=== PATIENT | female | born 1955 | race Caucasian/White ===

== ENCOUNTER → 2016-10-30 | Outpatient (CLI) | payer OTHER ==
[~2016-10-30] MED LIST: ADV250INH INH; ADVA115A INH; ALBU17IN INH; CHEL50TA PO; COUM2.5T11 PO; CURAMIN PO; DEXA2TA PO; DEXA4TA PO; DRIS50002 PO; KEPP1TAB2 PO; MAGN400C2 PO; PANT40TA2 PO; PERC5TAB6 PO; PROA1AER INH; TRAM50TA2 PO; TYLE325T5 PO; VITA100T56 PO; VITA20008 PO
[2016-10-30 16:10] LABS: BLOOD UREA NITROGEN 16 MG/DL (7-18); CREATININE FOR GFR 0.93 MG/DL (0.55-1.02); GLOMERULAR FILTRATION RATE > 60.0 (>45)
== END ==
LOC: M LAB 14:23
PROVIDERS: ATTEND Radiology Radiation Oncology
DX: D43.2 Neoplasm of uncertain behavior of brain, unspecified (principal)

== ENCOUNTER → 2017-04-19 | Outpatient (CLI) | payer OTHER ==
[~2017-04-19] MED LIST changes: -COUM2.5T11 PO; +COUM2.5T17 PO; +PERC5TAB12 PO; -PERC5TAB6 PO; -PROA1AER INH; +PROAAER10 INH
[2017-04-19 15:00] LABS: BASO # 0.1 10^3/uL (0.0-0.2); BASO % 0.5 % (0.0-1.0); EOS # 0.2 10^3/uL (0.0-0.50); EOS % 2.3 % (0.0-3.0); IMMATURE GRANULOCYTE % 0.3 % (0-0); LYMPH # 3.6 10^3/uL (1.5-4.5); LYMPH % 36.5 % (24.0-44.0); MEAN CORPUSCULAR HEMOGLOBIN 30.6 pg (27.0-33.0); MEAN CORPUSCULAR HGB CONC 33.9 g/dl (32.0-36.5); MEAN CORPUSCULAR VOLUME 90.4 fl (80.0-96.0); MONO # 1.1 10^3/uL (0.0-0.8); MONO % 10.7 % (0.0-5.0); NEUTROPHILS # 4.9 10^3/uL (1.8-7.7); NEUTROPHILS % 49.7 % (36.0-66.0); PLATELET COUNT, AUTOMATED 367 10^3/uL (150-450); RED CELL DISTRIBUTION WIDTH 12.9 % (11.5-14.5); WHITE BLOOD COUNT 9.8 10^3/uL (4.0-10.0)
[2017-04-19 15:24] LABS: ALBUMIN 3.9 GM/DL (3.2-5.2); ALBUMIN/GLOBULIN RATIO 1.05 (1.00-1.93); BILIRUBIN,TOTAL 0.6 MG/DL (0.2-1.0); CALCIUM LEVEL 9.7 MG/DL (8.8-10.2); CREATININE FOR GFR 1.02 MG/DL (0.55-1.02); GLOMERULAR FILTRATION RATE 58.5 (>45); POTASSIUM SERUM 4.3 MEQ/L (3.5-5.1); TOTAL PROTEIN 7.6 GM/DL (6.4-8.2)
== END ==
LOC: M LAB 14:02
PROVIDERS: ATTEND Family Medicine
DX: E78.2 Mixed hyperlipidemia (principal); J45.40 Moderate persistent asthma, uncomplicated

== ENCOUNTER 2017-06-09 16:31 | Emergency (ER) | payer OTHER ==
[~2017-06-09] VITALS: Ht 175.3 cm; Wt 86.4 kg
[2017-06-09 16:32] VITALS: BP 144/82
[2017-06-09] MEDS ORDERED: MAGN400C3 PO (16:39)
[2017-06-09] MEDS ORDERED: VITA500T PO (16:39)
[2017-06-09] MEDS ORDERED: TURM500T PO (16:39)
[2017-06-09] MEDS ORDERED: PSEUDOEPHEDRINE 30 MG TAB PO STA (17:34)
[2017-06-09] MEDS ORDERED: SUDA30TA8 PO (17:36)
== END 2017-06-09 17:58 | disposition home or self-care (01) ==
LOC: M ED 16:31
DX: H65.192 Other acute nonsuppurative otitis media, left ear (principal)

== ENCOUNTER → 2017-08-02 | Outpatient (CLI) | payer OTHER ==
[2017-08-02 19:08] LABS: BASO # 0.1 10^3/uL (0.0-0.2); BASO % 0.5 % (0.0-1.0); EOS # 0.2 10^3/uL (0.0-0.50); EOS % 2.2 % (0.0-3.0); HEMOGLOBIN 14.3 g/dl (12.0-16.0); IMMATURE GRANULOCYTE % 0.3 % (0-0); LYMPH # 3.4 10^3/uL (1.5-4.5); LYMPH % 36.7 % (24.0-44.0); MEAN CORPUSCULAR HGB CONC 33.3 g/dl (32.0-36.5); MEAN CORPUSCULAR VOLUME 90.1 fl (80.0-96.0); MONO % 11.1 % (0.0-5.0); NEUTROPHILS # 4.5 10^3/uL (1.8-7.7); NEUTROPHILS % 49.2 % (36.0-66.0); PLATELET COUNT, AUTOMATED 382 10^3/uL (150-450); RED BLOOD COUNT 4.77 10^6/uL (4.00-5.40); RED CELL DISTRIBUTION WIDTH 12.3 % (11.5-14.5); WHITE BLOOD COUNT 9.2 10^3/uL (4.0-10.0)
[2017-08-02 20:26] LABS: ALBUMIN 3.8 GM/DL (3.2-5.2); ALKALINE PHOSPHATASE 80 U/L (45-117); ALT/SGPT 22 U/L (12-78); ANION GAP 8 MEQ/L (8-16); AST/SGOT 11 U/L (7-37); BILIRUBIN,TOTAL 0.5 MG/DL (0.2-1.0); BLOOD UREA NITROGEN 16 MG/DL (7-18); CARBON DIOXIDE LEVEL 24 MEQ/L (21-32); CHLORIDE LEVEL 107 MEQ/L (98-107); CHOLESTEROL LEVEL 304 MG/DL (<200); CHOLESTEROL RISK RATIO 7.238 (<5); FREE T4 1.14 NG/DL (0.76-1.46); GLOMERULAR FILTRATION RATE > 60.0 (>45); GLUCOSE, FASTING 101 MG/DL (70-100); HDL CHOLESTEROL 42 MG/DL (>40); LDL CHOLESTEROL 214.2 MG/DL (<100); NON-HDL-C 262 MG/DL; POTASSIUM SERUM 4.4 MEQ/L (3.5-5.1); SODIUM LEVEL 139 MEQ/L (136-145); THYROID STIMULATING HORMONE 0.591 uIU/ML (0.358-3.740); TOTAL PROTEIN 7.6 GM/DL (6.4-8.2); TRIGLYCERIDES LEVEL 239 MG/DL (<150)
== END ==
LOC: M LAB 15:55
DX: D32.0 Benign neoplasm of cerebral meninges (principal); E78.2 Mixed hyperlipidemia
CPT/HCPCS: 84443

== ENCOUNTER → 2018-02-05 | Outpatient (CLI) | payer OTHER | LOC: M RAD 16:56 | DX: M54.5 Low back pain (principal); M51.36 Other intervertebral disc degeneration, lumbar region; M47.816 Spondylosis without myelopathy or radiculopathy, lumbar region; Z96.642 Presence of left artificial hip joint | CPT/HCPCS: 72110 ==

== ENCOUNTER → 2018-03-28 | Outpatient (CLI) | payer OTHER ==
[2018-03-28 18:02] LABS: BASO # 0.1 10^3/uL (0.0-0.2); BASO % 0.5 % (0.0-1.0); EOS # 0.2 10^3/uL (0.0-0.50); EOS % 1.7 % (0.0-3.0); HEMATOCRIT 42.6 % (36.0-47.0); HEMOGLOBIN 14.4 g/dl (12.0-15.5); IMMATURE GRANULOCYTE % 0.2 % (0-3.0); LYMPH # 3.6 10^3/uL (1.5-4.5); LYMPH % 33.4 % (24.0-44.0); MEAN CORPUSCULAR HEMOGLOBIN 30.7 pg (27.0-33.0); MEAN CORPUSCULAR HGB CONC 33.8 g/dl (32.0-36.5); MEAN CORPUSCULAR VOLUME 90.8 fl (80.0-96.0); MONO % 8.7 % (0.0-5.0); NEUTROPHILS % 55.5 % (36.0-66.0); PLATELET COUNT, AUTOMATED 365 10^3/uL (150-450); RED BLOOD COUNT 4.69 10^6/uL (4.00-5.40); RED CELL DISTRIBUTION WIDTH 12.5 % (11.5-14.5); WHITE BLOOD COUNT 10.9 10^3/uL (4.0-10.0)
[2018-03-28 18:44] LABS: ALBUMIN/GLOBULIN RATIO 1.14 (1.00-1.93); ALKALINE PHOSPHATASE 78 U/L (45-117); ALT/SGPT 26 U/L (12-78); ANION GAP 10 MEQ/L (8-16); AST/SGOT 15 U/L (7-37); BILIRUBIN,TOTAL 0.5 MG/DL (0.2-1.0); BLOOD UREA NITROGEN 15 MG/DL (7-18); CALCIUM LEVEL 9.5 MG/DL (8.8-10.2); CARBON DIOXIDE LEVEL 24 MEQ/L (21-32); CHLORIDE LEVEL 107 MEQ/L (98-107); CHOLESTEROL LEVEL 270 MG/DL (<200); CHOLESTEROL RISK RATIO 5.744 (<5); CREATININE FOR GFR 0.94 MG/DL (0.55-1.30); FREE T4 1.12 NG/DL (0.76-1.46); GLOMERULAR FILTRATION RATE > 60.0 (>45); GLUCOSE, FASTING 93 MG/DL (70-100); HDL CHOLESTEROL 47 MG/DL (>40); LDL CHOLESTEROL 178 MG/DL (<100); NON-HDL-C 223 MG/DL; POTASSIUM SERUM 4.2 MEQ/L (3.5-5.1); SODIUM LEVEL 141 MEQ/L (136-145); THYROID STIMULATING HORMONE 0.724 uIU/ML (0.358-3.740); TOTAL PROTEIN 7.5 GM/DL (6.4-8.2); TRIGLYCERIDES LEVEL 224 MG/DL (<150)
== END ==
LOC: M LAB 16:27
DX: E78.2 Mixed hyperlipidemia (principal); D32.0 Benign neoplasm of cerebral meninges
CPT/HCPCS: 84443

== ENCOUNTER → 2018-10-15 | Outpatient (CLI) | payer OTHER ==
[~2018-10-15] MED LIST changes: -DRIS50002 PO; +DRIS50003 PO; +MAGN400C3 PO; -PANT40TA2 PO; +PANT40TA3 PO; +SUDA30TA8 PO; +TURM500T PO; +VITA500T PO
[2018-10-15 17:40] LABS: GLOMERULAR FILTRATION RATE 59.6 (>45)
== END ==
LOC: M LAB 16:37
PROVIDERS: ATTEND Neurological Surgery
DX: D32.0 Benign neoplasm of cerebral meninges (principal)

== ENCOUNTER → 2018-10-15 | Outpatient (CLI) | payer OTHER ==
[2018-10-15 17:55] LABS: ALBUMIN 3.8 GM/DL (3.2-5.2); ALT/SGPT 21 U/L (12-78); BILIRUBIN,TOTAL 0.4 MG/DL (0.2-1.0); BLOOD UREA NITROGEN 13 MG/DL (7-18); CALCIUM LEVEL 9.3 MG/DL (8.8-10.2); CARBON DIOXIDE LEVEL 26 MEQ/L (21-32); CHLORIDE LEVEL 106 MEQ/L (98-107); CHOLESTEROL LEVEL 302 MG/DL (<200); CREATININE FOR GFR 0.97 MG/DL (0.55-1.30); GLOMERULAR FILTRATION RATE > 60.0 (>45); GLUCOSE, FASTING 100 MG/DL (70-100); HDL CHOLESTEROL 42 MG/DL (>40); LDL CHOLESTEROL 203 MG/DL (<100); NON-HDL-C 260 MG/DL; POTASSIUM SERUM 4.5 MEQ/L (3.5-5.1); SODIUM LEVEL 139 MEQ/L (136-145); TOTAL PROTEIN 7.4 GM/DL (6.4-8.2); TRIGLYCERIDES LEVEL 285 MG/DL (<150)
== END ==
LOC: M LAB 16:39
PROVIDERS: ATTEND Family Medicine
DX: E78.2 Mixed hyperlipidemia (principal)

== ENCOUNTER 2018-10-25 10:39 | Inpatient (IN) | payer OTHER ==
[~2018-10-25] VITALS: Ht 172.7 cm; Wt 85.9 kg
--- NOTE | 2018-10-25 11:26 | HPEPDOC ---
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 She recently had an MRI scan ordered by Dr. Haider her neurologist in [place] which showed 1.5cm recurrence of her tumor and her Keppra dosing was increased about 4 weeks prior to the onset of her symptoms. While at [facility] she was s tarted on IV steroids, her Keppra dosing was increased again to 1250 mg BID. Neurology performed an EEG on 10/21/18 showing, "mild focal cerebral dysfunction in the left central region. No epileptiform activity..." MR brain with and without contrast on 10/22/18 showed, Status post left parietal craniotomy for tumor resection. There is an irregular rim-enhancing mass underlying the craniotomy site with surrounding edema; the extent of edema similar to the previous examination. 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 She had breakthrough seizures for which neurology was consulted and Dilantin was added. She was instructed by Dr. Brandt to have a PET scan after discharge from rehab. She was evaluated by therapy and found to have significant impairments in gait and ADLs and deemed medically appropriate for discharge to ARU on 10/25/18. REVIEW OF SYSTEMS: The following is a completed review of systems and has been reviewed. Review of systems otherwise unremarkable. PAIN: Patient self reports right hip pain (chronic) EYES: Negative for recent vision changes EARS, NOSE, & THROAT: denies dysphagia, throat pain or rhinorrhea CARDIOVASCULAR: denies chest pain or palpitations PULMONARY: Negative. Denies shortness of breath. GASTROINTESTINAL: Negative for diarrhea/constipation GENITOURINARY: Denies incontinence or dysuria MUSCULOSKELETAL: right hip pain NEUROLOGICAL: seizures and RUE numbness and RLE weakness SKIN: no rashes PSYCHIATRIC: Unremarkable All other review of systems found to be negative. PAST MEDICAL HISTORY: as per HPI PAST SURGICAL HISTORY: Appendectomy, Hysterectomy, Cyber knife ALLERGIES: Please see below. MEDICATIONS: Please see below. FAMILY HISTORY: father with CAD and Hypothyroidism, Mother with CVA SOCIAL HISTORY: Lives with who has TBI, denies smoking, illicit drugs, occasional ETOH, retired DIET: Regular PHYSICAL EXAMINATION: VITAL SIGNS: Please see below. GENERAL: Pleasant and cooperative. No acute distress. HEENT: PERRL. Extraocular movements intact. Clear conjunctiva, +glasses CARDIOVASCULAR: Regular rate and rhythm. No murmurs, rubs, or gallops LUNGS: Clear to auscultation bilaterally. No wheezes. No rhonchi ABDOMEN: Soft, nontender, nondistended. Positive bowel sounds. Normal active bowel sounds, no suprapubic tenderness NEUROLOGICAL: Alert and oriented times three. Cranial nerves II through XII grossly intact. Sensation diminished in right hand and forearm (+) babinksi on the right EXTREMITIES: 5\\5 strength ;eft upper extremities.3+/5 RUE strength with +pronator drift 3+\\5 strength right hip flexion, knee extension, 2/5 ankle DF and PF 5/5 strength in left lower extremity. (+) groin pain with internal right hip rotation SKIN: intact, no sacral ulcers IMAGING: Imaging documentation personally reviewed by record FUNCTIONAL STATUS: Premorbid: Modified Independent with all activities of daily life as well as mobility using RW and right AFO On Admission: Min assist for upper body dressing, max assist for lower body dressing, Mod assist for lower body bathing, Min assist for functional transfers, min assist for ambulation. GOALS: Mod-I with RW for ambulation, stairs, Mod-I for dressing, bathing, toileting, fall recovery, optimize dynamic balance, medical optimization, assess for DME, caregiver training, home evaluation. ASSESSMENT:62-year-old F with past medical history of left parietal meningioma s/p resection who presents status post new seizure activity in setting of tumor necrosis vs recurrence. PLAN: 1. rehab: OT, OT, [employer]- assess for DMEs 2. Neuro: s/p resection and radiation of left parietal meningioma 2016, now with new onset seizures on Keppra and Dilantin in setting of tumor necrosis vs tumor recurrence will consult Dr. Haider to continue following while on ARU -c/u Decadron taper, monitor DIlatin levels -will need PET scan upon discharge 3. CArdio: no known cardiac history 4. Resp: stable, will encourage incentive spirometry and monitor for infection 5. : f/u admission UA and Ucx, monitor PVRs 6. DVT ppx: will start Lovenox 7. GI ppx: protonix 8. Dispo: TBD POST ADMISSION PHYSICIAN EVALUATION: Medical and functional status: Description of medical status, medical assessment: As above. Rehabilitation diagnosis and current and prior cold morbid medical conditions as above. Risk of complications and plans to mitigate them as above. Description of functional status current status is as above. Prior status as above. Status compared to preadmission: There are no clinically significant differences between the patient's current status and the information described on the preadmission screening document. Treatment plan anticipated: Treatment plan is as described above. Required disciplines including physical therapy, occupational therapy, others as noted above Intensity of services: 3 hours a day, 6 days a week. Special considerations: There are no specific special or safety considerations that would likely preclude immediate implementation of an intensive rehabilitation program or subsequently influence the plan of care. ATTESTATION: Considering all the information above, it is my best judgment that this patient requires intensive rehabilitation therapy as described above and an inpatient hospital environment due to the complexity of nursing, medical, and rehabilitation needs required by the patient. Furthermore, this patient can reasonably be expected to participate in an benefit from an inpatient rehabilitation stay with an interdisciplinary team approach to the delivery of rehabilitation care under the direction and supervision of rehabilitation physician PROGNOSIS: Good ESTIMATED LENGTH OF STAY:18-21 days. PROJECTED DISCHARGE DESTINATION: Home with family support and any durable medical equipment required to increase functional safety and mobility. TIME SPENT COUNSELING AND COORDINATING INITIAL CARE: Greater than 70 minutes. Vital Signs Vital Signs Date Time Temp Pulse Resp B/P (MAP) Pulse Ox O2 Delivery O2 Flow Rate FiO2 10/25/18 15:54 97.0 60 17 147/94 (111) 94 Home Medications Scheduled Ascorbic Acid (Vitamin C) 500 Mg Tab, 500 MG PO DAILY, (Reported) Dexamethasone (Dexamethasone) 1 Mg Tablet, 3 MG PO Q8H Docusate Sodium (Colace) 100 Mg Capsule, 100 MG PO BID, (Reported) Levetiracetam (Keppra) 500 Mg Tablet, 1,250 MG PO BID Pantoprazole Sodium (Pantoprazole Sodium) 40 Mg Tablet.dr, 40 MG PO DAILY Phenytoin Sodium Extended (Dilantin) 100 Mg Capsule, 400 MG PO DAILY Sennosides (Senna Laxative) 8.6 Mg Tablet, 17.2 MG PO QHS, (Reported) Vitamin D (Vitamin D3) 1,000 Unit Tablet, 1,000 UNITS PO DAILY, (Reported) Scheduled PRN Milk Of Magnesia (Milk of Magnesia) 2,400 Mg/10 Ml Oral.susp, 30 ML PO DAILY PRN for CONSTIPATION, (Reported) Allergies Coded Allergies: ciprofloxacin (Verified Adverse Reaction, Mild, "MAKES SICK", 10/25/18) ibuprofen (Verified Adverse Reaction, Mild, ASTHMA, 10/25/18) rosuvastatin (Verified Adverse Reaction, Mild, CRAMPS, 10/25/18) sodium hypochlorite solution (Verified Adverse Reaction, Mild, CHLORINE - ASTHMA, 10/25/18) A-FIB/CHADSVASC A-FIB History Current/History of A-Fib/PAF?: No ANGELA THOMAS MD Oct 25, 2018 11:26 FLY GEE MD Oct 25, 2018 17:15
[2018-10-25] MEDS ORDERED: MAALOX 30 ML SUSP *UDC PO PRN (11:30)
[2018-10-25] MEDS ORDERED: MOM 30ML SUSPENSION UDC PO PRN (11:30)
[2018-10-25] MEDS ORDERED: ONDANSETRON 4 MG TAB (S0181) PO PRN (11:30)
[2018-10-25] MEDS ORDERED: BISACODYL 5 MG TAB PO PRN (11:30)
[2018-10-25 15:54] VITALS: BP 147/94
[2018-10-25] MEDS ORDERED: COLA100C5 PO (16:11)
[2018-10-25] MEDS ORDERED: PANT40TA3 PO (16:11)
[2018-10-25] MEDS ORDERED: HUMA100I5 SC (16:11)
[2018-10-25] MEDS ORDERED: LEVE250T5 PO (16:11)
[2018-10-25] MEDS ORDERED: SENN-85 PO (16:11)
[2018-10-25] MEDS ORDERED: VITAD1000T PO (16:11)
[2018-10-25] MEDS ORDERED: MOM30SS PO (16:21)
[2018-10-25] MEDS ORDERED: KEPP1TAB PO (16:21)
[2018-10-25] MEDS ORDERED: DEXA4TA PO (16:21)
[2018-10-25] MEDS ORDERED: QC A650T3 PO (16:21)
[2018-10-25] MEDS ORDERED: TRAM50TA2 PO (16:21)
[2018-10-25] MEDS ORDERED: [UNRECOGNIZED DRUG - CODE] SC (16:21)
[2018-10-25] MEDS ORDERED: DEXTROSE 50% 50 ML SYRINGE IV PRN (17:15)
[2018-10-25] MEDS ORDERED: ALBUTEROL SULFATE 2.5 MG/0.5 ML INH NEB SOLN INH PRN (17:15)
[2018-10-25] MEDS ORDERED: GLUCAGON FOR INJ 1 MG VIAL (J1610) SC PRN (17:15)
[2018-10-25] MEDS ORDERED: GLUCOSE 4 GM CHEW TABLET PO PRN (17:15)
--- NOTE | 2018-10-25 17:15 | CR.PDOC ---
General Date of Consultation: Oct 25, 2018 Consultation REASON FOR CONSULTATION/CHIEF COMPLAINT: Presented to [facility] acute rehabilitation unit from [facility] after hospitalization for a seizure episode. HISTORY OF PRESENT ILLNESS: Patient is a 62-year-old female with a PMHx of Asthma, Childhood rheumatic fever with some RLE weakness, L parietal meningioma s/p craniotomy (06/2016) and s/p radiation for residual (on Keppra 750 BID for prophylactic seizures). Patient had noted that approximately 4 weeks ago she experienced right arm and leg numbness and tingling. . She was evaluated by neurology who performed an MRI suggested that there was a possible recurrence of her meningioma. Her dose of Keppra was increased to 1000 BID. On Sunday, patient was at home and experienced sudden right-sided weakness involving her right upper and lower extremity as well as numbness. Patient came to the emergency room for further evaluation where she was suspected to have a possible stroke and was transferred to [facility] for further evaluation. At [facility] patient had a short hospital stay where she was evaluated and found to have a suspected partial seizure. MRI completed at [facility] revealed that there was a possible irregular rhythm enhancing mass; this could represent radiation necrosis versus recurrent tumor. Patient continued to experience breakthrough seizures at [facility]. Neurology was consult that there; Dilantin and Dexamethasone were added to her regimen. Patient has been stable at [facility] and has been transferred to [facility] for continued rehabilitation at the acute rehabilitation unit under the care of Dr. Avelar. Hospitalist service was called for assistance in medical management. Patient reports that she's not experiencing a headache. Has some nausea but no vomiting. Denies chest pain or palpitations. Reports a cough with some sputum production. However, this has been chronic. Denies any abdominal pain, constipation, diarrhea or discomfort with urination. Patient reports her appetite has been fair and has reported a weight gain of approximately 30 pounds over 3 months. ALLERGIES: Please see below. HOME MEDICATIONS: Please see below. PAST MEDICAL HISTORY: Asthma, Childhood rheumatic fever with some RLE weakness, L parietal meningioma s/p craniotomy (06/2016) and s/p radiation for residual (on Keppra 750 BID for prophylactic seizures) PAST SURGICAL HISTORY: Left hip arthroplasty with Dr. 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 - General: Lying in bed, No acute distress, Speaking in full sentences, AAOx3 - HEENT: NC, AT, PERRLA, EOMI - CVS: RRR, +S1S2, - Murmurs / rubs / gallops - Lungs: Fair air entry bilaterally, Clear to auscultation, No wheezing / rales / rhonchi - Abdomen: Soft, Non-distended, Non-tender - Extremities: No lower extremity edema, No calf tenderness - Neuro: Weakness of 1-2/5 is noted at the right lower extremity and 4/5 at Right hand - Skin: No visible rashes LABORATORY DATA: Please see below. ASSESSMENT/PLAN: Recent seizure activity - likely 2/2 underlying recurrence of possible meningioma - Currently, patient has not experienced any seizure activity - Physical still reveal some weakness at right lower extremity and right hand - MRI at [facility] 10/22: Irregular rhythm enhancing mass underlying the craniotomy site with surrounding edema; the extent of edema, similar to the previous examination. 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 - Patient has been advised to follow-up as an outpatient for a PET scan - Neurology at [facility] has added Dilantin and dexamethasone taper regimen - c/w Dilantin, Keppra and Dexamethasone - Neurology has been consult and here - Currently being managed by ARU; Dr. Avelar Patient has reported hyperglycemia - likely 2/2 corticosteroid use - Will check A1c - Will start ISS with AC/HS glucose checks Asthma - Will start albuterol PRN Childhood rheumatic fever with some RLE weakness GERD - c/w Protonix as per ARU DVT prophylaxis - c/w Lovenox as per ARU Allergies Coded Allergies: ciprofloxacin (Verified Adverse Reaction, Mild, "MAKES SICK", 10/25/18) ibuprofen (Verified Adverse Reaction, Mild, ASTHMA, 10/25/18) rosuvastatin (Verified Adverse Reaction, Mild, CRAMPS, 10/25/18) sodium hypochlorite solution (Verified Adverse Reaction, Mild, CHLORINE - ASTHMA, 10/25/18) Home Medications Scheduled Ascorbic Acid (Vitamin C) 500 Mg Tab, 500 MG PO DAILY, (Reported) Dexamethasone (Dexamethasone) 4 Mg Tablet, 4 MG PO Q6H, (Reported) Docusate Sodium (Colace) 100 Mg Capsule, 100 MG PO BID, (Reported) Heparin Sod,Porcine/0.9 % NaCl (Heparin 2,500 Unit/500 ml-Ns) 2,500 Unit/500 Ml Iv.soln, 5,000 UNITS SC TID, (Reported) Insulin Lispro (Humalog Kwikpen U-100) 100 Unit/1 Ml Insuln.pen, 1 DOSE SC ASDIRECTED, (Reported) PER SLIDING SCALE Levetiracetam (Keppra) 500 Mg Tablet, 1,250 MG PO BID, (Reported) Pantoprazole Sodium (Pantoprazole Sodium) 40 Mg Tablet.dr, 40 MG PO DAILY, (Reported) Sennosides (Senna Laxative) 8.6 Mg Tablet, 17.2 MG PO QHS for constipation, (Reported) Vitamin D (Vitamin D3) 1,000 Unit Tablet, 1,000 UNITS PO DAILY, (Reported) Scheduled PRN Acetaminophen (Acetaminophen 8 Hour) 650 Mg Tablet.er, 1,300 MG PO Q6H PRN for MILD PAIN OR FEVER, (Reported) Milk Of Magnesia (Milk of Magnesia) 2,400 Mg/10 Ml Oral.susp, 30 ML PO DAILY PRN for CONSTIPATION, (Reported) Tramadol HCl (Tramadol HCl) 50 Mg Tablet, 50 MG PO Q8H PRN for PAIN, (Reported) FLY GEE MD Oct 25, 2018 17:15
[2018-10-25] MEDS: HumaLOG INSULIN (NovoLOG) PER UNIT SC SCH ×2 (17:48→22:12)
[2018-10-25 20:00] VITALS: BP 138/80
[2018-10-25] MEDS: DOCUSATE SODIUM 100 MG CAP PO SCH (22:11)
[2018-10-25] MEDS: levETIRAcetam 250MG TABLET (KEPPRA) PO SCH (22:11)
[2018-10-26 06:00] VITALS: BP 129/76
[2018-10-26 07:25] LABS: HEMATOCRIT 43.1 % (36.0-47.0); HEMOGLOBIN 14.3 g/dl (12.0-15.5); MEAN CORPUSCULAR HEMOGLOBIN 30.6 pg (27.0-33.0); MEAN CORPUSCULAR HGB CONC 33.2 g/dl (32.0-36.5); MEAN CORPUSCULAR VOLUME 92.1 fl (80.0-96.0); PLATELET COUNT, AUTOMATED 348 10^3/uL (150-450); RED BLOOD COUNT 4.68 10^6/uL (4.00-5.40); WHITE BLOOD COUNT 13.6 10^3/uL (4.0-10.0)
[2018-10-26 07:48] LABS: HEMOGLOBIN A1c 6.1 %
[2018-10-26 07:52] LABS: ALBUMIN 3.3 GM/DL (3.2-5.2); ALT/SGPT 33 U/L (12-78); BILIRUBIN,TOTAL 0.2 MG/DL (0.2-1.0); BLOOD UREA NITROGEN 19 MG/DL (7-18); CALCIUM LEVEL 8.2 MG/DL (8.8-10.2); CARBON DIOXIDE LEVEL 27 MEQ/L (21-32); CHLORIDE LEVEL 107 MEQ/L (98-107); CREATININE FOR GFR 0.95 MG/DL (0.55-1.30); GLOMERULAR FILTRATION RATE > 60.0 (>45); GLUCOSE, FASTING 105 MG/DL (70-100); LYMPHOCYTES 26 % (16-52); MONOCYTES 8 % (0-8); NEUTROPHILS 66 % (35-75); PHENYTOIN (DILANTIN) 8.8 UG/ML (10.0-20.0); PLATELET ESTIMATE NORMAL (NORMAL); SODIUM LEVEL 141 MEQ/L (136-145); TOTAL PROTEIN 7.1 GM/DL (6.4-8.2)
[2018-10-26] MEDS: DOCUSATE SODIUM 100 MG CAP PO SCH ×2 (08:06→21:34)
[2018-10-26] MEDS: ENOXAPARIN 40 MG/0.4 ML SYRINGE (J1650) SC SCH (08:06)
[2018-10-26] MEDS: HumaLOG INSULIN (NovoLOG) PER UNIT SC SCH ×4 (08:06→21:00)
[2018-10-26] MEDS: ASCORBIC ACID 500 MG TAB PO SCH (08:06)
[2018-10-26] MEDS: PANTOPRAZOLE 40MG TAB (PROTONIX) PO SCH (08:06)
[2018-10-26] MEDS: levETIRAcetam 250MG TABLET (KEPPRA) PO SCH ×2 (08:07→21:35)
[2018-10-26] MEDS: VITAMIN D 1,000 INTERNATIONAL UNITS TABLET PO SCH (08:07)
[2018-10-26] MEDS: PHENYTOIN ER 100 MG CAP PO SCH (08:07)
[2018-10-26 08:09] LABS: MAGNESIUM LEVEL 2.1 MG/DL (1.8-2.4)
--- NOTE | 2018-10-26 10:16 | CR ---
DATE OF CONSULTATION: 10/25/2018 REFERRING PHYSICIAN: Dr. Kelsey Jasso REASON FOR CONSULTATION: Meningioma with seizures. HISTORY OF PRESENT ILLNESS: Anika Jackson is a 62-year-old woman who had resection of left parietal and frontal meningioma in 2015, followed by gamma knife radiation in September 2016 at [facility]. Patient has history of right-sided focal, sensory and motor seizures. Repeat scans have been unremarkable over the last 2 years until her last scan over the last 1 month, which showed a recurrent 1.5 cm tumor with vasogenic edema. I called her and arranged an urgent follow with her neurosurgeon, Dr. Brandt. Her surgery and gamma knife was performed by Dr. Marquise Beverly who has left the area. According to the patient, on 10/21/2018 she developed dizziness, sudden onset right-sided weakness and numbness, which was much more than her usual baseline, along with twitching. She was taken to [facility]. Her blood pressure was 192/112. She had repeat scan of her brain and it was read as radiation necrosis versus recurrent tumor. Patient was started on Decadron and Dilantin was added to increased dose of her Keppra. Her electroencephalogram (EEG) showed left frontal and central focal slowing without epileptiform discharges. Patient denies any dysphagia, dysarthria, diplopia, falls or loss of consciousness. She denies any neck or back pain or headaches. Plan is to do a PET scan per Dr. Brandt, which is being arranged by her neurosurgeon. PAST MEDICAL HISTORY: 1. History of rheumatic fever in childhood. 2. Left-sided meningioma status post resection and gamma knife radiation in [id number]. 3. Appendectomy. 4. Hysterectomy. CURRENT MEDICATIONS: - Keppra 1250 mg by mouth twice a day - Protonix 40 mg by mouth daily - dexamethasone 4 mg every 6 hours - vitamin C 500 mg by mouth daily ALLERGIES: CIPROFLOXACIN, CRESTOR, IBUPROFEN. SOCIAL HISTORY: She denies smoking, alcohol or illicit drugs. FAMILY HISTORY: Noncontributory. PHYSICAL EXAMINATION: Vital signs are stable and within normal limits. Heart regular rate and rhythm. Lungs clear to auscultation. Abdomen soft, nontender, nondistended. No pedal edema. No musculoskeletal abnormalities. No rash. No signs of meningeal irritation. Patient is awake, alert, oriented to place, person and time. Normal speech, comprehension and repetition. Extraocular muscles are intact. No facial weakness. Tongue and uvula are midline. 4+/5 throughout in the right arm and 3-/5 strength in the right leg. Left-sided strength is 5/5. Her gait is unsteady. There is no dysmetria. Her right plantar is upgoing. Left plantar is downgoing. Recent and distant memory is intact. There is no nystagmus. ASSESSMENT: 1. Left frontal and parietal meningioma status post resection and gamma knife in [id number]. 2. Right-sided focal, motor and sensory partial seizures. 3. There is concern for recurrence of meningioma and radiation necrosis is less likely. PLAN: 1. Continue Dilantin 300 mg by mouth nightly and Keppra 1250 mg by mouth twice a day. Will continue Decadron 4 mg by mouth every 6 hours. 2. We Will change Dilantin to Vimpat as outpatient as Dilantin may reduce effectiveness of chemotherapy. She is confirmed to have recurrent meningioma and had surgery and chemotherapy. She will have PET scan through office of Dr. Brandt. 3. Follow with us in 2-4 weeks after hospital and rehabilitation discharge. DONAVON
--- NOTE | 2018-10-26 11:53 | IPNPDOC ---
Text Note Date of Service The patient was seen on 10/26/18. NOTE Subjective: Patient is a 62-year-old female with a PMHx of Asthma, Childhood rheumatic fever with some RLE weakness, L parietal meningioma s/p craniotomy (06/2016) and s/p radiation for residual (on Keppra 750 BID for prophylactic seizures). Patient had noted that approximately 4 weeks ago she experienced right arm and leg numbness and tingling. . She was evaluated by neurology who performed an MRI suggested that there was a possible recurrence of her meningioma. Her dose of Keppra was increased to 1000 BID. On Sunday, patient was at home and experienced sudden right-sided weakness involving her right upper and lower extremity as well as numbness. Patient came to the emergency room for further evaluation where she was suspected to have a p ossible stroke and was transferred to [facility] for further evaluation. At [place] patient had a short hospital stay where she was evaluated and found to have a suspected partial seizure. MRI completed at [place] revealed that there was a possible irregular rhythm enhancing mass; this could represent radiation necrosis versus recurrent tumor. Patient continued to experience breakthrough seizures at [facility]. Neurology was consult that there; Dilantin and Dexamethasone were added to her regimen. Patient has been stable at [facility] and has been transferred to [facility] for continued rehabilitation at the acute rehabilitation unit under the care of Dr. Avelar. Hospitalist service was called for assistance in medical management. Patient was seen and examined at the bedside. Denies any N/V, abdominal pain, C/D or dysuria. Denies any CP, SOB or palpitations. Objective: Vitals (See below) General: Lying in bed, no acute distress, comfortable, AAOx3 HEENT: NC, AT CVS: RRR, +S1S2 Lungs: Fair air entry b/l, -w/r/r Abdomen: Soft, ND, NT Extremities: - Edema, - Calf tenderness Neuro: RLE weakness and R hand weakness noted Assessment and plan: Recent seizure activity - likely 2/2 underlying recurrence of possible meningioma - No seizure episode noted - Physical with persistant weakness on R side - Subtherapeutic Dilantin level; will discuss with neurology - MRI at [place] 10/22: Irregular rhythm enhancing mass underlying the craniotomy site with surrounding edema; the extent of edema, similar to the previous examination. 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 - Patient has been advised to follow-up as an outpatient for a PET scan - Neurology at [place] has added Dilantin and dexamethasone taper regimen - c/w Dilantin, Keppra and Dexamethasone - Currently being managed by ARU, Dr. Avelar and Neurology, Dr. Haider (on consult) Patient has reported hyperglycemia - likely 2/2 corticosteroid use - A1c of 6.1 - c/w ISS with AC/HS glucose checks Asthma - c/w albuterol PRN Childhood rheumatic fever with some RLE weakness GERD - c/w Protonix as per ARU DVT prophylaxis - c/w Lovenox as per ARU Disposition: - Awaiting progress with PT / OT VS,Fishbone, I+O VS, Fishbone, I+O Laboratory Tests 10/26/18 06:59 Red Blood Count 4.68, Mean Corpuscular Volume 92.1, Mean Corpuscular Hemoglobin 30.6, Mean Corpuscular Hemoglobin Concent 33.2, Red Cell Distribution Width 12.7, Lymphocytes # (Auto) , Calcium Level 8.2 L, Aspartate Amino Transf (AST/SGOT) 22, Alanine Aminotransferase (ALT/SGPT) 33, Alkaline Phosphatase 65, Total Bilirubin 0.2, Total Protein 7.1, Albumin 3.3 Vital Signs Date Time Temp Pulse Resp B/P (MAP) Pulse Ox O2 Delivery O2 Flow Rate FiO2 10/26/18 06:00 97.9 68 18 129/76 (93) 94 I&O- Last 24 Hours up to 6 AM 10/26/18 06:00 Intake Total 1200 ml Balance 1200 ml FLY GEE MD Oct 26, 2018 11:53
--- NOTE | 2018-10-26 12:49 | NUR ---
Swallow is adequate. No overt s/s of aspiration/penetration. Recommend: Regular solids/liquids. Meds whole with liquid wash. Upright position for all meals/meds/snacks Addendum: 10/26/18 at 1250 by MAYELIN NAVARRO [facility] Amended: Links added.
[2018-10-26 13:10] LABS: APPEARANCE, URINE CLEAR (CLEAR); BACTERIA, URINE AUTO NEGATIVE (NEGATIVE); BILIRUBIN, URINE AUTO NEGATIVE (NEGATIVE); BLOOD, URINE BLOOD NEGATIVE (NEGATIVE); COLOR, URINE STRAW (YELLOW); GLUCOSE, URINE (UA) AUTO NEGATIVE (NEGATIVE); KETONE, URINE AUTO NEGATIVE (NEGATIVE); LEUKOCYTE ESTERASE, URINE AUTO NEGATIVE (NEGATIVE); NITRITE, URINE AUTO NEGATIVE (NEGATIVE); PROTEIN, URINE AUTO NEGATIVE (NEGATIVE); RBC, URINE AUTO 2 /HPF (0-3); SPECIFIC GRAVITY URINE AUTO 1.005 (1.002-1.035); SQUAMOUS EPITHELIAL CELL UR AU 0 /HPF (0-6); UROBILINOGEN, URINE AUTO 0.2 mg/dL (0.0-2.0); WBC, URINE AUTO 0 /HPF (0-3)
[2018-10-26 13:46] VITALS: BP 142/98
[2018-10-26 20:00] VITALS: BP 130/70
[2018-10-27 06:00] VITALS: BP 130/80
[2018-10-27] MEDS: PHENYTOIN ER 100 MG CAP PO SCH (07:48)
[2018-10-27] MEDS: HumaLOG INSULIN (NovoLOG) PER UNIT SC SCH ×4 (07:48→21:00)
[2018-10-27] MEDS: ASCORBIC ACID 500 MG TAB PO SCH (07:49)
[2018-10-27] MEDS: PANTOPRAZOLE 40MG TAB (PROTONIX) PO SCH (07:49)
[2018-10-27] MEDS: DOCUSATE SODIUM 100 MG CAP PO SCH ×2 (07:49→21:03)
[2018-10-27] MEDS: VITAMIN D 1,000 INTERNATIONAL UNITS TABLET PO SCH (07:49)
[2018-10-27] MEDS: levETIRAcetam 250MG TABLET (KEPPRA) PO SCH ×2 (07:49→21:03)
[2018-10-27] MEDS: ENOXAPARIN 40 MG/0.4 ML SYRINGE (J1650) SC SCH (07:52)
--- NOTE | 2018-10-27 10:29 | IPNPDOC ---
Text Note Date of Service The patient was seen on 10/27/18. NOTE Subjective: Patient is a 62-year-old female with a PMHx of Asthma, Childhood rheumatic fever with some RLE weakness, L parietal meningioma s/p craniotomy (06/2016) and s/p radiation for residual (on Keppra 750 BID for prophylactic seizures). Patient had noted that approximately 4 weeks ago she experienced right arm and leg numbness and tingling. . She was evaluated by neurology who performed an MRI suggested that there was a possible recurrence of her meningioma. Her dose of Keppra was increased to 1000 BID. On Sunday, patient was at home and experienced sudden right-sided weakness involving her right upper and lower extremity as well as numbness. Patient came to the emergency room for further evaluation where she was suspected to have a possible stroke and was transferred to [facility] for further evaluation. At [facility] patient had a short hospital stay where she was evaluated and found to have a suspected partial seizure. 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 Patient continued to experience breakthrough seizures at [facility]. Neurology was consult that there; Dilantin and Dexamethasone were added to her regimen. Patient has been stable at [facility] and has been transferred to [facility] for continued rehabilitation at the acute rehabilitation unit under the care of Dr. Avelar. Hospitalist service was called for assistance in medical management. Patient was seen and examined at the bedside. Patient denies any nausea, vomiting, abdominal pain, patient, diarrhea or discomfort with urination. Overnight, patient reports that she may have had some tremors of her right arm. She does report increased numbness of her right hand. Objective: Vitals (See below) General: Lying in bed, no acute distress, comfortable, AAOx3 HEENT: NC, AT CVS: RRR, +S1S2 Lungs: Fair air entry b/l, auscultation is without any wheezing, rales or rh onchi Abdomen: Remains soft, without any distention or tenderness Extremities: No evidence of lower extremity edema, - Calf tenderness Neuro: RLE weakness and R hand weakness noted; and appears to be the same as yesterday, however, she does report subjective worsening of numbness of her right hand Assessment and plan: Recent seizure activity - likely 2/2 underlying recurrence of possible meningioma - Questionable tremor-like episodes of right hand yesterday evening - Physical with persistent weakness on R side - Subtherapeutic Dilantin level; will repeat level tomorrow morning - MRI at [facility] 10/22: Irregular rhythm enhancing mass underlying the craniotomy site with surrounding edema; the extent of edema, similar to the previous examination. 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 - Patient has been advised to follow-up as an outpatient for a PET scan - Neurology at [facility] has added Dilantin and dexamethasone taper regimen - c/w Dilantin, Keppra and Dexamethasone - Currently being managed by ARU, Dr. Avelar and Neurology, Dr. Haider (on consult) Patient has reported hyperglycemia - likely 2/2 corticosteroid use - A1c of 6.1 - c/w ISS with AC/HS glucose checks Asthma - c/w albuterol PRN Childhood rheumatic fever with some RLE weakness GERD - c/w Protonix as per ARU DVT prophylaxis - c/w Lovenox as per ARU Disposition: - Awaiting progress with PT / OT - Will repeat Dilantin level with questionable episode of tremors / partial seizure overnight VS,Fishbone, I+O VS, Fishbone, I+O Vital Signs Date Time Temp Pulse Resp B/P (MAP) Pulse Ox O2 Delivery O2 Flow Rate FiO2 10/27/18 06:00 96.4 65 18 130/80 (97) 95 I&O- Last 24 Hours up to 6 AM 10/27/18 06:00 Intake Total 1520 ml Output Total 550 ml Balance 970 ml FLY GEE MD Oct 27, 2018 10:29
[2018-10-27 14:00] VITALS: BP 122/81
[2018-10-27 20:00] VITALS: BP 132/83
[2018-10-28 06:00] VITALS: BP 105/65
[2018-10-28 06:50] LABS: BASO # 0.1 10^3/uL (0.0-0.2); BASO % 0.5 % (0.0-1.0); EOS # 0.2 10^3/uL (0.0-0.50); EOS % 1.8 % (0.0-3.0); HEMATOCRIT 41.8 % (36.0-47.0); HEMOGLOBIN 13.7 g/dl (12.0-15.5); LYMPH # 3.5 10^3/uL (1.5-4.5); LYMPH % 29.9 % (24.0-44.0); MEAN CORPUSCULAR HGB CONC 32.8 g/dl (32.0-36.5); MEAN CORPUSCULAR VOLUME 91.5 fl (80.0-96.0); MONO % 8.5 % (0.0-5.0); NEUTROPHILS # 6.7 10^3/uL (1.8-7.7); NEUTROPHILS % 58.1 % (36.0-66.0); PLATELET COUNT, AUTOMATED 328 10^3/uL (150-450); RED BLOOD COUNT 4.57 10^6/uL (4.00-5.40); WHITE BLOOD COUNT 11.5 10^3/uL (4.0-10.0)
[2018-10-28 07:18] LABS: BLOOD UREA NITROGEN 15 MG/DL (7-18); CALCIUM LEVEL 8.4 MG/DL (8.8-10.2); CARBON DIOXIDE LEVEL 28 MEQ/L (21-32); CHLORIDE LEVEL 109 MEQ/L (98-107); CREATININE FOR GFR 0.81 MG/DL (0.55-1.30); GLOMERULAR FILTRATION RATE > 60.0 (>45); GLUCOSE, FASTING 97 MG/DL (70-100); MAGNESIUM LEVEL 2.2 MG/DL (1.8-2.4); PHENYTOIN (DILANTIN) 7.4 UG/ML (10.0-20.0); POTASSIUM SERUM 4.3 MEQ/L (3.5-5.1); SODIUM LEVEL 142 MEQ/L (136-145)
[2018-10-28] MEDS: HumaLOG INSULIN (NovoLOG) PER UNIT SC SCH ×4 (07:30→21:00)
[2018-10-28] MEDS: PANTOPRAZOLE 40MG TAB (PROTONIX) PO SCH (09:51)
[2018-10-28] MEDS: ASCORBIC ACID 500 MG TAB PO SCH (09:52)
[2018-10-28] MEDS: DOCUSATE SODIUM 100 MG CAP PO SCH ×2 (09:52→21:52)
[2018-10-28] MEDS: levETIRAcetam 250MG TABLET (KEPPRA) PO SCH ×2 (09:52→21:52)
[2018-10-28] MEDS: VITAMIN D 1,000 INTERNATIONAL UNITS TABLET PO SCH (09:52)
[2018-10-28] MEDS: ENOXAPARIN 40 MG/0.4 ML SYRINGE (J1650) SC SCH (09:52)
[2018-10-28] MEDS: PHENYTOIN ER 100 MG CAP PO SCH (12:40)
[2018-10-28 14:00] VITALS: BP 113/78
--- NOTE | 2018-10-28 16:40 | IPNPDOC ---
Text Note Date of Service The patient was seen on 10/28/18. NOTE Subjective: Patient is a 62-year-old female with a PMHx of Asthma, Childhood rheumatic fever with some RLE weakness, L parietal meningioma s/p craniotomy (06/2016) and s/p radiation for residual (on Keppra 750 BID for prophylactic seizures). Patient had noted that approximately 4 weeks ago she experienced right arm and leg numbness and tingling. . She was evaluated by neurology who performed an MRI suggested that there was a possible recurrence of her meningioma. Her dose of Keppra was increased to 1000 BID. On Sunday, patient was at home and experienced sudden right-sided weakness involving her right upper and lower extremity as well as numbness. Patient came to the emergency room for further evaluation where she was suspected to have a p ossible stroke and was transferred to [facility] for further evaluation. At [place] patient had a short hospital stay where she was evaluated and found to have a suspected partial seizure. 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 Patient continued to experience breakthrough seizures at [facility]. Neurology was consult that there; Dilantin and Dexamethasone were added to her regimen. Patient has been stable at [facility] and has been transferred to [facility] for continued rehabilitation at the acute rehabilitation unit under the care of Dr. Avelar. Hospitalist service was called for assistance in medical management. Patient was seen and examined at the bedside. Patient reports that she has a feeling of fogginess. Denies any nausea, vomiting, abdominal pain, constipation, diarrhea or urinary discomfort. Patient denies any chest pain, shortness of breath, palpitations or cough. She has not experienced any episodes of tremors. Objective: Vitals (See below) General: Lying in bed, no acute distress, comfortable, AAOx3 HEENT: NC, AT CVS: RRR, +S1S2 Lungs: Air entry is fair bilaterally without evidence of wheezing, rhonchi or rales Abdomen: Soft, no distention or tenderness noted Extremities: No evidence of lower extremity edema, - Calf tenderness Neuro: RLE weakness and R hand weakness is again noted Assessment and plan: Recent seizure activity - likely 2/2 underlying recurrence of possible meningioma - Questionable tremor-like episodes of right hand yesterday evening - Physical with persistent weakness on R side - Subtherapeutic Dilantin level again noted - MRI at [place] 10/22: Irregular rhythm enhancing mass underlying the craniotomy site with surrounding edema; the extent of edema, similar to the previous examination. 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 - Patient has been advised to follow-up as an outpatient for a PET scan - Neurology at [facility] has added Dilantin and dexamethasone taper regimen - c/w Dilantin - dose has been adjusted appropriately, Keppra and Dexamethasone - Currently being managed by ARU, Dr. Avelar and Neurology, Dr. Haider (on consult) Patient has reported hyperglycemia - likely 2/2 corticosteroid use - A1c of 6.1 - c/w ISS with AC/HS glucose checks Asthma - c/w albuterol PRN Childhood rheumatic fever with some RLE weakness GERD - c/w Protonix as per ARU DVT prophylaxis - c/w Lovenox as per ARU Disposition: - Awaiting progress with PT / OT VS,Fishbone, I+O VS, Fishbone, I+O Laboratory Tests 10/28/18 06:23 Red Blood Count 4.57, Mean Corpuscular Volume 91.5, Mean Corpuscular Hemoglobin 30.0, Mean Corpuscular Hemoglobin Concent 32.8, Red Cell Distribution Width 12.9, Neutrophils (%) (Auto) 58.1, Lymphocytes (%) (Auto) 29.9, Monocytes (%) (Auto) 8.5 H, Eosinophils (%) (Auto) 1.8, Basophils (%) (Auto) 0.5, Neutrophils # (Auto) 6.7, Lymphocytes # (Auto) 3.5, Monocytes # (Auto) 1.0 H, Eosinophils # (Auto) 0.2, Basophils # (Auto) 0.1, Calcium Level 8.4 L Vital Signs Date Time Temp Pulse Resp B/P (MAP) Pulse Ox O2 Delivery O2 Flow Rate FiO2 10/28/18 14:00 96.9 79 17 113/78 (90) 96 I&O- Last 24 Hours up to 6 AM 10/28/18 06:00 Intake Total 1920 ml Output Total 950 ml Balance 970 ml FLY GEE MD Oct 28, 2018 16:40
[2018-10-28 20:00] VITALS: BP 131/69
[2018-10-29] MEDS: HumaLOG INSULIN (NovoLOG) PER UNIT SC SCH ×2 (07:30→12:19)
[2018-10-29] MEDS: PANTOPRAZOLE 40MG TAB (PROTONIX) PO SCH (09:49)
[2018-10-29] MEDS: levETIRAcetam 250MG TABLET (KEPPRA) PO SCH ×2 (09:49→21:19)
[2018-10-29] MEDS: DOCUSATE SODIUM 100 MG CAP PO SCH ×2 (09:49→21:19)
[2018-10-29] MEDS: ASCORBIC ACID 500 MG TAB PO SCH (09:49)
[2018-10-29] MEDS: VITAMIN D 1,000 INTERNATIONAL UNITS TABLET PO SCH (09:49)
[2018-10-29] MEDS: ENOXAPARIN 40 MG/0.4 ML SYRINGE (J1650) SC SCH (09:49)
[2018-10-29] MEDS: PHENYTOIN ER 100 MG CAP PO SCH (09:50)
[2018-10-29 14:00] VITALS: BP 146/80
--- NOTE | 2018-10-29 17:22 | IPNPDOC ---
Subjective Date Seen The patient was seen on 10/29/18. Subjective Chief Complaint/HPI Patient is a 62-year-old female with a PMH significant for Asthma, L parietal meningioma s/p craniotomy (06/2016) , presented with sudden right-sided weakness involving right upper and lower extremity as well as numbness. Due to suspicion of possible stroke was transferred to another facility where she was suspected to have partial seizure. MRI revealed new mass. Patient also had breakthrough seizure on Keppra 750 mg. She was started on Dilantin, Decadron, and her Keppra dose was increased. She was transferred back to this facility for rehabilitation. Events since last encounter Today she reports right-sided tremors in right hand numbness and also right leg outer aspect numbness. Overall feels improved. No seizure activity reported overnight. Has been tolerating increased dose of medication without any effects. Objective Physical Examination Other physical findings General: Occupational therapist at bedside, patient up to chair, NAD. Skin: Warm, dry, intact. Cardiovascular: Regular rate and rhythm, no MRG, no jugular venous distention, right lower extremity edema. Respiratory:CTAB, no accessory muscle use noted. Abdomen: Bowel sounds +, no tenderness, no distention Musculoskeletal: Right leg prostheses, No joint deformities, Neurologic: Right extremity weakness, right leg shuffle with ambulation. CN 2-12 grossly intact, alert and oriented 3 Psychiatric: Appropriate mood and affect, no anxiety or agitation. A-FIB/CHADSVASC A-FIB History Current/History of A-Fib/PAF?: No Current Oral Anticoagulant The: No Age/Risk Factor Scoring CHADSVASC: CHADSVASC Response (Comments) Value Age Risk Factor Age < 65 years old 0 Total 0 Assessment /Plan Problems (1) Meningioma Status: Acute Problem Text: - Presenting with strokelike symptoms -MRI at [place] 10/22 showing: Irregular rhythm enhancing mass underlying the craniotomy site with surrounding edema; the extent of edema, similar to the previous examination. 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 - Patient has been advised to follow-up as an outpatient for a PET scan (2) Asthma Status: Chronic Problem Text: -Patient has no current exacerbation. (3) Hemiparesis Problem Text: -Physical therapy on board, working with patient for mobilization and strengthening -Management of cerebral edema with steroid therapy (4) Seizure Problem Text: -Denies recurrence of seizure activity in the last 24 hours. - likely 2/2 underlying recurrence of possible meningioma - Continue with Decadron, Keppra and Dilantin. -Neurology on board, evaluating, further recommendations. -Subtherapeutic levels of Dilantin noted -Continue Seizure precautions (5) Hyperglycemia Problem Text: -Likely due to steroid therapy -Hemoglobin A1c 6.1 -Continue blood glucose monitoring and coverage with insulin as indicated. (6) DVT prophylaxis Problem Text: -Continue Lovenox Plan/VTE VTE Prophylaxis Ordered?: Yes VS, I&O, 24H, Fishbone Vital Signs/I&O Vital Signs Date Time Temp Pulse Resp B/P (MAP) Pulse Ox O2 Delivery O2 Flow Rate FiO2 10/29/18 14:00 97.2 77 18 146/80 (102) 94 I&O- Last 24 Hours up to 6 AM 10/29/18 06:00 Intake Total 1440 ml Output Total 400 ml Balance 1040 ml Laboratory Data 24H LABS Laboratory Tests 2 10/28/18 17:21: Bedside Glucose (Misc Panel) 113 10/28/18 19:46: Bedside Glucose (Misc Panel) 214H 10/29/18 06:08: Bedside Glucose (Misc Panel) 100 10/29/18 11:25: Bedside Glucose (Misc Panel) 111 10/29/18 16:21: Bedside Glucose (Misc Panel) 106 Microbiology Microbiology 10/26/18 Urine Culture - Final, Complete AUDRA MARTINEZ [employer]ER Oct 29, 2018 17:22
[2018-10-29 20:00] VITALS: BP 124/75
[2018-10-29] MEDS: ACETAMINOPHEN TAB 650MG DOSE (2X325MG) PO PRN (21:23)
[2018-10-30 06:00] VITALS: BP 119/71
[2018-10-30] MEDS: VITAMIN D 1,000 INTERNATIONAL UNITS TABLET PO SCH (09:32)
[2018-10-30] MEDS: ASCORBIC ACID 500 MG TAB PO SCH (09:32)
[2018-10-30] MEDS: PANTOPRAZOLE 40MG TAB (PROTONIX) PO SCH (09:32)
[2018-10-30] MEDS: PHENYTOIN ER 100 MG CAP PO SCH (09:32)
[2018-10-30] MEDS: levETIRAcetam 250MG TABLET (KEPPRA) PO SCH ×2 (09:33→21:19)
[2018-10-30] MEDS: ENOXAPARIN 40 MG/0.4 ML SYRINGE (J1650) SC SCH (09:33)
[2018-10-30] MEDS: DOCUSATE SODIUM 100 MG CAP PO SCH ×2 (09:33→21:18)
--- NOTE | 2018-10-30 12:00 | IPNPDOC ---
Subjective Date Seen The patient was seen on 10/30/18. Subjective Chief Complaint/HPI Patient is a 62-year-old female with a PMH significant for Asthma, L parietal meningioma s/p craniotomy (06/2016) , presented with sudden right-sided weakness involving right upper and lower extremity as well as numbness. Due to suspicion of possible stroke was transferred to another facility where she was suspected to have partial seizure. MRI revealed new mass. Patient also had breakthrough seizure on Keppra 750 mg. She was started on Dilantin, Decadron, and her Keppra dose was increased. She was transferred back to this facility for rehabilitation. Events since last encounter Patient reports she slept very well last night. Numbness is improved, no further episodes of tremors or involuntary unilateral body movements. Denies pain, shortness of breath, chills, fever, or any malaise Other systems General: Up in bed eating breakfast, NAD. Skin: Warm, dry, intact. Cardiovascular: Regular rate and rhythm, no MRG, no jugular venous distention, no edema. Respiratory:CTAB, no accessory muscle use noted. Abdomen: Bowel sounds +, no tenderness, no distention Musculoskeletal: No joint deformities, Neurologic: Right extremity weakness, CN 2-12 grossly intact, alert and oriented 3 Psychiatric: Appropriate mood and affect, no anxiety or agitation. A-FIB/CHADSVASC A-FIB History Current/History of A-Fib/PAF?: No Age/Risk Factor Scoring CHADSVASC: CHADSVASC Response (Comments) Value Age Risk Factor Age < 65 years old 0 Total 0 Assessment /Plan Problems (1) Meningioma Status: Acute Problem Text: - Left parietal hemangioma seen on MRI -Initially presenting with strokelike symptoms -MRI at [place] 10/22-->: Irregular rhythm enhancing mass underlying the cranioto my site with surrounding edema; the extent of edema, similar to the previous examination. 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 - follow-up as an outpatient for a PET scan (2) Asthma Status: Chronic Problem Text: -Patient has no current exacerbation. -. Respiratory status is stable (3) Hemiparesis Problem Text: -Improving -Continue physical therapy for mobilization and strengthening -Management of cerebral edema with steroid therapy (4) Seizure Problem Text: -No reports of seizure activity in the past 48 hours. -Continue Decadron, Keppra and Dilantin on current dose -Follow recommendations by neurology -Continue seizure precautions (5) Hyperglycemia Problem Text: -Likely due to steroid therapy -Hemoglobin A1c 6.1 -Continue blood glucose monitoring and coverage with insulin as indicated. (6) DVT prophylaxis Problem Text: -Continue Lovenox Plan/VTE VTE Prophylaxis Ordered?: Yes (Lovenox) VS, I&O, 24H, Fishbone Vital Signs/I&O Vital Signs Date Time Temp Pulse Resp B/P (MAP) Pulse Ox O2 Delivery O2 Flow Rate FiO2 10/30/18 06:00 97.2 66 18 119/71 (87) 95 I&O- Last 24 Hours up to 6 AM 10/30/18 06:00 Intake Total 1980 ml Balance 1980 ml Laboratory Data 24H LABS Laboratory Tests 2 10/29/18 16:21: Bedside Glucose (Misc Panel) 106 10/30/18 06:43: Bedside Glucose (Misc Panel) 102 Microbiology Microbiology 10/26/18 Urine Culture - Final, Complete AUDRA MARTINEZ October 30, 2018 12:00
--- NOTE | 2018-10-30 12:03 | IPNPDOC ---
PM&R Progress Note DATE OF SERVICE: Oct 29, 2018 [employer] Progress Note Subjective: Patient reports feeling well, her right hip hurts her less today and her hand numbness is getting a little better. REVIEW OF SYSTEMS: The following is a completed review of systems and has been reviewed. Review of systems otherwise unremarkable. PAIN: Patient self reports right hip pain (chronic) EYES: Negative for recent vision changes EARS, NOSE, & THROAT: denies dysphagia, throat pain or rhinorrhea CARDIOVASCULAR: denies chest pain or palpitations PULMONARY: Negative. Denies shortness of breath. GASTROINTESTINAL: Negative for diarrhea/constipation GENITOURINARY: Denies incontinence or dysuria MUSCULOSKELETAL: right hip pain NEUROLOGICAL: seizures and RUE numbness and RLE weakness SKIN: no rashes PSYCHIATRIC: Unremarkable All other review of systems found to be negative. PHYSICAL EXAMINATION: VITAL SIGNS: Please see below. GENERAL: Pleasant and cooperative. No acute distress. HEENT: PERRL. Extraocular movements intact. Clear conjunctiva, +glasses CARDIOVASCULAR: Regular rate and rhythm. No murmurs, rubs, or gallops LUNGS: Clear to auscultation bilaterally. No wheezes. No rhonchi ABDOMEN: Soft, nontender, nondistended. Positive bowel sounds. Normal active bowel sounds, no suprapubic tenderness NEUROLOGICAL: Alert and oriented times three. Cranial nerves II through XII grossly intact. Sensation diminished in right hand and forearm (+) babinksi on the right EXTREMITIES: 5\\5 strength ;eft upper extremities.3+/5 RUE strength with +pronator drift 3+\\5 strength right hip flexion, knee extension, 2/5 ankle DF and PF 5/5 strength in left lower extremity. (+) groin pain with internal right hip rotation SKIN: intact, no sacral ulcers ASSESSMENT:62-year-old F with past medical history of left parietal meningioma s/p resection who presents status post new seizure activity in setting of tumor necrosis vs recurrence. PLAN: 1. 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 Neuro: s/p resection and radiation of left parietal meningioma 2015, now with new onset seizures on Keppra and Dilantin in setting of tumor necrosis vs tumor recurrence will consult Dr. Haider to continue following while on ARU -c/u Decadron taper, increased Dilantin to 400 mg as Dilantin level 7.4 on 10/28/18, will recheck level 11/01/18- no seizure activity noted, neurology recs appreciated -will need PET scan upon discharge 3. CArdio: no known cardiac history -medicine consulted 4. Resp: stable, will encourage incentive spirometry and monitor for infection 5. : admission UA and Ucx negative, monitor PVRs 6. DVT ppx: c/u Lovenox 7. GI ppx: protonix 8. Dispo: 11/05/18 to home, progressing towards goals Allergies Coded Allergies: ciprofloxacin (Verified Adverse Reaction, Mild, "MAKES SICK", 10/25/18) ibuprofen (Verified Adverse Reaction, Mild, ASTHMA, 10/25/18) rosuvastatin (Verified Adverse Reaction, Mild, CRAMPS, 10/25/18) sodium hypochlorite solution (Verified Adverse Reaction, Mild, CHLORINE - ASTHMA, 10/25/18) Vital Signs Vital Signs Date Time Temp Pulse Resp B/P (MAP) Pulse Ox O2 Delivery O2 Flow Rate FiO2 10/30/18 06:00 97.2 66 18 119/71 (87) 95 Laboratory Data Labs 24H Laboratory Tests 2 10/29/18 16:21: Bedside Glucose (Misc Panel) 106 10/30/18 06:43: Bedside Glucose (Misc Panel) 102 Microbiology Microbiology 10/26/18 Urine Culture - Final, Complete Current Medications Current Medications Current Medications Acetaminophen (Tylenol Tab) 650 mg Q4HP PRN PO fever/MILD PAIN (PS 1-4) Last administered on 10/29/18at 21:23; Start 10/25/18 at 11:30 Al Hydrox/Mg Hydrox/Simethicone (Mylanta) 30 ml Q4HP PRN PO DYSPEPSIA; Start at 11:30 Albuterol Sulfate (Proventil Neb) 2.5 mg Q2HP PRN INH SOB/WHEEZING; Start 10/25/18 at 17:15 Ascorbic Acid (Vitamin C) 500 mg DAILY PO Last administered on 10/30/18at 09:32; Start 10/26/18 at 09:00 Bisacodyl (Dulcolax Tab) 5 mg DAILYPRN PRN PO CONSTIPATION; Start 10/25/18 at 11:30 Dexamethasone (Decadron) 3 mg Q8H PO Last administered on 10/30/18at 06:13; Start 10/25/18 at 22:00 Dextrose (Dextrose 50%) 25 ml ASDIRECTED PRN IV SEE LABEL COMMENTS; Start 10/25/18 at 17:15; Stop 10/29/18 at 17:10; Status DC Docusate Sodium (Colace) 100 mg BID PO Last administered on 10/29/18at 21:19; Start 10/25/18 at 21:00 Enoxaparin Sodium (Lovenox) 40 mg DAILY SC Last administered on 10/30/18at 09:33; Start 10/26/18 at 09:00 Glucagon (Glucagon) 1 mg ASDIRECTED PRN SC SEE LABEL COMMENTS; Start 10/25/18 at 17:15; Stop 10/29/18 at 17:10; Status DC Glucose (Glucose) 16 GM ASDIRECTED PRN PO SEE LABEL COMMENTS; Start 10/25/18 at 17:15; Stop 10/29/18 at 17:10; Status DC Home Med (Med Rec Complete!) ASDIRECTED XX ; Start 10/25/18 at 16:30; Stop 10/25/18 at 16:32; Status DC Insulin Human Lispro (HumaLOG INSULIN) SEE PROTOCOL TABLE AC SC Last administered on 10/29/18at 12:19; Start 10/25/18 at 17:30; Stop 10/29/18 at 17:10; Status DC Insulin Human Lispro (HumaLOG INSULIN) SEE PROTOCOL TABLE QHS SC Last administered on 10/25/18at 22:12; Start 10/25/18 at 21:00; Stop 10/29/18 at 17:10; Status DC Levetiracetam (Keppra) 1,250 mg BID PO Last administered on 10/30/18at 09:33; Start 10/25/18 at 21:00 Magnesium Hydroxide (Milk Of Magnesia) 30 ml DAILYPRN PRN PO CONSTIPATION; Start 10/25/18 at 11:30 Ondansetron HCl (Zofran) 4 mg Q6HP PRN PO NAUSEA; Start 10/25/18 at 11:30 Pantoprazole Sodium (Protonix) 40 mg DAILY PO Last administered on 10/30/18at 09:32; Start 10/26/18 at 09:00 Phenytoin (Dilantin) 300 mg DAILY PO Last administered on 10/27/18at 07:48; Start 10/26/18 at 09:00; Stop 10/28/18 at 09:43; Status DC Phenytoin (Dilantin) 400 mg DAILY PO Last administered on 10/30/18at 09:32; Start 10/28/18 at 09:00 Vitamin D (Vitamin D) 1,000 units DAILY PO Last administered on 10/30/18at 09:32; Start 10/26/18 at 09:00 A-FIB/CHADSVASC A-FIB History Current/History of A-Fib/PAF?: No Age/Risk Factor Scoring CHADSVASC: CHADSVASC Response (Comments) Value Age Risk Factor Age < 65 years old 0 Total 0 ANGELA THOMAS MD October 30, 2018 12:03
--- NOTE | 2018-10-30 12:07 | IPNPDOC ---
PM&R Progress Note DATE OF SERVICE: October 31, 2018 [employer] Progress Note Subjective: Patient reports she feels her allergies are acting up and would like to try Flonase. REVIEW OF SYSTEMS: The following is a completed review of systems and has been reviewed. Review of systems otherwise unremarkable. PAIN: Patient self reports right hip pain (chronic) EYES: Negative for recent vision changes EARS, NOSE, & THROAT: denies dysphagia, throat pain or rhinorrhea CARDIOVASCULAR: denies chest pain or palpitations PULMONARY: Negative. Denies shortness of breath. GASTROINTESTINAL: Negative for diarrhea/constipation GENITOURINARY: Denies incontinence or dysuria MUSCULOSKELETAL: right hip pain NEUROLOGICAL: seizures and RUE numbness and RLE weakness SKIN: no rashes PSYCHIATRIC: Unremarkable All other review of systems found to be negative. PHYSICAL EXAMINATION: VITAL SIGNS: Please see below. GENERAL: Pleasant and cooperative. No acute distress. HEENT: PERRL. Extraocular movements intact. Clear conjunctiva, +glasses CARDIOVASCULAR: Regular rate and rhythm. No murmurs, rubs, or gallops LUNGS: Clear to auscultation bilaterally. No wheezes. No rhonchi ABDOMEN: Soft, nontender, nondistended. Positive bowel sounds. Normal active bowel sounds, no suprapubic tenderness NEUROLOGICAL: Alert and oriented times three. Cranial nerves II through XII grossly intact. Sensation diminished in right hand and forearm (+) babinksi on the right EXTREMITIES: 5\\5 strength ;eft upper extremities.3+/5 RUE strength with +pronator drift 3+\\5 strength right hip flexion, knee extension, 2/5 ankle DF and PF 5/5 strength in left lower extremity. (+) groin pain with internal right hip rotation SKIN: intact, no sacral ulcers ASSESSMENT:62-year-old F with past medical history of left parietal meningioma s/p resection who presents status post new seizure activity in setting of tumor necrosis vs recurrence. PLAN: 1. 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 Neuro: s/p resection and radiation of left parietal meningioma 2016, now with new onset seizures on Keppra and Dilantin in setting of tumor necrosis vs tumor recurrence-consulted Dr. Haider to continue following while on ARU -c/u Decadron taper, increased Dilantin to 400 mg as Dilantin level 7.4 on 4/29/19, will recheck level 11/01/18- no seizure activity noted, neurology recs appreciated -will need PET scan upon discharge 3. CArdio: no known cardiac history -medicine consulted 4. Resp: stable, will encourage incentive spirometry and monitor for infection 5. : admission UA and Ucx negative, monitor PVRs 6. DVT ppx: c/u Lovenox 7. GI ppx: protonix 8. Pain: right sided groin pain, respoding to Tylenol and lidoderm patch 8. Dispo: 11/05/18 to home, progressing towards goals Allergies Coded Allergies: ciprofloxacin (Verified Adverse Reaction, Mild, "MAKES SICK", 10/25/18) ibuprofen (Verified Adverse Reaction, Mild, ASTHMA, 10/25/18) rosuvastatin (Verified Adverse Reaction, Mild, CRAMPS, 10/25/18) sodium hypochlorite solution (Verified Adverse Reaction, Mild, CHLORINE - ASTHMA, 10/25/18) Vital Signs Vital Signs Date Time Temp Pulse Resp B/P (MAP) Pulse Ox O2 Delivery O2 Flow Rate FiO2 10/30/18 06:00 97.2 66 18 119/71 (87) 95 Laboratory Data Labs 24H Laboratory Tests 2 10/29/18 16:21: Bedside Glucose (Misc Panel) 106 10/30/18 06:43: Bedside Glucose (Misc Panel) 102 Microbiology Microbiology 10/26/18 Urine Culture - Final, Complete Current Medications Current Medications Current Medications Acetaminophen (Tylenol Tab) 650 mg Q4HP PRN PO fever/MILD PAIN (PS 1-4) Last administered on 10/29/18at 21:23; Start 10/25/18 at 11:30 Al Hydrox/Mg Hydrox/Simethicone (Mylanta) 30 ml Q4HP PRN PO DYSPEPSIA; Start 10/25/18 at 11:30 Albuterol Sulfate (Proventil Neb) 2.5 mg Q2HP PRN INH SOB/WHEEZING; Start 10/25/18 at 17:15 Ascorbic Acid (Vitamin C) 500 mg DAILY PO Last administered on 10/30/18at 09:32; Start 10/26/18 at 09:00 Bisacodyl (Dulcolax Tab) 5 mg DAILYPRN PRN PO CONSTIPATION; Start 10/25/18 at 11:30 Dexamethasone (Decadron) 3 mg Q8H PO Last administered on 10/30/18at 06:13; Start 10/25/18 at 22:00 Dextrose (Dextrose 50%) 25 ml ASDIRECTED PRN IV SEE LABEL COMMENTS; Start 10/25/18 at 17:15; Stop 10/29/18 at 17:10; Status DC Docusate Sodium (Colace) 100 mg BID PO Last administered on 10/29/18at 21:19; Start 10/25/18 at 21:00 Enoxaparin Sodium (Lovenox) 40 mg DAILY SC Last administered on 10/30/18at 09:33; Start 10/26/18 at 09:00 Glucagon (Glucagon) 1 mg ASDIRECTED PRN SC SEE LABEL COMMENTS; Start 10/25/18 at 17:15; Stop 10/29/18 at 17:10; Status DC Glucose (Glucose) 16 GM ASDIRECTED PRN PO SEE LABEL COMMENTS; Start 10/25/18 at 17:15; Stop 10/29/18 at 17:10; Status DC Home Med (Med Rec Complete!) ASDIRECTED XX ; Start 10/25/18 at 16:30; Stop 10/25/18 at 16:32; Status DC Insulin Human Lispro (HumaLOG INSULIN) SEE PROTOCOL TABLE AC SC Last administered on 10/29/18at 12:19; Start 10/25/18 at 17:30; Stop 10/29/18 at 17:10; Status DC Insulin Human Lispro (HumaLOG INSULIN) SEE PROTOCOL TABLE QHS SC Last adminis tered on 10/25/18at 22:12; Start 10/25/18 at 21:00; Stop 10/29/18 at 17:10; Status DC Levetiracetam (Keppra) 1,250 mg BID PO Last administered on 10/30/18at 09:33; Start 10/25/18 at 21:00 Magnesium Hydroxide (Milk Of Magnesia) 30 ml DAILYPRN PRN PO CONSTIPATION; Start 10/25/18 at 11:30 Ondansetron HCl (Zofran) 4 mg Q6HP PRN PO NAUSEA; Start 10/25/18 at 11:30 Pantoprazole Sodium (Protonix) 40 mg DAILY PO Last administered on 10/30/18at 09:32; Start 10/26/18 at 09:00 Phenytoin (Dilantin) 300 mg DAILY PO Last administered on 10/27/18at 07:48; Start 10/26/18 at 09:00; Stop 10/28/18 at 09:43; Status DC Phenytoin (Dilantin) 400 mg DAILY PO Last administered on 10/30/18at 09:32; Start 10/28/18 at 09:00 Vitamin D (Vitamin D) 1,000 units DAILY PO Last administered on 10/30/18at 09:32; Start 10/26/18 at 09:00 A-FIB/CHADSVASC A-FIB History Current/History of A-Fib/PAF?: No Age/Risk Factor Scoring CHADSVASC: CHADSVASC Response (Comments) Value Age Risk Factor Age < 65 years old 0 Total 0 ANGELA THOMAS MD October 30, 2018 12:07
[2018-10-30 14:00] VITALS: BP 129/84
[2018-10-30] MEDS: LIDOCAINE 5% (LIDODERM) PATCH TD SCH (14:35)
[2018-10-30 20:00] VITALS: BP 126/81
[2018-10-30] MEDS: **NOTE PATIENT COMMENT** MISC XX SCH (21:19)
[2018-10-30] MEDS: ACETAMINOPHEN TAB 650MG DOSE (2X325MG) PO PRN (21:19)
[2018-10-31 06:00] VITALS: BP 118/81
[2018-10-31 07:16] LABS: HEMOGLOBIN 13.6 g/dl (12.0-15.5); MEAN CORPUSCULAR HEMOGLOBIN 30.2 pg (27.0-33.0); MEAN CORPUSCULAR HGB CONC 32.4 g/dl (32.0-36.5); MEAN CORPUSCULAR VOLUME 93.1 fl (80.0-96.0); PLATELET COUNT, AUTOMATED 308 10^3/uL (150-450); RED BLOOD COUNT 4.51 10^6/uL (4.00-5.40); WHITE BLOOD COUNT 10.8 10^3/uL (4.0-10.0)
[2018-10-31 07:36] LABS: ALBUMIN 3.2 GM/DL (3.2-5.2); ALT/SGPT 42 U/L (12-78); BILIRUBIN,TOTAL 0.2 MG/DL (0.2-1.0); BLOOD UREA NITROGEN 16 MG/DL (7-18); CALCIUM LEVEL 8.4 MG/DL (8.8-10.2); CARBON DIOXIDE LEVEL 26 MEQ/L (21-32); CHLORIDE LEVEL 109 MEQ/L (98-107); CREATININE FOR GFR 0.81 MG/DL (0.55-1.30); GLOMERULAR FILTRATION RATE > 60.0 (>45); GLUCOSE, FASTING 95 MG/DL (70-100); POTASSIUM SERUM 3.8 MEQ/L (3.5-5.1); SODIUM LEVEL 141 MEQ/L (136-145); TOTAL PROTEIN 6.7 GM/DL (6.4-8.2)
[2018-10-31] MEDS: LIDOCAINE 5% (LIDODERM) PATCH TD SCH (09:23)
[2018-10-31] MEDS: VITAMIN D 1,000 INTERNATIONAL UNITS TABLET PO SCH (09:24)
[2018-10-31] MEDS: ASCORBIC ACID 500 MG TAB PO SCH (09:24)
[2018-10-31] MEDS: PANTOPRAZOLE 40MG TAB (PROTONIX) PO SCH (09:24)
[2018-10-31] MEDS: DOCUSATE SODIUM 100 MG CAP PO SCH ×2 (09:24→20:52)
[2018-10-31] MEDS: ACETAMINOPHEN TAB 650MG DOSE (2X325MG) PO PRN ×2 (09:24→20:52)
[2018-10-31] MEDS: PHENYTOIN ER 100 MG CAP PO SCH (09:25)
[2018-10-31] MEDS: ENOXAPARIN 40 MG/0.4 ML SYRINGE (J1650) SC SCH (09:25)
[2018-10-31] MEDS: levETIRAcetam 250MG TABLET (KEPPRA) PO SCH ×2 (09:25→20:52)
[2018-10-31 14:00] VITALS: BP 131/66
--- NOTE | 2018-10-31 17:41 | IPNPDOC ---
Subjective Date Seen The patient was seen on 10/31/18. Subjective Chief Complaint/HPI Patient is a 62-year-old female with a PMH significant for Asthma, L parietal meningioma s/p craniotomy (06/2016) , presented with sudden right-sided weakness involving right upper and lower extremity as well as numbness. Due to suspicion of possible stroke was transferred to another facility where she was suspected to have partial seizure. MRI revealed new mass. Patient also had breakthrough seizure on Keppra 750 mg. She was started on Dilantin, Decadron, and her Keppra dose was increased. She was transferred back to this facility for rehabilitation. Events since last encounter Continues to tolerate rehabilitation without any new acute issues. Denies any further episodes of tremors or seizure activity. Has been tolerating current dose of Dilantin and Keppra without issues. Objective Physical Examination Other physical findings General: NAD. Skin: Warm, dry, intact. Cardiovascular: Regular rate and rhythm, no MRG, no jugular venous distention, no edema. Respiratory:CTAB, no accessory muscle use noted. Abdomen: Bowel sounds +, no tenderness, no distention Musculoskeletal: No joint deformities, Neurologic: Right extremity weakness, CN 2-12 grossly intact, alert and or iented 3 Psychiatric: Appropriate mood and affect, no anxiety or agitation. 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 -Currently treating surrounding edema with high-dose steroid therapy -. Plan for outpatient follow-up for PET scan to rule out recurrence of tumor (2) Asthma Status: Chronic Problem Text: -Patient has no current exacerbation. -. Respiratory status is stable (3) Hemiparesis Problem Text: -Physical, occupational therapy for rehabilitation, mobilization and strengthening -Patient has been responding well to therapy (4) Seizure Problem Text: -Has not had any seizure activity for the last 3 days -Continued on Decadron 3 mg every 8, Keppra 1250 twice a day, Dilantin 400 daily -Follow recommendations by neurology -Continue seizure precautions (5) Hyperglycemia Problem Text: -Likely due to steroid therapy -Hemoglobin A1c 6.1 -Continue blood glucose monitoring and coverage with insulin as indicated. (6) DVT prophylaxis Problem Text: -Continue Lovenox Plan/VTE VTE Prophylaxis Ordered?: Yes (Lovenox) VS, I&O, 24H, Fishbone Vital Signs/I&O Vital Signs Date Time Temp Pulse Resp B/P (MAP) Pulse Ox O2 Delivery O2 Flow Rate FiO2 10/31/18 14:00 97.3 75 18 131/66 (87) 92 I&O- Last 24 Hours up to 6 AM 10/31/18 06:00 Intake Total 3060 ml Balance 3060 ml Laboratory Data 24H LABS Laboratory Tests 2 10/31/18 06:43: Nucleated Red Blood Cells % (auto) 0.0, Anion Gap 6L, Glomerular Filtration Rate > 60.0, Blood Urea Nitrogen 16, Creatinine 0.81, Sodium Level 141, Potassium Level 3.8, Chloride Level 109H, Carbon Dioxide Level 26, Calcium Level 8.4L, Aspartate Amino Transf (AST/SGOT) 15, Alanine Aminotransferase (ALT/SGPT) 42, Alkaline Phosphatase 77, Total Bilirubin 0.2, Total Protein 6.7, Albumin 3.2, Albumin/Globulin Ratio 0.91L CBC/BMP Laboratory Tests 10/31/18 06:43 Red Blood Count 4.51, Mean Corpuscular Volume 93.1, Mean Corpuscular Hemoglobin 30.2, Mean Corpuscular Hemoglobin Concent 32.4, Red Cell Distribution Width 12.8, Calcium Level 8.4 L, Aspartate Amino Transf (AST/SGOT) 15, Alanine Aminotransferase (ALT/SGPT) 42, Alkaline Phosphatase 77, Total Bilirubin 0.2, Total Protein 6.7, Albumin 3.2 Microbiology Microbiology 10/26/18 Urine Culture - Final, Complete AUDRA MARTINEZ October 31, 2018 17:41
[2018-10-31 20:00] VITALS: BP 138/64
[2018-10-31] MEDS: **NOTE PATIENT COMMENT** MISC XX SCH (20:53)
[2018-11-01 06:16] LABS: BASO # 0.1 10^3/uL (0.0-0.2); BASO % 0.5 % (0.0-1.0); EOS # 0.6 10^3/uL (0.0-0.50); EOS % 6.1 % (0.0-3.0); HEMATOCRIT 40.5 % (36.0-47.0); LYMPH # 2.4 10^3/uL (1.5-4.5); MEAN CORPUSCULAR HEMOGLOBIN 30.2 pg (27.0-33.0); MEAN CORPUSCULAR HGB CONC 32.1 g/dl (32.0-36.5); MONO # 1.4 10^3/uL (0.0-0.8); MONO % 14.3 % (0.0-5.0); NEUTROPHILS # 5.3 10^3/uL (1.8-7.7); NEUTROPHILS % 54.4 % (36.0-66.0); PLATELET COUNT, AUTOMATED 289 10^3/uL (150-450); RED BLOOD COUNT 4.31 10^6/uL (4.00-5.40); WHITE BLOOD COUNT 9.8 10^3/uL (4.0-10.0)
[2018-11-01 06:19] VITALS: BP 143/63
[2018-11-01 06:44] LABS: BLOOD UREA NITROGEN 15 MG/DL (7-18); CALCIUM LEVEL 8.2 MG/DL (8.8-10.2); CARBON DIOXIDE LEVEL 30 MEQ/L (21-32); CHLORIDE LEVEL 109 MEQ/L (98-107); CREATININE FOR GFR 0.85 MG/DL (0.55-1.30); GLOMERULAR FILTRATION RATE > 60.0 (>45); GLUCOSE, FASTING 98 MG/DL (70-100); PHENYTOIN (DILANTIN) 9.1 UG/ML (10.0-20.0); SODIUM LEVEL 142 MEQ/L (136-145)
[2018-11-01] MEDS: ENOXAPARIN 40 MG/0.4 ML SYRINGE (J1650) SC SCH (08:42)
[2018-11-01] MEDS: PHENYTOIN ER 100 MG CAP PO SCH (08:43)
[2018-11-01] MEDS: DOCUSATE SODIUM 100 MG CAP PO SCH ×2 (08:43→21:36)
[2018-11-01] MEDS: ASCORBIC ACID 500 MG TAB PO SCH (08:43)
[2018-11-01] MEDS: levETIRAcetam 250MG TABLET (KEPPRA) PO SCH ×2 (08:43→21:36)
[2018-11-01] MEDS: PANTOPRAZOLE 40MG TAB (PROTONIX) PO SCH (08:43)
[2018-11-01] MEDS: VITAMIN D 1,000 INTERNATIONAL UNITS TABLET PO SCH (08:43)
[2018-11-01] MEDS: LIDOCAINE 5% (LIDODERM) PATCH TD SCH (08:43)
[2018-11-01 14:00] VITALS: BP 140/70
--- NOTE | 2018-11-01 14:15 | IPNPDOC ---
PM&R Progress Note DATE OF SERVICE: November 01, 2018 [employer] Progress Note Subjective: Patient reports she feels well today and is happy to have received espinoza for her birthday. REVIEW OF SYSTEMS: The following is a completed review of systems and has been reviewed. Review of systems otherwise unremarkable. PAIN: Patient self reports right hip pain (chronic) EYES: Negative for recent vision changes EARS, NOSE, & THROAT: denies dysphagia, throat pain or rhinorrhea CARDIOVASCULAR: denies chest pain or palpitations PULMONARY: Negative. Denies shortness of breath. GASTROINTESTINAL: Negative for diarrhea/constipation GENITOURINARY: Denies incontinence or dysuria MUSCULOSKELETAL: right hip pain NEUROLOGICAL: seizures and RUE numbness and RLE weakness SKIN: no rashes PSYCHIATRIC: Unremarkable All other review of systems found to be negative. PHYSICAL EXAMINATION: VITAL SIGNS: Please see below. GENERAL: Pleasant and cooperative. No acute distress. HEENT: PERRL. Extraocular movements intact. Clear conjunctiva, +glasses CARDIOVASCULAR: Regular rate and rhythm. No murmurs, rubs, or gallops LUNGS: Clear to auscultation bilaterally. No wheezes. No rhonchi ABDOMEN: Soft, nontender, nondistended. Positive bowel sounds. Normal active bowel sounds, no suprapubic tenderness NEUROLOGICAL: Alert and oriented times three. Cranial nerves II through XII grossly intact. Sensation diminished in right hand and forearm (+) babinksi on the right EXTREMITIES: 5\\5 strength ;eft upper extremities.3+/5 RUE strength with +pronator drift 3+\\5 strength right hip flexion, knee extension, 2/5 ankle DF and PF 5/5 strength in left lower extremity. (+) groin pain with internal right hip rotation SKIN: intact, no sacral ulcers ASSESSMENT:62-year-old F with past medical history of left parietal meningioma s/p resection who presents status post new seizure activity in setting of tumor necrosis vs recurrence. 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 Neuro: s/p resection and radiation of left parietal meningioma 2016, now with new onset seizures on Keppra and Dilantin in setting of tumor necrosis vs tumor recurrence-consulted Dr. Haider to continue following while on ARU -c/u Decadron taper, increased Dilantin to 400 mg as Dilantin level 7.4 on 4/29/19, today it is 9.1 c/u at current dose and will have it rechecked in a week, no seizure activity noted, neurology recs appreciated -will need PET scan upon discharge 3. CArdio: no known cardiac history -medicine consulted 4. Resp: stable, will encourage incentive spirometry and monitor for infection 5. : admission UA and Ucx negative, monitor PVRs 6. DVT ppx: c/u Lovenox 7. GI ppx: protonix 8. Pain: right sided groin pain, respoding to Tylenol and lidoderm patch 8. Dispo: 11/05/18 to home, progressing towards goals Allergies Coded Allergies: ciprofloxacin (Verified Adverse Reaction, Mild, "MAKES SICK", 10/25/18) ibuprofen (Verified Adverse Reaction, Mild, ASTHMA, 10/25/18) rosuvastatin (Verified Adverse Reaction, Mild, CRAMPS, 10/25/18) sodium hypochlorite solution (Verified Adverse Reaction, Mild, CHLORINE - ASTHMA, 10/25/18) Vital Signs Vital Signs Date Time Temp Pulse Resp B/P (MAP) Pulse Ox O2 Delivery O2 Flow Rate FiO2 11/01/18 06:19 98.4 80 18 143/63 (89) 95 Laboratory Data CBC/BMP Laboratory Tests 11/01/18 06:03 Red Blood Count 4.31, Mean Corpuscular Volume 94.0, Mean Corpuscular Hemoglobin 30.2, Mean Corpuscular Hemoglobin Concent 32.1, Red Cell Distribution Width 12.9 , Neutrophils (%) (Auto) 54.4, Lymphocytes (%) (Auto) 24.0, Monocytes (%) (Auto) 14.3 H, Eosinophils (%) (Auto) 6.1 H, Basophils (%) (Auto) 0.5, Neutrophils # (Auto) 5.3, Lymphocytes # (Auto) 2.4, Monocytes # (Auto) 1.4 H, Eosinophils # (Auto) 0.6 H, Basophils # (Auto) 0.1, Calcium Level 8.2 L Labs 24H Laboratory Tests 2 11/01/18 06:03: Immature Granulocyte % (Auto) 0.7, White Blood Count 9.8, Red Blood Count 4.31, Hemoglobin 13.0, Hematocrit 40.5, Mean Corpuscular Volume 94.0, Mean Corpuscular Hemoglobin 30.2, Mean Corpuscular Hemoglobin Concent 32.1, Red Cell Distribution Width 12.9, Platelet Count 289, Neutrophils (%) (Auto) 54.4, Lymphocytes (%) ( Auto) 24.0, Monocytes (%) (Auto) 14.3H, Eosinophils (%) (Auto) 6.1H, Basophils (%) (Auto) 0.5, Neutrophils # (Auto) 5.3, Lymphocytes # (Auto) 2.4, Monocytes # (Auto) 1.4H, Eosinophils # (Auto) 0.6H, Basophils # (Auto) 0.1, Nucleated Red Blood Cells % (auto) 0.0, Anion Gap 3L, Glomerular Filtration Rate > 60.0, Blood Urea Nitrogen 15, Creatinine 0.85, Sodium Level 142, Potassium Level 4.0, Chloride Level 109H, Carbon Dioxide Level 30, Calcium Level 8.2L, Phenytoin (Dilantin) Level 9.1L Microbiology Microbiology 10/26/18 Urine Culture - Final, Complete Current Medications Current Medications Current Medications Acetaminophen (Tylenol Tab) 650 mg Q4HP PRN PO fever/MILD PAIN (PS 1-4) Last administered on 10/31/18at 20:52; Start 10/25/18 at 11:30 Al Hydrox/Mg Hydrox/Simethicone (Mylanta) 30 ml Q4HP PRN PO DYSPEPSIA; Start 10/25/18 at 11:30 Albuterol Sulfate (Proventil Neb) 2.5 mg Q2HP PRN INH SOB/WHEEZING; Start 10/25/18 at 17:15 Ascorbic Acid (Vitamin C) 500 mg DAILY PO Last administered on 11/01/18at 08:43; Start 10/26/18 at 09:00 Bisacodyl (Dulcolax Tab) 5 mg DAILYPRN PRN PO CONSTIPATION; Start 10/25/18 at 11:30 Dexamethasone (Decadron) 3 mg Q8H PO Last administered on 11/01/18at 13:36; Start 10/25/18 at 22:00 Dextrose (Dextrose 50%) 25 ml ASDIRECTED PRN IV SEE LABEL COMMENTS; Start 10/25/18 at 17:15; Stop 10/29/18 at 17:10; Status DC Docusate Sodium (Colace) 100 mg BID PO Last administered on 5/3/19at 08:43; Start 10/25/18 at 21:00 Enoxaparin Sodium (Lovenox) 40 mg DAILY SC Last administered on 11/01/18at 08:42; Start 10/26/18 at 09:00 Glucagon (Glucagon) 1 mg ASDIRECTED PRN SC SEE LABEL COMMENTS; Start 10/25/18 at 17:15; Stop 10/29/18 at 17:10; Status DC Glucose (Glucose) 16 GM ASDIRECTED PRN PO SEE LABEL COMMENTS; Start 10/25/18 at 17:15; Stop 10/29/18 at 17:10; Status DC Home Med (Med Rec Complete!) ASDIRECTED XX ; Start 10/25/18 at 16:30; Stop 10/25/18 at 16:32; Status DC Insulin Human Lispro (HumaLOG INSULIN) SEE PROTOCOL TABLE AC SC Last administered on 10/29/18at 12:19; Start 10/25/18 at 17:30; Stop 10/29/18 at 17:10; Status DC Insulin Human Lispro (HumaLOG INSULIN) SEE PROTOCOL TABLE QHS SC Last administered on 10/25/18at 22:12; Start 10/25/18 at 21:00; Stop 10/29/18 at 17:10; Status DC Levetiracetam (Keppra) 1,250 mg BID PO Last administered on 11/01/18at 08:43; Start 10/25/18 at 21:00 Lidocaine (Lidoderm Patch) 1 patch DAILY TD Last administered on 11/01/18at 08:43; Start 10/30/18 at 09:00 Magnesium Hydroxide (Milk Of Magnesia) 30 ml DAILYPRN PRN PO CONSTIPATION; Start 10/25/18 at 11:30 Miscellaneous (Unresolved Clarification Entry) SEE LABEL COMMENTS DAILY XX ; Start 11/01/18 at 09:00; Stop 11/01/18 at 10:53; Status DC Non-Formulary Medication ( See Comment Field Below ) REMOVE LIDODERM PATCH DAILY@21 XX Last administered on 10/31/18at 20:53; Start 10/30/18 at 21:00 Ondansetron HCl (Zofran) 4 mg Q6HP PRN PO NAUSEA; Start 10/25/18 at 11:30 Pantoprazole Sodium (Protonix) 40 mg DAILY PO Last administered on 11/01/18 08:43; Start 10/26/18 at 09:00 Phenytoin (Dilantin) 300 mg DAILY PO Last administered on 10/27/18at 07:48; Start 10/26/18 at 09:00; Stop 10/28/18 at 09:43; Status DC Phenytoin (Dilantin) 400 mg DAILY PO Last administered on 11/01/18 08:43; Start 10/28/18 at 09:00 Vitamin D (Vitamin D) 1,000 units DAILY PO Last administered on 11/01/18at 08:43; Start 10/26/18 at 09:00 A-FIB/CHADSVASC A-FIB History Current/History of A-Fib/PAF?: No Age/Risk Factor Scoring CHADSVASC: CHADSVASC Response (Comments) Value Age Risk Factor Age < 65 years old 0 Total 0 ANGELA THOMAS MD November 01, 2018 14:15
[2018-11-01] MEDS: SODIUM CHLORIDE NASAL 0.65% SPRAY BTL (OCEAN) SCH ×2 (15:50→21:38)
[2018-11-01 20:00] VITALS: BP 139/93
[2018-11-01] MEDS: FLUTICASONE PROP 0.05% NASAL SPRAY 16 GM (FLONASE) NARES SCH (21:36)
[2018-11-01] MEDS: **NOTE PATIENT COMMENT** MISC XX SCH (21:37)
[2018-11-01] MEDS: ACETAMINOPHEN TAB 650MG DOSE (2X325MG) PO PRN (23:36)
[2018-11-02 06:00] VITALS: BP 117/66
[2018-11-02] MEDS: levETIRAcetam 250MG TABLET (KEPPRA) PO SCH ×2 (08:31→20:58)
[2018-11-02] MEDS: PANTOPRAZOLE 40MG TAB (PROTONIX) PO SCH (08:31)
[2018-11-02] MEDS: DOCUSATE SODIUM 100 MG CAP PO SCH ×2 (08:31→21:00)
[2018-11-02] MEDS: ASCORBIC ACID 500 MG TAB PO SCH (08:31)
[2018-11-02] MEDS: VITAMIN D 1,000 INTERNATIONAL UNITS TABLET PO SCH (08:31)
[2018-11-02] MEDS: PHENYTOIN ER 100 MG CAP PO SCH (08:31)
[2018-11-02] MEDS: FLUTICASONE PROP 0.05% NASAL SPRAY 16 GM (FLONASE) NARES SCH ×2 (08:32→21:00)
[2018-11-02] MEDS: LIDOCAINE 5% (LIDODERM) PATCH TD SCH (08:32)
[2018-11-02] MEDS: ENOXAPARIN 40 MG/0.4 ML SYRINGE (J1650) SC SCH (08:32)
[2018-11-02] MEDS: SODIUM CHLORIDE NASAL 0.65% SPRAY BTL (OCEAN) SCH ×3 (08:33→21:00)
[2018-11-02 14:00] VITALS: BP 123/73
[2018-11-02 20:00] VITALS: BP 109/57
[2018-11-02] MEDS: ACETAMINOPHEN TAB 650MG DOSE (2X325MG) PO PRN (20:59)
[2018-11-02] MEDS: **NOTE PATIENT COMMENT** MISC XX SCH (21:01)
[2018-11-03 05:51] VITALS: BP 148/78
[2018-11-03] MEDS: ENOXAPARIN 40 MG/0.4 ML SYRINGE (J1650) SC SCH (08:10)
[2018-11-03] MEDS: LIDOCAINE 5% (LIDODERM) PATCH TD SCH (08:10)
[2018-11-03] MEDS: levETIRAcetam 250MG TABLET (KEPPRA) PO SCH ×2 (08:10→21:00)
[2018-11-03] MEDS: ASCORBIC ACID 500 MG TAB PO SCH (08:11)
[2018-11-03] MEDS: PHENYTOIN ER 100 MG CAP PO SCH (08:11)
[2018-11-03] MEDS: VITAMIN D 1,000 INTERNATIONAL UNITS TABLET PO SCH (08:11)
[2018-11-03] MEDS: DOCUSATE SODIUM 100 MG CAP PO SCH ×2 (08:11→21:18)
[2018-11-03] MEDS: PANTOPRAZOLE 40MG TAB (PROTONIX) PO SCH (08:11)
[2018-11-03] MEDS: FLUTICASONE PROP 0.05% NASAL SPRAY 16 GM (FLONASE) NARES SCH ×2 (08:12→21:00)
[2018-11-03] MEDS: SODIUM CHLORIDE NASAL 0.65% SPRAY BTL (OCEAN) SCH ×3 (08:12→21:00)
[2018-11-03 14:00] VITALS: BP 123/64
[2018-11-03 20:00] VITALS: BP 128/86
[2018-11-03] MEDS: **NOTE PATIENT COMMENT** MISC XX SCH (21:00)
[2018-11-04 06:00] VITALS: BP 113/71
[2018-11-04 06:23] LABS: BASO # 0.1 10^3/uL (0.0-0.2); BASO % 0.6 % (0.0-1.0); EOS # 0.5 10^3/uL (0.0-0.50); EOS % 5.1 % (0.0-3.0); HEMATOCRIT 39.3 % (36.0-47.0); LYMPH # 2.5 10^3/uL (1.5-4.5); LYMPH % 25.6 % (24.0-44.0); MEAN CORPUSCULAR HEMOGLOBIN 31.2 pg (27.0-33.0); MEAN CORPUSCULAR HGB CONC 33.1 g/dl (32.0-36.5); MEAN CORPUSCULAR VOLUME 94.2 fl (80.0-96.0); MONO # 1.1 10^3/uL (0.0-0.8); MONO % 11.1 % (0.0-5.0); NEUTROPHILS # 5.5 10^3/uL (1.8-7.7); NEUTROPHILS % 56.9 % (36.0-66.0); PLATELET COUNT, AUTOMATED 268 10^3/uL (150-450); RED BLOOD COUNT 4.17 10^6/uL (4.00-5.40); WHITE BLOOD COUNT 9.7 10^3/uL (4.0-10.0)
[2018-11-04] MEDS: VITAMIN D 1,000 INTERNATIONAL UNITS TABLET PO SCH (08:14)
[2018-11-04] MEDS: PANTOPRAZOLE 40MG TAB (PROTONIX) PO SCH (08:14)
[2018-11-04] MEDS: levETIRAcetam 250MG TABLET (KEPPRA) PO SCH ×2 (08:14→21:27)
[2018-11-04] MEDS: ASCORBIC ACID 500 MG TAB PO SCH (08:14)
[2018-11-04] MEDS: FLUTICASONE PROP 0.05% NASAL SPRAY 16 GM (FLONASE) NARES SCH ×2 (08:15→21:27)
[2018-11-04] MEDS: ENOXAPARIN 40 MG/0.4 ML SYRINGE (J1650) SC SCH (08:15)
[2018-11-04] MEDS: PHENYTOIN ER 100 MG CAP PO SCH (08:15)
[2018-11-04] MEDS: LIDOCAINE 5% (LIDODERM) PATCH TD SCH (08:15)
[2018-11-04] MEDS: SODIUM CHLORIDE NASAL 0.65% SPRAY BTL (OCEAN) SCH ×3 (08:15→21:27)
[2018-11-04] MEDS: DOCUSATE SODIUM 100 MG CAP PO SCH ×2 (08:16→21:26)
[2018-11-04] MEDS ORDERED: KEPP1TAB PO (10:39)
[2018-11-04] MEDS ORDERED: PANT40TA3 PO (10:39)
[2018-11-04] MEDS ORDERED: DEXA1TA PO (10:39)
[2018-11-04] MEDS ORDERED: DILA100C PO (10:39)
--- NOTE | 2018-11-04 10:40 | IPNPDOC ---
PM&R Progress Note DATE OF SERVICE: November 04, 2018 [facility] Worker Progress Note Subjective: Patient reports she feels well today and is ready to go home tomorrow. REVIEW OF SYSTEMS: The following is a completed review of systems and has been reviewed. Review of systems otherwise unremarkable. PAIN: Patient self reports right hip pain (chronic) EYES: Negative for recent vision changes EARS, NOSE, & THROAT: denies dysphagia, throat pain or rhinorrhea CARDIOVASCULAR: denies chest pain or palpitations PULMONARY: Negative. Denies shortness of breath. GASTROINTESTINAL: Negative for diarrhea/constipation GENITOURINARY: Denies incontinence or dysuria MUSCULOSKELETAL: right hip pain NEUROLOGICAL: seizures and RUE numbness and RLE weakness SKIN: no rashes PSYCHIATRIC: Unremarkable All other review of systems found to be negative. PHYSICAL EXAMINATION: VITAL SIGNS: Please see below. GENERAL: Pleasant and cooperative. No acute distress. HEENT: PERRL. Extraocular movements intact. Clear conjunctiva, +glasses CARDIOVASCULAR: Regular rate and rhythm. No murmurs, rubs, or gallops LUNGS: Clear to auscultation bilaterally. No wheezes. No rhonchi ABDOMEN: Soft, nontender, nondistended. Positive bowel sounds. Normal active bowel sounds, no suprapubic tenderness NEUROLOGICAL: Alert and oriented times three. Cranial nerves II through XII grossly intact. Sensation diminished in right hand and forearm (+) babinksi on the right EXTREMITIES: 5\\5 strength ;eft upper extremities.3+/5 RUE strength with +pronator drift 3+\\5 strength right hip flexion, knee extension, 2/5 ankle DF and PF 5/5 strength in left lower extremity. (+) groin pain with internal right hip rotation SKIN: intact, no sacral ulcers ASSESSMENT:62-year-old F with past medical history of left parietal meningioma s/p resection who presents status post new seizure activity in setting of tumor necrosis vs recurrence. PLAN: 1. rehab: PT, OT, APPLE TURNER- assess for DMEs, ambulating with RW and able to do stairs, room privileges today 2. Neuro: s/p resection and radiation of left parietal meningioma 2016, now with new onset seizures on Keppra and Dilantin in setting of tumor necrosis vs tumor recurrence-consulted Dr. Haider to continue following while on ARU -c/u Decadron taper, increased Dilantin to 400 mg as Dilantin level 7.4 on 10/28/18, 11/01/18 it is 9.1 c/u at current dose, no seizure activity noted, neurology recs appreciated, will recommend neuro f/u within one week of discharge and for Dilantin levels to be rechecked at that time -will need PET scan upon discharge 3. CArdio: no known cardiac history -medicine consulted 4. Resp: stable, will encourage incentive spirometry and monitor for infection 5. : admission UA and Ucx negative, monitor PVRs 6. DVT ppx: c/u Lovenox 7. GI ppx: protonix 8. Pain: right sided groin pain, responding to Tylenol and lidoderm patch 8. Dispo: 11/05/18 to home, progressing towards goals Allergies Coded Allergies: ciprofloxacin (Verified Adverse Reaction, Mild, "MAKES SICK", 10/25/18) ibuprofen (Verified Adverse Reaction, Mild, ASTHMA, 10/25/18) rosuvastatin (Verified Adverse Reaction, Mild, CRAMPS, 10/25/18) sodium hypochlorite solution (Verified Adverse Reaction, Mild, CHLORINE - ASTHMA, 10/25/18) Vital Signs Vital Signs Date Time Temp Pulse Resp B/P (MAP) Pulse Ox O2 Delivery O2 Flow Rate FiO2 11/04/18 06:00 97.1 65 18 113/71 (85) 94 Laboratory Data CBC/BMP Laboratory Tests 11/04/18 06:13 Red Blood Count 4.17, Mean Corpuscular Volume 94.2, Mean Corpuscular Hemoglobin 31.2, Mean Corpuscular Hemoglobin Concent 33.1, Red Cell Distribution Width 13.2, Neutrophils (%) (Auto) 56.9, Lymphocytes (%) (Auto) 25.6, Monocytes (%) (Auto) 11.1 H, Eosinophils (%) (Auto) 5.1 H, Basophils (%) (Auto) 0.6, Neutrophils # (Auto) 5.5, Lymphocytes # (Auto) 2.5, Monocytes # (Auto) 1.1 H, Eosinophils # (Auto) 0.5, Basophils # (Auto) 0.1 Labs 24H Laboratory Tests 2 11/04/18 06:13: Immature Granulocyte % (Auto) 0.7, White Blood Count 9.7, Red Blood Count 4.17, Hemoglobin 13.0, Hematocrit 39.3, Mean Corpuscular Volume 94.2, Mean Corpuscular Hemoglobin 31.2, Mean Corpuscular Hemoglobin Concent 33.1, Red Cell Distribution Width 13.2, Platelet Count 268, Neutrophils (%) (Auto) 56.9, Lymphocytes (%) (Auto) 25.6, Monocytes (%) (Auto) 11.1H, Eosinophils (%) (Auto) 5.1H, Basophils (%) (Auto) 0.6, Neutrophils # (Auto) 5.5, Lymphocytes # (Auto) 2.5, Monocytes # (Auto) 1.1H, Eosinophils # (Auto) 0.5, Basophils # (Auto) 0.1, Nucleated Red Blood Cells % (auto) 0.0 Microbiology Microbiology 10/26/18 Urine Culture - Final, Complete Current Medications Current Medications Current Medications Acetaminophen (Tylenol Tab) 650 mg Q4HP PRN PO fever/MILD PAIN (PS 1-4) Last administered on 11/02/18at 20:59; Start 10/25/18 at 11:30 Al Hydrox/Mg Hydrox/Simethicone (Mylanta) 30 ml Q4HP PRN PO DYSPEPSIA; Start 10/25/18 at 11:30 Albuterol Sulfate (Proventil Neb) 2.5 mg Q2HP PRN INH SOB/WHEEZING; Start 10/25/18 at 17:15 Ascorbic Acid (Vitamin C) 500 mg DAILY PO Last administered on 11/04/18at 08:14; Start 10/26/18 at 09:00 Bisacodyl (Dulcolax Tab) 5 mg DAILYPRN PRN PO CONSTIPATION; Start 10/25/18 at 11:30 Dexamethasone (Decadron) 3 mg Q8H PO Last administered on 11/04/18at 05:44; Start 10/25/18 at 22:00 Dextrose (Dextrose 50%) 25 ml ASDIRECTED PRN IV SEE LABEL COMMENTS; Start 10/25/18 at 17:15; Stop 10/29/18 at 17:10; Status DC Docusate Sodium (Colace) 100 mg BID PO Last administered on 11/03/18at 21:18; Start 10/25/18 at 21:00 Enoxaparin Sodium (Lovenox) 40 mg DAILY SC Last administered on 11/04/18at 08:15; Start 10/26/18 at 09:00 Fluticasone Propionate (Flonase 0.05% Nasal Wittman) 1 spray BID NARES Last administered on 11/04/18at 08:15; Start 11/01/18 at 21:00 Glucagon (Glucagon) 1 mg ASDIRECTED PRN SC SEE LABEL COMMENTS; Start 10/25/18 at 17:15; Stop 10/29/18 at 17:10; Status DC Glucose (Glucose) 16 GM ASDIRECTED PRN PO SEE LABEL COMMENTS; Start 10/25/18 at 17:15; Stop 10/29/18 at 17:10; Status DC Home Med (Med Rec Complete!) ASDIRECTED XX ; Start 10/25/18 at 16:30; Stop 10/25/18 at 16:32; Status DC Insulin Human Lispro (HumaLOG INSULIN) SEE PROTOCOL TABLE AC SC Last administered on 10/29/18at 12:19; Start 10/25/18 at 17:30; Stop 10/29/18 at 17:10; Status DC Insulin Human Lispro (HumaLOG INSULIN) SEE PROTOCOL TABLE QHS SC Last administered on 10/25/18at 22:12; Start 10/25/18 at 21:00; Stop 10/29/18 at 17:10; Status DC Levetiracetam (Keppra) 1,250 mg BID PO Last administered on 11/04/18at 08:14; Start 10/25/18 at 21:00 Lidocaine (Lidoderm Patch) 1 patch DAILY TD Last administered on 11/04/18at 08:15; Start 10/30/18 at 09:00 Magnesium Hydroxide (Milk Of Magnesia) 30 ml DAILYPRN PRN PO CONSTIPATION; Start 10/25/18 at 11:30 Miscellaneous (Unresolved Clarification Entry) SEE LABEL COMMENTS DAILY XX ; Start 11/01/18 at 09:00; Stop 11/01/18 at 10:53; Status DC Non-Formulary Medication ( See Comment Field Below ) REMOVE LIDODERM PATCH DAILY@21 XX Last administered on 11/03/18at 21:00; Start 10/30/18 at 21:00 Ondansetron HCl (Zofran) 4 mg Q6HP PRN PO NAUSEA; Start 10/25/18 at 11:30 Pantoprazole Sodium (Protonix) 40 mg DAILY PO Last administered on 11/04/18 08:14; Start 10/26/18 at 09:00 Phenytoin (Dilantin) 300 mg DAILY PO Last administered on 10/27/18at 07:48; Start 10/26/18 at 09:00; Stop 10/28/18 at 09:43; Status DC Phenytoin (Dilantin) 400 mg DAILY PO Last administered on 11/04/18 08:15; Start 10/28/18 at 09:00 Sodium Chloride (Shubuta Nasal Wittman) 2 spray TID NA Last administered on 11/04/18 08:15; Start 11/01/18 at 16:00 Vitamin D (Vitamin D) 1,000 units DAILY PO Last administered on 11/04/18 08:14; Start 10/26/18 at 09:00 A-FIB/CHADSVASC A-FIB History Current/History of A-Fib/PAF?: No Age/Risk Factor Scoring CHADSVASC: CHADSVASC Response (Comments) Value Age Risk Factor Age < 65 years old 0 Total 0 ANGELA THOMAS MD November 04, 2018 10:40
[2018-11-04 14:00] VITALS: BP 149/86
[2018-11-04 20:00] VITALS: BP 126/80
[2018-11-04] MEDS: **NOTE PATIENT COMMENT** MISC XX SCH (21:27)
[2018-11-05 06:00] VITALS: BP 131/64
[2018-11-05] MEDS: ACETAMINOPHEN TAB 650MG DOSE (2X325MG) PO PRN (09:04)
[2018-11-05] MEDS: PANTOPRAZOLE 40MG TAB (PROTONIX) PO SCH (09:04)
[2018-11-05] MEDS: PHENYTOIN ER 100 MG CAP PO SCH (09:04)
[2018-11-05] MEDS: levETIRAcetam 250MG TABLET (KEPPRA) PO SCH (09:05)
[2018-11-05] MEDS: ASCORBIC ACID 500 MG TAB PO SCH (09:05)
[2018-11-05] MEDS: DOCUSATE SODIUM 100 MG CAP PO SCH (09:05)
[2018-11-05] MEDS: VITAMIN D 1,000 INTERNATIONAL UNITS TABLET PO SCH (09:05)
[2018-11-05] MEDS: FLUTICASONE PROP 0.05% NASAL SPRAY 16 GM (FLONASE) NARES SCH (09:06)
[2018-11-05] MEDS: ENOXAPARIN 40 MG/0.4 ML SYRINGE (J1650) SC SCH (09:06)
[2018-11-05] MEDS: LIDOCAINE 5% (LIDODERM) PATCH TD SCH (09:07)
[2018-11-05] MEDS: SODIUM CHLORIDE NASAL 0.65% SPRAY BTL (OCEAN) SCH (09:07)
--- NOTE | 2018-11-13 14:57 | PMRDS ---
DATE OF ADMISSION: 10/25/2018 DATE OF DISCHARGE: 11/05/2018 CHIEF COMPLAINT/DISCHARGE DIAGNOSIS: Meningioma with seizures. HISTORY OF PRESENT ILLNESS: This is a 62-year-old female with a past medical history of left-sided parietal meningioma status post craniotomy with resection in 2016 status post radiation for residual meningioma with residual right foot drop and right lower extremity weakness on prophylactic Keppra who was without seizures until 10/21/2018, when she developed dizziness, right-sided weakness, twitching and was brought to [facility]. She recently had an MRI scan ordered by Dr. Haider her neurologist in [place] which showed a 1.5 cm recurrence of her tumor and her Keppra dosing was increased about four weeks prior to the onset of her symptoms. While at [place], she was started on IV steroids, her Keppra dosing was increased again to 1250 mg by mouth twice a day. Neurology performed an EEG on 10/21/2018 showing "mild focal cerebral dysfunction in the left frontal region. No epileptiform activity..." MR brain with and without contrast on 10/22/2018 showed "status post left parietal craniotomy for tumor resection. There is an irregular rim enhancing mass underlying the craniotomy site with surrounding edema; the extent of edema is similar to the previous examination. 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 She was instructed by Dr. Brandt to have a PET scan after discharge from rehab. She was evaluated by therapy and found to have significant impairments in gait and activities of daily livings, and deemed medically appropriate for discharge to ARU on 10/25/2018. PAST MEDICAL HISTORY: As per HPI. HOSPITAL COURSE: The patient was admitted and enrolled in a comprehensive physical therapy/occupational therapy (PT/OT), speech language pathology program. She received 24 hour nursing supervision and weekly team meetings were held to discuss her progress. The patient was continued on a Decadron taper. During her hospital course she was evaluated by neurology for her recent onset of new seizures and her Dilantin levels were monitored during her hospital course and adjusted. Her admission urinalysis and urine culture were negative. She was maintained on Lovenox for deep vein thrombosis (DVT) prophylaxis. She complained of right-sided groin pain, worse on internal rotation thought to be from hip osteoarthritis which responded well to Tylenol and Lidoderm patch. She performed well and in therapy requiring the use of an AFO that she brought in from home and was eventually deemed functionally and medically stable to return to home. DISCHARGE MEDICATIONS: - Decadron 3 mg by mouth every 8 hours - Dilantin 400 mg by mouth daily - ascorbic acid 500 daily - Colace 100 by mouth twice a day - Keppra 1250 mg by mouth twice a day - Milk of Magnesia as needed - Protonix 40 mg by mouth daily - vitamin D 1000 units daily FUNCTIONAL HISTORY UPON DISCHARGE: The patient was modified independent for all functional transfers using her AFO with a rolling walker, able to ambulate 150 feet and negotiate 12 stairs using bilateral hand rails. In occupational therapy she was modified independent for upper and lower body dressing and bathing. She was provided with a script for outpatient therapy. Thank you for this referral.
== END 2018-11-05 13:25 | disposition home or self-care (01) | DRG 101 ==
LOC: M PM&R 15:45
PROVIDERS: ADMIT Physical Medicine & Rehabilitation; ATTEND Physical Medicine & Rehabilitation
DX: G40.909 Epilepsy, unspecified, not intractable, without status epilepticus (principal); I67.89 Other cerebrovascular disease; R56.9 Unspecified convulsions; D32.9 Benign neoplasm of meninges, unspecified; M21.371 Foot drop, right foot; T38.0X5A Adverse effect of glucocorticoids and synthetic analogues, initial encounter; R73.9 Hyperglycemia, unspecified; R26.89 Other abnormalities of gait and mobility; R53.1 Weakness; Z90.49 Acquired absence of other specified parts of digestive tract; Z90.710 Acquired absence of both cervix and uterus; Z79.4 Long term (current) use of insulin; Z79.899 Other long term (current) drug therapy; Z88.6 Allergy status to analgesic agent; Z88.1 Allergy status to other antibiotic agents; Z88.8 Allergy status to other drugs, medicaments and biological substances; Z96.641 Presence of right artificial hip joint; Z92.3 Personal history of irradiation

== ENCOUNTER → 2019-01-13 | Outpatient (CLI) | payer OTHER ==
[~2019-01-13] MED LIST changes: +ACET-907 PO; +CHLO120L TOP; +CHOL100029 PO; +COLA100C5 PO; +DEXA1TA PO; +DILA100C PO; +GABA-1171 PO; +GLUCTAB PO; +HEPA500023 SC; +HUMA100I5 SC; +KEPP1TAB PO; +KEPP250T5 PO; +LEVE250T5 PO; +LEVE750T5 PO; +MAGN400T3 PO; +MOM30SS PO; +PANT-23 PO; +QC A650T3 PO; +SENN-85 PO; +TYLETAB14 PO; +VIMP100T PO; +VIMP50TA3 PO; +VITA100062 PO; +[UNRECOGNIZED DRUG - CODE] SC
[2019-01-13 18:08] LABS: BASO # 0.1 10^3/uL (0.0-0.2); BASO % 0.4 % (0.0-1.0); EOS # 0.1 10^3/uL (0.0-0.50); EOS % 0.6 % (0.0-3.0); HEMATOCRIT 46.3 % (36.0-47.0); HEMOGLOBIN 15.2 g/dl (12.0-15.5); LYMPH # 3.1 10^3/uL (1.5-4.5); LYMPH % 20.6 % (24.0-44.0); MEAN CORPUSCULAR HEMOGLOBIN 30.1 pg (27.0-33.0); MEAN CORPUSCULAR HGB CONC 32.8 g/dl (32.0-36.5); MEAN CORPUSCULAR VOLUME 91.7 fl (80.0-96.0); MONO # 1.4 10^3/uL (0.0-0.8); MONO % 9.1 % (0.0-5.0); NEUTROPHILS # 10.5 10^3/uL (1.8-7.7); PLATELET COUNT, AUTOMATED 368 10^3/uL (150-450); RED BLOOD COUNT 5.05 10^6/uL (4.00-5.40); WHITE BLOOD COUNT 15.2 10^3/uL (4.0-10.0)
[2019-01-13 18:14] LABS: ALBUMIN 4.1 GM/DL (3.2-5.2); ALT/SGPT 21 U/L (12-78); BILIRUBIN,TOTAL 0.4 MG/DL (0.2-1.0); BLOOD UREA NITROGEN 9 MG/DL (7-18); CALCIUM LEVEL 9.6 MG/DL (8.8-10.2); CARBON DIOXIDE LEVEL 28 MEQ/L (21-32); CHLORIDE LEVEL 107 MEQ/L (98-107); CREATININE FOR GFR 0.92 MG/DL (0.55-1.30); GLOMERULAR FILTRATION RATE > 60.0 (>45); GLUCOSE, FASTING 99 MG/DL (70-100); POTASSIUM SERUM 4.3 MEQ/L (3.5-5.1); SODIUM LEVEL 140 MEQ/L (136-145)
[2019-01-13 18:15] LABS: INR 1.11
[2019-01-13 18:16] LABS: PARTIAL THROMBOPLASTIN TIME 35.6 SECONDS (25.0-38.4)
== END ==
LOC: M SMT 14:31
PROVIDERS: ATTEND Physician Assistant
DX: Z01.812 Encounter for preprocedural laboratory examination (principal)

== ENCOUNTER 2019-01-23 15:02 | Inpatient (IN) | payer OTHER ==
[~2019-01-23] VITALS: Ht 175.3 cm; Wt 86.1 kg
[~2019-01-23 15:02] MED LIST changes: -ACET-907 PO; -CHLO120L TOP; -CHOL100029 PO; -GABA-1171 PO; -GLUCTAB PO; -HEPA500023 SC; -KEPP250T5 PO; -LEVE750T5 PO; -MAGN400T3 PO; -PANT-23 PO; -TYLETAB14 PO; -VIMP100T PO; -VIMP50TA3 PO; -VITA100062 PO; +VITAD1000T PO
[2019-01-23 16:45] VITALS: BP 133/92
--- NOTE | 2019-01-23 17:28 | HPEPDOC ---
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 She developed seizures in September of 2018 and was found to have possible recurrence along the lateral inferior border of her tumor bed on PET/CT. She was admitted to [facility] under neurosurgical care and underwent a redo left craniotomy for tumor with a post-op diagnosis of radiation necrosis and pathology showing changes associated with radiation, parietal hemangiopericytoma with no definite recurrent tumor identified 01/16/19. Surgery was performed by Dr. Brandt without complication. MR Brain 01/17/19 showing, staus post redo left parietal craniotomy for tumor resection with expected postoperative changes. There are areas of irregular enhancement surrounding the resection cavity which could represent residual tumor. She had post-op pain, was maintained on Decad bibi, and continued on her anticonvulsant therapy. She had new deficits in mobility and ADLs below her prior level of function and deemed medically appropriate for discharge to ARU on 01/23/19. On encounter patient reports having falling a couple of weeks ago onto her right shoulder and has pain. REVIEW OF SYSTEMS: The following is a completed review of systems and has been reviewed. Review of systems otherwise unremarkable. PAIN: Patient self reports right groin and right shoulder EYES: No recent vision changes EARS, NOSE, & THROAT: No throat pain, or dysphagia, or rhinorrhea CARDIOVASCULAR: Denies chest pain or palpitations PULMONARY: Denies shortness of breath GASTROINTESTINAL: Denies constipation/diarrhea GENITOURINARY: urinary urgency MUSCULOSKELETAL: right hip OA NEUROLOGICAL:RUE and RLE paresis SKIN: craniotomy PSYCHIATRIC: Unremarkable All other review of systems found to be negative. PAST SURGICAL HISTORY: Appendectomy, Hysterectomy, Cyber knife ALLERGIES: Please see below. MEDICATIONS: Please see below. FAMILY HISTORY: father with CAD and Hypothyroidism, Mother with CVA SOCIAL HISTORY: Lives with who has TBI, denies smoking, illicit drugs, occasional ETOH, retired DIET: regular PHYSICAL EXAMINATION: VITAL SIGNS: Please see below. GENERAL: Pleasant and cooperative. No acute distress. HEENT: PERRL. Extraocular movements intact. Clear conjunctiva CARDIOVASCULAR: Regular rate and rhythm. No murmurs, rubs, or gallops LUNGS: Clear to auscultation bilaterally. No wheezes. No rhonchi ABDOMEN: Soft, nontender, nondistended. Positive bowel sounds. Normal active bowel sounds NEUROLOGICAL: Alert and oriented times three. Cranial nerves II through XII grossly intact. Sensation grossly intact +neglect RUE +clonus and +babinksi RLE EXTREMITIES: 5\\5 strength left upper extremities, 3/5 RUE, 3\\5 strength right lower extremity. 5/5 strength in left lower extremity right shoulder, (-) Neers, +painful arc, (-) AC joint TTP with decreased ROM SKIN: craniotomy site sutures c/d/i LABORATORY DATA: Please see below. IMAGING:Imaging documentation personally reviewed by record FUNCTIONAL STATUS: Premorbid: Mod-I with all activities of daily life as well as mobility until 1 month prior to craniotomy where she was wheelchair bound On Admission: Min assist ambulation with RW and min-mod assist for functional transfers, min assist for dressing GOALS: Mod-I household distances with RW, able to negotiate stairs, Mod-I for dressing, bathing, toileting, assess for DME needs, fall recovery, dynamic balance training, caregiver training ASSESSMENT:63-year-old F with past medical history of left parietal meningioma s/p resection who presented s/p redo crantioomy found to have tumor necrosis with new right sided hemiparesis. PLAN: 1. rehab: PT- strengthen RLE, work on improving quality of gait, assess for appropriate AFO (patient's own AFO is not effective against supination) OT- josé miguel RUE, maintain shoudler ROM, advance fine motor skills for optimal ADL management 2. Neuro: s/p resection and radiation of left parietal meningioma 2016 with redo craniotomy 01/16/19, pathology + tumor necrosis, not recurrent tumor- will need to f/u with Dr. Brandt -worsening RUE and RLE hemiparesis with neglect -will consider customer service correspondence clerk consult for worsening for drop -c/u Decadron and K[place]otero, f/u Dr. Haider on discharge -s/p 7 day course of Vimpat began on 01/16/19 at [place] 3. CArdio: no known cardiac history-medicine consulted to assist in management 4. Resp: stable, will encourage incentive spirometry and monitor for infection 5. : monitor PVRs, will start on Detrol for overactive bladder 6. DVT ppx: c/u heparin and TEDs 7. GI ppx: protonix 8. Pain: tylenol prn, lidoderm path to right hip and right shoulder 8. Dispo: TBD POST ADMISSION PHYSICIAN EVALUATION: Medical and functional status: Description of medical status, medical assessment: As above. Rehabilitation diagnosis and current and prior cold morbid medical conditions as above. Risk of complications and plans to mitigate them as above. Description of functional status current status is as above. Prior status as above. Status compared to preadmission: There are no clinically significant differences between the patient's current status and the information described on the preadmission screening document. Treatment plan anticipated: Treatment plan is as described above. Required disciplines including physical therapy, occupational therapy, others as noted above Intensity of services: 3 hours a day, 6 days a week. Special considerations: There are no specific special or safety considerations that would likely preclude immediate implementation of an intensive rehabilitation program or subsequently influence the plan of care. ATTESTATION: Considering all the information above, it is my best judgment that this patient requires intensive rehabilitation therapy as described above and an inpatient hospital environment due to the complexity of nursing, medical, and rehabilitation needs required by the patient. Furthermore, this patient can reasonably be expected to participate in an benefit from an inpatient rehabilitation stay with an interdisciplinary team approach to the delivery of rehabilitation care under the direction and supervision of rehabilitation physician PROGNOSIS: Good ESTIMATED LENGTH OF STAY:18-21 days. PROJECTED DISCHARGE DESTINATION: Home with family support and any durable medical equipment required to increase functional safety and mobility. TIME SPENT COUNSELING AND COORDINATING INITIAL CARE: Greater than 70 minutes. Vital Signs Vital Signs Date Time Temp Pulse Resp B/P (MAP) Pulse Ox O2 Delivery O2 Flow Rate FiO2 01/23/19 16:45 97.4 85 18 133/92 (106) 97 Laboratory Data Labs 24H Laboratory Tests 2 01/23/19 17:10: Bedside Glucose (Misc Panel) 131H FSBS Laboratory Tests Test 01/23/19 17:10 Range/Units Bedside Glucose (Misc Panel) 131 80-115 MG/DL Home Medications Scheduled Ascorbic Acid (Vitamin C) 1,000 Mg Tablet, 2,000 MG PO DAILY, (Reported) Chlorhexidin/Isopropyl Alcohol (Dynahex 2% Liquid) 120 Ml Liquid, 120 ML TOP DAILY, (Reported) Dexamethasone (Dexamethasone) 4 Mg Tablet, 4 MG PO BID, (Reported) Docusate Sodium (Colace) 100 Mg Capsule, 100 MG PO BID, (Reported) Heparin Sodium,Porcine (Heparin Sodium) 5,000 Unit/1 Ml Syringe, 5,000 UNIT SC TID, (Reported) STARTED AT [facility] Insulin Lispro (Humalog Kwikpen U-100) 100 Unit/1 Ml Insuln.pen, 1 DOSE SC ACHS, (Reported) PER SLIDING SCALE - STARTED AT [place] Lacosamide (Vimpat) 100 Mg Tablet, 100 MG PO BID, (Reported) Levetiracetam (Levetiracetam) 750 Mg Tablet, 1,500 MG PO BID, (Reported) DOSE CHANGED AT [place] - HOME DOSE WAS 750MG BID Magnesium Oxide (Magnesium Oxide) 400 Mg Tablet, 400 MG PO DAILY, (Reported) Pantoprazole Sodium (Pantoprazole Sodium) 40 Mg Tablet.dr, 40 MG PO DAILY, (Reported) STARTED AT [place] Sennosides (Senna Laxative) 8.6 Mg Tablet, 17.2 MG PO QHS, (Reported) Vitamin D (Vitamin D3) 1,000 Unit Tablet, 2,000 UNITS PO DAILY, (Reported) Scheduled PRN Acetaminophen (Tylenol) 325 Mg Tablet, 650 MG PO Q4H PRN for MILD PAIN (PS 1-4), (Reported) Acetaminophen with Codeine (Tylenol with Codeine #3 Tablet) 1 Each Tablet, 1 TAB PO TID PRN for SEVERE PAIN (PS 8-10), (Reported) Allergies Coded Allergies: ciprofloxacin (Verified Adverse Reaction, Mild, "MAKES SICK", 10/25/18) ibuprofen (Verified Adverse Reaction, Mild, ASTHMA, 10/25/18) rosuvastatin (Verified Adverse Reaction, Mild, CRAMPS, 10/25/18) sodium hypochlorite solution (Verified Adverse Reaction, Mild, CHLORINE - ASTHMA, 10/25/18) A-FIB/CHADSVASC A-FIB History Current/History of A-Fib/PAF?: No ANGELA THOMAS MD Jan 23, 2019 17:28
[2019-01-23] MEDS ORDERED: SENNA 8.6 MG TAB (SENOKOT) PO PRN (17:30)
[2019-01-23] MEDS ORDERED: DEXTROSE 50% 50 ML SYRINGE IV PRN (17:30)
[2019-01-23] MEDS ORDERED: GLUCOSE 4 GM CHEW TABLET PO PRN (17:30)
[2019-01-23] MEDS ORDERED: MOM 30ML SUSPENSION UDC PO PRN (17:30)
[2019-01-23] MEDS ORDERED: GLUCAGON FOR INJ 1 MG VIAL (J1610) SC PRN (17:30)
[2019-01-23] MEDS ORDERED: DEXA4TA PO (17:46)
[2019-01-23] MEDS ORDERED: HEPA500023 SC (17:46)
[2019-01-23] MEDS ORDERED: CHLO120L TOP (17:46)
[2019-01-23] MEDS ORDERED: TYLETAB14 PO (17:46)
[2019-01-23] MEDS ORDERED: ACET-907 PO (17:46)
[2019-01-23] MEDS ORDERED: LEVE750T5 PO (17:46)
[2019-01-23] MEDS ORDERED: PANT-23 PO (17:46)
[2019-01-23] MEDS ORDERED: HUMA100I5 SC (17:46)
[2019-01-23] MEDS ORDERED: VITA100062 PO (17:46)
[2019-01-23] MEDS ORDERED: MAGN400T PO (17:46)
[2019-01-23] MEDS ORDERED: VIMP100T PO (17:46)
[2019-01-23] MEDS: HumaLOG INSULIN (NovoLOG) PER UNIT SC SCH ×2 (18:06→21:00)
[2019-01-23 21:00] VITALS: BP 135/80
[2019-01-23] MEDS: DOCUSATE SODIUM 100 MG CAP PO SCH (21:00)
[2019-01-23] MEDS: HEPARIN SOD (PORCINE) 5000 UNITS/ML VIAL SQ SCH (21:18)
[2019-01-23] MEDS: levETIRAcetam 250MG TABLET (KEPPRA) PO SCH (21:18)
[2019-01-23] MEDS: LIDOCAINE 5% (LIDODERM) PATCH TD SCH (21:19)
[2019-01-23] MEDS: ACETAMINOPHEN 500 MG TAB PO PRN (21:21)
[2019-01-23] MEDS: LACOSAMIDE 50 MG TAB (VIMPAT) PO SCH (22:11)
[2019-01-24 06:00] VITALS: BP 113/67
[2019-01-24] MEDS: HEPARIN SOD (PORCINE) 5000 UNITS/ML VIAL SQ SCH ×3 (06:21→21:53)
[2019-01-24 07:11] LABS: BASO # 0.1 10^3/uL (0.0-0.2); BASO % 0.3 % (0.0-1.0); EOS % 0.1 % (0.0-3.0); HEMATOCRIT 42.4 % (36.0-47.0); HEMOGLOBIN 14.2 g/dl (12.0-15.5); LYMPH % 15.9 % (24.0-44.0); MEAN CORPUSCULAR HGB CONC 33.5 g/dl (32.0-36.5); MEAN CORPUSCULAR VOLUME 92.6 fl (80.0-96.0); MONO # 1.2 10^3/uL (0.0-0.8); MONO % 6.2 % (0.0-5.0); NEUTROPHILS # 14.5 10^3/uL (1.8-7.7); NEUTROPHILS % 75.9 % (36.0-66.0); PLATELET COUNT, AUTOMATED 398 10^3/uL (150-450); RED BLOOD COUNT 4.58 10^6/uL (4.00-5.40); WHITE BLOOD COUNT 19.1 10^3/uL (4.0-10.0)
[2019-01-24 07:43] LABS: ALBUMIN 3.2 GM/DL (3.2-5.2); ALT/SGPT 41 U/L (12-78); BILIRUBIN,TOTAL 0.3 MG/DL (0.2-1.0); BLOOD UREA NITROGEN 19 MG/DL (7-18); CALCIUM LEVEL 9.1 MG/DL (8.8-10.2); CARBON DIOXIDE LEVEL 30 MEQ/L (21-32); CHLORIDE LEVEL 104 MEQ/L (98-107); GLOMERULAR FILTRATION RATE > 60.0 (>45); GLUCOSE, FASTING 137 MG/DL (70-100); POTASSIUM SERUM 3.9 MEQ/L (3.5-5.1); SODIUM LEVEL 140 MEQ/L (136-145)
[2019-01-24] MEDS: DOCUSATE SODIUM 100 MG CAP PO SCH ×4 (09:00→22:01)
[2019-01-24] MEDS: HumaLOG INSULIN (NovoLOG) PER UNIT SC SCH ×4 (09:08→21:00)
[2019-01-24] MEDS: LACOSAMIDE 50 MG TAB (VIMPAT) PO SCH (09:09)
[2019-01-24] MEDS: **NOTE PATIENT COMMENT** MISC XX SCH (09:10)
[2019-01-24] MEDS: levETIRAcetam 250MG TABLET (KEPPRA) PO SCH ×2 (09:10→21:52)
[2019-01-24] MEDS: ASCORBIC ACID 500 MG TAB PO SCH (09:20)
[2019-01-24] MEDS: PANTOPRAZOLE 40MG TAB (PROTONIX) PO SCH (09:21)
[2019-01-24] MEDS: MAGNESIUM OXIDE 400 MG TAB (MAG-OX) PO SCH (09:21)
[2019-01-24] MEDS: VITAMIN D 1,000 INTERNATIONAL UNITS TABLET PO SCH (09:21)
[2019-01-24 14:00] VITALS: BP 135/71
--- NOTE | 2019-01-24 14:35 | CR.PDOC ---
General Date of Consultation: Jan 24, 2019 Consultation CONSULT FOR: Dr. 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 The patient subsequently underwent [employer] is radiosurgery in October 2016. In September 2018 she did have partial seizures of the right arm and leg initially presenting symptoms back in 2015 involved mostly the leg this time she had symptoms in the arm as well. January 16 she was admitted and underwent further resection of suspected recurrence of the mass in the left parietal lobe. As per neurosurgery discussions with the patient there is concern that this could be scar tissues secondary to radiation versus recurrence of tumor. She tolerated the procedure well and has been doing well with physical therapy subsequently and has been transferred to acute rehabilitation unit to continue physical therapy for right upper extremity and right lower extremity weakness. Otherwise patient denies weight loss, hair loss, headache, visual changes, chest pain, shortness of jeremiah th, cough, nausea, vomiting, diarrhea, abdominal pain, muscle aches, worsening arthritis, change in mood PAST MEDICAL HISTORY: 1. 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 2. 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 3. Rheumatic fever in childhood 4. Gastroesophageal reflux disease. HOME MEDICATIONS: Please see below. ALLERGIES: Please see below PAST SURGICAL HISTORY: 1. Craniotomy 2015 and this month. 2. Left hip arthroplasty. 3. Appendectomy 4. Hysterectomy. 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 ETOH: Denies, Illicit drug use: Denies, Tattoos done unprofessionally: Denies. CODE STATUS: Full code FAMILY HISTORY:Reviewed and noncontributory REVIEW OF SYSTEMS: 10 systems reviewed and negative other than HPI PHYSICAL EXAMINATION: VITAL SIGNS: Temperature 97.2, pulse 60, respiratory rate 16, blood pressure 113/67, pulse oximetry 96 % on room air. GENERAL: Pleasant Sinhala female sitting up in bed awake alert oriented speaking in complete sentences no acute distress HEENT: Moist mucous membranes no elevation and CVP, left side of her head is shaved she is a large incision which is stapled shut clean dry and intact CARDIOVASCULAR: S1 S2 regular no additional heart sounds appreciated. RESPIRATORY: Clear to auscultation bilaterally. ABDOMINAL: Bowel sounds present abdomen soft and nontender EXTREMITIES: No clubbing cyanosis or edema NEUROLOGICAL: Spontaneously moves all 4 extremities cranial 2 through 12 grossly intact marked weakness of the right distal hand as well as the right distal lower extremity PSYCHOLOGICAL: Appropriate LABORATORY DATA: See below. MICROBIOLOGY: Please see below. IMAGIN here at [facility] ASSESSMENT & PLAN: This is a 63-year-old female postop left craniotomy for resection of left parietal mass. PROBLEMS: 1. Left parietal mass: Continue with the Vimpat and Keppra and Decadron for seizure prophylaxis she appears to tolerate her resection well and will have outpatient neurosurgery follow-up rehabilitation as per physiatry patient is very happy to return to acute rehabilitation unit speaks very highly of our facility. Continue with pain control pain is optimally controlled at this time 2. Chronic constipation: Continue with bowel regimen 3. Gastroesophageal reflux disease: Continue with Protonix 4.Steroid-induced hyperglycemia: She is on insulin sliding scale her previous hemoglobin C was not impressive and presenting fingersticks remain controlled and insulin is not being provided could consider discontinuing in the future DVT PROPHYLAXIS:Heparin Thank you for this interesting consult, we will continue to follow along with you. Please Vocera secure text or call with any specific questions. Vital Signs/I&O Vital Signs Date Time Temp Pulse Resp B/P (MAP) Pulse Ox O2 Delivery O2 Flow Rate FiO2 01/24/19 06:00 97.2 60 16 113/67 (82) 96 I&O- Last 24 Hours up to 6 AM 01/24/19 06:00 Intake Total 860 ml Balance 860 ml Laboratory Data Labs 24H Laboratory Tests 2 01/23/19 17:10: Bedside Glucose (Misc Panel) 131H 01/23/19 21:08: Bedside Glucose (Misc Panel) 126H 01/24/19 06:23: Bedside Glucose (Misc Panel) 153H 01/24/19 06:47: Immature Granulocyte % (Auto) 1.6, White Blood Count 19.1H, Red Blood Count 4.58, Hemoglobin 14.2, Hematocrit 42.4, Mean Corpuscular Volume 92.6, Mean Corpuscular Hemoglobin 31.0, Mean Corpuscular Hemoglobin Concent 33.5, Red Cell Distribution Width 12.9, Platelet Count 398, Neutrophils (%) (Auto) 75.9H, Lymphocytes (%) (Auto) 15.9L, Monocytes (%) (Auto) 6.2H, Eosinophils (%) (Auto) 0.1, Basophils (%) (Auto) 0.3, Neutrophils # (Auto) 14.5H, Lymphocytes # (Auto) 3.0, Monocytes # (Auto) 1.2H, Eosinophils # (Auto) 0.0, Basophils # (Auto) 0.1, Nucleated Red Blood Cells % (auto) 0.0, Anion Gap 6L, Glomerular Filtration Rate > 60.0, Blood Urea Nitrogen 19H, Creatinine 0.90, Sodium Level 140, Potassium Level 3.9, Chloride Level 104, Carbon Dioxide Level 30, Calcium Level 9.1, Aspartate Amino Transf (AST/SGOT) 17, Alanine Aminotransferase (ALT/SGPT) 41, Alkaline Phosphatase 70, Total Bilirubin 0.3, Total Protein 7.0, Albumin 3.2, Albumin/Globulin Ratio 0.84L 01/24/19 11:18: Bedside Glucose (Misc Panel) 91 CBC/BMP Laboratory Tests 01/24/19 06:47 Red Blood Count 4.58, Mean Corpuscular Volume 92.6, Mean Corpuscular Hemoglobin 31.0, Mean Corpuscular Hemoglobin Concent 33.5, Red Cell Distribution Width 12.9, Neutrophils (%) (Auto) 75.9 H, Lymphocytes (%) (Auto) 15.9 L, Monocytes (%) (Auto) 6.2 H, Eosinophils (%) (Auto) 0.1, Basophils (%) (Auto) 0.3, Neutrophils # (Auto) 14.5 H, Lymphocytes # (Auto) 3.0, Monocytes # (Auto) 1.2 H, Eosinophils # (Auto) 0.0, Basophils # (Auto) 0.1, Calcium Level 9.1, Aspartate Amino Transf (AST/SGOT) 17, Alanine Aminotransferase (ALT/SGPT) 41, Alkaline Jason sphatase 70, Total Bilirubin 0.3, Total Protein 7.0, Albumin 3.2 Allergies Coded Allergies: ciprofloxacin (Verified Adverse Reaction, Mild, "MAKES SICK", 10/25/18) ibuprofen (Verified Adverse Reaction, Mild, ASTHMA, 10/25/18) rosuvastatin (Verified Adverse Reaction, Mild, CRAMPS, 10/25/18) sodium hypochlorite solution (Verified Adverse Reaction, Mild, CHLORINE - ASTHMA, 10/25/18) Home Medications Scheduled Ascorbic Acid (Vitamin C) 1,000 Mg Tablet, 2,000 MG PO DAILY, (Reported) Chlorhexidin/Isopropyl Alcohol (Dynahex 2% Liquid) 120 Ml Liquid, 120 ML TOP DAILY, (Reported) Dexamethasone (Dexamethasone) 4 Mg Tablet, 4 MG PO BID, (Reported) Docusate Sodium (Colace) 100 Mg Capsule, 100 MG PO BID, (Reported) Heparin Sodium,Porcine (Heparin Sodium) 5,000 Unit/1 Ml Syringe, 5,000 UNIT SC TID, (Reported) STARTED AT [facility] Insulin Lispro (Humalog Kwikpen U-100) 100 Unit/1 Ml Insuln.pen, 1 DOSE SC ACHS, (Reported) PER SLIDING SCALE - STARTED AT [place] Lacosamide (Vimpat) 100 Mg Tablet, 100 MG PO BID, (Reported) Levetiracetam (Levetiracetam) 750 Mg Tablet, 1,500 MG PO BID, (Reported) DOSE CHANGED AT [place] - HOME DOSE WAS 750MG BID Magnesium Oxide (Magnesium Oxide) 400 Mg Tablet, 400 MG PO DAILY, (Reported) Pantoprazole Sodium (Pantoprazole Sodium) 40 Mg Tablet.dr, 40 MG PO DAILY, (Reported) STARTED AT [place] Sennosides (Senna Laxative) 8.6 Mg Tablet, 17.2 MG PO QHS, (Reported) Vitamin D (Vitamin D3) 1,000 Unit Tablet, 2,000 UNITS PO DAILY, (Reported) Scheduled PRN Acetaminophen (Tylenol) 325 Mg Tablet, 650 MG PO Q4H PRN for MILD PAIN (PS 1-4), (Reported) Acetaminophen with Codeine (Tylenol with Codeine #3 Tablet) 1 Each Tablet, 1 TAB PO TID PRN for SEVERE PAIN (PS 8-10), (Reported) JOSELO HERZOG MD Jan 24, 2019 14:34
--- NOTE | 2019-01-24 14:43 | IPNPDOC ---
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 REVIEW OF SYSTEMS: The following is a completed review of systems and has been reviewed. Review of systems otherwise unremarkable. PAIN: Patient self reports right groin and right shoulder EYES: No recent vision changes EARS, NOSE, & THROAT: No throat pain, or dysphagia, or rhinorrhea CARDIOVASCULAR: Denies chest pain or palpitations PULMONARY: Denies shortness of breath GASTROINTESTINAL: Denies constipation/diarrhea GENITOURINARY: urinary urgency MUSCULOSKELETAL: right hip OA NEUROLOGICAL:RUE and RLE paresis SKIN: craniotomy PSYCHIATRIC: Unremarkable All other review of systems found to be negative. PHYSICAL EXAMINATION: VITAL SIGNS: Please see below. GENERAL: Pleasant and cooperative. No acute distress. HEENT: PERRL. Extraocular movements intact. Clear conjunctiva CARDIOVASCULAR: Regular rate and rhythm. No murmurs, rubs, or gallops LUNGS: Clear to auscultation bilaterally. No wheezes. No rhonchi ABDOMEN: Soft, nontender, nondistended. Positive bowel sounds. Normal active bowel sounds NEUROLOGICAL: Alert and oriented times three. Cranial nerves II through XII grossly intact. Sensation grossly intact +neglect RUE +clonus and +babinksi RLE EXTREMITIES: 5\\5 strength left upper extremities, 3/5 RUE, 3\\5 strength right lower extremity. 5/5 strength in left lower extremity right shoulder, (-) Neers, +painful arc, (-) AC joint TTP with decreased ROM SKIN: craniotomy site sutures c/d/i ASSESSMENT:63-year-old F with past medical history of left parietal meningioma s/p resection who presented s/p redo crantioomy found to have tumor necrosis with new right sided hemiparesis. PLAN: 1. rehab: PT- strengthen RLE, work on improving quality of gait, assess for appropriate AFO (patient's own AFO is not effective against supination) OT- strenghtdiane RUE, maintain shoudler ROM, advance fine motor skills for optimal ADL management 2. Neuro: s/p resection and radiation of left parietal meningioma 2016 with redo craniotomy 01/16/19, pathology + tumor necrosis, not recurrent tumor- will need to f/u with Dr. [place] -worsening RUE and RLE hemiparesis with neglect -will consider rough rib grader consult for worsening foot drop -c/u Decadron and Marcelino, f/u Dr. Haider on discharge -s/p 7 day course of Vimpat began on 01/16/19 at [facility] 3. CArdio: no known cardiac history-medicine consulted to assist in management 4. Resp: stable, will encourage incentive spirometry and monitor for infection 5. : monitor PVRs, will start on Detrol for overactive bladder and check UA for urgency 6. DVT ppx: c/u heparin and TEDs 7. GI ppx: protonix 8. Pain: tylenol prn, lidoderm path to right hip and right shoulder 8. Dispo: TBD Allergies Coded Allergies: phenytoin (Verified Allergy, Severe, 01/24/19) diffuse body rash ciprofloxacin (Verified Adverse Reaction, Mild, "MAKES SICK", 10/25/18) ibuprofen (Verified Adverse Reaction, Mild, ASTHMA, 10/25/18) rosuvastatin (Verified Adverse Reaction, Mild, CRAMPS, 10/25/18) sodium hypochlorite solution (Verified Adverse Reaction, Mild, CHLORINE - ASTHMA, 10/25/18) Vital Signs Vital Signs Date Time Temp Pulse Resp B/P (MAP) Pulse Ox O2 Delivery O2 Flow Rate FiO2 01/24/19 14:00 97.1 76 17 135/71 (92) 96 Laboratory Data CBC/BMP Laboratory Tests 01/24/19 06:47 Red Blood Count 4.58, Mean Corpuscular Volume 92.6, Mean Corpuscular Hemoglobin 31.0, Mean Corpuscular Hemoglobin Concent 33.5, Red Cell Distribution Width 12.9, Neutrophils (%) (Auto) 75.9 H, Lymphocytes (%) (Auto) 15.9 L, Monocytes (%) (Auto) 6.2 H, Eosinophils (%) (Auto) 0.1, Basophils (%) (Auto) 0.3, Neutrophils # (Auto) 14.5 H, Lymphocytes # (Auto) 3.0, Monocytes # (Auto) 1.2 H, Eosinophils # (Auto) 0.0, Basophils # (Auto) 0.1, Calcium Level 9.1, Aspartate Amino Transf (AST/SGOT) 17, Alanine Aminotransferase (ALT/SGPT) 41, Alkaline Phosphatase 70, Total Bilirubin 0.3, Total Protein 7.0, Albumin 3.2 Labs 24H Laboratory Tests 2 01/23/19 17:10: Bedside Glucose (Misc Panel) 131H 01/23/19 21:08: Bedside Glucose (Misc Panel) 126H 01/24/19 06:23: Bedside Glucose (Misc Panel) 153H 01/24/19 06:47: Immature Granulocyte % (Auto) 1.6, White Blood Count 19.1H, Red Blood Count 4.58, Hemoglobin 14.2, Hematocrit 42.4, Mean Corpuscular Volume 92.6, Mean Corpuscular Hemoglobin 31.0, Mean Corpuscular Hemoglobin Concent 33.5, Red Cell Distribution Width 12.9, Platelet Count 398, Neutrophils (%) (Auto) 75.9H, Lymphocytes (%) (Auto) 15.9L, Monocytes (%) (Auto) 6.2H, Eosinophils (%) (Auto) 0.1, Basophils (%) (Auto) 0.3, Neutrophils # (Auto) 14.5H, Lymphocytes # (Auto) 3.0, Monocytes # (Auto) 1.2H, Eosinophils # (Auto) 0.0, Basophils # (Auto) 0.1, Nucleated Red Blood Cells % (auto) 0.0, Anion Gap 6L, Glomerular Filtration Rate > 60.0, Blood Urea Nitrogen 19H, Creatinine 0.90, Sodium Level 140, Potassium Level 3.9, Chloride Level 104, Carbon Dioxide Level 30, Calcium Level 9.1, Aspartate Amino Transf (AST/SGOT) 17, Alanine Aminotransferase (ALT/SGPT) 41, Alkaline Phosphatase 70, Total Bilirubin 0.3, Total Protein 7.0, Albumin 3.2, Albumin/Globulin Ratio 0.84L 01/24/19 11:18: Bedside Glucose (Misc Panel) 91 Current Medications Current Medications Current Medications Medications (Trade) Dose Ordered Sig/Celeste Route PRN Reason Start Time Stop Time Status Last Admin Dose Admin Acetaminophen (Tylenol Tab) 1,000 mg Q6HP PRN PO PAIN / FEVER 01/23/19 17:30 01/23/19 21:21 Ascorbic Acid (Vitamin C) 1,000 mg DAILY PO 01/24/19 09:00 01/24/19 09:20 Dexamethasone (Decadron) 4 mg Q12H PO 01/23/19 21:00 01/24/19 09:09 Dextrose (Dextrose 50%) 25 ml ASDIRECTED PRN IV SEE LABEL COMMENTS 01/23/19 17:30 Docusate Sodium (Colace) 100 mg TID PO 01/23/19 21:00 Glucagon (Glucagon) 1 mg ASDIRECTED PRN SC SEE LABEL COMMENTS 01/23/19 17:30 Glucose (Glucose) 16 GM ASDIRECTED PRN PO SEE LABEL COMMENTS 01/23/19 17:30 Heparin Sodium (Porcine) (Heparin) 5,000 units Q8H SQ 01/23/19 22:00 01/24/19 06:21 Home Med (Med Rec Complete!) ASDIRECTED XX 01/23/19 18:00 01/23/19 18:00 DC Insulin Human Lispro (HumaLOG INSULIN) SEE PROTOCOL TABLE AC SC 01/23/19 17:30 01/24/19 09:08 Insulin Human Lispro (HumaLOG INSULIN) SEE PROTOCOL TABLE QHS SC 01/23/19 21:00 Lacosamide (Vimpat) 100 mg BID PO 01/23/19 21:00 01/24/19 14:37 DC 01/24/19 09:09 Levetiracetam (Keppra) 1,500 mg BID PO 01/23/19 21:00 01/24/19 09:10 Lidocaine (Lidoderm Patch) 2 patch QHS TD 01/23/19 21:00 01/23/19 21:19 Magnesium Hydroxide (Milk Of Magnesia) 30 ml DAILYPRN PRN PO CONSTIPATION 01/23/19 17:30 Magnesium Oxide (Mag-Ox) 400 mg DAILY PO 01/24/19 09:00 01/24/19 09:21 Non-Formulary Medication ( See Comment Field Below ) REMOVE LIDODERM PATCH DAILY XX 01/24/19 09:00 01/24/19 09:10 Pantoprazole Sodium (Protonix) 40 mg DAILY PO 01/24/19 09:00 01/24/19 09:21 Senna (Senokot) 1 tab QHSP PRN PO CONSTIPATION 01/23/19 17:30 Tolterodine Tartrate (Detrol) 2 mg DAILY PO 01/24/19 09:00 Vitamin D (Vitamin D) 2,000 units DAILY PO 01/24/19 09:00 01/24/19 09:21 ANGELA THOMAS MD Jan 24, 2019 14:43
[2019-01-24] MEDS: TOLTERODINE (DETROL) 2 MG TAB PO SCH (17:43)
[2019-01-24] MEDS: ACETAMINOPHEN 500 MG TAB PO PRN (17:46)
[2019-01-24] MEDS: LIDOCAINE 5% (LIDODERM) PATCH TD SCH (21:54)
[2019-01-24 22:00] VITALS: BP 127/75
[2019-01-25 06:00] VITALS: BP 137/84
[2019-01-25] MEDS: HEPARIN SOD (PORCINE) 5000 UNITS/ML VIAL SQ SCH ×3 (06:34→21:45)
[2019-01-25] MEDS: DOCUSATE SODIUM 100 MG CAP PO SCH ×3 (07:52→21:43)
[2019-01-25] MEDS: TOLTERODINE (DETROL) 2 MG TAB PO SCH (07:52)
[2019-01-25] MEDS: MAGNESIUM OXIDE 400 MG TAB (MAG-OX) PO SCH (09:00)
[2019-01-25] MEDS: VITAMIN D 1,000 INTERNATIONAL UNITS TABLET PO SCH (09:44)
[2019-01-25] MEDS: HumaLOG INSULIN (NovoLOG) PER UNIT SC SCH ×4 (09:44→21:00)
[2019-01-25] MEDS: levETIRAcetam 250MG TABLET (KEPPRA) PO SCH ×2 (09:44→21:44)
[2019-01-25] MEDS: PANTOPRAZOLE 40MG TAB (PROTONIX) PO SCH (09:45)
[2019-01-25] MEDS: ASCORBIC ACID 500 MG TAB PO SCH (09:45)
[2019-01-25] MEDS: **NOTE PATIENT COMMENT** MISC XX SCH (09:45)
[2019-01-25 14:00] VITALS: BP 128/63
[2019-01-25 20:00] VITALS: BP 123/67
[2019-01-25] MEDS: LACOSAMIDE 50 MG TAB (VIMPAT) PO SCH (21:44)
[2019-01-25] MEDS: LIDOCAINE 5% (LIDODERM) PATCH TD SCH (21:45)
[2019-01-26] MEDS: HEPARIN SOD (PORCINE) 5000 UNITS/ML VIAL SQ SCH ×3 (05:34→22:34)
[2019-01-26 05:44] VITALS: BP 153/59
[2019-01-26 06:58] LABS: HEMOGLOBIN 13.5 g/dl (12.0-15.5); MEAN CORPUSCULAR HEMOGLOBIN 29.8 pg (27.0-33.0); MEAN CORPUSCULAR HGB CONC 32.9 g/dl (32.0-36.5); MEAN CORPUSCULAR VOLUME 90.5 fl (80.0-96.0); PLATELET COUNT, AUTOMATED 403 10^3/uL (150-450); RED BLOOD COUNT 4.53 10^6/uL (4.00-5.40); WHITE BLOOD COUNT 22.2 10^3/uL (4.0-10.0)
[2019-01-26 07:29] LABS: BLOOD UREA NITROGEN 20 MG/DL (7-18); CALCIUM LEVEL 9.1 MG/DL (8.8-10.2); CARBON DIOXIDE LEVEL 29 MEQ/L (21-32); CHLORIDE LEVEL 105 MEQ/L (98-107); CREATININE FOR GFR 0.94 MG/DL (0.55-1.30); GLOMERULAR FILTRATION RATE > 60.0 (>45); GLUCOSE, FASTING 145 MG/DL (70-100); POTASSIUM SERUM 4.8 MEQ/L (3.5-5.1); SODIUM LEVEL 140 MEQ/L (136-145)
[2019-01-26] MEDS: HumaLOG INSULIN (NovoLOG) PER UNIT SC SCH ×4 (07:47→22:32)
[2019-01-26] MEDS: MAGNESIUM OXIDE 400 MG TAB (MAG-OX) PO SCH (08:57)
[2019-01-26] MEDS: ASCORBIC ACID 500 MG TAB PO SCH (08:57)
[2019-01-26] MEDS: LACOSAMIDE 50 MG TAB (VIMPAT) PO SCH ×2 (08:57→22:35)
[2019-01-26] MEDS: PANTOPRAZOLE 40MG TAB (PROTONIX) PO SCH (08:57)
[2019-01-26] MEDS: VITAMIN D 1,000 INTERNATIONAL UNITS TABLET PO SCH (08:57)
[2019-01-26] MEDS: levETIRAcetam 250MG TABLET (KEPPRA) PO SCH ×2 (08:57→22:33)
[2019-01-26] MEDS: DOCUSATE SODIUM 100 MG CAP PO SCH ×3 (08:58→22:32)
[2019-01-26] MEDS: TOLTERODINE (DETROL) 2 MG TAB PO SCH (09:00)
[2019-01-26] MEDS: **NOTE PATIENT COMMENT** MISC XX SCH (09:00)
[2019-01-26 14:00] VITALS: BP 134/89
[2019-01-26] MEDS: NITROFURANTOIN (MACROBID) 100 MG CAP PO SCH ×2 (14:36→22:32)
[2019-01-26 20:00] VITALS: BP 112/62
[2019-01-26] MEDS: LIDOCAINE 5% (LIDODERM) PATCH TD SCH (22:34)
[2019-01-27 06:00] VITALS: BP 115/69
[2019-01-27] MEDS: HEPARIN SOD (PORCINE) 5000 UNITS/ML VIAL SQ SCH ×3 (06:53→20:48)
[2019-01-27] MEDS: DOCUSATE SODIUM 100 MG CAP PO SCH ×3 (07:30→20:50)
[2019-01-27] MEDS: HumaLOG INSULIN (NovoLOG) PER UNIT SC SCH ×4 (07:30→20:16)
[2019-01-27] MEDS: PANTOPRAZOLE 40MG TAB (PROTONIX) PO SCH (07:30)
[2019-01-27] MEDS: levETIRAcetam 250MG TABLET (KEPPRA) PO SCH ×2 (07:30→20:50)
[2019-01-27] MEDS: VITAMIN D 1,000 INTERNATIONAL UNITS TABLET PO SCH (07:31)
[2019-01-27] MEDS: MAGNESIUM OXIDE 400 MG TAB (MAG-OX) PO SCH (07:31)
[2019-01-27] MEDS: NITROFURANTOIN (MACROBID) 100 MG CAP PO SCH ×2 (07:31→20:48)
[2019-01-27] MEDS: LACOSAMIDE 50 MG TAB (VIMPAT) PO SCH ×2 (07:31→20:50)
[2019-01-27] MEDS: ASCORBIC ACID 500 MG TAB PO SCH (07:31)
[2019-01-27] MEDS: ACETAMINOPHEN 500 MG TAB PO PRN ×2 (07:37→20:49)
--- NOTE | 2019-01-27 07:51 | IPN ---
DATE: 01/25/2019 This is a 63-year-old female who is on acute rehabilitation unit status post surgery for she had a left prior craniotomy for possible recurrence of a hemangiopericytoma first diagnosed in June 2016. 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 PAST MEDICAL HISTORY: Seizure disorder secondary to the intracranial mass. She has the parietal hemangiopericytoma. Rheumatic fever as a child. Gastroesophageal reflux disease (GERD). She is doing well. There was a question whether she should continue the Vimpat, I called Dr. Brandt, her surgeon, today to verify dosage and medication with him. I spoke personally with Dr. Brandt, he clarified he would like the Vimpat to continue 100 mg by mouth twice a day as well as the Keppra 1500 mg by mouth twice a day and most of those have been ordered. The patient is going well and feels well. OBJECTIVE: Blood pressure 128/63, pulse 62, respirations 18, temperature 98.7, oxygen saturation 98% on room air. The patient is alert and oriented times three. Large incision on the left side of her head, no redness or drainage, mc intake. Pharynx, tongue and gums pink and moist. Tongue is midline. Neck is supple, without lymphadenopathy. Chest clear to auscultation, without wheeze or retraction. Heart is regular. Abdomen benign. Bowel sounds positive. Genitourinary ()/Rectal: Not done. Extremities: No cyanosis, clubbing or edema. Weakness of the right hand and right leg. Peripheral pulses equal and palpable bilaterally. Skin is warm and dry. IMPRESSION AND PLAN: 1. Left parietal mass. Continue Vimpat and Keppra. Decadron is ordered for seizure prophylaxis. Continue rehabilitation. 2. Chronic constipation. Continue bowl regimen. Good response with Protonix. 3. Steroid induced hyperglycemia. Continue sliding scale. 4. Deep venous thrombosis (DVT) prophylaxis with heparin.
--- NOTE | 2019-01-27 07:54 | IPN ---
DATE: 01/26/2019 She is status post redo of a left craniotomy for tumor with a postop diagnosis of radiation necrosis and pathology showing changes associated with radiation, parietal hemangiopericytoma with "no definite recurrent tumor identified." Surgery was performed by Dr. Brandt without complication. Postoperatively she was maintained on Decadron and continued on her anticonvulsive therapy. She had no new deficits in mobility and activities of daily living below her prior level of function and she was deemed medically appropriate for discharge and was admitted to the acute rehab unit on 01/23/2019. She continues to do well. She continues on Keppra, Vimpat and Decadron. LABORATORY STUDIES: White count has been elevated, but she is on Decadron. It was 19.9, it is up slightly at 22.2, but her urine showed WBCs 48, leukocyte esterase 3+. Urine culture is pending. Started her on Macrobid 100 mg by mouth twice a day. She is afebrile. She is doing well. Remains alert and oriented. Seizure free. OBJECTIVE: Blood pressure 134/89, pulse 77, respirations 18, temperature 97.9, oxygen saturation 97%. Patient is alert and oriented times three. Pupils equal and reactive to light. Extraocular movements intact. Cornea and sclera are clear. Conjunctiva normal. No facial asymmetry. Parietal craniotomy scar is well approximated. No redness or drainage. Pharynx, tongue and gums pink and moist. Tongue is midline. Neck is supple without lymphadenopathy, no thyromegaly. No goiter. Carotids 2+ without bruit. Chest clear to auscultation without wheeze or retraction. Heart is regular. Abdomen benign. Bowel sounds positive. /rectal not done. Extremities no clubbing, cyanosis, or edema. IMPRESSION/PLAN: 1. Status post craniotomy. Continue Vimpat, Keppra and Decadron. 2. Rehabilitation. Continue rehab per primary rehab team. 3. Chronic constipation. Continue bowel regimen. 4. Gastroesophageal reflux disease (GERD). Continue Protonix. 5. Steroid induced hyperglycemia. Continue sliding scale. 6. Possible UTI. Elevated WBCs, leukocyte esterase in urine. Follow-up on culture. Macrobid 100 mg by mouth twice a day. 7. Deep vein thrombosis (DVT) prophylaxis with heparin. Will continue to follow.
--- NOTE | 2019-01-27 08:08 | IPNPDOC ---
Text Note Date of Service The patient was seen on 01/27/19. NOTE Subjective:up to chair at bedside, feels much better although reports significant ataxia and weakness mostly to right upper and bilateral lower extremities. Objective GENERAL: NAD SKIN : Warm, cranial surgical sutures open to air, no induration, erythema HEENT: Atraumatic, normocephalic, PERRL, moist mucous membrane CARDIOVASCULAR: Regular rate and rhythm, S1S2, no JVD, no edema, distal pulses + palpable RESP: CTAB, no accessory muscle use noted ABDOMEN: BS+ non distended non tender MS: no joint deformities NEURO: Alert and oriented x 3, CN2-12 grossly intact PSYCH: no anxiety or agitation, appropriate mood and affect. ASSESSMENT & PLAN: Left parietal mass -S/P resection at [facility] -rehabilitation of neuro deficits per primary team -continue decadron Seizure disorder -likely due to brain mass -last seizure activity reported per patient was prior to surgical intervention -has since been continued on Vimpat, keppra -dilantin was discontinued due to allergic reaction -follow up with neurology post discharge -continue seizure precautions Hyperglycemia -fasting blood glucose greater than 150 -check HgbA1c -insulin per sliding scale protocol UTI -urine culture positive for E.coli tenorio-sensitive -started on Nitrofurantin -continue Chronic constipation - Continue with bowel regimen DVT prophylaxis -heparin SQ Q8 VS,Fishbone, I+O VS, Fishbone, I+O Vital Signs Date Time Temp Pulse Resp B/P (MAP) Pulse Ox O2 Delivery O2 Flow Rate FiO2 01/27/19 06:00 98.0 63 18 115/69 (84) 95 I&O- Last 24 Hours up to 6 AM 01/27/19 06:00 Intake Total 2060 ml Balance 2060 ml AUDRA MARTINEZ Jan 27, 2019 08:08
[2019-01-27] MEDS: TOLTERODINE (DETROL) 2 MG TAB PO SCH (09:00)
[2019-01-27] MEDS: **NOTE PATIENT COMMENT** MISC XX SCH (09:35)
--- NOTE | 2019-01-27 10:21 | IPNPDOC ---
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 She reports her urinary urgency is better since starting on Macrobid. REVIEW OF SYSTEMS: The following is a completed review of systems and has been reviewed. Review of systems otherwise unremarkable. PAIN: Patient self reports right groin and right shoulder EYES: No recent vision changes EARS, NOSE, & THROAT: No throat pain, or dysphagia, or rhinorrhea CARDIOVASCULAR: Denies chest pain or palpitations PULMONARY: Denies shortness of breath GASTROINTESTINAL: Denies constipation/diarrhea GENITOURINARY: urinary urgency MUSCULOSKELETAL: right hip OA NEUROLOGICAL:RUE and RLE paresis SKIN: craniotomy PSYCHIATRIC: Unremarkable All other review of systems found to be negative. PHYSICAL EXAMINATION: VITAL SIGNS: Please see below. GENERAL: Pleasant and cooperative. No acute distress. HEENT: PERRL. Extraocular movements intact. Clear conjunctiva CARDIOVASCULAR: Regular rate and rhythm. No murmurs, rubs, or gallops LUNGS: Clear to auscultation bilaterally. No wheezes. No rhonchi ABDOMEN: Soft, nontender, nondistended. Positive bowel sounds. Normal active bowel sounds NEUROLOGICAL: Alert and oriented times three. Cranial nerves II through XII grossly intact. Sensation grossly intact +neglect RUE +clonus and +babinksi RLE EXTREMITIES: 5\\5 strength left upper extremities, 3/5 RUE, 3\\5 strength right lower extremity. 5/5 strength in left lower extremity right shoulder, (-) Neers, +painful arc, (-) AC joint TTP with decreased ROM SKIN: craniotomy site sutures c/d/i ASSESSMENT:63-year-old F with past medical history of left parietal meningioma s/p resection who presented s/p redo crantioomy found to have tumor necrosis with new right sided hemiparesis. PLAN: 1. rehab: PT- strengthen RLE, work on improving quality of gait, assess for appropriate AFO (patient's own AFO is not effective against supination) OT- strenghten RUE, maintain shoudler ROM, advance fine motor skills for optimal ADL management 2. Neuro: s/p resection and radiation of left parietal meningioma 2016 with redo craniotomy 01/16/19, pathology + tumor necrosis, not recurrent tumor- will need to f/u with Dr. Brandt -worsening RUE and RLE hemiparesis with neglect -will consider formula technician consult for worsening foot drop- will need to trial solid AFO in therapy -c/u Decadron and Marcelino, f/u Dr. Haider on discharge -[facility] records/ dc recs stated 7 day total course of Vimpat, however per Dr. Brandt's verbal recs and and after discussing with Dr. Haider, c/u Vimpat which he started her on 11/26/18 to replace Dilantin which she is allergic to (medicine teams' assistance with this greatly appreciated) 3. CArdio: no known cardiac history-medicine consulted to assist in management 4. Resp: stable, will encourage incentive spirometry and monitor for infection 5. : monitor PVRs, voiding better having been started on Macrobid for E. Coli UTI, will hold Detrol for now as urgency improving with antibiotics 6. DVT ppx: c/u heparin and TEDs 7. GI ppx: protonix 8. Pain: tylenol prn, lidoderm path to right hip and right shoulder 8. Dispo: TBD Allergies Coded Allergies: phenytoin (Verified Allergy, Severe, 01/24/19) diffuse body rash ciprofloxacin (Verified Adverse Reaction, Mild, "MAKES SICK", 10/25/18) ibuprofen (Verified Adverse Reaction, Mild, ASTHMA, 10/25/18) rosuvastatin (Verified Adverse Reaction, Mild, CRAMPS, 10/25/18) sodium hypochlorite solution (Verified Adverse Reaction, Mild, CHLORINE - ASTHMA, 10/25/18) Vital Signs Vital Signs Date Time Temp Pulse Resp B/P (MAP) Pulse Ox O2 Delivery O2 Flow Rate FiO2 01/27/19 06:00 98.0 63 18 115/69 (84) 95 Laboratory Data Labs 24H Laboratory Tests 2 01/26/19 11:39: Bedside Glucose (Misc Panel) 110 01/26/19 17:32: Bedside Glucose (Misc Panel) 127H 01/26/19 22:21: Bedside Glucose (Misc Panel) 182H 01/27/19 06:34: Bedside Glucose (Misc Panel) 154H Microbiology Microbiology 01/25/19 Urine Culture - Final, Complete Escherichia Coli Current Medications Current Medications Current Medications Medications (Trade) Dose Ordered Sig/Celeste Route PRN Reason Start Time Stop Time Status Last Admin Dose Admin Acetaminophen (Tylenol Tab) 1,000 mg Q6HP PRN PO PAIN / FEVER 01/23/19 17:30 01/27/19 07:37 Ascorbic Acid (Vitamin C) 1,000 mg DAILY PO 01/24/19 09:00 01/27/19 07:31 Dexamethasone (Decadron) 4 mg Q12H PO 01/23/19 21:00 01/27/19 07:30 Dextrose (Dextrose 50%) 25 ml ASDIRECTED PRN IV SEE LABEL COMMENTS 01/23/19 17:30 Docusate Sodium (Colace) 100 mg TID PO 01/23/19 21:00 01/27/19 07:30 Glucagon (Glucagon) 1 mg ASDIRECTED PRN SC SEE LABEL COMMENTS 01/23/19 17:30 Glucose (Glucose) 16 GM ASDIRECTED PRN PO SEE LABEL COMMENTS 01/23/19 17:30 Heparin Sodium (Porcine) (Heparin) 5,000 units Q8H SQ 01/23/19 22:00 01/27/19 06:53 Home Med (Med Rec Complete!) ASDIRECTED XX 01/23/19 18:00 01/23/19 18:00 DC Insulin Human Lispro (HumaLOG INSULIN) SEE PROTOCOL TABLE AC SC 01/23/19 17:30 01/27/19 07:30 Insulin Human Lispro (HumaLOG INSULIN) SEE PROTOCOL TABLE QHS SC 01/23/19 21:00 Lacosamide (Vimpat) 100 mg BID PO 01/23/19 21:00 01/24/19 14:37 DC 01/24/19 09:09 Lacosamide (Vimpat) 100 mg BID PO 01/25/19 21:00 01/27/19 07:31 Levetiracetam (Keppra) 1,500 mg BID PO 01/23/19 21:00 01/27/19 07:30 Lidocaine (Lidoderm Patch) 2 patch QHS TD 01/23/19 21:00 01/26/19 22:34 Magnesium Hydroxide (Milk Of Magnesia) 30 ml DAILYPRN PRN PO CONSTIPATION 01/23/19 17:30 Magnesium Oxide (Mag-Ox) 400 mg DAILY PO 01/24/19 09:00 01/27/19 07:31 Nitrofurantoin Monoh/Nitrofur Macro (Macrobid) 100 mg BID PO 01/26/19 11:15 01/27/19 07:31 Non-Formulary Medication ( See Comment Field Below ) REMOVE LIDODERM PATCH DAILY XX 01/24/19 09:00 01/27/19 09:35 Pantoprazole Sodium (Protonix) 40 mg DAILY PO 01/24/19 09:00 01/27/19 07:30 Senna (Senokot) 1 tab QHSP PRN PO CONSTIPATION 01/23/19 17:30 Tolterodine Tartrate (Detrol) 2 mg DAILY PO 01/24/19 09:00 01/24/19 17:43 Vitamin D (Vitamin D) 2,000 units DAILY PO 01/24/19 09:00 01/27/19 07:31 ANGELA THOMAS MD Jan 27, 2019 10:21
[2019-01-27 13:05] LABS: HEMOGLOBIN A1c 6.5 %
[2019-01-27 14:00] VITALS: BP 133/75
[2019-01-27 20:00] VITALS: BP 120/79
[2019-01-27] MEDS: LIDOCAINE 5% (LIDODERM) PATCH TD SCH (20:50)
[2019-01-28 06:00] VITALS: BP 138/75
[2019-01-28] MEDS: HEPARIN SOD (PORCINE) 5000 UNITS/ML VIAL SQ SCH ×3 (06:02→20:41)
[2019-01-28] MEDS: VITAMIN D 1,000 INTERNATIONAL UNITS TABLET PO SCH (09:04)
[2019-01-28] MEDS: MAGNESIUM OXIDE 400 MG TAB (MAG-OX) PO SCH (09:04)
[2019-01-28] MEDS: ASCORBIC ACID 500 MG TAB PO SCH (09:04)
[2019-01-28] MEDS: **NOTE PATIENT COMMENT** MISC XX SCH (09:05)
[2019-01-28] MEDS: NITROFURANTOIN (MACROBID) 100 MG CAP PO SCH ×2 (09:05→20:42)
[2019-01-28] MEDS: levETIRAcetam 250MG TABLET (KEPPRA) PO SCH ×2 (09:05→20:42)
[2019-01-28] MEDS: PANTOPRAZOLE 40MG TAB (PROTONIX) PO SCH (09:05)
[2019-01-28] MEDS: DOCUSATE SODIUM 100 MG CAP PO SCH ×3 (09:05→20:43)
[2019-01-28] MEDS: LACOSAMIDE 50 MG TAB (VIMPAT) PO SCH ×2 (09:05→20:43)
[2019-01-28] MEDS: HumaLOG INSULIN (NovoLOG) PER UNIT SC SCH ×4 (09:06→20:41)
[2019-01-28 14:00] VITALS: BP 135/75
--- NOTE | 2019-01-28 15:14 | IPNPDOC ---
Text Note Date of Service The patient was seen on 01/28/19. NOTE Subjective:Up to chair by bedside, visiting. States therapy was good today. denies headache, dizziness, chest pain, SOB Objective GENERAL: NAD SKIN : Warm, cranial surgical sutures open to air, no induration, erythema HEENT: Atraumatic, normocephalic, PERRL, moist mucous membrane CARDIOVASCULAR: Regular rate and rhythm, S1S2, no JVD, RLE edema RESP: CTAB, no accessory muscle use noted ABDOMEN: BS+ non distended non tender MS: no joint deformities NEURO: Alert and oriented x 3, CN2-12 grossly intact PSYCH: no anxiety or agitation, appropriate mood and affect. ASSESSMENT & PLAN: Left parietal mass -S/P resection of non malignant tumor at [facility] -rehabilitation of neuro deficits per primary team -continued on decadron Seizure disorder -due to brain mass -continue ashley Clemons per neurology recommendations -follow up with neurology post discharge -continue seizure precautions Hyperglycemia -HgbA1c 6.5 -likely due to nursing home steroid therapy -meets criteria for T2DM with FBS>126 and HgbA1c 6.5 -continue monitoring with fingerstick checks prior to meals and at bedtime UTI -urine culture positive for E.coli tenorio-sensitive -continue Nitrofurantin Chronic constipation - Continue with bowel regimen DVT prophylaxis -heparin SQ Q8 VS,Fishbone, I+O VS, Fishbone, I+O Vital Signs Date Time Temp Pulse Resp B/P (MAP) Pulse Ox O2 Delivery O2 Flow Rate FiO2 01/28/19 06:00 97.4 58 18 138/75 (96) 97 I&O- Last 24 Hours up to 6 AM 01/28/19 06:00 Intake Total 2400 ml Balance 2400 ml AUDRA MARTINEZ Jan 28, 2019 15:14
[2019-01-28 20:23] VITALS: BP 117/61
[2019-01-28] MEDS: ACETAMINOPHEN 500 MG TAB PO PRN (20:42)
[2019-01-28] MEDS: LIDOCAINE 5% (LIDODERM) PATCH TD SCH (20:43)
[2019-01-29] MEDS: HEPARIN SOD (PORCINE) 5000 UNITS/ML VIAL SQ SCH ×3 (06:23→21:24)
[2019-01-29 06:29] LABS: HEMOGLOBIN 13.2 g/dl (12.0-15.5); MEAN CORPUSCULAR HEMOGLOBIN 30.3 pg (27.0-33.0); MEAN CORPUSCULAR HGB CONC 33.8 g/dl (32.0-36.5); MEAN CORPUSCULAR VOLUME 89.7 fl (80.0-96.0); PLATELET COUNT, AUTOMATED 364 10^3/uL (150-450); RED BLOOD COUNT 4.35 10^6/uL (4.00-5.40); WHITE BLOOD COUNT 16.3 10^3/uL (4.0-10.0)
[2019-01-29 06:40] VITALS: BP 123/71
[2019-01-29] MEDS: MAGNESIUM OXIDE 400 MG TAB (MAG-OX) PO SCH (08:32)
[2019-01-29] MEDS: levETIRAcetam 250MG TABLET (KEPPRA) PO SCH ×2 (08:32→21:25)
[2019-01-29] MEDS: ASCORBIC ACID 500 MG TAB PO SCH (08:32)
[2019-01-29] MEDS: DOCUSATE SODIUM 100 MG CAP PO SCH ×3 (08:32→21:24)
[2019-01-29] MEDS: VITAMIN D 1,000 INTERNATIONAL UNITS TABLET PO SCH (08:33)
[2019-01-29] MEDS: PANTOPRAZOLE 40MG TAB (PROTONIX) PO SCH (08:33)
[2019-01-29] MEDS: NITROFURANTOIN (MACROBID) 100 MG CAP PO SCH ×2 (08:33→21:25)
[2019-01-29] MEDS: LACOSAMIDE 50 MG TAB (VIMPAT) PO SCH ×2 (08:33→21:24)
[2019-01-29] MEDS: HumaLOG INSULIN (NovoLOG) PER UNIT SC SCH ×4 (08:33→21:00)
[2019-01-29] MEDS: **NOTE PATIENT COMMENT** MISC XX SCH (08:34)
[2019-01-29] MEDS: ACETAMINOPHEN 500 MG TAB PO PRN (08:35)
--- NOTE | 2019-01-29 10:10 | IPNPDOC ---
PM&R Progress Note DATE OF SERVICE: Jan 28, 2019 [employer] Progress Note Subjective: Patient seen walking in therapy with [place] in place, stating she feels it is easier to feel her leg in space with the band. REVIEW OF SYSTEMS: The following is a completed review of systems and has been reviewed. Review of systems otherwise unremarkable. PAIN: Patient self reports right groin and right shoulder EYES: No recent vision changes EARS, NOSE, & THROAT: No throat pain, or dysphagia, or rhinorrhea CARDIOVASCULAR: Denies chest pain or palpitations PULMONARY: Denies shortness of breath GASTROINTESTINAL: Denies constipation/diarrhea GENITOURINARY: urinary urgency MUSCULOSKELETAL: right hip OA NEUROLOGICAL:RUE and RLE paresis SKIN: craniotomy PSYCHIATRIC: Unremarkable All other review of systems found to be negative. PHYSICAL EXAMINATION: VITAL SIGNS: Please see below. GENERAL: Pleasant and cooperative. No acute distress. HEENT: PERRL. Extraocular movements intact. Clear conjunctiva CARDIOVASCULAR: Regular rate and rhythm. No murmurs, rubs, or gallops LUNGS: Clear to auscultation bilaterally. No wheezes. No rhonchi ABDOMEN: Soft, nontender, nondistended. Positive bowel sounds. Normal active bowel sounds NEUROLOGICAL: Alert and oriented times three. Cranial nerves II through XII grossly intact. Sensation grossly intact +neglect RUE +clonus and +babinksi RLE EXTREMITIES: 5\\5 strength left upper extremities, 3/5 RUE, 3\\5 strength right lower extremity. 5/5 strength in left lower extremity right shoulder, (-) Neers, +painful arc, (-) AC joint TTP with decreased ROM SKIN: craniotomy site sutures c/d/i ASSESSMENT:63-year-old F with past medical history of left parietal meningioma s/p resection who presented s/p redo crantioomy found to have tumor necrosis with new right sided hemiparesis. PLAN: 1. rehab: PT- strengthen RLE, work on improving quality of gait, assess for appropriate AFO (patient's own AFO is not effective against supination)- trial of hip-flexion assist theraband in PT helpful for proprioceptive feedback and elicits better knee extension and hip abduction OT- strenghten RUE, maintain shoudler ROM, advance fine motor skills for optimal ADL management 2. Neuro: s/p resection and radiation of left parietal meningioma 2016 with redo craniotomy 01/16/19, pathology + tumor necrosis, not recurrent tumor- will need to f/u with Dr. Brandt -worsening RUE and RLE hemiparesis with neglect -will consider distribution warehouse manager consult for worsening foot drop- will need to trial solid AFO in therapy -c/u Decadron and Keppra and Vimpat f/u Dr. Haider on discharge 3. CArdio: no known cardiac history-medicine consulted to assist in management 4. Resp: stable, will encourage incentive spirometry and monitor for infection 5. : monitor PVRs, voiding better having been started on Macrobid for E. Coli UTI, will hold Detrol for now as urgency improving with antibiotics 6. DVT ppx: c/u heparin and TEDs 7. GI ppx: protonix 8. Pain: tylenol prn, lidoderm path to right hip and right shoulder 9. Endo: steroid induced hyperglycemia- c/u ISS 10. Dispo: TBD Allergies Coded Allergies: phenytoin (Verified Allergy, Severe, 01/24/19) diffuse body rash ciprofloxacin (Verified Adverse Reaction, Mild, "MAKES SICK", 10/25/18) ibuprofen (Verified Adverse Reaction, Mild, ASTHMA, 10/25/18) rosuvastatin (Verified Adverse Reaction, Mild, CRAMPS, 10/25/18) sodium hypochlorite solution (Verified Adverse Reaction, Mild, CHLORINE - ASTHMA, 10/25/18) Vital Signs Vital Signs Date Time Temp Pulse Resp B/P (MAP) Pulse Ox O2 Delivery O2 Flow Rate FiO2 01/29/19 06:40 97.1 58 18 123/71 (88) 96 Laboratory Data CBC/BMP Laboratory Tests 01/29/19 06:16 Red Blood Count 4.35, Mean Corpuscular Volume 89.7, Mean Corpuscular Hemoglobin 30.3, Mean Corpuscular Hemoglobin Concent 33.8, Red Cell Distribution Width 12.9 Labs 24H Laboratory Tests 2 01/28/19 12:29: Bedside Glucose (Misc Panel) 111 01/28/19 17:13: Bedside Glucose (Misc Panel) 135H 01/28/19 20:00: Bedside Glucose (Misc Panel) 183H 01/29/19 06:16: Nucleated Red Blood Cells % (auto) 0.0 01/29/19 06:28: Bedside Glucose (Misc Panel) 170H Microbiology Microbiology 01/25/19 Urine Culture - Final, Complete Escherichia Coli Current Medications Current Medications Current Medications Medications (Trade) Dose Ordered Sig/Celeste Route PRN Reason Start Time Stop Time Status Last Admin Dose Admin Acetaminophen (Tylenol Tab) 1,000 mg Q6HP PRN PO PAIN / FEVER 01/23/19 17:30 01/29/19 08:35 Ascorbic Acid (Vitamin C) 1,000 mg DAILY PO 01/24/19 09:00 01/29/19 08:32 Dexamethasone (Decadron) 4 mg Q12H PO 01/23/19 21:00 01/29/19 08:32 Dextrose (Dextrose 50%) 25 ml ASDIRECTED PRN IV SEE LABEL COMMENTS 01/23/19 17:30 Docusate Sodium (Colace) 100 mg TID PO 01/23/19 21:00 01/29/19 08:32 Glucagon (Glucagon) 1 mg ASDIRECTED PRN SC SEE LABEL COMMENTS 01/23/19 17:30 Glucose (Glucose) 16 GM ASDIRECTED PRN PO SEE LABEL COMMENTS 01/23/19 17:30 Heparin Sodium (Porcine) (Heparin) 5,000 units Q8H SQ 01/23/19 22:00 01/29/19 06:23 Home Med (Med Rec Complete!) ASDIRECTED XX 01/23/19 18:00 01/23/19 18:00 DC Insulin Human Lispro (HumaLOG INSULIN) SEE PROTOCOL TABLE AC SC 01/23/19 17:30 01/29/19 08:33 Insulin Human Lispro (HumaLOG INSULIN) SEE PROTOCOL TABLE QHS SC 01/23/19 21:00 Lacosamide (Vimpat) 100 mg BID PO 01/23/19 21:00 01/24/19 14:37 DC 01/24/19 09:09 Lacosamide (Vimpat) 100 mg BID PO 01/25/19 21:00 01/27/19 10:19 DC 01/27/19 07:31 Lacosamide (Vimpat) 100 mg BID PO 01/27/19 21:00 01/29/19 08:33 Levetiracetam (Keppra) 1,500 mg BID PO 01/23/19 21:00 01/29/19 08:32 Lidocaine (Lidoderm Patch) 2 patch QHS TD 01/23/19 21:00 01/28/19 20:43 Magnesium Hydroxide (Milk Of Magnesia) 30 ml DAILYPRN PRN PO CONSTIPATION 01/23/19 17:30 Magnesium Oxide (Mag-Ox) 400 mg DAILY PO 01/24/19 09:00 01/29/19 08:32 Nitrofurantoin Monoh/Nitrofur Macro (Macrobid) 100 mg BID PO 01/26/19 11:15 01/29/19 08:33 Non-Formulary Medication ( See Comment Field Below ) REMOVE LIDODERM PATCH DAILY XX 01/24/19 09:00 01/29/19 08:34 Pantoprazole Sodium (Protonix) 40 mg DAILY PO 01/24/19 09:00 01/29/19 08:33 Senna (Senokot) 1 tab QHSP PRN PO CONSTIPATION 01/23/19 17:30 Tolterodine Tartrate (Detrol) 2 mg DAILY PO 01/24/19 09:00 01/27/19 10:19 DC 01/24/19 17:43 Vitamin D (Vitamin D) 2,000 units DAILY PO 01/24/19 09:00 01/29/19 08:33 ANGELA THOMAS MD Jan 29, 2019 10:10
--- NOTE | 2019-01-29 10:11 | IPNPDOC ---
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 She was taught how to do gluteal squeezes while in bed to help promo te upright posture with walking and more hip stability. REVIEW OF SYSTEMS: The following is a completed review of systems and has been reviewed. Review of systems otherwise unremarkable. PAIN: Patient self reports right groin and right shoulder EYES: No recent vision changes EARS, NOSE, & THROAT: No throat pain, or dysphagia, or rhinorrhea CARDIOVASCULAR: Denies chest pain or palpitations PULMONARY: Denies shortness of breath GASTROINTESTINAL: Denies constipation/diarrhea GENITOURINARY: urinary urgency MUSCULOSKELETAL: right hip OA NEUROLOGICAL:RUE and RLE paresis SKIN: craniotomy PSYCHIATRIC: Unremarkable All other review of systems found to be negative. PHYSICAL EXAMINATION: VITAL SIGNS: Please see below. GENERAL: Pleasant and cooperative. No acute distress. HEENT: PERRL. Extraocular movements intact. Clear conjunctiva CARDIOVASCULAR: Regular rate and rhythm. No murmurs, rubs, or gallops LUNGS: Clear to auscultation bilaterally. No wheezes. No rhonchi ABDOMEN: Soft, nontender, nondistended. Positive bowel sounds. Normal active bowel sounds NEUROLOGICAL: Alert and oriented times three. Cranial nerves II through XII grossly intact. Sensation grossly intact +neglect RUE +clonus and +babinksi RLE EXTREMITIES: 5\\5 strength left upper extremities, 3/5 RUE, 3\\5 strength right l ower extremity. 5/5 strength in left lower extremity right shoulder, (-) Neers, +painful arc, (-) AC joint TTP with decreased ROM SKIN: craniotomy site sutures c/d/i ASSESSMENT:63-year-old F with past medical history of left parietal meningioma s/p resection who presented s/p redo crantioomy found to have tumor necrosis with new right sided hemiparesis. PLAN: 1. rehab: PT- strengthen RLE, work on improving quality of gait, assess for appropriate AFO (patient's own AFO is not effective against supination)- trial of hip-flexion assist theraband in PT helpful for proprioceptive feedback and elicits better knee extension and hip abduction OT- strenghten RUE, maintain shoudler ROM, advance fine motor skills for optimal ADL management 2. Neuro: s/p resection and radiation of left parietal meningioma 2016 with redo craniotomy 01/16/19, pathology + tumor necrosis, not recurrent tumor- will need to f/u with Dr. Brandt -worsening RUE and RLE hemiparesis with neglect -will consider surfboard designer consult for worsening foot drop- will need to trial solid AFO in therapy -c/u Decadron and Keppra and Vimpat f/u Dr. Haider on discharge 3. CArdio: no known cardiac history-medicine consulted to assist in management 4. Resp: stable, will encourage incentive spirometry and monitor for infection 5. : monitor PVRs, voiding better having been started on Macrobid for E. Coli UTI, will hold Detrol for now as urgency improving with antibiotics 6. DVT ppx: c/u heparin and TEDs 7. GI ppx: protonix 8. Pain: tylenol prn, lidoderm path to right hip and right shoulder 9. Endo: steroid induced hyperglycemia- c/u ISS 10. Dispo: TBD Allergies Coded Allergies: phenytoin (Verified Allergy, Severe, 01/24/19) diffuse body rash ciprofloxacin (Verified Adverse Reaction, Mild, "MAKES SICK", 10/25/18) ibuprofen (Verified Adverse Reaction, Mild, ASTHMA, 10/25/18) rosuvastatin (Verified Adverse Reaction, Mild, CRAMPS, 10/25/18) sodium hypochlorite solution (Verified Adverse Reaction, Mild, CHLORINE - ASTHMA, 10/25/18) Vital Signs Vital Signs Date Time Temp Pulse Resp B/P (MAP) Pulse Ox O2 Delivery O2 Flow Rate FiO2 01/29/19 06:40 97.1 58 18 123/71 (88) 96 Laboratory Data CBC/BMP Laboratory Tests 01/29/19 06:16 Red Blood Count 4.35, Mean Corpuscular Volume 89.7, Mean Corpuscular Hemoglobin 30.3, Mean Corpuscular Hemoglobin Concent 33.8, Red Cell Distribution Width 12.9 Labs 24H Laboratory Tests 2 01/28/19 12:29: Bedside Glucose (Misc Panel) 111 01/28/19 17:13: Bedside Glucose (Misc Panel) 135H 01/28/19 20:00: Bedside Glucose (Misc Panel) 183H 01/29/19 06:16: Nucleated Red Blood Cells % (auto) 0.0 01/29/19 06:28: Bedside Glucose (Misc Panel) 170H Microbiology Microbiology 01/25/19 Urine Culture - Final, Complete Escherichia Coli Current Medications Current Medications Current Medications Medications (Trade) Dose Ordered Sig/Celeste Route PRN Reason Start Time Stop Time Status Last Admin Dose Admin Acetaminophen (Tylenol Tab) 1,000 mg Q6HP PRN PO PAIN / FEVER 01/23/19 17:30 01/29/19 08:35 Ascorbic Acid (Vitamin C) 1,000 mg DAILY PO 01/24/19 09:00 01/29/19 08:32 Dexamethasone (Decadron) 4 mg Q12H PO 01/23/19 21:00 01/29/19 08:32 Dextrose (Dextrose 50%) 25 ml ASDIRECTED PRN IV SEE LABEL COMMENTS 01/23/19 17:30 Docusate Sodium (Colace) 100 mg TID PO 01/23/19 21:00 01/29/19 08:32 Glucagon (Glucagon) 1 mg ASDIRECTED PRN SC SEE LABEL COMMENTS 01/23/19 17:30 Glucose (Glucose) 16 GM ASDIRECTED PRN PO SEE LABEL COMMENTS 01/23/19 17:30 Heparin Sodium (Porcine) (Heparin) 5,000 units Q8H SQ 01/23/19 22:00 01/29/19 06:23 Home Med (Med Rec Complete!) ASDIRECTED XX 01/23/19 18:00 01/23/19 18:00 DC Insulin Human Lispro (HumaLOG INSULIN) SEE PROTOCOL TABLE AC SC 01/23/19 17:30 01/29/19 08:33 Insulin Human Lispro (HumaLOG INSULIN) SEE PROTOCOL TABLE QHS SC 01/23/19 21:00 Lacosamide (Vimpat) 100 mg BID PO 01/23/19 21:00 01/24/19 14:37 DC 01/24/19 09:09 Lacosamide (Vimpat) 100 mg BID PO 01/25/19 21:00 01/27/19 10:19 DC 01/27/19 07:31 Lacosamide (Vimpat) 100 mg BID PO 01/27/19 21:00 01/29/19 08:33 Levetiracetam (Keppra) 1,500 mg BID PO 01/23/19 21:00 01/29/19 08:32 Lidocaine (Lidoderm Patch) 2 patch QHS TD 01/23/19 21:00 01/28/19 20:43 Magnesium Hydroxide (Milk Of Magnesia) 30 ml DAILYPRN PRN PO CONSTIPATION 01/23/19 17:30 Magnesium Oxide (Mag-Ox) 400 mg DAILY PO 01/24/19 09:00 01/29/19 08:32 Nitrofurantoin Monoh/Nitrofur Macro (Macrobid) 100 mg BID PO 01/26/19 11:15 01/29/19 08:33 Non-Formulary Medication ( See Comment Field Below ) REMOVE LIDODERM PATCH DAILY XX 01/24/19 09:00 01/29/19 08:34 Pantoprazole Sodium (Protonix) 40 mg DAILY PO 01/24/19 09:00 01/29/19 08:33 Senna (Senokot) 1 tab QHSP PRN PO CONSTIPATION 01/23/19 17:30 Tolterodine Tartrate (Detrol) 2 mg DAILY PO 01/24/19 09:00 01/27/19 10:19 DC 01/24/19 17:43 Vitamin D (Vitamin D) 2,000 units DAILY PO 01/24/19 09:00 01/29/19 08:33 ANGELA THOMAS MD Jan 29, 2019 10:11
[2019-01-29 14:00] VITALS: BP 123/73
--- NOTE | 2019-01-29 19:05 | IPNPDOC ---
Subjective Date Seen The patient was seen on 01/29/19. Time of service 6 20 p.m. Subjective Chief Complaint/HPI Left parietal tumor. Events since last encounter The patient denies having any acute complaints and reports to therapy went well today. Objective Physical Examination Other physical findings GEN.: Well-nourished, well-developed. HEENT: Post surgical scars at the left parietal region. CVS: Regular rate and rhythm. No murmurs, rubs or gallops. LUNGS: Clear to auscultation bilaterally in room air. NEURO: CN II to 12 grossly intact. Speech not dysarthric. PSYCH alert and oriented to person, place and time, able to understand and follow commands Assessment /Plan Assessment Mrs. Jackson is a 63-year-old female with a past medical history of left parietal tumo rstatus post resection, and newly diagnosed diabetes, who underwent surgery and is now admitted to the inpatient rehabilitation unit. 1. Left parietal mass. Plan continue with Decadron. 2. Seizure disorder secondary to brain mass. Plan: Seizure precautions continue with Marcelino Clemons, follow up neurology on an outpatient basis. 3. Diabetes. A1c was 6.5. His possible that the steroids are contributing to the hyperglycemia Plan: Recommend switching to diabetic diet, follow-up Accu-Cheks. Continue with sliding scale insulin. 4. Escherichia coli UTI. Plan continue the nitrofurantoin. 5. Chronic constipation. Plan continue with current regimen Thank you for consulting us. We will continue to follow this patient with you Plan/VTE VTE Prophylaxis Ordered?: Yes (per primary) VS, I&O, [facility] Vital Signs/I&O Vital Signs Date Time Temp Pulse Resp B/P (MAP) Pulse Ox O2 Delivery O2 Flow Rate FiO2 01/29/19 14:00 97.5 75 16 123/73 (90) 95 I&O- Last 24 Hours up to 6 AM 01/29/19 06:00 Intake Total 1700 ml Balance 1700 ml Laboratory Data 24H LABS Laboratory Tests 2 01/28/19 20:00: Bedside Glucose (Misc Panel) 183H 01/29/19 06:16: Nucleated Red Blood Cells % (auto) 0.0 01/29/19 06:28: Bedside Glucose (Misc Panel) 170H 01/29/19 12:13: Bedside Glucose (Misc Panel) 111 01/29/19 17:15: Bedside Glucose (Misc Panel) 114 CBC/BMP Laboratory Tests 01/29/19 06:16 Red Blood Count 4.35, Mean Corpuscular Volume 89.7, Mean Corpuscular Hemoglobin 30.3, Mean Corpuscular Hemoglobin Concent 33.8, Red Cell Distribution Width 12.9 Microbiology Microbiology 01/25/19 Urine Culture - Final, Complete Escherichia Coli SIGIFREDO ARMENTA MD Jan 29, 2019 19:05
[2019-01-29 20:01] VITALS: BP 125/73
[2019-01-29] MEDS: LIDOCAINE 5% (LIDODERM) PATCH TD SCH (21:25)
[2019-01-30] MEDS: HEPARIN SOD (PORCINE) 5000 UNITS/ML VIAL SQ SCH ×3 (06:17→21:19)
[2019-01-30 06:34] VITALS: BP 128/72
[2019-01-30] MEDS: levETIRAcetam 250MG TABLET (KEPPRA) PO SCH ×2 (08:17→21:19)
[2019-01-30] MEDS: MAGNESIUM OXIDE 400 MG TAB (MAG-OX) PO SCH (08:18)
[2019-01-30] MEDS: LACOSAMIDE 50 MG TAB (VIMPAT) PO SCH ×2 (08:18→21:19)
[2019-01-30] MEDS: NITROFURANTOIN (MACROBID) 100 MG CAP PO SCH ×2 (08:18→21:19)
[2019-01-30] MEDS: PANTOPRAZOLE 40MG TAB (PROTONIX) PO SCH (08:18)
[2019-01-30] MEDS: ASCORBIC ACID 500 MG TAB PO SCH (08:18)
[2019-01-30] MEDS: VITAMIN D 1,000 INTERNATIONAL UNITS TABLET PO SCH (08:18)
[2019-01-30] MEDS: DOCUSATE SODIUM 100 MG CAP PO SCH ×3 (08:19→21:20)
[2019-01-30] MEDS: HumaLOG INSULIN (NovoLOG) PER UNIT SC SCH ×4 (08:19→21:00)
[2019-01-30] MEDS: **NOTE PATIENT COMMENT** MISC XX SCH (08:20)
[2019-01-30 14:00] VITALS: BP_SYST 125; BP_SYST 134; BP_DIAS 58; BP_DIAS 73
--- NOTE | 2019-01-30 19:39 | IPNPDOC ---
PM&R Progress Note DATE OF SERVICE: Jan 30, 2019 Materials Mgmt Tech Progress Note Subjective: Patient seen in bed stating she would like to try Tylenol at night because she wakes up around 5 am with right hip pain and has trouble falling back to sleep. REVIEW OF SYSTEMS: The following is a completed review of systems and has been reviewed. Review of systems otherwise unremarkable. PAIN: Patient self reports right groin and right shoulder EYES: No recent vision changes EARS, NOSE, & THROAT: No throat pain, or dysphagia, or rhinorrhea CARDIOVASCULAR: Denies chest pain or palpitations PULMONARY: Denies shortness of breath GASTROINTESTINAL: Denies constipation/diarrhea GENITOURINARY: urinary urgency MUSCULOSKELETAL: right hip OA NEUROLOGICAL:RUE and RLE paresis SKIN: craniotomy PSYCHIATRIC: Unremarkable All other review of systems found to be negative. PHYSICAL EXAMINATION: VITAL SIGNS: Please see below. GENERAL: Pleasant and cooperative. No acute distress. HEENT: PERRL. Extraocular movements intact. Clear conjunctiva CARDIOVASCULAR: Regular rate and rhythm. No murmurs, rubs, or gallops LUNGS: Clear to auscultation bilaterally. No wheezes. No rhonchi ABDOMEN: Soft, nontender, nondistended. Positive bowel sounds. Normal active bowel sounds NEUROLOGICAL: Alert and oriented times three. Cranial nerves II through XII grossly intact. Sensation grossly intact +neglect RUE +clonus and +babinksi RLE EXTREMITIES: 5\\5 strength left upper extremities, 3+/5 RUE, 3\\5 strength right lower extremity. 5/5 strength in left lower extremity right shoulder, (-) Neers, +painful arc, (-) AC joint TTP with decreased ROM SKIN: craniotomy site sutures c/d/i ASSESSMENT:63-year-old F with past medical history of left parietal meningioma s/p resection who presented s/p redo crantioomy found to have tumor necrosis with new right sided hemiparesis. PLAN: 1. rehab: PT- strengthen RLE, work on improving quality of gait, assess for appropriate AFO (patient's own AFO is not effective against supination)- trial of hip-flexion assist theraband in PT helpful for proprioceptive feedback and elicits better knee extension and hip abduction OT- strenghten RUE, maintain shoudler ROM, advance fine motor skills for optimal ADL management 2. Neuro: s/p resection and radiation of left parietal meningioma 2016 with redo craniotomy 01/16/19, pathology + tumor necrosis, not recurrent tumor- will need to f/u with Dr. Brandt -worsening RUE and RLE hemiparesis with neglect -will consider front office representative consult for worsening foot drop- will need to trial solid AFO in therapy -c/u Decadron and Keppra and Vimpat f/u Dr. Haider on discharge 3. CArdio: no known cardiac history-medicine consulted to assist in management 4. Resp: stable, will encourage incentive spirometry and monitor for infection 5. : monitor PVRs, voiding better having been started on Macrobid for E. Coli UTI, will hold Detrol for now as urgency improving with antibiotics 6. DVT ppx: c/u heparin and TEDs 7. GI ppx: protonix 8. Pain: tylenol prn, lidoderm path to right hip and right shoulder 9. Endo: steroid induced hyperglycemia- c/u ISS- stablizing 10. Dispo: TBD Allergies Coded Allergies: phenytoin (Verified Allergy, Severe, 01/24/19) diffuse body rash ciprofloxacin (Verified Adverse Reaction, Mild, "MAKES SICK", 10/25/18) ibuprofen (Verified Adverse Reaction, Mild, ASTHMA, 10/25/18) rosuvastatin (Verified Adverse Reaction, Mild, CRAMPS, 10/25/18) sodium hypochlorite solution (Verified Adverse Reaction, Mild, CHLORINE - ASTHMA, 10/25/18) Vital Signs Vital Signs Date Time Temp Pulse Resp B/P (MAP) Pulse Ox O2 Delivery O2 Flow Rate FiO2 01/30/19 14:00 97.4 76 18 134/73 (93) 92 Laboratory Data Labs 24H Laboratory Tests 2 01/29/19 21:22: Bedside Glucose (Misc Panel) 139H 01/30/19 06:20: Bedside Glucose (Misc Panel) 153H 01/30/19 11:52: Bedside Glucose (Misc Panel) 109 01/30/19 17:08: Bedside Glucose (Misc Panel) 114 Microbiology Microbiology 01/25/19 Urine Culture - Final, Complete Escherichia Coli Current Medications Current Medications Current Medications Medications (Trade) Dose Ordered Sig/Celeste Route PRN Reason Start Time Stop Time Status Last Admin Dose Admin Acetaminophen (Tylenol Tab) 1,000 mg Q6HP PRN PO PAIN / FEVER 01/23/19 17:30 01/30/19 09:27 DC 01/29/19 08:35 Acetaminophen (Tylenol Tab) 1,000 mg Q8H PRN PO PAIN / FEVER 01/30/19 09:30 Acetaminophen (Tylenol Tab) 1,000 mg QHS PO 01/30/19 21:00 Ascorbic Acid (Vitamin C) 1,000 mg DAILY PO 01/24/19 09:00 01/30/19 08:18 Dexamethasone (Decadron) 4 mg Q12H PO 01/23/19 21:00 01/30/19 08:18 Dextrose (Dextrose 50%) 25 ml ASDIRECTED PRN IV SEE LABEL COMMENTS 01/23/19 17:30 Docusate Sodium (Colace) 100 mg TID PO 01/23/19 21:00 01/29/19 21:24 Glucagon (Glucagon) 1 mg ASDIRECTED PRN SC SEE LABEL COMMENTS 01/23/19 17:30 Glucose (Glucose) 16 GM ASDIRECTED PRN PO SEE LABEL COMMENTS 01/23/19 17:30 Heparin Sodium (Porcine) (Heparin) 5,000 units Q8H SQ 01/23/19 22:00 01/30/19 14:40 Home Med (Med Rec Complete!) ASDIRECTED XX 01/23/19 18:00 01/23/19 18:00 DC Insulin Human Lispro (HumaLOG INSULIN) SEE PROTOCOL TABLE AC SC 01/23/19 17:30 01/30/19 17:25 Insulin Human Lispro (HumaLOG INSULIN) SEE PROTOCOL TABLE QHS SC 01/23/19 21:00 Lacosamide (Vimpat) 100 mg BID PO 01/23/19 21:00 01/24/19 14:37 DC 01/24/19 09:09 Lacosamide (Vimpat) 100 mg BID PO 01/25/19 21:00 01/27/19 10:19 DC 01/27/19 07:31 Lacosamide (Vimpat) 100 mg BID PO 01/27/19 21:00 01/30/19 08:18 Levetiracetam (Keppra) 1,500 mg BID PO 01/23/19 21:00 01/30/19 08:17 Lidocaine (Lidoderm Patch) 2 patch QHS TD 01/23/19 21:00 01/29/19 21:25 Magnesium Hydroxide (Milk Of Magnesia) 30 ml DAILYPRN PRN PO CONSTIPATION 01/23/19 17:30 Magnesium Oxide (Mag-Ox) 400 mg DAILY PO 01/24/19 09:00 01/30/19 08:18 Nitrofurantoin Monoh/Nitrofur Macro (Macrobid) 100 mg BID PO 01/26/19 11:15 01/30/19 08:18 Non-Formulary Medication ( See Comment Field Below ) REMOVE LIDODERM PATCH DAILY XX 01/24/19 09:00 01/30/19 08:20 Pantoprazole Sodium (Protonix) 40 mg DAILY PO 01/24/19 09:00 01/30/19 08:18 Senna (Senokot) 1 tab QHSP PRN PO CONSTIPATION 01/23/19 17:30 Tolterodine Tartrate (Detrol) 2 mg DAILY PO 01/24/19 09:00 01/27/19 10:19 DC 01/24/19 17:43 Vitamin D (Vitamin D) 2,000 units DAILY PO 01/24/19 09:00 01/30/19 08:18 ANGELA THOMAS MD Jan 30, 2019 19:39
[2019-01-30 20:17] VITALS: BP 117/71
[2019-01-30] MEDS: ACETAMINOPHEN 500 MG TAB PO SCH (21:20)
[2019-01-30] MEDS: LIDOCAINE 5% (LIDODERM) PATCH TD SCH (21:21)
[2019-01-31 06:00] VITALS: BP 109/55
[2019-01-31] MEDS: HEPARIN SOD (PORCINE) 5000 UNITS/ML VIAL SQ SCH ×3 (06:02→21:37)
[2019-01-31] MEDS: NITROFURANTOIN (MACROBID) 100 MG CAP PO SCH (08:56)
[2019-01-31] MEDS: ASCORBIC ACID 500 MG TAB PO SCH (08:56)
[2019-01-31] MEDS: HumaLOG INSULIN (NovoLOG) PER UNIT SC SCH ×4 (08:56→21:00)
[2019-01-31] MEDS: PANTOPRAZOLE 40MG TAB (PROTONIX) PO SCH (08:56)
[2019-01-31] MEDS: MAGNESIUM OXIDE 400 MG TAB (MAG-OX) PO SCH (08:56)
[2019-01-31] MEDS: VITAMIN D 1,000 INTERNATIONAL UNITS TABLET PO SCH (08:56)
[2019-01-31] MEDS: **NOTE PATIENT COMMENT** MISC XX SCH (08:57)
[2019-01-31] MEDS: LACOSAMIDE 50 MG TAB (VIMPAT) PO SCH ×2 (08:57→21:37)
[2019-01-31] MEDS: DOCUSATE SODIUM 100 MG CAP PO SCH ×3 (08:57→21:36)
[2019-01-31] MEDS: levETIRAcetam 250MG TABLET (KEPPRA) PO SCH ×2 (08:57→21:37)
[2019-01-31 14:00] VITALS: BP 134/85
[2019-01-31 21:30] VITALS: BP 138/67
[2019-01-31] MEDS: ACETAMINOPHEN 500 MG TAB PO SCH (21:37)
[2019-01-31] MEDS: LIDOCAINE 5% (LIDODERM) PATCH TD SCH (21:38)
[2019-02-01 06:22] VITALS: BP 112/66
[2019-02-01] MEDS: HEPARIN SOD (PORCINE) 5000 UNITS/ML VIAL SQ SCH ×3 (06:23→20:58)
[2019-02-01] MEDS: ACETAMINOPHEN 500 MG TAB PO PRN (06:24)
[2019-02-01 06:48] LABS: HEMATOCRIT 39.8 % (36.0-47.0); HEMOGLOBIN 13.4 g/dl (12.0-15.5); MEAN CORPUSCULAR HEMOGLOBIN 30.2 pg (27.0-33.0); MEAN CORPUSCULAR HGB CONC 33.7 g/dl (32.0-36.5); MEAN CORPUSCULAR VOLUME 89.6 fl (80.0-96.0); PLATELET COUNT, AUTOMATED 427 10^3/uL (150-450); RED BLOOD COUNT 4.44 10^6/uL (4.00-5.40); WHITE BLOOD COUNT 12.6 10^3/uL (4.0-10.0)
--- NOTE | 2019-02-01 08:26 | IPNPDOC ---
PM&R Progress Note DATE OF SERVICE: Jan 31, 2019 Triage Technician Progress Note Subjective: Patient reporting she did not sleep well last night and feels like her right arm is weaker, however is able to move it and acknowledges her pants busheler is still strong. She reports she had an intense work-out the day before. She is able to participate in therapy. REVIEW OF SYSTEMS: The following is a completed review of systems and has been reviewed. Review of systems otherwise unremarkable. PAIN: Patient self reports right groin and right shoulder EYES: No recent vision changes EARS, NOSE, & THROAT: No throat pain, or dysphagia, or rhinorrhea CARDIOVASCULAR: Denies chest pain or palpitations PULMONARY: Denies shortness of breath GASTROINTESTINAL: Denies constipation/diarrhea GENITOURINARY: urinary urgency MUSCULOSKELETAL: right hip OA NEUROLOGICAL:RUE and RLE paresis SKIN: craniotomy PSYCHIATRIC: Unremarkable All other review of systems found to be negative. PHYSICAL EXAMINATION: VITAL SIGNS: Please see below. GENERAL: Pleasant and cooperative. No acute distress. HEENT: PERRL. Extraocular movements intact. Clear conjunctiva CARDIOVASCULAR: Regular rate and rhythm. No murmurs, rubs, or gallops LUNGS: Clear to auscultation bilaterally. No wheezes. No rhonchi ABDOMEN: Soft, nontender, nondistended. Positive bowel sounds. Normal active bowel sounds NEUROLOGICAL: Alert and oriented times three. Cranial nerves II through XII grossly intact. Sensation grossly intact +neglect RUE +clonus and +babinksi RLE EXTREMITIES: 5\\5 strength left upper extremities, 3+/5 RUE, 3\\5 strength right lower extremity. 5/5 strength in left lower extremity right shoulder, (-) Neers, +painful arc, (-) AC joint TTP with decreased ROM SKIN: craniotomy site sutures c/d/i ASSESSMENT:63-year-old F with past medical history of left parietal meningioma s/p resection who presented s/p redo crantioomy found to have tumor necrosis with new right sided hemiparesis. PLAN: 1. rehab: PT- strengthen RLE, work on improving quality of gait, assess for appropriate AFO (patient's own AFO is not effective against supination)- trial of hip-flexion assist theraband in PT helpful for proprioceptive feedback and elicits better knee extension and hip abduction OT- strenghten RUE, maintain shoudler ROM, advance fine motor skills for optimal ADL management 2. Neuro: s/p resection and radiation of left parietal meningioma 2016 with redo craniotomy 01/16/19, pathology + tumor necrosis, not recurrent tumor- will need to f/u with Dr. Brandt -RUE and RLE hemiparesis with neglect improving overall, today's subjective feeling of RUE weakness most likely due to muscle fatigue- no change on exam in strength -will consider adult protective caseworker consult for worsening foot drop- will need to trial solid AFO in therapy -c/u Decadron and Keppra and Vimpat f/u Dr. Haider on discharge 3. CArdio: no known cardiac history-medicine consulted to assist in management 4. Resp: stable, will encourage incentive spirometry and monitor for infection 5. : monitor PVRs, voiding better s/p Macrobid for E. Coli UTI, will hold Detrol for now as urgency improving with antibiotics 6. DVT ppx: c/u heparin and TEDs 7. GI ppx: protonix 8. Pain: tylenol prn, lidoderm path to right hip and right shoulder 9. Endo: steroid induced hyperglycemia- c/u ISS- stablizing 10. Dispo: TBD Allergies Coded Allergies: phenytoin (Verified Allergy, Severe, 01/24/19) diffuse body rash ciprofloxacin (Verified Adverse Reaction, Mild, "MAKES SICK", 10/25/18) ibuprofen (Verified Adverse Reaction, Mild, ASTHMA, 10/25/18) rosuvastatin (Verified Adverse Reaction, Mild, CRAMPS, 10/25/18) sodium hypochlorite solution (Verified Adverse Reaction, Mild, CHLORINE - ASTHMA, 10/25/18) Vital Signs Vital Signs Date Time Temp Pulse Resp B/P (MAP) Pulse Ox O2 Delivery O2 Flow Rate FiO2 02/01/19 06:22 98.1 66 18 112/66 (81) 96 Laboratory Data CBC/BMP Laboratory Tests 02/01/19 06:33 Red Blood Count 4.44, Mean Corpuscular Volume 89.6, Mean Corpuscular Hemoglobin 30.2, Mean Corpuscular Hemoglobin Concent 33.7, Red Cell Distribution Width 12.9 Labs 24H Laboratory Tests 2 01/31/19 11:40: Bedside Glucose (Misc Panel) 111 01/31/19 16:55: Bedside Glucose (Misc Panel) 123H 01/31/19 21:31: Bedside Glucose (Misc Panel) 121H 02/01/19 06:30: Bedside Glucose (Misc Panel) 144H 02/01/19 06:33: Nucleated Red Blood Cells % (auto) 0.0 Microbiology Microbiology 01/25/19 Urine Culture - Final, Complete Escherichia Coli Current Medications Current Medications Current Medications Medications (Trade) Dose Ordered Sig/Celeste Route PRN Reason Start Time Stop Time Status Last Admin Dose Admin Acetaminophen (Tylenol Tab) 1,000 mg Q6HP PRN PO PAIN / FEVER 01/23/19 17:30 01/30/19 09:27 DC 01/29/19 08:35 Acetaminophen (Tylenol Tab) 1,000 mg Q8H PRN PO PAIN / FEVER 01/30/19 09:30 02/01/19 06:24 Acetaminophen (Tylenol Tab) 1,000 mg QHS PO 01/30/19 21:00 01/31/19 21:37 Ascorbic Acid (Vitamin C) 1,000 mg DAILY PO 01/24/19 09:00 01/31/19 08:56 Dexamethasone (Decadron) 4 mg Q12H PO 01/23/19 21:00 01/31/19 21:37 Dextrose (Dextrose 50%) 25 ml ASDIRECTED PRN IV SEE LABEL COMMENTS 01/23/19 17:30 Docusate Sodium (Colace) 100 mg TID PO 01/23/19 21:00 01/31/19 21:36 Glucagon (Glucagon) 1 mg ASDIRECTED PRN SC SEE LABEL COMMENTS 01/23/19 17:30 Glucose (Glucose) 16 GM ASDIRECTED PRN PO SEE LABEL COMMENTS 01/23/19 17:30 Heparin Sodium (Porcine) (Heparin) 5,000 units Q8H SQ 01/23/19 22:00 02/01/19 06:23 Home Med (Med Rec Complete!) ASDIRECTED XX 01/23/19 18:00 01/23/19 18:00 DC Insulin Human Lispro (HumaLOG INSULIN) SEE PROTOCOL TABLE AC SC 01/23/19 17:30 01/31/19 17:49 Insulin Human Lispro (HumaLOG INSULIN) SEE PROTOCOL TABLE QHS SC 01/23/19 21:00 Lacosamide (Vimpat) 100 mg BID PO 01/23/19 21:00 01/24/19 14:37 DC 01/24/19 09:09 Lacosamide (Vimpat) 100 mg BID PO 01/25/19 21:00 01/27/19 10:19 DC 01/27/19 07:31 Lacosamide (Vimpat) 100 mg BID PO 01/27/19 21:00 01/31/19 21:37 Levetiracetam (Keppra) 1,500 mg BID PO 01/23/19 21:00 01/31/19 21:37 Lidocaine (Lidoderm Patch) 2 patch QHS TD 01/23/19 21:00 01/31/19 21:38 Magnesium Hydroxide (Milk Of Magnesia) 30 ml DAILYPRN PRN PO CONSTIPATION 01/23/19 17:30 Magnesium Oxide (Mag-Ox) 400 mg DAILY PO 01/24/19 09:00 01/31/19 08:56 Nitrofurantoin Monoh/Nitrofur Macro (Macrobid) 100 mg BID PO 01/26/19 11:15 01/31/19 11:31 DC 01/31/19 08:56 Non-Formulary Medication ( See Comment Field Below ) REMOVE LIDODERM PATCH DAILY XX 01/24/19 09:00 01/31/19 08:57 Pantoprazole Sodium (Protonix) 40 mg DAILY PO 01/24/19 09:00 01/31/19 08:56 Senna (Senokot) 1 tab QHSP PRN PO CONSTIPATION 01/23/19 17:30 Tolterodine Tartrate (Detrol) 2 mg DAILY PO 01/24/19 09:00 01/27/19 10:19 DC 01/24/19 17:43 Vitamin D (Vitamin D) 2,000 units DAILY PO 01/24/19 09:00 01/31/19 08:56 ANGELA THOMAS MD Feb 01, 2019 08:26
[2019-02-01] MEDS: MAGNESIUM OXIDE 400 MG TAB (MAG-OX) PO SCH (09:12)
[2019-02-01] MEDS: PANTOPRAZOLE 40MG TAB (PROTONIX) PO SCH (09:12)
[2019-02-01] MEDS: levETIRAcetam 250MG TABLET (KEPPRA) PO SCH ×2 (09:12→20:58)
[2019-02-01] MEDS: LACOSAMIDE 50 MG TAB (VIMPAT) PO SCH ×2 (09:12→20:59)
[2019-02-01] MEDS: ASCORBIC ACID 500 MG TAB PO SCH (09:12)
[2019-02-01] MEDS: VITAMIN D 1,000 INTERNATIONAL UNITS TABLET PO SCH (09:12)
[2019-02-01] MEDS: DOCUSATE SODIUM 100 MG CAP PO SCH ×3 (09:12→20:59)
[2019-02-01] MEDS: **NOTE PATIENT COMMENT** MISC XX SCH (09:13)
[2019-02-01] MEDS: HumaLOG INSULIN (NovoLOG) PER UNIT SC SCH ×4 (09:13→20:03)
[2019-02-01 14:00] VITALS: BP 122/83
[2019-02-01 20:01] VITALS: BP 124/66
[2019-02-01] MEDS: ACETAMINOPHEN 500 MG TAB PO SCH (20:59)
[2019-02-01] MEDS: LIDOCAINE 5% (LIDODERM) PATCH TD SCH (21:00)
[2019-02-02] MEDS: HEPARIN SOD (PORCINE) 5000 UNITS/ML VIAL SQ SCH ×3 (05:57→20:44)
[2019-02-02 06:33] VITALS: BP 121/68
[2019-02-02] MEDS: DOCUSATE SODIUM 100 MG CAP PO SCH ×3 (08:21→20:43)
[2019-02-02] MEDS: LACOSAMIDE 50 MG TAB (VIMPAT) PO SCH ×2 (08:21→20:44)
[2019-02-02] MEDS: ASCORBIC ACID 500 MG TAB PO SCH (08:21)
[2019-02-02] MEDS: PANTOPRAZOLE 40MG TAB (PROTONIX) PO SCH (08:21)
[2019-02-02] MEDS: MAGNESIUM OXIDE 400 MG TAB (MAG-OX) PO SCH (08:21)
[2019-02-02] MEDS: VITAMIN D 1,000 INTERNATIONAL UNITS TABLET PO SCH (08:21)
[2019-02-02] MEDS: levETIRAcetam 250MG TABLET (KEPPRA) PO SCH ×2 (08:21→20:43)
[2019-02-02] MEDS: **NOTE PATIENT COMMENT** MISC XX SCH (08:22)
[2019-02-02] MEDS: HumaLOG INSULIN (NovoLOG) PER UNIT SC SCH ×4 (08:22→20:48)
[2019-02-02 14:00] VITALS: BP 124/69
[2019-02-02 20:03] VITALS: BP 125/62
[2019-02-02] MEDS: ACETAMINOPHEN 500 MG TAB PO SCH (20:44)
[2019-02-02] MEDS: LIDOCAINE 5% (LIDODERM) PATCH TD SCH (20:45)
[2019-02-03] MEDS: HEPARIN SOD (PORCINE) 5000 UNITS/ML VIAL SQ SCH ×3 (05:47→21:12)
[2019-02-03 05:54] LABS: BASO % 0.2 % (0.0-1.0); EOS % 0.2 % (0.0-3.0); HEMATOCRIT 38.9 % (36.0-47.0); HEMOGLOBIN 12.9 g/dl (12.0-15.5); LYMPH # 2.9 10^3/uL (1.5-4.5); LYMPH % 21.9 % (24.0-44.0); MEAN CORPUSCULAR HEMOGLOBIN 30.4 pg (27.0-33.0); MEAN CORPUSCULAR HGB CONC 33.2 g/dl (32.0-36.5); MEAN CORPUSCULAR VOLUME 91.5 fl (80.0-96.0); MONO # 0.7 10^3/uL (0.0-0.8); MONO % 5.5 % (0.0-5.0); NEUTROPHILS # 9.3 10^3/uL (1.8-7.7); NEUTROPHILS % 70.5 % (36.0-66.0); PLATELET COUNT, AUTOMATED 424 10^3/uL (150-450); RED BLOOD COUNT 4.25 10^6/uL (4.00-5.40); WHITE BLOOD COUNT 13.2 10^3/uL (4.0-10.0)
[2019-02-03 06:09] VITALS: BP 115/57
[2019-02-03 06:21] LABS: CREATININE FOR GFR 1.03 MG/DL (0.55-1.30); GLOMERULAR FILTRATION RATE 57.4 (>45); POTASSIUM SERUM 4.4 MEQ/L (3.5-5.1)
[2019-02-03 06:22] LABS: CALCIUM LEVEL 8.6 MG/DL (8.8-10.2)
[2019-02-03] MEDS: HumaLOG INSULIN (NovoLOG) PER UNIT SC SCH ×4 (07:39→20:46)
[2019-02-03] MEDS: DOCUSATE SODIUM 100 MG CAP PO SCH ×3 (07:39→21:13)
[2019-02-03] MEDS: ACETAMINOPHEN 500 MG TAB PO PRN (07:40)
[2019-02-03] MEDS: MAGNESIUM OXIDE 400 MG TAB (MAG-OX) PO SCH (07:40)
[2019-02-03] MEDS: ASCORBIC ACID 500 MG TAB PO SCH (07:40)
[2019-02-03] MEDS: PANTOPRAZOLE 40MG TAB (PROTONIX) PO SCH (07:40)
[2019-02-03] MEDS: levETIRAcetam 250MG TABLET (KEPPRA) PO SCH ×2 (07:41→21:12)
[2019-02-03] MEDS: LACOSAMIDE 50 MG TAB (VIMPAT) PO SCH ×2 (07:41→21:13)
[2019-02-03] MEDS: VITAMIN D 1,000 INTERNATIONAL UNITS TABLET PO SCH (07:41)
[2019-02-03] MEDS: **NOTE PATIENT COMMENT** MISC XX SCH (07:41)
[2019-02-03] MEDS ORDERED: traZODone 50 MG TAB PO PRN (12:45)
--- NOTE | 2019-02-03 13:03 | IPNPDOC ---
Text Note Date of Service The patient was seen on 02/03/19. NOTE Subjective: Working with occupational therapy at time of assessment. Complains o f insomnia, Objective GENERAL: NAD SKIN : Warm, cranial surgical sutures open to air, no induration, erythema HEENT: Atraumatic, normocephalic, PERRL, moist mucous membrane CARDIOVASCULAR: Regular rate and rhythm, S1S2, no JVD, RLE edema RESP: CTAB, no accessory muscle use noted ABDOMEN: BS+ non distended non tender MS: no joint deformities NEURO: Alert and oriented x 3, CN2-12 grossly intact PSYCH: no anxiety or agitation, appropriate mood and affect. ASSESSMENT & PLAN: Left parietal mass -S/P resection of non malignant tumor at [facility] -rehabilitation of neuro deficits per primary team -continued on decadron for cerebral edema Seizure disorder -continued on Vimpat, Keppra per neurology recommendations -plan for continued neuro follow up at discharge. -continue seizure precautions Hyperglycemia -HgbA1c 6.5 -continue monitoring with fingerstick checks prior to meals and at bedtime UTI -urine culture positive for E.coli tenorio-sensitive -Completed antibiotic therapy with Nitrofurantin Insomnia -trazodone as needed QHS Chronic constipation - Continue with bowel regimen DVT prophylaxis -heparin SQ Q8 VS,Fishbone, I+O VS, Fishbone, I+O Laboratory Tests 02/03/19 05:42 Red Blood Count 4.25, Mean Corpuscular Volume 91.5, Mean Corpuscular Hemoglobin 30.4, Mean Corpuscular Hemoglobin Concent 33.2, Red Cell Distribution Width 13.1, Neutrophils (%) (Auto) 70.5 H, Lymphocytes (%) (Auto) 21.9 L, Monocytes (%) (Auto) 5.5 H, Eosinophils (%) (Auto) 0.2, Basophils (%) (Auto) 0.2, Neutrophils # (Auto) 9.3 H, Lymphocytes # (Auto) 2.9, Monocytes # (Auto) 0.7, Eosinophils # (Auto) 0.0, Basophils # (Auto) 0.0, Calcium Level 8.6 L Vital Signs Date Time Temp Pulse Resp B/P (MAP) Pulse Ox O2 Delivery O2 Flow Rate FiO2 02/03/19 06:09 96.9 59 18 115/57 (76) 97 I&O- Last 24 Hours up to 6 AM 02/03/19 06:00 Intake Total 1300 ml Balance 1300 ml AUDRA MARTINEZ [facility] Feb 03, 2019 13:03
[2019-02-03 14:00] VITALS: BP 133/80
[2019-02-03 20:00] VITALS: BP 133/79
[2019-02-03] MEDS: GABAPENTIN 100 MG CAP PO SCH (21:12)
[2019-02-03] MEDS: ACETAMINOPHEN 500 MG TAB PO SCH (21:13)
[2019-02-03] MEDS: LIDOCAINE 5% (LIDODERM) PATCH TD SCH (21:13)
[2019-02-04 05:34] VITALS: BP 112/65
[2019-02-04] MEDS: HEPARIN SOD (PORCINE) 5000 UNITS/ML VIAL SQ SCH ×3 (06:14→21:30)
[2019-02-04 07:02] LABS: HEMATOCRIT 41.7 % (36.0-47.0); HEMOGLOBIN 13.4 g/dl (12.0-15.5); MEAN CORPUSCULAR HEMOGLOBIN 30.4 pg (27.0-33.0); MEAN CORPUSCULAR HGB CONC 32.1 g/dl (32.0-36.5); MEAN CORPUSCULAR VOLUME 94.6 fl (80.0-96.0); PLATELET COUNT, AUTOMATED 438 10^3/uL (150-450); RED BLOOD COUNT 4.41 10^6/uL (4.00-5.40); WHITE BLOOD COUNT 14.1 10^3/uL (4.0-10.0)
[2019-02-04] MEDS: HumaLOG INSULIN (NovoLOG) PER UNIT SC SCH ×4 (08:18→21:00)
[2019-02-04] MEDS: levETIRAcetam 250MG TABLET (KEPPRA) PO SCH ×2 (08:18→21:31)
[2019-02-04] MEDS: LACOSAMIDE 50 MG TAB (VIMPAT) PO SCH ×2 (08:19→21:30)
[2019-02-04] MEDS: ASCORBIC ACID 500 MG TAB PO SCH (08:19)
[2019-02-04] MEDS: DOCUSATE SODIUM 100 MG CAP PO SCH ×3 (08:19→21:31)
[2019-02-04] MEDS: MAGNESIUM OXIDE 400 MG TAB (MAG-OX) PO SCH (08:19)
[2019-02-04] MEDS: PANTOPRAZOLE 40MG TAB (PROTONIX) PO SCH (08:19)
[2019-02-04] MEDS: VITAMIN D 1,000 INTERNATIONAL UNITS TABLET PO SCH (08:19)
[2019-02-04] MEDS: **NOTE PATIENT COMMENT** MISC XX SCH (08:20)
--- NOTE | 2019-02-04 12:29 | IPNPDOC ---
Text Note Date of Service The patient was seen on 02/04/19. NOTE Subjective: Working with therapist at time of evaluation. Patient reports she sl ept more than 5 hours last night, which is pretty good for her. Feels better this morning, feels stronger, able to participate more in therapy. Objective GENERAL: NAD SKIN : Warm, cranial surgical sutures open to air, no induration, erythema HEENT: Atraumatic, normocephalic, PERRL, moist mucous membrane CARDIOVASCULAR: Regular rate and rhythm, S1S2, no JVD, RLE edema RESP: CTAB, no accessory muscle use noted ABDOMEN: BS+ non distended non tender MS: no joint deformities NEURO: Alert and oriented x 3, CN2-12 grossly intact PSYCH: no anxiety or agitation, appropriate mood and affect. ASSESSMENT & PLAN: Left parietal mass -S/P resection of non malignant tumor at [facility] -rehabilitation of neuro deficits per primary team -continued on decadron for cerebral edema Seizure disorder -continued on Vimpat, Keppra per neurology recommendations -plan for continued neuro follow up at discharge. -continue seizure precautions Hyperglycemia -HgbA1c 6.5 -continue monitoring with fingerstick checks prior to meals and at bedtime UTI -urine culture positive for E.coli tenorio-sensitive -Completed antibiotic therapy with Nitrofurantin Insomnia -slept well on gabapentin last night -and trazodone as needed QHS Chronic constipation -Continue current bowel regimen DVT prophylaxis -heparin SQ Q8 VS,Fishbone, I+O VS, Fishbone, I+O Laboratory Tests 02/04/19 06:43 Red Blood Count 4.41, Mean Corpuscular Volume 94.6, Mean Corpuscular Hemoglobin 30.4, Mean Corpuscular Hemoglobin Concent 32.1, Red Cell Distribution Width 13.1 Vital Signs Date Time Temp Pulse Resp B/P (MAP) Pulse Ox O2 Delivery O2 Flow Rate FiO2 02/04/19 05:34 97.9 72 18 112/65 (81) 95 I&O- Last 24 Hours up to 6 AM 02/04/19 06:00 Intake Total 2280 ml Balance 2280 ml AUDRA MARTINEZP Feb 04, 2019 12:29
[2019-02-04 14:00] VITALS: BP 130/79
--- NOTE | 2019-02-04 15:39 | IPNPDOC ---
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 REVIEW OF SYSTEMS: The following is a completed review of systems and has been reviewed. Review of systems otherwise unremarkable. PAIN: Patient self reports right groin and right shoulder EYES: No recent vision changes EARS, NOSE, & THROAT: No throat pain, or dysphagia, or rhinorrhea CARDIOVASCULAR: Denies chest pain or palpitations PULMONARY: Denies shortness of breath GASTROINTESTINAL: Denies constipation/diarrhea GENITOURINARY: urinary urgency MUSCULOSKELETAL: right hip OA NEUROLOGICAL:RUE and RLE paresis SKIN: craniotomy PSYCHIATRIC: Unremarkable All other review of systems found to be negative. PHYSICAL EXAMINATION: VITAL SIGNS: Please see below. GENERAL: Pleasant and cooperative. No acute distress. HEENT: PERRL. Extraocular movements intact. Clear conjunctiva CARDIOVASCULAR: Regular rate and rhythm. No murmurs, rubs, or gallops LUNGS: Clear to auscultation bilaterally. No wheezes. No rhonchi ABDOMEN: Soft, nontender, nondistended. Positive bowel sounds. Normal active bowel sounds NEUROLOGICAL: Alert and oriented times three. Cranial nerves II through XII grossly intact. Sensation grossly intact +neglect RUE +clonus and +babinksi RLE EXTREMITIES: 5\\5 strength left upper extremities, 3+/5 RUE, 3\\5 strength right lower extremity. 5/5 strength in left lower extremity right shoulder, (-) Neers, +painful arc, (-) AC joint TTP with decreased ROM SKIN: craniotomy site sutures c/d/i ASSESSMENT:63-year-old F with past medical history of left parietal meningioma s/p resection who presented s/p redo crantioomy found to have tumor necrosis with new right sided hemiparesis. PLAN: 1. rehab: PT- strengthen RLE, work on improving quality of gait, assess for appropriate AFO (patient's own AFO is not effective against supination)- trial of hip-flexion assist theraband in PT helpful for proprioceptive feedback and elicits better knee extension and hip abduction OT- strenghten RUE, maintain shoulder ROM, advance fine motor skills for optimal ADL management 2. Neuro: s/p resection and radiation of left parietal meningioma 2016 with redo craniotomy 01/16/19, pathology + tumor necrosis, not recurrent tumor- will need to f/u with Dr. Karly COWART and RLE hemiparesis with neglect improving overall, -will consider last pattern grader consult for worsening foot drop- will need to trial solid AFO in therapy -c/u Decadron and Keppra and Vimpat f/u Dr. Haider on discharge 3. CArdio: no known cardiac history-medicine consulted to assist in management 4. Resp: stable, will encourage incentive spirometry and monitor for infection 5. : monitor PVRs, voiding better s/p Macrobid for E. Coli UTI, will hold Detrol for now as urgency improving with antibiotics 6. DVT ppx: c/u heparin and TEDs 7. GI ppx: protonix 8. Pain: tylenol prn, lidoderm path to right hip and right shoulder, will trial gabapentin 200 mg qHS 9. Endo: steroid induced hyperglycemia- c/u ISS- stablizing 10. Dispo: 02-11-19 to home Allergies Coded Allergies: phenytoin (Verified Allergy, Severe, 01/24/19) diffuse body rash ciprofloxacin (Verified Adverse Reaction, Mild, "MAKES SICK", 10/25/18) ibuprofen (Verified Adverse Reaction, Mild, ASTHMA, 10/25/18) rosuvastatin (Verified Adverse Reaction, Mild, CRAMPS, 10/25/18) sodium hypochlorite solution (Verified Adverse Reaction, Mild, CHLORINE - ASTHMA, 10/25/18) Vital Signs Vital Signs Date Time Temp Pulse Resp B/P (MAP) Pulse Ox O2 Delivery O2 Flow Rate FiO2 02/04/19 05:34 97.9 72 18 112/65 (81) 95 Laboratory Data CBC/BMP Laboratory Tests 02/04/19 06:43 Red Blood Count 4.41, Mean Corpuscular Volume 94.6, Mean Corpuscular Hemoglobin 30.4, Mean Corpuscular Hemoglobin Concent 32.1, Red Cell Distribution Width 13.1 Labs 24H Laboratory Tests 2 02/03/19 17:10: Bedside Glucose (Misc Panel) 118H 02/03/19 20:43: Bedside Glucose (Misc Panel) 122H 02/04/19 06:10: Bedside Glucose (Misc Panel) 143H 02/04/19 06:43: Nucleated Red Blood Cells % (auto) 0.0 8/6/19 12:07: Bedside Glucose (Misc Panel) 122H Microbiology Microbiology 01/25/19 Urine Culture - Final, Complete Escherichia Coli Current Medications Current Medications Current Medications Medications (Trade) Dose Ordered Sig/Celeste Route PRN Reason Start Time Stop Time Status Last Admin Dose Admin Acetaminophen (Tylenol Tab) 1,000 mg Q6HP PRN PO PAIN / FEVER 01/23/19 17:30 01/30/19 09:27 DC 01/29/19 08:35 Acetaminophen (Tylenol Tab) 1,000 mg Q8H PRN PO PAIN / FEVER 01/30/19 09:30 02/03/19 07:40 Acetaminophen (Tylenol Tab) 1,000 mg QHS PO 01/30/19 21:00 02/03/19 21:13 Ascorbic Acid (Vitamin C) 1,000 mg DAILY PO 01/24/19 09:00 02/04/19 08:19 Dexamethasone (Decadron) 1 mg BID PO 02/11/19 09:00 02/17/19 23:59 Dexamethasone (Decadron) 2 mg Q12H PO 02/04/19 21:00 02/10/19 21:01 Dexamethasone (Decadron) 4 mg Q12H PO 01/23/19 21:00 02/04/19 10:56 DC 02/04/19 08:19 Dextrose (Dextrose 50%) 25 ml ASDIRECTED PRN IV SEE LABEL COMMENTS 01/23/19 17:30 Docusate Sodium (Colace) 100 mg TID PO 01/23/19 21:00 02/04/19 08:19 Gabapentin (Neurontin) 200 mg QHS PO 02/03/19 21:00 02/03/19 21:12 Glucagon (Glucagon) 1 mg ASDIRECTED PRN SC SEE LABEL COMMENTS 01/23/19 17:30 Glucose (Glucose) 16 GM ASDIRECTED PRN PO SEE LABEL COMMENTS 01/23/19 17:30 Heparin Sodium (Porcine) (Heparin) 5,000 units Q8H SQ 01/23/19 22:00 02/04/19 13:53 Home Med (Med Rec Complete!) ASDIRECTED XX 01/23/19 18:00 01/23/19 18:00 DC Insulin Human Lispro (HumaLOG INSULIN) SEE PROTOCOL TABLE AC SC 01/23/19 17:30 02/04/19 12:39 Insulin Human Lispro (HumaLOG INSULIN) SEE PROTOCOL TABLE QHS SC 01/23/19 21:00 Lacosamide (Vimpat) 100 mg BID PO 01/23/19 21:00 01/24/19 14:37 DC 01/24/19 09:09 Lacosamide (Vimpat) 100 mg BID PO 01/25/19 21:00 01/27/19 10:19 DC 01/27/19 07:31 Lacosamide (Vimpat) 100 mg BID PO 01/27/19 21:00 02/04/19 08:19 Levetiracetam (Keppra) 1,500 mg BID PO 01/23/19 21:00 02/04/19 08:18 Lidocaine (Lidoderm Patch) 2 patch QHS TD 01/23/19 21:00 02/03/19 21:13 Magnesium Hydroxide (Milk Of Magnesia) 30 ml DAILYPRN PRN PO CONSTIPATION 01/23/19 17:30 Magnesium Oxide (Mag-Ox) 400 mg DAILY PO 01/24/19 09:00 02/04/19 08:19 Nitrofurantoin Monoh/Nitrofur Macro (Macrobid) 100 mg BID PO 01/26/19 11:15 01/31/19 11:31 DC 01/31/19 08:56 Non-Formulary Medication ( See Comment Field Below ) REMOVE LIDODERM PATCH DAILY XX 01/24/19 09:00 02/04/19 08:20 Pantoprazole Sodium (Protonix) 40 mg DAILY PO 01/24/19 09:00 02/04/19 08:19 Senna (Senokot) 1 tab QHSP PRN PO CONSTIPATION 01/23/19 17:30 Tolterodine Tartrate (Detrol) 2 mg DAILY PO 01/24/19 09:00 01/27/19 10:19 DC 01/24/19 17:43 Trazodone HCl (Desyrel) 25 mg QHSP PRN PO INSOMNIA 02/03/19 12:45 Vitamin D (Vitamin D) 2,000 units DAILY PO 01/24/19 09:00 02/04/19 08:19 ANGELA THOMAS MD Feb 04, 2019 15:39
--- NOTE | 2019-02-04 15:39 | IPNPDOC ---
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 She is agreeable to trying gabapentin. REVIEW OF SYSTEMS: The following is a completed review of systems and has been reviewed. Review of systems otherwise unremarkable. PAIN: Patient self reports right groin and right shoulder EYES: No recent vision changes EARS, NOSE, & THROAT: No throat pain, or dysphagia, or rhinorrhea CARDIOVASCULAR: Denies chest pain or palpitations PULMONARY: Denies shortness of breath GASTROINTESTINAL: Denies constipation/diarrhea GENITOURINARY: urinary urgency MUSCULOSKELETAL: right hip OA NEUROLOGICAL:RUE and RLE paresis SKIN: craniotomy PSYCHIATRIC: Unremarkable All other review of systems found to be negative. PHYSICAL EXAMINATION: VITAL SIGNS: Please see below. GENERAL: Pleasant and cooperative. No acute distress. HEENT: PERRL. Extraocular movements intact. Clear conjunctiva CARDIOVASCULAR: Regular rate and rhythm. No murmurs, rubs, or gallops LUNGS: Clear to auscultation bilaterally. No wheezes. No rhonchi ABDOMEN: Soft, nontender, nondistended. Positive bowel sounds. Normal active bowel sounds NEUROLOGICAL: Alert and oriented times three. Cranial nerves II through XII grossly intact. Sensation grossly intact +neglect RUE +clonus and +babinksi RLE EXTREMITIES: 5\\5 strength left upper extremities, 3+/5 RUE, 3\\5 strength right lower extremity. 5/5 strength in left lower extremity right shoulder, (-) Neers, +painful arc, (-) AC joint TTP with decreased ROM SKIN: craniotomy site sutures c/d/i ASSESSMENT:63-year-old F with past medical history of left parietal meningioma s/p resection who presented s/p redo crantioomy found to have tumor necrosis with new right sided hemiparesis. PLAN: 1. rehab: PT- strengthen RLE, work on improving quality of gait, assess for appropriate AFO (patient's own AFO is not effective against supination)- trial of hip-flexion assist theraband in PT helpful for proprioceptive feedback and elicits better knee extension and hip abduction OT- strenghten RUE, maintain shoulder ROM, advance fine motor skills for optimal ADL management 2. Neuro: s/p resection and radiation of left parietal meningioma 2016 with redo craniotomy 01/16/19, pathology + tumor necrosis, not recurrent tumor- will need to f/u with Dr. Karly COWART and RLKimmy hemiparesis with neglect improving overall, -will consider it solutions sales consultant consult for worsening foot drop- will need to trial solid AFO in therapy -c/u Decadron and Keppra and Vimpat f/u Dr. Haider on discharge 3. CArdio: no known cardiac history-medicine consulted to assist in management 4. Resp: stable, will encourage incentive spirometry and monitor for infection 5. : monitor PVRs, voiding better s/p Macrobid for E. Coli UTI, will hold Detrol for now as urgency improving with antibiotics 6. DVT ppx: c/u heparin and TEDs 7. GI ppx: protonix 8. Pain: tylenol prn, lidoderm path to right hip and right shoulder, will trial gabapentin 200 mg qHS 9. Endo: steroid induced hyperglycemia- c/u ISS- stablizing 10. Dispo: 02-11-19 to home Allergies Coded Allergies: phenytoin (Verified Allergy, Severe, 01/24/19) diffuse body rash ciprofloxacin (Verified Adverse Reaction, Mild, "MAKES SICK", 10/25/18) ibuprofen (Verified Adverse Reaction, Mild, ASTHMA, 10/25/18) rosuvastatin (Verified Adverse Reaction, Mild, CRAMPS, 10/25/18) sodium hypochlorite solution (Verified Adverse Reaction, Mild, CHLORINE - ASTHMA, 10/25/18) Vital Signs Vital Signs Date Time Temp Pulse Resp B/P (MAP) Pulse Ox O2 Delivery O2 Flow Rate FiO2 02/04/19 05:34 97.9 72 18 112/65 (81) 95 Laboratory Data CBC/BMP Laboratory Tests 02/04/19 06:43 Red Blood Count 4.41, Mean Corpuscular Volume 94.6, Mean Corpuscular Hemoglobin 30.4, Mean Corpuscular Hemoglobin Concent 32.1, Red Cell Distribution Width 13.1 Labs 24H Laboratory Tests 2 02/03/19 17:10: Bedside Glucose (Misc Panel) 118H 02/03/19 20:43: Bedside Glucose (Misc Panel) 122H 02/04/19 06:10: Bedside Glucose (Misc Panel) 143H 02/04/19 06:43: Nucleated Red Blood Cells % (auto) 0.0 02/04/19 12:07: Bedside Glucose (Misc Panel) 122H Microbiology Microbiology 01/25/19 Urine Culture - Final, Complete Escherichia Coli Current Medications Current Medications Current Medications Medications (Trade) Dose Ordered Sig/Celeste Route PRN Reason Start Time Stop Time Status Last Admin Dose Admin Acetaminophen (Tylenol Tab) 1,000 mg Q6HP PRN PO PAIN / FEVER 01/23/19 17:30 01/30/19 09:27 DC 01/29/19 08:35 Acetaminophen (Tylenol Tab) 1,000 mg Q8H PRN PO PAIN / FEVER 01/30/19 09:30 02/03/19 07:40 Acetaminophen (Tylenol Tab) 1,000 mg QHS PO 01/30/19 21:00 02/03/19 21:13 Ascorbic Acid (Vitamin C) 1,000 mg DAILY PO 01/24/19 09:00 02/04/19 08:19 Dexamethasone (Decadron) 1 mg BID PO 02/11/19 09:00 02/17/19 23:59 Dexamethasone (Decadron) 2 mg Q12H PO 02/04/19 21:00 02/10/19 21:01 Dexamethasone (Decadron) 4 mg Q12H PO 01/23/19 21:00 02/04/19 10:56 DC 02/04/19 08:19 Dextrose (Dextrose 50%) 25 ml ASDIRECTED PRN IV SEE LABEL COMMENTS 01/23/19 17:30 Docusate Sodium (Colace) 100 mg TID PO 01/23/19 21:00 02/04/19 08:19 Gabapentin (Neurontin) 200 mg QHS PO 02/03/19 21:00 02/03/19 21:12 Glucagon (Glucagon) 1 mg ASDIRECTED PRN SC SEE LABEL COMMENTS 01/23/19 17:30 Glucose (Glucose) 16 GM ASDIRECTED PRN PO SEE LABEL COMMENTS 01/23/19 17:30 Heparin Sodium (Porcine) (Heparin) 5,000 units Q8H SQ 01/23/19 22:00 02/04/19 13:53 Home Med (Med Rec Complete!) ASDIRECTED XX 01/23/19 18:00 01/23/19 18:00 DC Insulin Human Lispro (HumaLOG INSULIN) SEE PROTOCOL TABLE AC SC 01/23/19 17:30 02/04/19 12:39 Insulin Human Lispro (HumaLOG INSULIN) SEE PROTOCOL TABLE QHS SC 01/23/19 21:00 Lacosamide (Vimpat) 100 mg BID PO 01/23/19 21:00 01/24/19 14:37 DC 01/24/19 09:09 Lacosamide (Vimpat) 100 mg BID PO 01/25/19 21:00 01/27/19 10:19 DC 01/27/19 07:31 Lacosamide (Vimpat) 100 mg BID PO 01/27/19 21:00 02/04/19 08:19 Levetiracetam (Keppra) 1,500 mg BID PO 01/23/19 21:00 02/04/19 08:18 Lidocaine (Lidoderm Patch) 2 patch QHS TD 01/23/19 21:00 02/03/19 21:13 Magnesium Hydroxide (Milk Of Magnesia) 30 ml DAILYPRN PRN PO CONSTIPATION 01/23/19 17:30 Magnesium Oxide (Mag-Ox) 400 mg DAILY PO 01/24/19 09:00 02/04/19 08:19 Nitrofurantoin Monoh/Nitrofur Macro (Macrobid) 100 mg BID PO 01/26/19 11:15 01/31/19 11:31 DC 01/31/19 08:56 Non-Formulary Medication ( See Comment Field Below ) REMOVE LIDODERM PATCH DAILY XX 01/24/19 09:00 02/04/19 08:20 Pantoprazole Sodium (Protonix) 40 mg DAILY PO 01/24/19 09:00 02/04/19 08:19 Senna (Senokot) 1 tab QHSP PRN PO CONSTIPATION 01/23/19 17:30 Tolterodine Tartrate (Detrol) 2 mg DAILY PO 01/24/19 09:00 01/27/19 10:19 DC 01/24/19 17:43 Trazodone HCl (Desyrel) 25 mg QHSP PRN PO INSOMNIA 02/03/19 12:45 Vitamin D (Vitamin D) 2,000 units DAILY PO 01/24/19 09:00 02/04/19 08:19 ANGELA THOMAS MD Feb 04, 2019 15:39
[2019-02-04 20:00] VITALS: BP 136/68
[2019-02-04] MEDS: GABAPENTIN 100 MG CAP PO SCH (21:31)
[2019-02-04] MEDS: ACETAMINOPHEN 500 MG TAB PO SCH (21:35)
[2019-02-04] MEDS: LIDOCAINE 5% (LIDODERM) PATCH TD SCH (21:38)
[2019-02-05] MEDS: HEPARIN SOD (PORCINE) 5000 UNITS/ML VIAL SQ SCH ×3 (05:15→21:19)
[2019-02-05 05:29] VITALS: BP 113/58
[2019-02-05] MEDS: LACOSAMIDE 50 MG TAB (VIMPAT) PO SCH ×2 (09:03→21:16)
[2019-02-05] MEDS: DOCUSATE SODIUM 100 MG CAP PO SCH ×3 (09:03→21:17)
[2019-02-05] MEDS: levETIRAcetam 250MG TABLET (KEPPRA) PO SCH ×2 (09:04→21:16)
[2019-02-05] MEDS: MAGNESIUM OXIDE 400 MG TAB (MAG-OX) PO SCH (09:04)
[2019-02-05] MEDS: ASCORBIC ACID 500 MG TAB PO SCH (09:04)
[2019-02-05] MEDS: PANTOPRAZOLE 40MG TAB (PROTONIX) PO SCH (09:04)
[2019-02-05] MEDS: HumaLOG INSULIN (NovoLOG) PER UNIT SC SCH ×4 (09:04→20:17)
[2019-02-05] MEDS: VITAMIN D 1,000 INTERNATIONAL UNITS TABLET PO SCH (09:04)
[2019-02-05] MEDS: **NOTE PATIENT COMMENT** MISC XX SCH (09:05)
--- NOTE | 2019-02-05 13:05 | IPNPDOC ---
Text Note Date of Service The patient was seen on 02/05/19. NOTE Subjective: Was cold last night but otherwise was able to sleep well with no issues. Concerned about progress she is making with right upper extremitybecause although left handed, uses right hand to write. denies headache, chest pain, SOB Objective GENERAL: NAD SKIN : Warm, cranial surgical sutures open to air, no induration, erythema HEENT: Atraumatic, normocephalic, PERRL, moist mucous membrane CARDIOVASCULAR: Regular rate and rhythm, S1S2, no JVD, RLE edema RESP: CTAB, no accessory muscle use noted ABDOMEN: BS+ non distended non tender MS: no joint deformities NEURO: Alert and oriented x 3, CN2-12 grossly intact PSYCH: no anxiety or agitation, appropriate mood and affect. ASSESSMENT & PLAN: Left parietal mass -S/P resection of non malignant tumor at [facility] -rehabilitation of neuro deficits per primary team -continued on Decadron for cerebral edema Seizure disorder -continue Vimpat and Keppra per neurology recommendations -neuro follow up at discharge. -continue seizure precautions Hyperglycemia -HgbA1c 6.5 -continue monitoring with fingerstick checks prior to meals and at bedtime Insomnia -sleeping better with gabapentin for hip pain - trazodone as needed QHS Chronic constipation -Continue current bowel regimen DVT prophylaxis -heparin SQ Q8 VS,Fishbone, I+O VS, Fishbone, I+O Vital Signs Date Time Temp Pulse Resp B/P (MAP) Pulse Ox O2 Delivery O2 Flow Rate FiO2 02/05/19 05:29 96.9 72 18 113/58 (39) 97 I&O- Last 24 Hours up to 6 AM 02/05/19 06:00 Intake Total 2345 ml Output Total 200 ml Balance 2145 ml AUDRA MARTINEZP Feb 05, 2019 13:05
[2019-02-05 14:00] VITALS: BP 131/77
--- NOTE | 2019-02-05 17:20 | IPNPDOC ---
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 REVIEW OF SYSTEMS: The following is a completed review of systems and has been reviewed. Review of systems otherwise unremarkable. PAIN: Patient self reports right groin and right shoulder EYES: No recent vision changes EARS, NOSE, & THROAT: No throat pain, or dysphagia, or rhinorrhea CARDIOVASCULAR: Denies chest pain or palpitations PULMONARY: Denies shortness of breath GASTROINTESTINAL: Denies constipation/diarrhea GENITOURINARY: urinary urgency MUSCULOSKELETAL: right hip OA NEUROLOGICAL:RUE and RLE paresis SKIN: craniotomy PSYCHIATRIC: Unremarkable All other review of systems found to be negative. PHYSICAL EXAMINATION: VITAL SIGNS: Please see below. GENERAL: Pleasant and cooperative. No acute distress. HEENT: PERRL. Extraocular movements intact. Clear conjunctiva CARDIOVASCULAR: Regular rate and rhythm. No murmurs, rubs, or gallops LUNGS: Clear to auscultation bilaterally. No wheezes. No rhonchi ABDOMEN: Soft, nontender, nondistended. Positive bowel sounds. Normal active bowel sounds NEUROLOGICAL: Alert and oriented times three. Cranial nerves II through XII grossly intact. Sensation grossly intact +neglect RUE +clonus and +babinksi RLE EXTREMITIES: 5\\5 strength left upper extremities, 3+/5 RUE, 3\\5 strength right lower extremity. 5/5 strength in left lower extremity right shoulder, (-) Neers, +painful arc, (-) AC joint TTP with decreased ROM SKIN: craniotomy site sutures c/d/i ASSESSMENT:63-year-old F with past medical history of left parietal meningioma s/p resection who presented s/p redo crantioomy found to have tumor necrosis with new right sided hemiparesis. PLAN: 1. rehab: PT- strengthen RLE, work on improving quality of gait, assess for appropriate AFO (patient's own AFO is not effective against supination)- trial of hip-flexion assist theraband in PT helpful for proprioceptive feedback and elicits better knee extension and hip abduction- gait better with acquired solid AFO OT- strenghten RUE, maintain shoulder ROM, advance fine motor skills for optimal ADL management 2. Neuro: s/p resection and radiation of left parietal meningioma 2016 with redo craniotomy 01/16/19, pathology + tumor necrosis, not recurrent tumor- will need to f/u with Dr. Brandt -RUE and RLE hemiparesis with neglect improving overall, -will consider accounts executive consult for worsening foot drop- will need to trial solid AFO in therapy -c/u Decadron, will taper per Dr. Brandt's SECTION HAND's recs, and ok to remove sutures while here -Kepp and Vimpat f/u Dr. Haider on discharge 3. CArdio: no known cardiac history-medicine consulted to assist in management 4. Resp: stable, will encourage incentive spirometry and monitor for infection 5. : monitor PVRs, voiding better s/p Macrobid for E. Coli UTI, will hold Detrol for now as urgency improving with antibiotics, repeat UA suspicious for persistent UTI, will await Cx results 6. DVT ppx: c/u heparin and TEDs 7. GI ppx: protonix 8. Pain: tylenol prn, lidoderm path to right hip and right shoulder, c/u gabapentin 200 mg qHS 9. Endo: steroid induced hyperglycemia- c/u ISS- stablizing 10. Dispo: 02-11-19 to home Allergies Coded Allergies: phenytoin (Verified Allergy, Severe, 01/24/19) diffuse body rash ciprofloxacin (Verified Adverse Reaction, Mild, "MAKES SICK", 10/25/18) ibuprofen (Verified Adverse Reaction, Mild, ASTHMA, 10/25/18) rosuvastatin (Verified Adverse Reaction, Mild, CRAMPS, 10/25/18) sodium hypochlorite solution (Verified Adverse Reaction, Mild, CHLORINE - ASTHMA, 10/25/18) Vital Signs Vital Signs Date Time Temp Pulse Resp B/P (MAP) Pulse Ox O2 Delivery O2 Flow Rate FiO2 02/05/19 14:00 97.4 86 18 131/77 (95) 97 Laboratory Data Labs 24H Laboratory Tests 2 02/04/19 19:46: Bedside Glucose (Misc Panel) 142H 02/05/19 05:52: Bedside Glucose (Misc Panel) 152H 02/05/19 12:06: Bedside Glucose (Misc Panel) 129H 02/05/19 13:47: Urine Color YELLOW, Urine Appearance HAZY, Urine pH 6.0, Urine Specific [place] 1.006, Urine Protein NEGATIVE, Urine Glucose (UA) NEGATIVE, Urine Ketones NEGATIVE, Urine Blood NEGATIVE, Urine Nitrite POSITIVEH, Urine Bilirubin NEGATIVE, Urine Urobilinogen 0.2, Urine Leukocyte Esterase 3+H, Urine WBC (Auto) 140H, Urine RBC (Auto) 13H, Urine Hyaline Casts (Auto) 0, Urine Bacteria (Auto) 2+H, Urine Squamous Epithelial Cells 0, Urine Amorphous Sediment MODERATEH, Urine Sperm (Auto) 02/05/19 16:51: Bedside Glucose (Misc Panel) 179H Microbiology Microbiology 02/05/19 Urine Culture, Received Pending Current Medications Current Medications Current Medications Medications (Trade) Dose Ordered Sig/Celeste Route PRN Reason Start Time Stop Time Status Last Admin Dose Admin Acetaminophen (Tylenol Tab) 1,000 mg Q6HP PRN PO PAIN / FEVER 01/23/19 17:30 01/30/19 09:27 DC 01/29/19 08:35 Acetaminophen (Tylenol Tab) 1,000 mg Q8H PRN PO PAIN / FEVER 01/30/19 09:30 02/03/19 07:40 Acetaminophen (Tylenol Tab) 1,000 mg QHS PO 01/30/19 21:00 02/04/19 21:35 Ascorbic Acid (Vitamin C) 1,000 mg DAILY PO 01/24/19 09:00 02/05/19 09:04 Dexamethasone (Decadron) 1 mg BID PO 02/11/19 09:00 02/17/19 23:59 Dexamethasone (Decadron) 2 mg Q12H PO 02/04/19 21:00 02/10/19 21:01 02/05/19 09:03 Dexamethasone (Decadron) 4 mg Q12H PO 01/23/19 21:00 02/04/19 10:56 DC 02/04/19 08:19 Dextrose (Dextrose 50%) 25 ml ASDIRECTED PRN IV SEE LABEL COMMENTS 01/23/19 17:30 Docusate Sodium (Colace) 100 mg TID PO 01/23/19 21:00 02/05/19 09:03 Gabapentin (Neurontin) 200 mg QHS PO 02/03/19 21:00 02/04/19 21:31 Glucagon (Glucagon) 1 mg ASDIRECTED PRN SC SEE LABEL COMMENTS 01/23/19 17:30 Glucose (Glucose) 16 GM ASDIRECTED PRN PO SEE LABEL COMMENTS 01/23/19 17:30 Heparin Sodium (Porcine) (Heparin) 5,000 units Q8H SQ 01/23/19 22:00 02/05/19 15:02 Home Med (Med Rec Complete!) ASDIRECTED XX 01/23/19 18:00 01/23/19 18:00 DC Insulin Human Lispro (HumaLOG INSULIN) SEE PROTOCOL TABLE AC SC 01/23/19 17:30 02/05/19 12:15 Insulin Human Lispro (HumaLOG INSULIN) SEE PROTOCOL TABLE QHS SC 01/23/19 21:00 Lacosamide (Vimpat) 100 mg BID PO 01/23/19 21:00 01/24/19 14:37 DC 01/24/19 09:09 Lacosamide (Vimpat) 100 mg BID PO 01/25/19 21:00 01/27/19 10:19 DC 01/27/19 07:31 Lacosamide (Vimpat) 100 mg BID PO 01/27/19 21:00 02/05/19 09:03 Levetiracetam (Keppra) 1,500 mg BID PO 01/23/19 21:00 02/05/19 09:04 Lidocaine (Lidoderm Patch) 2 patch QHS TD 01/23/19 21:00 02/04/19 21:38 Magnesium Hydroxide (Milk Of Magnesia) 30 ml DAILYPRN PRN PO CONSTIPATION 01/23/19 17:30 Magnesium Oxide (Mag-Ox) 400 mg DAILY PO 01/24/19 09:00 02/05/19 09:04 Nitrofurantoin Monoh/Nitrofur Macro (Macrobid) 100 mg BID PO 01/26/19 11:15 01/31/19 11:31 DC 01/31/19 08:56 Non-Formulary Medication ( See Comment Field Below ) REMOVE LIDODERM PATCH DAILY XX 01/24/19 09:00 02/05/19 09:05 Pantoprazole Sodium (Protonix) 40 mg DAILY PO 01/24/19 09:00 02/05/19 09:04 Senna (Senokot) 1 tab QHSP PRN PO CONSTIPATION 01/23/19 17:30 Tolterodine Tartrate (Detrol) 2 mg DAILY PO 01/24/19 09:00 01/27/19 10:19 DC 01/24/19 17:43 Trazodone HCl (Desyrel) 25 mg QHSP PRN PO INSOMNIA 02/03/19 12:45 Vitamin D (Vitamin D) 2,000 units DAILY PO 01/24/19 09:00 02/05/19 09:04 ANGELA THOMAS MD Feb 05, 2019 17:20
[2019-02-05] MEDS: ACETAMINOPHEN 500 MG TAB PO PRN (18:48)
[2019-02-05 20:00] VITALS: BP 158/74
[2019-02-05] MEDS: ACETAMINOPHEN 500 MG TAB PO SCH ×2 (21:00→21:18)
[2019-02-05] MEDS: GABAPENTIN 100 MG CAP PO SCH (21:16)
[2019-02-05] MEDS: LIDOCAINE 5% (LIDODERM) PATCH TD SCH (21:18)
[2019-02-06 06:00] VITALS: BP 113/63
[2019-02-06] MEDS: HEPARIN SOD (PORCINE) 5000 UNITS/ML VIAL SQ SCH ×3 (06:18→20:56)
[2019-02-06] MEDS: ACETAMINOPHEN 500 MG TAB PO PRN (06:19)
[2019-02-06 06:35] LABS: BASO % 0.1 % (0.0-1.0); EOS % 0.1 % (0.0-3.0); HEMATOCRIT 38.1 % (36.0-47.0); HEMOGLOBIN 12.8 g/dl (12.0-15.5); LYMPH # 2.3 10^3/uL (1.5-4.5); LYMPH % 13.3 % (24.0-44.0); MEAN CORPUSCULAR HEMOGLOBIN 30.8 pg (27.0-33.0); MEAN CORPUSCULAR HGB CONC 33.6 g/dl (32.0-36.5); MEAN CORPUSCULAR VOLUME 91.6 fl (80.0-96.0); MONO % 11.9 % (0.0-5.0); NEUTROPHILS # 12.7 10^3/uL (1.8-7.7); NEUTROPHILS % 73.6 % (36.0-66.0); PLATELET COUNT, AUTOMATED 315 10^3/uL (150-450); RED BLOOD COUNT 4.16 10^6/uL (4.00-5.40); WHITE BLOOD COUNT 17.3 10^3/uL (4.0-10.0)
[2019-02-06 06:57] LABS: CALCIUM LEVEL 8.8 MG/DL (8.8-10.2); CREATININE FOR GFR 1.01 MG/DL (0.55-1.30); GLOMERULAR FILTRATION RATE 58.7 (>45)
[2019-02-06 07:03] LABS: MONO # 2.1 10^3/uL (0.0-0.8)
[2019-02-06] MEDS: VITAMIN D 1,000 INTERNATIONAL UNITS TABLET PO SCH (07:31)
[2019-02-06] MEDS: DOCUSATE SODIUM 100 MG CAP PO SCH ×3 (07:31→20:58)
[2019-02-06] MEDS: ASCORBIC ACID 500 MG TAB PO SCH (07:31)
[2019-02-06] MEDS: levETIRAcetam 250MG TABLET (KEPPRA) PO SCH ×2 (07:31→20:56)
[2019-02-06] MEDS: LACOSAMIDE 50 MG TAB (VIMPAT) PO SCH ×2 (07:31→20:56)
[2019-02-06] MEDS: MAGNESIUM OXIDE 400 MG TAB (MAG-OX) PO SCH (07:31)
[2019-02-06] MEDS: HumaLOG INSULIN (NovoLOG) PER UNIT SC SCH ×4 (07:31→20:58)
[2019-02-06] MEDS: **NOTE PATIENT COMMENT** MISC XX SCH (07:32)
[2019-02-06] MEDS: PANTOPRAZOLE 40MG TAB (PROTONIX) PO SCH (07:32)
--- NOTE | 2019-02-06 11:15 | IPNPDOC ---
PM&R Progress Note DATE OF SERVICE: Feb 06, 2019 Legal Executive Progress Note Subjective: Patient reporting she had some low back pain yesterday after twisting that resolves with stretching, She still has some urinary urgency and chills that began two night ago. REVIEW OF SYSTEMS: The following is a completed review of systems and has been reviewed. Review of systems otherwise unremarkable. PAIN: Patient self reports right groin and right shoulder EYES: No recent vision changes EARS, NOSE, & THROAT: No throat pain, or dysphagia, or rhinorrhea CARDIOVASCULAR: Denies chest pain or palpitations PULMONARY: Denies shortness of breath GASTROINTESTINAL: Denies constipation/diarrhea GENITOURINARY: urinary urgency MUSCULOSKELETAL: right hip OA NEUROLOGICAL:RUE and RLE paresis SKIN: craniotomy PSYCHIATRIC: Unremarkable All other review of systems found to be negative. PHYSICAL EXAMINATION: VITAL SIGNS: Please see below. GENERAL: Pleasant and cooperative. No acute distress. HEENT: PERRL. Extraocular movements intact. Clear conjunctiva CARDIOVASCULAR: Regular rate and rhythm. No murmurs, rubs, or gallops LUNGS: Clear to auscultation bilaterally. No wheezes. No rhonchi ABDOMEN: Soft, nontender, nondistended. Positive bowel sounds. Normal active bowel sounds NEUROLOGICAL: Alert and oriented times three. Cranial nerves II through XII g rossly intact. Sensation grossly intact +neglect RUE +clonus and +babinksi RLE EXTREMITIES: 5\\5 strength left upper extremities, 3+/5 RUE, 3\\5 strength right lower extremity. 5/5 strength in left lower extremity right shoulder, (-) Neers, +painful arc, (-) AC joint TTP with decreased ROM SKIN: craniotomy site sutures c/d/i ASSESSMENT:63-year-old F with past medical history of left parietal meningioma s/p resection who presented s/p redo crantioomy found to have tumor necrosis with new right sided hemiparesis. PLAN: 1. rehab: PT- strengthen RLE, work on improving quality of gait, assess for appropriate AFO (patient's own AFO is not effective against supination)- trial of hip-flexion assist theraband in PT helpful for proprioceptive feedback and elicits better knee extension and hip abduction- gait better with acquired solid AFO OT- strenghten RUE, maintain shoulder ROM, advance fine motor skills for optimal ADL management 2. Neuro: s/p resection and radiation of left parietal meningioma 2016 with redo craniotomy 01/16/19, pathology + tumor necrosis, not recurrent tumor- will need to f/u with Dr. Brandt -EDGAR and RLE hemiparesis with neglect improving overall, -will consider lathe set up person consult for worsening foot drop- will need to trial solid AFO in therapy -c/u Decadron, will taper per Dr. Brandt's STRUCTURAL DESIGNER's recs, and ok to remove sutures while here -Keppra and Vimpat f/u Dr. Haider on discharge 3. CArdio: no known cardiac history-medicine consulted to assist in management 4. Resp: stable, will encourage incentive spirometry and monitor for infection 5. : monitor PVRs, voiding better s/p Macrobid for E. Coli UTI, will hold Detrol for now as urgency improving with antibiotics, repeat UA suspicious for persistent UTI, will await Cx results, have asked lab to add Fosfomycin to susceptibility list 6. DVT ppx: c/u heparin and TEDs 7. GI ppx: protonix 8. Pain: tylenol prn, lidoderm path to right hip and right shoulder, c/u gabapentin 200 mg qHS 9. Endo: steroid induced hyperglycemia- c/u ISS- stablizing 10. Dispo: 02-11-19 to home Allergies Coded Allergies: phenytoin (Verified Allergy, Severe, 01/24/19) diffuse body rash ciprofloxacin (Verified Adverse Reaction, Mild, "MAKES SICK", 10/25/18) ibuprofen (Verified Adverse Reaction, Mild, ASTHMA, 10/25/18) rosuvastatin (Verified Adverse Reaction, Mild, CRAMPS, 10/25/18) sodium hypochlorite solution (Verified Adverse Reaction, Mild, CHLORINE - ASTHMA, 10/25/18) Vital Signs Vital Signs Date Time Temp Pulse Resp B/P (MAP) Pulse Ox O2 Delivery O2 Flow Rate FiO2 02/06/19 06:00 98.3 87 18 113/63 (80) 93 Laboratory Data CBC/BMP Laboratory Tests 02/06/19 06:17 Red Blood Count 4.16, Mean Corpuscular Volume 91.6, Mean Corpuscular Hemoglobin 30.8, Mean Corpuscular Hemoglobin Concent 33.6, Red Cell Distribution Width 13.2, Neutrophils (%) (Auto) 73.6 H, Lymphocytes (%) (Auto) 13.3 L, Monocytes (%) (Auto) 11.9 H, Eosinophils (%) (Auto) 0.1, Basophils (%) (Auto) 0.1, N eutrophils # (Auto) 12.7 H, Lymphocytes # (Auto) 2.3, Monocytes # (Auto) 2.1 H, Eosinophils # (Auto) 0.0, Basophils # (Auto) 0.0, Calcium Level 8.8 Labs 24H Laboratory Tests 2 02/05/19 12:06: Bedside Glucose (Misc Panel) 129H 02/05/19 13:47: Urine Color YELLOW, Urine Appearance HAZY, Urine pH 6.0, Urine Specific [place] 1.006, Urine Protein NEGATIVE, Urine Glucose (UA) NEGATIVE, Urine Ketones NEGATIVE, Urine Blood NEGATIVE, Urine Nitrite POSITIVEH, Urine Bilirubin NEGATIVE, Urine Urobilinogen 0.2, Urine Leukocyte Esterase 3+H, Urine WBC (Auto) 140H, Urine RBC (Auto) 13H, Urine Hyaline Casts (Auto) 0, Urine Bacteria (Auto) 2+H, Urine Squamous Epithelial Cells 0, Urine Amorphous Sediment MODERATEH, Urine Sperm (Auto) 02/05/19 16:51: Bedside Glucose (Misc Panel) 179H 02/05/19 20:14: Bedside Glucose (Misc Panel) 148H 02/06/19 06:17: Immature Granulocyte % (Auto) 1.0, White Blood Count 17.3H, Red Blood Count 4.16, Hemoglobin 12.8, Hematocrit 38.1, Mean Corpuscular Volume 91.6, Mean Corpuscular Hemoglobin 30.8, Mean Corpuscular Hemoglobin Concent 33.6, Red Cell Distribution Width 13.2, Platelet Count 315, Neutrophils (%) (Auto) 73.6H, Lymphocytes (%) (Auto) 13.3L, Monocytes (%) (Auto) 11.9H, Eosinophils (%) (Auto) 0.1, Basophils (%) (Auto) 0.1, Neutrophils # (Auto) 12.7H, Lymphocytes # (Auto) 2.3, Monocytes # (Auto) 2.1H, Eosinophils # (Auto) 0.0, Basophils # (Auto) 0.0, Nucleated Red Blood Cells % (auto) 0.0, Anion Gap 6L, Glomerular Filtration Rate 58.7, Blood Urea Nitrogen 17, Creatinine 1.01, Sodium Level 137, Potassium Level 4.0, Chloride Level 104, Carbon Dioxide Level 27, Calcium Level 8.8 Microbiology Microbiology 02/05/19 Urine Culture, Received Pending Current Medications Current Medications Current Medications Medications (Trade) Dose Ordered Sig/Celeste Route PRN Reason Start Time Stop Time Status Last Admin Dose Admin Acetaminophen (Tylenol Tab) 1,000 mg Q6HP PRN PO PAIN / FEVER 01/23/19 17:30 01/30/19 09:27 DC 01/29/19 08:35 Acetaminophen (Tylenol Tab) 1,000 mg Q8H PRN PO PAIN / FEVER 01/30/19 09:30 02/06/19 06:19 Acetaminophen (Tylenol Tab) 1,000 mg QHS PO 01/30/19 21:00 02/04/19 21:35 Ascorbic Acid (Vitamin C) 1,000 mg DAILY PO 01/24/19 09:00 02/06/19 07:31 Dexamethasone (Decadron) 1 mg BID PO 02/11/19 09:00 02/17/19 23:59 Dexamethasone (Decadron) 2 mg Q12H PO 02/04/19 21:00 02/10/19 21:01 02/06/19 07:31 Dexamethasone (Decadron) 4 mg Q12H PO 01/23/19 21:00 02/04/19 10:56 DC 02/04/19 08:19 Dextrose (Dextrose 50%) 25 ml ASDIRECTED PRN IV SEE LABEL COMMENTS 01/23/19 17:30 Docusate Sodium (Colace) 100 mg TID PO 01/23/19 21:00 02/06/19 07:31 Gabapentin (Neurontin) 200 mg QHS PO 02/03/19 21:00 02/05/19 21:16 Glucagon (Glucagon) 1 mg ASDIRECTED PRN SC SEE LABEL COMMENTS 01/23/19 17:30 Glucose (Glucose) 16 GM ASDIRECTED PRN PO SEE LABEL COMMENTS 01/23/19 17:30 Heparin Sodium (Porcine) (Heparin) 5,000 units Q8H SQ 01/23/19 22:00 02/06/19 06:18 Home Med (Med Rec Complete!) ASDIRECTED XX 01/23/19 18:00 01/23/19 18:00 DC Insulin Human Lispro (HumaLOG INSULIN) SEE PROTOCOL TABLE AC SC 01/23/19 17:30 02/06/19 07:31 Insulin Human Lispro (HumaLOG INSULIN) SEE PROTOCOL TABLE QHS SC 01/23/19 21:00 Lacosamide (Vimpat) 100 mg BID PO 01/23/19 21:00 01/24/19 14:37 DC 01/24/19 09:09 Lacosamide (Vimpat) 100 mg BID PO 01/25/19 21:00 01/27/19 10:19 DC 01/27/19 07:31 Lacosamide (Vimpat) 100 mg BID PO 01/27/19 21:00 02/06/19 07:31 Levetiracetam (Keppra) 1,500 mg BID PO 01/23/19 21:00 02/06/19 07:31 Lidocaine (Lidoderm Patch) 2 patch QHS TD 01/23/19 21:00 02/05/19 21:18 Magnesium Hydroxide (Milk Of Magnesia) 30 ml DAILYPRN PRN PO CONSTIPATION 01/23/19 17:30 Magnesium Oxide (Mag-Ox) 400 mg DAILY PO 01/24/19 09:00 02/06/19 07:31 Nitrofurantoin Monoh/Nitrofur Macro (Macrobid) 100 mg BID PO 01/26/19 11:15 01/31/19 11:31 DC 01/31/19 08:56 Non-Formulary Medication ( See Comment Field Below ) REMOVE LIDODERM PATCH DAILY XX 01/24/19 09:00 02/06/19 07:32 Pantoprazole Sodium (Protonix) 40 mg DAILY PO 01/24/19 09:00 02/06/19 07:32 Senna (Senokot) 1 tab QHSP PRN PO CONSTIPATION 01/23/19 17:30 Tolterodine Tartrate (Detrol) 2 mg DAILY PO 01/24/19 09:00 01/27/19 10:19 DC 01/24/19 17:43 Trazodone HCl (Desyrel) 25 mg QHSP PRN PO INSOMNIA 02/03/19 12:45 Vitamin D (Vitamin D) 2,000 units DAILY PO 01/24/19 09:00 02/06/19 07:31 ANGELA THOMAS MD Feb 06, 2019 11:15
--- NOTE | 2019-02-06 12:16 | IPNPDOC ---
Text Note Date of Service The patient was seen on 02/06/19. NOTE Subjective: Seen during therapy. Continues to sleep well. Feels she is not making a lot of progress. She denies headache, chest pain, SOB Objective GENERAL: NAD SKIN : Warm, cranial surgical sutures open to air, no induration, erythema HEENT: Atraumatic, normocephalic, PERRL, moist mucous membrane CARDIOVASCULAR: Regular rate and rhythm, S1S2, no JVD, RLE edema RESP: CTAB, no accessory muscle use noted ABDOMEN: BS+ non distended non tender MS: no joint deformities NEURO: Alert and oriented x 3, CN2-12 grossly intact PSYCH: no anxiety or agitation, appropriate mood and affect. ASSESSMENT & PLAN: Left parietal mass -S/P resection of non malignant tumor at [facility] -rehabilitation of neuro deficits per primary team -continued on Decadron for cerebral edema Seizure disorder -continue Vimpat and Keppra per neurology recommendations -neuro follow up at discharge. -continue seizure precautions Hyperglycemia -HgbA1c 6.5 -continue monitoring with fingerstick checks prior to meals and at bedtime -coverage with insulin per sliding scale protocol UTI -positive culture for e-coli -completed abx therapy with nitrofurantoin -follow repeat culture Insomnia -improved sleep with gabapentin for hip pain - trazodone as needed QHS Chronic constipation -Continue current bowel regimen DVT prophylaxis -heparin SQ Q8 VS,Fishbone, I+O VS, Fishbone, I+O Laboratory Tests 02/06/19 06:17 Red Blood Count 4.16, Mean Corpuscular Volume 91.6, Mean Corpuscular Hemoglobin 30.8, Mean Corpuscular Hemoglobin Concent 33.6, Red Cell Distribution Width 13.2, Neutrophils (%) (Auto) 73.6 H, Lymphocytes (%) (Auto) 13.3 L, Monocytes (%) (Auto) 11.9 H, Eosinophils (%) (Auto) 0.1, Basophils (%) (Auto) 0.1, Neutrophils # (Auto) 12.7 H, Lymphocytes # (Auto) 2.3, Monocytes # (Auto) 2.1 H, Eosinophils # (Auto) 0.0, Basophils # (Auto) 0.0, Calcium Level 8.8 Vital Signs Date Time Temp Pulse Resp B/P (MAP) Pulse Ox O2 Delivery O2 Flow Rate FiO2 8/8/19 06:00 98.3 87 18 113/63 93 I&O- Last 24 Hours up to 6 AM 02/06/19 06:00 Intake Total 1600 ml Balance 1600 ml AUDRA MARTINEZ [employer] BILLING ANALYST Feb 06, 2019 12:16
[2019-02-06 14:00] VITALS: BP 118/68
[2019-02-06] MEDS: BACTRIM 160MG/800MG DS TAB PO SCH ×2 (14:26→20:57)
[2019-02-06] MEDS: LACTOBACILLUS ACIDOPHILUS CAP (BACID) PO SCH (17:31)
--- NOTE | 2019-02-06 19:41 | REP ---
RENAL AND BLADDER ULTRASOUND: Real-time sonographic evaluation of the kidneys performed and demonstrate both kidneys to be normal in size and echotexture, right kidney measuring 11.1 x 4.9 x 4.9 cm and left kidney 11.5 x 4.5 x 5.4 cm. There is no hydronephrosis bilaterally. There is a cyst in the upper pole of the right kidney measuring 0.8 x 1.3 x 1.0 cm. No definite renal stone is seen. Urinary bladder measures 6.8 x 8.6 x 5.0 cm for a total volume of 152 mL. No mass or calculus is seen. IMPRESSION: No hydronephrosis. Unremarkable urinary bladder. Small right renal cyst. Electronically Signed by Juan R Paul MD 02/07/2019 09:59 A
[2019-02-06 20:00] VITALS: BP 125/71
[2019-02-06] MEDS: GABAPENTIN 100 MG CAP PO SCH (20:56)
[2019-02-06] MEDS: LIDOCAINE 5% (LIDODERM) PATCH TD SCH (20:57)
[2019-02-06] MEDS: ACETAMINOPHEN 500 MG TAB PO SCH (20:57)
[2019-02-07] MEDS: HEPARIN SOD (PORCINE) 5000 UNITS/ML VIAL SQ SCH ×3 (06:07→21:30)
[2019-02-07 06:26] VITALS: BP 114/65
[2019-02-07] MEDS: HumaLOG INSULIN (NovoLOG) PER UNIT SC SCH ×4 (08:34→21:00)
[2019-02-07] MEDS: MAGNESIUM OXIDE 400 MG TAB (MAG-OX) PO SCH (08:35)
[2019-02-07] MEDS: LACTOBACILLUS ACIDOPHILUS CAP (BACID) PO SCH ×3 (08:35→17:43)
[2019-02-07] MEDS: levETIRAcetam 250MG TABLET (KEPPRA) PO SCH ×2 (08:35→21:27)
[2019-02-07] MEDS: PANTOPRAZOLE 40MG TAB (PROTONIX) PO SCH (08:35)
[2019-02-07] MEDS: VITAMIN D 1,000 INTERNATIONAL UNITS TABLET PO SCH (08:35)
[2019-02-07] MEDS: ASCORBIC ACID 500 MG TAB PO SCH (08:35)
[2019-02-07] MEDS: BACTRIM 160MG/800MG DS TAB PO SCH (08:36)
[2019-02-07] MEDS: LACOSAMIDE 50 MG TAB (VIMPAT) PO SCH ×2 (08:36→21:27)
[2019-02-07] MEDS: DOCUSATE SODIUM 100 MG CAP PO SCH ×3 (08:36→21:30)
[2019-02-07] MEDS: **NOTE PATIENT COMMENT** MISC XX SCH (09:29)
--- NOTE | 2019-02-07 11:40 | IPNPDOC ---
Text Note Date of Service The patient was seen on 02/07/19. NOTE Subjective: Up to chair at bedside. Surprised about positive blood culture findings given the fact she feels well. She denies headache, chest pain, SOB Objective GENERAL: NAD SKIN : Warm, cranial surgical sutures open to air, no induration, erythema HEENT: Atraumatic, normocephalic, PERRL, moist mucous membrane CARDIOVASCULAR: Regular rate and rhythm, S1S2, no JVD, RLE edema RESP: CTAB, no accessory muscle use noted ABDOMEN: BS+ non distended non tender MS: no joint deformities NEURO: Alert and oriented x 3, CN2-12 grossly intact PSYCH: no anxiety or agitation, appropriate mood and affect. ASSESSMENT & PLAN: Bacteremia -blood culture positive with Grm -rods -discussed with ID specialist. -started on ceftriaxone -discontinue bactrim -follow sensitivity report Left parietal mass -S/P resection of non malignant tumor at [facility] -rehabilitation of neuro deficits per primary team -continued on Decadron for cerebral edema Seizure disorder -continue Vimpat and Keppra per neurology recommendations -neuro follow up at discharge. -continue seizure precautions Hyperglycemia -HgbA1c 6.5 -continue monitoring with fingerstick checks prior to meals and at bedtime -coverage with insulin per sliding scale protocol UTI -repeat urine culture positive for e-coli -continue IV antibiotic therapy -discussed postvoid pericare/hygeine -patient verbalized understanding Insomnia -improved sleep with gabapentin for hip pain - trazodone as needed QHS Chronic constipation -Continue current bowel regimen DVT prophylaxis -heparin SQ Q8 VS,Fishbone, I+O VS, Fishbone, I+O Vital Signs Date Time Temp Pulse Resp B/P (MAP) Pulse Ox O2 Delivery O2 Flow Rate FiO2 02/07/19 06:26 98.4 68 16 114/65 (54) 96 I&O- Last 24 Hours up to 6 AM 02/07/19 05:59 Intake Total 1880 ml Balance 1880 ml AUDRA MARTINEZ [facility] Feb 07, 2019 11:40
[2019-02-07] MEDS: cefTRIAXone SOD 2 GM in D5W MINI-BAG PLUS 50 ML IV SCH (12:55)
[2019-02-07 14:00] VITALS: BP 125/62
[2019-02-07 20:00] VITALS: BP 128/78
[2019-02-07] MEDS: GABAPENTIN 100 MG CAP PO SCH (21:26)
[2019-02-07] MEDS: ACETAMINOPHEN 500 MG TAB PO SCH (21:27)
[2019-02-07] MEDS: LIDOCAINE 5% (LIDODERM) PATCH TD SCH (21:30)
[2019-02-08 04:44] VITALS: BP 117/70
[2019-02-08] MEDS: HEPARIN SOD (PORCINE) 5000 UNITS/ML VIAL SQ SCH ×3 (06:51→21:23)
[2019-02-08 07:23] LABS: HEMATOCRIT 37.4 % (36.0-47.0); HEMOGLOBIN 12.4 g/dl (12.0-15.5); MEAN CORPUSCULAR HEMOGLOBIN 30.2 pg (27.0-33.0); MEAN CORPUSCULAR HGB CONC 33.2 g/dl (32.0-36.5); PLATELET COUNT, AUTOMATED 326 10^3/uL (150-450); RED BLOOD COUNT 4.11 10^6/uL (4.00-5.40); WHITE BLOOD COUNT 13.9 10^3/uL (4.0-10.0)
[2019-02-08 07:44] LABS: ALBUMIN 2.8 GM/DL (3.2-5.2); ALT/SGPT 88 U/L (12-78); BILIRUBIN,TOTAL 0.4 MG/DL (0.2-1.0); BLOOD UREA NITROGEN 18 MG/DL (7-18); CARBON DIOXIDE LEVEL 25 MEQ/L (21-32); CHLORIDE LEVEL 105 MEQ/L (98-107); CREATININE FOR GFR 0.86 MG/DL (0.55-1.30); GLOMERULAR FILTRATION RATE > 60.0 (>45); GLUCOSE, FASTING 157 MG/DL (70-100); MAGNESIUM LEVEL 2.5 MG/DL (1.8-2.4); POTASSIUM SERUM 4.7 MEQ/L (3.5-5.1); SODIUM LEVEL 138 MEQ/L (136-145); TOTAL PROTEIN 6.6 GM/DL (6.4-8.2)
[2019-02-08] MEDS: DOCUSATE SODIUM 100 MG CAP PO SCH ×3 (09:18→21:24)
[2019-02-08] MEDS: HumaLOG INSULIN (NovoLOG) PER UNIT SC SCH ×4 (09:19→19:58)
[2019-02-08] MEDS: MAGNESIUM OXIDE 400 MG TAB (MAG-OX) PO SCH (09:19)
[2019-02-08] MEDS: VITAMIN D 1,000 INTERNATIONAL UNITS TABLET PO SCH (09:19)
[2019-02-08] MEDS: PANTOPRAZOLE 40MG TAB (PROTONIX) PO SCH (09:19)
[2019-02-08] MEDS: LACOSAMIDE 50 MG TAB (VIMPAT) PO SCH ×2 (09:19→21:24)
[2019-02-08] MEDS: ASCORBIC ACID 500 MG TAB PO SCH (09:19)
[2019-02-08] MEDS: levETIRAcetam 250MG TABLET (KEPPRA) PO SCH ×2 (09:20→21:24)
[2019-02-08] MEDS: LACTOBACILLUS ACIDOPHILUS CAP (BACID) PO SCH ×3 (09:20→17:28)
[2019-02-08] MEDS: **NOTE PATIENT COMMENT** MISC XX SCH (09:20)
[2019-02-08] MEDS: cefTRIAXone SOD 2 GM in D5W MINI-BAG PLUS 50 ML IV SCH (12:37)
[2019-02-08 14:00] VITALS: BP 121/76
[2019-02-08 20:00] VITALS: BP 121/76
[2019-02-08] MEDS: ACETAMINOPHEN 500 MG TAB PO SCH (21:24)
[2019-02-08] MEDS: GABAPENTIN 100 MG CAP PO SCH (21:24)
[2019-02-08] MEDS: LIDOCAINE 5% (LIDODERM) PATCH TD SCH (21:25)
[2019-02-09] MEDS: HEPARIN SOD (PORCINE) 5000 UNITS/ML VIAL SQ SCH ×3 (05:38→21:01)
[2019-02-09 06:00] VITALS: BP 118/70
[2019-02-09] MEDS: ACETAMINOPHEN 500 MG TAB PO PRN (06:19)
--- NOTE | 2019-02-09 07:28 | IPN ---
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 She was sitting in bed. She was feeling well. She recently had a positive blood culture and one negative blood culture. She is being treated for the gram positive rods as discussed with infectious disease specialist and started on ceftriaxone. Will followup on sensitivity report which is not back yet. She had a positive urinary culture as well. It had been E. coli on the , repeat on the was also E. Coli. White count is slightly better today, 13.9, hemoglobin 12.4, hematocrit 37.4, platelets 326. Electrolytes are normal. BUN 18, creatinine 0.86. Magnesium was elevated at 2.5. I have stopped her by mouth magnesium. Will monitor. Blood sugar today was 103. Patient is feeling well and afebrile. OBJECTIVE: Blood pressure 117/70, pulse 71, respirations 18, temperature 96.2. VITAL SIGNS: Blood pressure 122/76, pulse 77, respirations 16, temperature 98. GENERAL: The patient is alert and oriented. HEENT: Pupils are equal and react to light. Extraocular muscles intact. Pharynx, tongue, nose pink and moist. Tongue is midline. NECK: Neck is supple without lymphadenopathy. No thyromegaly, no goiter. Carotids 2+ without bruit. CHEST: Chest is clear to auscultation without wheeze or retraction. HEART: Heart is regular. ABDOMEN: Benign. Bowel sounds positive. /RECTAL: Not done. EXTREMITIES: No cyanosis, clubbing, or edema. Peripheral pulses equal and palpable bilaterally. IMPRESSION AND PLAN: Bacteremia blood culture positive with gram rods. Will followup on sensitivity report. Continues on ceftriaxone. Will repeat blood cultures. One was positive, one was negative. Positive urinary tract infection as well. Left parietal mass. Status post resection on nonmalignant tumor at [facility]. Continue rehabilitation per rehabilitation team. Continue on Decadron for cerebral edema. Seizure disorder. Continue Vimpat and Keppra per neurology recommendation. Followup with neurology at discharge. Continue seizure precautions. Hyperglycemia. Continue fingerstick blood sugars and sliding scale. Urinary tract infection (UTI). Repeat UTI positive for E. Coli. Continue IV antibiotic therapy. Insomnia. Improved sleep with gabapentin and trazodone if needed at bedtime. Chronic constipation. Continue current bowel regimen. Had a large bowel movement yesterday. DVT prophylaxis. Heparin subcutaneous every 8.
[2019-02-09] MEDS: LACTOBACILLUS ACIDOPHILUS CAP (BACID) PO SCH ×3 (08:25→17:36)
[2019-02-09] MEDS: ASCORBIC ACID 500 MG TAB PO SCH (08:25)
[2019-02-09] MEDS: levETIRAcetam 250MG TABLET (KEPPRA) PO SCH ×2 (08:25→20:54)
[2019-02-09] MEDS: HumaLOG INSULIN (NovoLOG) PER UNIT SC SCH ×4 (08:25→20:43)
[2019-02-09] MEDS: PANTOPRAZOLE 40MG TAB (PROTONIX) PO SCH (08:25)
[2019-02-09] MEDS: VITAMIN D 1,000 INTERNATIONAL UNITS TABLET PO SCH (08:25)
[2019-02-09] MEDS: LACOSAMIDE 50 MG TAB (VIMPAT) PO SCH ×2 (08:26→20:54)
[2019-02-09] MEDS: **NOTE PATIENT COMMENT** MISC XX SCH (08:26)
[2019-02-09] MEDS: DOCUSATE SODIUM 100 MG CAP PO SCH ×3 (08:26→20:54)
[2019-02-09] MEDS: cefTRIAXone SOD 2 GM in D5W MINI-BAG PLUS 50 ML IV SCH (12:49)
[2019-02-09 14:00] VITALS: BP 140/84
[2019-02-09 20:00] VITALS: BP 121/71
[2019-02-09] MEDS: GABAPENTIN 100 MG CAP PO SCH (20:54)
[2019-02-09] MEDS: ACETAMINOPHEN 500 MG TAB PO SCH (20:54)
[2019-02-09] MEDS: LIDOCAINE 5% (LIDODERM) PATCH TD SCH (21:00)
[2019-02-10] MEDS: HEPARIN SOD (PORCINE) 5000 UNITS/ML VIAL SQ SCH ×3 (05:49→20:48)
[2019-02-10] MEDS: ACETAMINOPHEN 500 MG TAB PO SCH (05:52)
[2019-02-10 06:00] VITALS: BP 115/75
[2019-02-10] MEDS: levETIRAcetam 250MG TABLET (KEPPRA) PO SCH ×2 (08:40→20:48)
[2019-02-10] MEDS: LACOSAMIDE 50 MG TAB (VIMPAT) PO SCH ×2 (08:40→20:48)
[2019-02-10] MEDS: PANTOPRAZOLE 40MG TAB (PROTONIX) PO SCH (08:40)
[2019-02-10] MEDS: LACTOBACILLUS ACIDOPHILUS CAP (BACID) PO SCH ×3 (08:41→17:30)
[2019-02-10] MEDS: DOCUSATE SODIUM 100 MG CAP PO SCH ×3 (08:41→20:48)
[2019-02-10] MEDS: HumaLOG INSULIN (NovoLOG) PER UNIT SC SCH ×4 (08:41→19:55)
[2019-02-10] MEDS: VITAMIN D 1,000 INTERNATIONAL UNITS TABLET PO SCH (08:41)
[2019-02-10] MEDS: ASCORBIC ACID 500 MG TAB PO SCH (08:41)
[2019-02-10] MEDS: **NOTE PATIENT COMMENT** MISC XX SCH (09:00)
--- NOTE | 2019-02-10 10:52 | IPNPDOC ---
Text Note Date of Service The patient was seen on 02/10/19. NOTE Subjective: Up to chair at bedside, reports feeling much better today. Denies headache, chest pain, SOB. No more chills Objective GENERAL: NAD SKIN : Warm, cranial surgical sutures open to air, no induration, erythema HEENT: Atraumatic, normocephalic, PERRL, moist mucous membrane CARDIOVASCULAR: Regular rate and rhythm, S1S2, no JVD, RLE edema RESP: CTAB, no accessory muscle use noted ABDOMEN: BS+ non distended non tender MS: no joint deformities NEURO: Alert and oriented x 3, CN2-12 grossly intact PSYCH: no anxiety or agitation, appropriate mood and affect. ASSESSMENT & PLAN: Bacteremia -Repeat blood culture negative -Final report on second blood culture negative for growth -Continued on ceftriaxone -Patient clinically improved but ID specialist consulted for input on further management. Left parietal mass -S/P resection of non malignant tumor at [facility] -rehabilitation of neuro deficits per primary team -continued on Decadron for cerebral edema Seizure disorder -continue Vimpat and Keppra per neurology recommendations -neuro follow up at discharge. -continue seizure precautions Hyperglycemia -HgbA1c 6.5 -continue monitoring with fingerstick checks prior to meals and at bedtime -coverage with insulin per sliding scale protocol UTI -Sensitivity positive ceftriaxone -Bactrim discontinued -Repeat urine culture negative for growth -Follow recommendations by ID specialist Insomnia -improved sleep with gabapentin for hip pain - trazodone as needed QHS Chronic constipation -Continue current bowel regimen DVT prophylaxis -heparin SQ Q8 VS,Fishbone, I+O VS, Fishbone, I+O Vital Signs Date Time Temp Pulse Resp B/P (MAP) Pulse Ox O2 Delivery O2 Flow Rate FiO2 02/10/19 06:00 98.5 69 16 115/75 (88 96 I&O- Last 24 Hours up to 6 AM 02/10/19 06:00 Intake Total 2020 ml Balance 2020 ml AUDRA MARTINEZ [facility] Feb 10, 2019 10:52
[2019-02-10] MEDS: cefTRIAXone SOD 2 GM in D5W MINI-BAG PLUS 50 ML IV SCH (13:50)
[2019-02-10 20:16] VITALS: BP 116/71
[2019-02-10] MEDS: GABAPENTIN 100 MG CAP PO SCH (20:48)
[2019-02-10] MEDS: ACETAMINOPHEN 500 MG TAB PO PRN (20:50)
[2019-02-10] MEDS: LIDOCAINE 5% (LIDODERM) PATCH TD SCH (20:50)
[2019-02-11] MEDS: HEPARIN SOD (PORCINE) 5000 UNITS/ML VIAL SQ SCH ×3 (05:36→21:10)
[2019-02-11] MEDS: ACETAMINOPHEN 500 MG TAB PO PRN (05:37)
[2019-02-11 05:55] VITALS: BP 127/73
[2019-02-11] MEDS: LACTOBACILLUS ACIDOPHILUS CAP (BACID) PO SCH ×3 (08:31→17:58)
[2019-02-11] MEDS: LACOSAMIDE 50 MG TAB (VIMPAT) PO SCH ×2 (08:31→20:30)
[2019-02-11] MEDS: DOCUSATE SODIUM 100 MG CAP PO SCH ×3 (08:31→20:30)
[2019-02-11] MEDS: PANTOPRAZOLE 40MG TAB (PROTONIX) PO SCH (08:31)
[2019-02-11] MEDS: ASCORBIC ACID 500 MG TAB PO SCH (08:31)
[2019-02-11] MEDS: VITAMIN D 1,000 INTERNATIONAL UNITS TABLET PO SCH (08:32)
[2019-02-11] MEDS: **NOTE PATIENT COMMENT** MISC XX SCH (08:32)
[2019-02-11] MEDS: levETIRAcetam 250MG TABLET (KEPPRA) PO SCH ×2 (08:32→20:31)
[2019-02-11] MEDS: HumaLOG INSULIN (NovoLOG) PER UNIT SC SCH ×4 (08:33→20:08)
--- NOTE | 2019-02-11 09:53 | IPNPDOC ---
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 REVIEW OF SYSTEMS: The following is a completed review of systems and has been reviewed. Review of systems otherwise unremarkable. PAIN: Patient self reports right groin and right shoulder EYES: No recent vision changes EARS, NOSE, & THROAT: No throat pain, or dysphagia, or rhinorrhea CARDIOVASCULAR: Denies chest pain or palpitations PULMONARY: Denies shortness of breath GASTROINTESTINAL: Denies constipation/diarrhea GENITOURINARY: urinary urgency MUSCULOSKELETAL: right hip OA NEUROLOGICAL:RUE and RLE paresis SKIN: craniotomy PSYCHIATRIC: Unremarkable All other review of systems found to be negative. PHYSICAL EXAMINATION: VITAL SIGNS: Please see below. GENERAL: Pleasant and cooperative. No acute distress. HEENT: PERRL. Extraocular movements intact. Clear conjunctiva CARDIOVASCULAR: Regular rate and rhythm. No murmurs, rubs, or gallops LUNGS: Clear to auscultation bilaterally. No wheezes. No rhonchi ABDOMEN: Soft, nontender, nondistended. Positive bowel sounds. Normal active bowel sounds NEUROLOGICAL: Alert and oriented times three. Cranial nerves II through XII grossly intact. Sensation grossly intact +neglect RUE +clonus and +babinksi RLE EXTREMITIES: 5\\5 strength left upper extremities, 3+/5 RUE, 3\\5 strength right lower extremity. 5/5 strength in left lower extremity right shoulder, (-) Neers, +painful arc, (-) AC joint TTP with decreased ROM SKIN: craniotomy site sutures c/d/i ASSESSMENT:63-year-old F with past medical history of left parietal meningioma s/p resection who presented s/p redo crantioomy found to have tumor necrosis with new right sided hemiparesis. PLAN: 1. rehab: PT- strengthen RLE, work on improving quality of gait, assess for appropriate AFO (patient's own AFO is not effective against supination)- trial of hip-flexion assist theraband in PT helpful for proprioceptive feedback and elicits better knee extension and hip abduction- gait better with acquired solid AFO OT- strenghten RUE, maintain shoulder ROM, advance fine motor skills for optimal ADL management 2. Neuro: s/p resection and radiation of left parietal meningioma 2016 with redo craniotomy 01/16/19, pathology + tumor necrosis, not recurrent tumor- will need to f/u with Dr. Brandt -RUE and RLE hemiparesis with neglect improving overall -will consider botany teacher consult for worsening foot drop- c/u solid AFO at this time -c/u Decadron, will taper per Dr. Brandt's FARM OR RANCH ANIMAL CARETAKER's recs, however went back up on Decadron for recent worsening function -[place]arcel[place] and Vimpat f/u Dr. Haider on discharge 3. CArdio: no known cardiac history-medicine consulted to assist in management 4. Resp: stable, will encourage incentive spirometry and monitor for infection 5. : monitor PVRs, voiding better s/p Macrobid for E. Coli UTI, repeat Ucx + E coli with positive blood culture x 1 with E coli, c/u IV Ceftriaxone 6. DVT ppx: c/u heparin and TEDs 7. GI ppx: protonix 8. Pain: tylenol prn, lidoderm path to right hip and right shoulder, c/u gabapentin 200 mg qHS 9. Endo: steroid induced hyperglycemia- c/u ISS- stablizing 10. Dispo: patient requires mroe time on rehab unit given her recurrent UTi with bacteremia and requiring IV antibiotics Allergies Coded Allergies: phenytoin (Verified Allergy, Severe, 01/24/19) diffuse body rash ciprofloxacin (Verified Adverse Reaction, Mild, "MAKES SICK", 10/25/18) ibuprofen (Verified Adverse Reaction, Mild, ASTHMA, 10/25/18) rosuvastatin (Verified Adverse Reaction, Mild, CRAMPS, 10/25/18) sodium hypochlorite solution (Verified Adverse Reaction, Mild, CHLORINE - ASTHMA, 10/25/18) Vital Signs Vital Signs Date Time Temp Pulse Resp B/P (MAP) Pulse Ox O2 Delivery O2 Flow Rate FiO2 02/11/19 05:55 97.1 84 18 127/73 (91) 95 Laboratory Data Labs 24H Laboratory Tests 2 02/10/19 11:26: Bedside Glucose (Misc Panel) 113 02/10/19 17:12: Bedside Glucose (Misc Panel) 145H 02/10/19 19:41: Bedside Glucose (Misc Panel) 168H 02/11/19 06:00: Bedside Glucose (Misc Panel) 151H 02/11/19 06:59: Magnesium Level 2.4 Microbiology Microbiology 02/09/19 Blood Culture - Preliminary, Resulted No Growth after 48 hours. All Specime... 02/06/19 Blood Culture - Final, Complete Escherichia Coli 02/06/19 Blood Culture - Preliminary, Resulted No Growth after 72 hours. All specime... 02/05/19 Urine Culture - Final, Complete Escherichia Coli Current Medications Current Medications Current Medications Medications (Trade) Dose Ordered Sig/Celeste Route PRN Reason Start Time Stop Time Status Last Admin Dose Admin Acetaminophen (Tylenol Tab) 1,000 mg Q6HP PRN PO PAIN / FEVER 01/23/19 17:30 01/30/19 09:27 DC 01/29/19 08:35 Acetaminophen (Tylenol Tab) 1,000 mg Q8H PRN PO PAIN / FEVER 01/30/19 09:30 02/11/19 05:37 Acetaminophen (Tylenol Tab) 1,000 mg QHS PO 01/30/19 21:00 02/10/19 05:52 Ascorbic Acid (Vitamin C) 1,000 mg DAILY PO 01/24/19 09:00 02/11/19 08:31 Ceftriaxone Sodium 2 gm/ Dextrose 50 ml @ 100 mls/hr Q24H IV 02/07/19 12:00 02/10/19 13:50 Dexamethasone (Decadron) 1 mg BID PO 02/11/19 09:00 02/11/19 09:00 DC Dexamethasone (Decadron) 2 mg Q12H PO 02/04/19 21:00 02/06/19 13:57 DC 02/06/19 07:31 Dexamethasone (Decadron) 4 mg Q12H PO 01/23/19 21:00 02/04/19 10:56 DC 02/04/19 08:19 Dexamethasone (Decadron) 4 mg Q12H PO 02/06/19 21:00 02/10/19 21:01 DC 02/10/19 20:48 Dextrose (Dextrose 50%) 25 ml ASDIRECTED PRN IV SEE LABEL COMMENTS 01/23/19 17:30 Docusate Sodium (Colace) 100 mg TID PO 01/23/19 21:00 02/11/19 08:31 Gabapentin (Neurontin) 200 mg QHS PO 02/03/19 21:00 02/10/19 20:48 Glucagon (Glucagon) 1 mg ASDIRECTED PRN SC SEE LABEL COMMENTS 01/23/19 17:30 Glucose (Glucose) 16 GM ASDIRECTED PRN PO SEE LABEL COMMENTS 01/23/19 17:30 Heparin Sodium (Porcine) (Heparin) 5,000 units Q8H SQ 01/23/19 22:00 02/11/19 05:36 Home Med (Med Rec Complete!) ASDIRECTED XX 01/23/19 18:00 01/23/19 18:00 DC Insulin Human Lispro (HumaLOG INSULIN) SEE PROTOCOL TABLE AC SC 01/23/19 17:30 02/11/19 08:33 Insulin Human Lispro (HumaLOG INSULIN) SEE PROTOCOL TABLE QHS SC 01/23/19 21:00 Lacosamide (Vimpat) 100 mg BID PO 01/23/19 21:00 01/24/19 14:37 DC 01/24/19 09:09 Lacosamide (Vimpat) 100 mg BID PO 01/25/19 21:00 01/27/19 10:19 DC 01/27/19 07:31 Lacosamide (Vimpat) 100 mg BID PO 01/27/19 21:00 02/11/19 08:31 Lactobacillus Acidophilus (Bacid) 1 ea WM PO 02/06/19 18:00 02/11/19 08:31 Levetiracetam (Keppra) 1,500 mg BID PO 01/23/19 21:00 02/11/19 08:32 Lidocaine (Lidoderm Patch) 2 patch QHS TD 01/23/19 21:00 02/10/19 20:50 Magnesium Hydroxide (Milk Of Magnesia) 30 ml DAILYPRN PRN PO CONSTIPATION 01/23/19 17:30 Magnesium Oxide (Mag-Ox) 400 mg DAILY PO 01/24/19 09:00 02/08/19 12:14 DC 02/08/19 09:19 Miscellaneous (Unresolved Clarification Entry) SEE LABEL COMMENTS DAILY XX 02/08/19 09:00 02/09/19 11:52 DC Miscellaneous (Unresolved Clarification Entry) SEE LABEL COMMENTS DAILY XX 02/09/19 09:00 02/10/19 09:53 DC Miscellaneous (Unresolved Clarification Entry) SEE LABEL COMMENTS DAILY XX 02/10/19 09:00 02/10/19 12:07 DC Nitrofurantoin Monoh/Nitrofur Macro (Macrobid) 100 mg BID PO 01/26/19 11:15 01/31/19 11:31 DC 01/31/19 08:56 Non-Formulary Medication ( See Comment Field Below ) REMOVE LIDODERM PATCH DAILY XX 01/24/19 09:00 02/11/19 08:32 Pantoprazole Sodium (Protonix) 40 mg DAILY PO 01/24/19 09:00 02/11/19 08:31 Senna (Senokot) 1 tab QHSP PRN PO CONSTIPATION 01/23/19 17:30 Tolterodine Tartrate (Detrol) 2 mg DAILY PO 01/24/19 09:00 01/27/19 10:19 DC 01/24/19 17:43 Trazodone HCl (Desyrel) 25 mg QHSP PRN PO INSOMNIA 02/03/19 12:45 Trimethoprim/ Sulfamethoxazole (Bactrim Ds, Septra Ds 160mg/ 800mg) 1 tab BID PO 02/06/19 14:00 02/07/19 11:02 DC 02/07/19 08:36 Vitamin D (Vitamin D) 2,000 units DAILY PO 01/24/19 09:00 02/11/19 08:32 ANGELA THOMAS MD Feb 11, 2019 09:53
[2019-02-11] MEDS: cefTRIAXone SOD 2 GM in D5W MINI-BAG PLUS 50 ML IV SCH (12:52)
--- NOTE | 2019-02-11 12:56 | IPNPDOC ---
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 REVIEW OF SYSTEMS: The following is a completed review of systems and has been reviewed. Review of systems otherwise unremarkable. PAIN: Patient self reports right groin and right shoulder EYES: No recent vision changes EARS, NOSE, & THROAT: No throat pain, or dysphagia, or rhinorrhea CARDIOVASCULAR: Denies chest pain or palpitations PULMONARY: Denies shortness of breath GASTROINTESTINAL: Denies constipation/diarrhea GENITOURINARY: urinary urgency MUSCULOSKELETAL: right hip OA NEUROLOGICAL:RUE and RLE paresis SKIN: craniotomy PSYCHIATRIC: Unremarkable All other review of systems found to be negative. PHYSICAL EXAMINATION: VITAL SIGNS: Please see below. GENERAL: Pleasant and cooperative. No acute distress. HEENT: PERRL. Extraocular movements intact. Clear conjunctiva CARDIOVASCULAR: Regular rate and rhythm. No murmurs, rubs, or gallops LUNGS: Clear to auscultation bilaterally. No wheezes. No rhonchi ABDOMEN: Soft, nontender, nondistended. Positive bowel sounds. Normal active bowel sounds NEUROLOGICAL: Alert and oriented times three. Cranial nerves II through XII grossly intact. Sensation grossly intact +neglect RUE +clonus and +babinksi RLE EXTREMITIES: 5\\5 strength left upper extremities, 3+/5 RUE, 3\\5 strength right lower extremity. 5/5 strength in left lower extremity right shoulder, (-) Neers, +painful arc, (-) AC joint TTP with decreased ROM SKIN: craniotomy site sutures c/d/i ASSESSMENT:63-year-old F with past medical history of left parietal meningioma s/p resection who presented s/p redo crantioomy found to have tumor necrosis with new right sided hemiparesis. PLAN: 1. rehab: PT- strengthen RLE, work on improving quality of gait, assess for appropriate AFO (patient's own AFO is not effective against supination)- trial of hip-flexion assist theraband in PT helpful for proprioceptive feedback and elicits better knee extension and hip abduction- gait better with acquired solid AFO however she still has persistent varus tone with steppage gait and knee instability and would benefit from a customized AFO- consult placed today with spacer type bar and segment JAYDEN- strenghten RUE, maintain shoulder ROM, advance fine motor skills for optimal ADL management 2. Neuro: s/p resection and radiation of left parietal meningioma 2016 with redo craniotomy 01/16/19, pathology + tumor necrosis, not recurrent tumor- will need to f/u with Dr. Karly COWART and RLE hemiparesis with neglect improving overall -will consider spacer type bar and segment consult for worsening foot drop- c/u solid AFO at this time -c/u Decadron, will taper per Dr. Brandt's WEB OPERATIONS MANAGER's recs, however went back up on Decadron for recent worsening function -[place] and Vimpat f/u Dr. Haider on discharge 3. CArdio: no known cardiac history-medicine consulted to assist in management 4. Resp: stable, will encourage incentive spirometry and monitor for infection 5. : monitor PVRs, voiding better s/p Macrobid for E. Coli UTI, repeat Ucx + E coli with positive blood culture x 1 with E coli, c/u IV Ceftriaxone 6. DVT ppx: c/u heparin and TEDs 7. GI ppx: protonix 8. Pain: tylenol prn, lidoderm path to right hip and right shoulder, c/u gabapentin 200 mg qHS 9. Endo: steroid induced hyperglycemia- c/u ISS- stablizing 10. Dispo: patient requires mroe time on rehab unit given her recurrent UTi with bacteremia and requiring IV antibiotics Allergies Coded Allergies: phenytoin (Verified Allergy, Severe, 01/24/19) diffuse body rash ciprofloxacin (Verified Adverse Reaction, Mild, "MAKES SICK", 10/25/18) ibuprofen (Verified Adverse Reaction, Mild, ASTHMA, 10/25/18) rosuvastatin (Verified Adverse Reaction, Mild, CRAMPS, 10/25/18) sodium hypochlorite solution (Verified Adverse Reaction, Mild, CHLORINE - ASTHMA, 10/25/18) Vital Signs Vital Signs Date Time Temp Pulse Resp B/P (MAP) Pulse Ox O2 Delivery O2 Flow Rate FiO2 02/11/19 05:55 97.1 84 18 127/73 (91) 95 Laboratory Data Labs 24H Laboratory Tests 2 02/10/19 17:12: Bedside Glucose (Misc Panel) 145H 02/10/19 19:41: Bedside Glucose (Misc Panel) 168H 02/11/19 06:00: Bedside Glucose (Misc Panel) 151H 02/11/19 06:59: Magnesium Level 2.4 02/11/19 12:31: Bedside Glucose (Misc Panel) 92 Microbiology Microbiology 02/09/19 Blood Culture - Preliminary, Resulted No Growth after 48 hours. All Specime... 02/06/19 Blood Culture - Final, Complete Escherichia Coli 02/06/19 Blood Culture - Preliminary, Resulted No Growth after 72 hours. All specime... 02/05/19 Urine Culture - Final, Complete Escherichia Coli Current Medications Current Medications Current Medications Medications (Trade) Dose Ordered Sig/Celeste Route PRN Reason Start Time Stop Time Status Last Admin Dose Admin Acetaminophen (Tylenol Tab) 1,000 mg Q6HP PRN PO PAIN / FEVER 01/23/19 17:30 01/30/19 09:27 DC 01/29/19 08:35 Acetaminophen (Tylenol Tab) 1,000 mg Q8H PRN PO PAIN / FEVER 01/30/19 09:30 02/11/19 05:37 Acetaminophen (Tylenol Tab) 1,000 mg QHS PO 01/30/19 21:00 02/10/19 05:52 Ascorbic Acid (Vitamin C) 1,000 mg DAILY PO 01/24/19 09:00 02/11/19 08:31 Ceftriaxone Sodium 2 gm/ Dextrose 50 ml @ 100 mls/hr Q24H IV 02/07/19 12:00 02/11/19 12:52 Dexamethasone (Decadron) 1 mg BID PO 02/11/19 09:00 02/11/19 09:00 DC Dexamethasone (Decadron) 2 mg Q12H PO 02/04/19 21:00 02/06/19 13:57 DC 02/06/19 07:31 Dexamethasone (Decadron) 4 mg Q12H PO 01/23/19 21:00 02/04/19 10:56 DC 02/04/19 08:19 Dexamethasone (Decadron) 4 mg Q12H PO 02/06/19 21:00 02/10/19 21:01 DC 02/10/19 20:48 Dextrose (Dextrose 50%) 25 ml ASDIRECTED PRN IV SEE LABEL COMMENTS 01/23/19 17:30 Docusate Sodium (Colace) 100 mg TID PO 01/23/19 21:00 02/11/19 08:31 Gabapentin (Neurontin) 200 mg QHS PO 02/03/19 21:00 02/10/19 20:48 Glucagon (Glucagon) 1 mg ASDIRECTED PRN SC SEE LABEL COMMENTS 01/23/19 17:30 Glucose (Glucose) 16 GM ASDIRECTED PRN PO SEE LABEL COMMENTS 01/23/19 17:30 Heparin Sodium (Porcine) (Heparin) 5,000 units Q8H SQ 01/23/19 22:00 02/11/19 12:53 Home Med (Med Rec Complete!) ASDIRECTED XX 01/23/19 18:00 01/23/19 18:00 DC Insulin Human Lispro (HumaLOG INSULIN) SEE PROTOCOL TABLE AC SC 01/23/19 17:30 02/11/19 08:33 Insulin Human Lispro (HumaLOG INSULIN) SEE PROTOCOL TABLE QHS SC 01/23/19 21:00 Lacosamide (Vimpat) 100 mg BID PO 01/23/19 21:00 01/24/19 14:37 DC 01/24/19 09:09 Lacosamide (Vimpat) 100 mg BID PO 01/25/19 21:00 01/27/19 10:19 DC 01/27/19 07:31 Lacosamide (Vimpat) 100 mg BID PO 01/27/19 21:00 02/11/19 08:31 Lactobacillus Acidophilus (Bacid) 1 ea WM PO 02/06/19 18:00 02/11/19 12:52 Levetiracetam (Keppra) 1,500 mg BID PO 01/23/19 21:00 02/11/19 08:32 Lidocaine (Lidoderm Patch) 2 patch QHS TD 01/23/19 21:00 02/10/19 20:50 Magnesium Hydroxide (Milk Of Magnesia) 30 ml DAILYPRN PRN PO CONSTIPATION 01/23/19 17:30 Magnesium Oxide (Mag-Ox) 400 mg DAILY PO 01/24/19 09:00 02/08/19 12:14 DC 02/08/19 09:19 Miscellaneous (Unresolved Clarification Entry) SEE LABEL COMMENTS DAILY XX 02/08/19 09:00 02/09/19 11:52 DC Miscellaneous (Unresolved Clarification Entry) SEE LABEL COMMENTS DAILY XX 02/09/19 09:00 02/10/19 09:53 DC Miscellaneous (Unresolved Clarification Entry) SEE LABEL COMMENTS DAILY XX 02/10/19 09:00 02/10/19 12:07 DC Nitrofurantoin Monoh/Nitrofur Macro (Macrobid) 100 mg BID PO 01/26/19 11:15 01/31/19 11:31 DC 01/31/19 08:56 Non-Formulary Medication ( See Comment Field Below ) REMOVE LIDODERM PATCH DAILY XX 01/24/19 09:00 02/11/19 08:32 Pantoprazole Sodium (Protonix) 40 mg DAILY PO 01/24/19 09:00 02/11/19 08:31 Senna (Senokot) 1 tab QHSP PRN PO CONSTIPATION 01/23/19 17:30 Tolterodine Tartrate (Detrol) 2 mg DAILY PO 01/24/19 09:00 01/27/19 10:19 DC 01/24/19 17:43 Trazodone HCl (Desyrel) 25 mg QHSP PRN PO INSOMNIA 02/03/19 12:45 Trimethoprim/ Sulfamethoxazole (Bactrim Ds, Septra Ds 160mg/ 800mg) 1 tab BID PO 02/06/19 14:00 02/07/19 11:02 DC 02/07/19 08:36 Vitamin D (Vitamin D) 2,000 units DAILY PO 01/24/19 09:00 02/11/19 08:32 ANGELA THOMAS MD Feb 11, 2019 12:56
--- NOTE | 2019-02-11 14:49 | IPNPDOC ---
Text Note Date of Service The patient was seen on 02/11/19. NOTE Subjective: Up to chair at bedside, family at bedside. Denies headache, chest pain, SOB. No more chills Objective GENERAL: NAD SKIN : Warm, cranial surgical sutures open to air, no induration, erythema HEENT: Atraumatic, normocephalic, PERRL, moist mucous membrane CARDIOVASCULAR: Regular rate and rhythm, S1S2, no JVD, RLE edema RESP: CTAB, no accessory muscle use noted ABDOMEN: BS+ non distended non tender MS: no joint deformities NEURO: Alert and oriented x 3, CN2-12 grossly intact PSYCH: no anxiety or agitation, appropriate mood and affect. ASSESSMENT & PLAN: Bacteremia -Continue ceftriaxone -follow ID recommendations. Left parietal mass -S/P resection of non malignant tumor at [facility] -continued rehabilitation of neuro deficits by primary team -continued on Decadron for cerebral edema Seizure disorder -continue Vimpat and Keppra per neurology recommendations -neuro follow up at discharge. -continue seizure precautions Hyperglycemia -HgbA1c 6.5 -continue monitoring with fingerstick checks prior to meals and at bedtime -coverage with insulin per sliding scale protocol UTI -continue ceftriaxone, follow other ID recommendations Insomnia -improved sleep with gabapentin for hip pain - trazodone as needed QHS Chronic constipation -Continue current bowel regimen DVT prophylaxis -heparin SQ Q8 VS,Fishbone, I+O VS, Fishbone, I+O Vital Signs Date Time Temp Pulse Resp B/P (MAP) Pulse Ox O2 Delivery O2 Flow Rate FiO2 02/11/19 05:55 97.1 84 18 127/73 (91) 95 I&O- Last 24 Hours up to 6 AM 02/11/19 05:59 Intake Total 740 ml Balance 740 ml AUDRA MARTINEZ [facility] Feb 11, 2019 14:49
--- NOTE | 2019-02-11 18:01 | CR ---
DATE OF CONSULTATION: 02/11/2019 CONSULTATION REPORT FOR: Hospitalist. REASON FOR CONSULTATION: Evaluation of Escherichia (E) coli urinary tract infection (UTI) and bacteremia. HISTORY OF PRESENT ILLNESS: Mrs. Jackson is a pleasant 63-year-old Stateless lady who was transferred from [facility] after she had a craniotomy for evaluation of possible recurrent tumor. The patient was diagnosed with a left parietal tumor, status post resection in June of 2016 and CyberKnife radiosurgery in October of 2016. In September 2018, she developed seizure and there was concern of recurrence. 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 The patient was transferred to [facility] on 01/23/2019 for rehabilitation. She was having episodes of frequency. She had a Gruber catheter for 48 hours perioperatively. Urinalysis on 01/25/2019 had 48 white cells, 4 red cells, +3 leukocyte esterase, +2 blood. She was treated with five days of Macrobid with improvement of her symptoms. On 02/06/2019, she was noted to have a white count of 17,000. She was also complaining of some chills with night sweats and therefore, she had another urine culture and blood cultures sent. Urine culture was again positive for Escherichia (C) coli and a blood culture one out of two sets on 02/06/2019 was positive for E-coli. E-coli is pansensitive. She was initially treated with Bactrim for 24 hours and then switched to IV Rocephin. The patient feels better and chills have resolved. She denies any urinary symptoms. No dysuria, hematuria, flank pain, or back pain. No headache or neck stiffness. She is improving with rehabilitation and physical therapy. She is anxious to get home. Her anticipated discharge day is on 02/14/2019. PAST MEDICAL HISTORY: Significant for a parietal hemangioparacytoma. No history of recurrent urinary tract infection. FAMILY HISTORY: Father with coronary artery disease, hypothyroidism. Mother with cerebrovascular accident (CVA). SOCIAL HISTORY: She lives with her who has a traumatic brain injury (TBI). Denies smoking or illicit drugs. Alcohol use occasionally. She is originally Stateless. ALLERGIES: CIPROFLOXACIN, IBUPROFEN, DILANTIN, ROSUVASTATIN, SODIUM HYPOCHLORITE. MEDICATIONS: - Rocephin 2 grams IV every 24 hours - probiotics one tablet with meals - gabapentin 200 mg by mouth at bedtime - trazodone 25 mg by mouth at bedtime as needed - Vimpat 100 mg by mouth twice a day - Protonix 40 mg by mouth daily - vitamin C 1000 mg daily - vitamin D 2000 units daily - Keppra 1500 mg by mouth twice a day - Colace 100 mg by mouth three times a day - insulin sliding scale - Senokot one tablet by mouth at bedtime as needed REVIEW OF SYSTEMS: She denies any fever. Chills have resolved. No nausea, vomiting, diarrhea but complains of bloating. No flank pain or kidney pain. PHYSICAL EXAMINATION: She is a pleasant, healthy-looking female in no acute distress. Temperature is 97.3, pulse 76, respirations 18, blood pressure 121/76, oxygen saturation 94% on room air. HEART: Normal S1, S2. No murmurs, rubs or gallops. LUNGS: Clear. No wheezes, rales, or rhonchi. ABDOMEN: Soft, nontender. No hepatosplenomegaly. EXTREMITIES: No clubbing, cyanosis, or edema. Oropharynx is clear. NECK: Supple. No tenderness. IMPRESSION: This is a 63-year-old female who was admitted with a urinary tract infection, treated appropriately for cystitis with five days of Macrodantin, and then has developed since then recurrent symptoms mostly chills and fatigue with leukocytosis and was found to have Escherichia (E) coli bacteremia and E-coli in her urine. The patient has improved after she was started on IV Rocephin. She is currently day number day number four. PLAN: Repeat complete blood count (CBC) in the morning. Discontinue IV Rocephin. Switch to cefdinir 300 mg by mouth twice a day, treat for a total 10-day course, currently day number four. Check for postvoid residue to make sure this is not the reason for her recurrent urinary tract infection other than she had a Gruber catheter which could have been the initial triggering factor. Thank you for the consultation.
[2019-02-11 20:00] VITALS: BP 111/71
[2019-02-11] MEDS: CEFDINIR 300 MG CAP (OMNICEF) PO SCH (20:30)
[2019-02-11] MEDS: GABAPENTIN 100 MG CAP PO SCH (20:31)
[2019-02-11] MEDS: LIDOCAINE 5% (LIDODERM) PATCH TD SCH (20:31)
[2019-02-11] MEDS: ACETAMINOPHEN 500 MG TAB PO SCH (20:31)
[2019-02-12] MEDS: HEPARIN SOD (PORCINE) 5000 UNITS/ML VIAL SQ SCH ×3 (05:52→21:12)
[2019-02-12] MEDS: ACETAMINOPHEN 500 MG TAB PO PRN (05:52)
[2019-02-12 06:00] VITALS: BP 103/63
[2019-02-12] MEDS: PANTOPRAZOLE 40MG TAB (PROTONIX) PO SCH (08:33)
[2019-02-12] MEDS: ASCORBIC ACID 500 MG TAB PO SCH (08:33)
[2019-02-12] MEDS: LACOSAMIDE 50 MG TAB (VIMPAT) PO SCH ×2 (08:33→21:08)
[2019-02-12] MEDS: CEFDINIR 300 MG CAP (OMNICEF) PO SCH ×2 (08:33→21:09)
[2019-02-12] MEDS: LACTOBACILLUS ACIDOPHILUS CAP (BACID) PO SCH ×3 (08:33→17:30)
[2019-02-12] MEDS: VITAMIN D 1,000 INTERNATIONAL UNITS TABLET PO SCH (08:33)
[2019-02-12] MEDS: HumaLOG INSULIN (NovoLOG) PER UNIT SC SCH ×4 (08:34→21:00)
[2019-02-12] MEDS: levETIRAcetam 250MG TABLET (KEPPRA) PO SCH ×2 (08:34→21:08)
[2019-02-12] MEDS: **NOTE PATIENT COMMENT** MISC XX SCH (08:34)
[2019-02-12] MEDS: DOCUSATE SODIUM 100 MG CAP PO SCH ×3 (09:00→21:11)
--- NOTE | 2019-02-12 18:01 | IPNPDOC ---
PM&R Progress Note DATE OF SERVICE: Feb 12, 2019 Bin Filler Progress Note Subjective: Patient had home eval today which went well, but she will need to safely navigate uneven terrain in order to get to her entryway and has difficulty at this time. REVIEW OF SYSTEMS: The following is a completed review of systems and has been reviewed. Review of systems otherwise unremarkable. PAIN: Patient self reports right groin and right shoulder EYES: No recent vision changes EARS, NOSE, & THROAT: No throat pain, or dysphagia, or rhinorrhea CARDIOVASCULAR: Denies chest pain or palpitations PULMONARY: Denies shortness of breath GASTROINTESTINAL: Denies constipation/diarrhea GENITOURINARY: urinary urgency MUSCULOSKELETAL: right hip OA NEUROLOGICAL:RUE and RLE paresis SKIN: craniotomy PSYCHIATRIC: Unremarkable All other review of systems found to be negative. PHYSICAL EXAMINATION: VITAL SIGNS: Please see below. GENERAL: Pleasant and cooperative. No acute distress. HEENT: PERRL. Extraocular movements intact. Clear conjunctiva CARDIOVASCULAR: Regular rate and rhythm. No murmurs, rubs, or gallops LUNGS: Clear to auscultation bilaterally. No wheezes. No rhonchi ABDOMEN: Soft, nontender, nondistended. Positive bowel sounds. Normal active bowel sounds NEUROLOGICAL: Alert and oriented times three. Cranial nerves II through XII grossly intact. Sensation grossly intact +neglect RUE +clonus and +babinksi RLE EXTREMITIES: 5\\5 strength left upper extremities, 3+/5 RUE, 3\\5 strength right lower extremity. 5/5 strength in left lower extremity right shoulder, (-) Neers, +painful arc, (-) AC joint TTP with decreased ROM SKIN: craniotomy site sutures c/d/i ASSESSMENT:63-year-old F with past medical history of left parietal meningioma s/p resection who presented s/p redo crantioomy found to have tumor necrosis with new right sided hemiparesis. PLAN: 1. rehab: PT- strengthen RLE, work on improving quality of gait, assess for appropriate AFO (patient's own AFO is not effective against supination)- progressing to Mod-I on even terrain for ambulation - she still has persistent varus tone with steppage gait and knee instability and would benefit from a customized [facility], maintain shoulder ROM, advance fine motor skills for optimal ADL management 2. Neuro: s/p resection and radiation of left parietal meningioma 2016 with redo craniotomy 01/16/19, pathology + tumor necrosis, not recurrent tumor- will need to f/u with Dr. Brandt 02/19/19 -RUE and RLE hemiparesis with neglect improving overall - funnel setter consulted for worsening foot drop- c/u solid AFO at this time -c/u Decadron, will taper slowly -Keppra and Vimpat f/u Dr. Haider on discharge 3. CArdio: no known cardiac history-medicine consulted to assist in management 4. Resp: stable, will encourage incentive spirometry and monitor for infection 5. : monitor PVRs, voiding better s/p Macrobid for E. Coli UTI, repeat Ucx + E coli with positive blood culture x 1 with E coli, s/p 5 day course of Ceftriaxone, will complete 10 day total course of abx on omnicef 6. DVT ppx: c/u heparin and TEDs 7. GI ppx: protonix 8. Pain: tylenol prn, lidoderm path to right hip and right shoulder, c/u gabapentin 200 mg qHS 9. Endo: steroid induced hyperglycemia- c/u ISS- stablizing 10. Dispo: patient requires more time on rehab unit given her recurrent UTi with bacteremia and requiring antibiotics Allergies Coded Allergies: phenytoin (Verified Allergy, Severe, 01/24/19) diffuse body rash ciprofloxacin (Verified Adverse Reaction, Mild, "MAKES SICK", 10/25/18) ibuprofen (Verified Adverse Reaction, Mild, ASTHMA, 10/25/18) rosuvastatin (Verified Adverse Reaction, Mild, CRAMPS, 10/25/18) sodium hypochlorite solution (Verified Adverse Reaction, Mild, CHLORINE - ASTHMA, 10/25/18) Vital Signs Vital Signs Date Time Temp Pulse Resp B/P (MAP) Pulse Ox O2 Delivery O2 Flow Rate FiO2 02/12/19 06:00 96.9 67 18 103/63 (76) 94 Laboratory Data Labs 24H Laboratory Tests 2 02/11/19 17:40: Bedside Glucose (Misc Panel) 99 02/11/19 19:43: Bedside Glucose (Misc Panel) 161H 02/12/19 05:51: Magnesium Level 2.4 02/12/19 06:25: Bedside Glucose (Misc Panel) 150H 02/12/19 11:17: Bedside Glucose (Misc Panel) 113 Microbiology Microbiology 02/09/19 Blood Culture - Preliminary, Resulted No Growth after 72 hours. All specime... 02/06/19 Blood Culture - Final, Complete Escherichia Coli 02/06/19 Blood Culture - Final, Complete NO GROWTH AFTER 5 DAYS 02/05/19 Urine Culture - Final, Complete Escherichia Coli Current Medications Current Medications Current Medications Medications (Trade) Dose Ordered Sig/Celeste Route PRN Reason Start Time Stop Time Status Last Admin Dose Admin Acetaminophen (Tylenol Tab) 1,000 mg Q6HP PRN PO PAIN / FEVER 01/23/19 17:30 01/30/19 09:27 DC 01/29/19 08:35 Acetaminophen (Tylenol Tab) 1,000 mg Q8H PRN PO PAIN / FEVER 01/30/19 09:30 02/12/19 05:52 Acetaminophen (Tylenol Tab) 1,000 mg QHS PO 01/30/19 21:00 02/11/19 20:31 Ascorbic Acid (Vitamin C) 1,000 mg DAILY PO 01/24/19 09:00 02/12/19 08:33 Cefdinir (Omnicef) 300 mg BID PO 02/11/19 21:00 02/12/19 08:33 Ceftriaxone Sodium 2 gm/ Dextrose 50 ml @ 100 mls/hr Q24H IV 02/07/19 12:00 02/11/19 16:20 DC 02/11/19 12:52 Dexamethasone (Decadron) 1 mg BID PO 02/11/19 09:00 02/11/19 09:00 DC Dexamethasone (Decadron) 2 mg DAILY PO 02/12/19 09:00 02/17/19 09:01 02/12/19 08:33 Dexamethasone (Decadron) 2 mg Q12H PO 02/04/19 21:00 02/06/19 13:57 DC 02/06/19 07:31 Dexamethasone (Decadron) 4 mg Q12H PO 01/23/19 21:00 02/04/19 10:56 DC 02/04/19 08:19 Dexamethasone (Decadron) 4 mg Q12H PO 02/06/19 21:00 02/10/19 21:01 DC 02/10/19 20:48 Dexamethasone (Decadron) 4 mg QHS PO 02/11/19 21:00 02/17/19 21:01 02/11/19 20:30 Dextrose (Dextrose 50%) 25 ml ASDIRECTED PRN IV SEE LABEL COMMENTS 01/23/19 17:30 Docusate Sodium (Colace) 100 mg TID PO 01/23/19 21:00 02/11/19 20:30 Gabapentin (Neurontin) 200 mg QHS PO 02/03/19 21:00 02/11/19 20:31 Glucagon (Glucagon) 1 mg ASDIRECTED PRN SC SEE LABEL COMMENTS 01/23/19 17:30 Glucose (Glucose) 16 GM ASDIRECTED PRN PO SEE LABEL COMMENTS 01/23/19 17:30 Heparin Sodium (Porcine) (Heparin) 5,000 units Q8H SQ 01/23/19 22:00 02/12/19 14:36 Home Med (Med Rec Complete!) ASDIRECTED XX 01/23/19 18:00 01/23/19 18:00 DC Insulin Human Lispro (HumaLOG INSULIN) SEE PROTOCOL TABLE AC SC 01/23/19 17:30 02/12/19 08:34 Insulin Human Lispro (HumaLOG INSULIN) SEE PROTOCOL TABLE QHS SC 01/23/19 21:00 Lacosamide (Vimpat) 100 mg BID PO 01/23/19 21:00 01/24/19 14:37 DC 01/24/19 09:09 Lacosamide (Vimpat) 100 mg BID PO 01/25/19 21:00 01/27/19 10:19 DC 01/27/19 07:31 Lacosamide (Vimpat) 100 mg BID PO 01/27/19 21:00 02/12/19 08:33 Lactobacillus Acidophilus (Bacid) 1 ea WM PO 02/06/19 18:00 02/12/19 12:01 Levetiracetam (Keppra) 1,500 mg BID PO 01/23/19 21:00 02/12/19 08:34 Lidocaine (Lidoderm Patch) 2 patch QHS TD 01/23/19 21:00 02/11/19 20:31 Magnesium Hydroxide (Milk Of Magnesia) 30 ml DAILYPRN PRN PO CONSTIPATION 01/23/19 17:30 Magnesium Oxide (Mag-Ox) 400 mg DAILY PO 01/24/19 09:00 02/08/19 12:14 DC 02/08/19 09:19 Miscellaneous (Unresolved Clarification Entry) SEE LABEL COMMENTS DAILY XX 02/08/19 09:00 02/09/19 11:52 DC Miscellaneous (Unresolved Clarification Entry) SEE LABEL COMMENTS DAILY XX 02/09/19 09:00 02/10/19 09:53 DC Miscellaneous (Unresolved Clarification Entry) SEE LABEL COMMENTS DAILY XX 02/10/19 09:00 02/10/19 12:07 DC Nitrofurantoin Monoh/Nitrofur Macro (Macrobid) 100 mg BID PO 01/26/19 11:15 01/31/19 11:31 DC 01/31/19 08:56 Non-Formulary Medication ( See Comment Field Below ) REMOVE LIDODERM PATCH DAILY XX 01/24/19 09:00 02/12/19 08:34 Pantoprazole Sodium (Protonix) 40 mg DAILY PO 01/24/19 09:00 02/12/19 08:33 Senna (Senokot) 1 tab QHSP PRN PO CONSTIPATION 01/23/19 17:30 Tolterodine Tartrate (Detrol) 2 mg DAILY PO 01/24/19 09:00 01/27/19 10:19 DC 01/24/19 17:43 Trazodone HCl (Desyrel) 25 mg QHSP PRN PO INSOMNIA 02/03/19 12:45 Trimethoprim/ Sulfamethoxazole (Bactrim Ds, Septra Ds 160mg/ 800mg) 1 tab BID PO 02/06/19 14:00 02/07/19 11:02 DC 02/07/19 08:36 Vitamin D (Vitamin D) 2,000 units DAILY PO 01/24/19 09:00 02/12/19 08:33 ANGELA THOMAS MD Feb 12, 2019 17:20
[2019-02-12 20:05] VITALS: BP 128/71
[2019-02-12] MEDS: GABAPENTIN 100 MG CAP PO SCH (21:09)
[2019-02-12] MEDS: ACETAMINOPHEN 500 MG TAB PO SCH (21:11)
[2019-02-12] MEDS: LIDOCAINE 5% (LIDODERM) PATCH TD SCH (21:12)
[2019-02-13] MEDS: HEPARIN SOD (PORCINE) 5000 UNITS/ML VIAL SQ SCH ×3 (05:34→21:29)
[2019-02-13 06:01] VITALS: BP 117/68
[2019-02-13] MEDS: VITAMIN D 1,000 INTERNATIONAL UNITS TABLET PO SCH (08:07)
[2019-02-13] MEDS: ASCORBIC ACID 500 MG TAB PO SCH (08:07)
[2019-02-13] MEDS: HumaLOG INSULIN (NovoLOG) PER UNIT SC SCH ×4 (08:07→21:00)
[2019-02-13] MEDS: DOCUSATE SODIUM 100 MG CAP PO SCH ×3 (08:07→21:23)
[2019-02-13] MEDS: PANTOPRAZOLE 40MG TAB (PROTONIX) PO SCH (08:07)
[2019-02-13] MEDS: **NOTE PATIENT COMMENT** MISC XX SCH (08:08)
[2019-02-13] MEDS: LACOSAMIDE 50 MG TAB (VIMPAT) PO SCH ×2 (08:08→21:24)
[2019-02-13] MEDS: levETIRAcetam 250MG TABLET (KEPPRA) PO SCH ×2 (08:08→21:26)
[2019-02-13] MEDS: LACTOBACILLUS ACIDOPHILUS CAP (BACID) PO SCH ×3 (08:08→17:46)
[2019-02-13] MEDS: CEFDINIR 300 MG CAP (OMNICEF) PO SCH ×2 (08:08→21:23)
[2019-02-13 11:26] LABS: BASO # 0.1 10^3/uL (0.0-0.2); BASO % 0.8 % (0.0-1.0); EOS % 0.3 % (0.0-3.0); HEMOGLOBIN 13.9 g/dl (12.0-15.5); LYMPH # 2.7 10^3/uL (1.5-4.5); LYMPH % 20.2 % (24.0-44.0); MEAN CORPUSCULAR HEMOGLOBIN 30.9 pg (27.0-33.0); MEAN CORPUSCULAR HGB CONC 33.1 g/dl (32.0-36.5); MEAN CORPUSCULAR VOLUME 93.3 fl (80.0-96.0); MONO # 0.9 10^3/uL (0.0-0.8); MONO % 6.8 % (0.0-5.0); NEUTROPHILS # 9.1 10^3/uL (1.8-7.7); NEUTROPHILS % 67.4 % (36.0-66.0); PLATELET COUNT, AUTOMATED 468 10^3/uL (150-450); WHITE BLOOD COUNT 13.4 10^3/uL (4.0-10.0)
[2019-02-13 11:41] LABS: BLOOD UREA NITROGEN 21 MG/DL (7-18); CALCIUM LEVEL 9.2 MG/DL (8.8-10.2); CARBON DIOXIDE LEVEL 24 MEQ/L (21-32); CHLORIDE LEVEL 102 MEQ/L (98-107); CREATININE FOR GFR 0.83 MG/DL (0.55-1.30); GLOMERULAR FILTRATION RATE > 60.0 (>45); GLUCOSE, FASTING 89 MG/DL (70-100); POTASSIUM SERUM 4.4 MEQ/L (3.5-5.1); SODIUM LEVEL 136 MEQ/L (136-145)
--- NOTE | 2019-02-13 12:08 | IPNPDOC ---
PM&R Progress Note DATE OF SERVICE: Feb 13, 2019 Religious Education Teacher Progress Note Subjective: Patient reporting she would like to work on an SUV car transfer because all of her friends drive SUVs and this will make it easier for trips to the doctor. REVIEW OF SYSTEMS: The following is a completed review of systems and has been reviewed. Review of systems otherwise unremarkable. PAIN: Patient self reports right groin and right shoulder EYES: No recent vision changes EARS, NOSE, & THROAT: No throat pain, or dysphagia, or rhinorrhea CARDIOVASCULAR: Denies chest pain or palpitations PULMONARY: Denies shortness of breath GASTROINTESTINAL: Denies constipation/diarrhea GENITOURINARY: urinary urgency MUSCULOSKELETAL: right hip OA NEUROLOGICAL:RUE and RLE paresis SKIN: craniotomy PSYCHIATRIC: Unremarkable All other review of systems found to be negative. PHYSICAL EXAMINATION: VITAL SIGNS: Please see below. GENERAL: Pleasant and cooperative. No acute distress. HEENT: PERRL. Extraocular movements intact. Clear conjunctiva CARDIOVASCULAR: Regular rate and rhythm. No murmurs, rubs, or gallops LUNGS: Clear to auscultation bilaterally. No wheezes. No rhonchi ABDOMEN: Soft, nontender, nondistended. Positive bowel sounds. Normal active bowel sounds NEUROLOGICAL: Alert and oriented times three. Cranial nerves II through XII grossly intact. Sensation grossly intact +neglect RUE +clonus and +babinksi RLE EXTREMITIES: 5\\5 strength left upper extremities, 3+/5 RUE, 3\\5 strength right lower extremity. 5/5 strength in left lower extremity right shoulder, (-) Neers, +painful arc, (-) AC joint TTP with decreased ROM SKIN: craniotomy site sutures c/d/i ASSESSMENT:63-year-old F with past medical history of left parietal meningioma s/p resection who presented s/p redo crantioomy found to have tumor necrosis with new right sided hemiparesis. PLAN: 1. rehab: PT- strengthen RLE, work on improving quality of gait, assess for appropriate AFO (patient's own AFO is not effective against supination)- progressing to Mod-I on even terrain for ambulation - she still has persistent varus tone with steppage gait and knee instability and would benefit from a customized AFO- [facility] RUE, maintain shoulder ROM, advance fine motor skills for optimal ADL management 2. Neuro: s/p resection and radiation of left parietal meningioma 2016 with redo craniotomy 01/16/19, pathology + tumor necrosis, not recurrent tumor- will need to f/u with Dr. Brandt 02/19/19 -RUE and RLE hemiparesis with neglect improving overall - drupal web developer consulted for worsening foot drop- c/u solid AFO at this time -c/u Decadron, will taper slowly -Keppra and Vimpat f/u Dr. Haider on discharge 3. CArdio: no known cardiac history-medicine consulted to assist in management 4. Resp: stable, will encourage incentive spirometry and monitor for infection 5. : monitor PVRs, voiding better s/p Macrobid for E. Coli UTI, repeat Ucx + E coli with positive blood culture x 1 with E coli, s/p 5 day course of Ceftriaxone, will complete 10 day total course of abx on omnicef 6. DVT ppx: c/u heparin and TEDs 7. GI ppx: protonix 8. Pain: tylenol prn, lidoderm path to right hip and right shoulder, c/u gabapentin 200 mg qHS 9. Endo: steroid induced hyperglycemia- c/u ISS- stablizing 10. Dispo: patient requires more time on rehab unit given her recurrent UTi with bacteremia and requiring antibiotics Allergies Coded Allergies: phenytoin (Verified Allergy, Severe, 01/24/19) diffuse body rash ciprofloxacin (Verified Adverse Reaction, Mild, "MAKES SICK", 10/25/18) ibuprofen (Verified Adverse Reaction, Mild, ASTHMA, 10/25/18) rosuvastatin (Verified Adverse Reaction, Mild, CRAMPS, 10/25/18) sodium hypochlorite solution (Verified Adverse Reaction, Mild, CHLORINE - ASTHMA, 10/25/18) Vital Signs Vital Signs Date Time Temp Pulse Resp B/P (MAP) Pulse Ox O2 Delivery O2 Flow Rate FiO2 02/13/19 06:01 97.0 63 18 117/68 (84) 95 Laboratory Data CBC/BMP Laboratory Tests 02/13/19 10:41 Red Blood Count 4.50, Mean Corpuscular Volume 93.3, Mean Corpuscular Hemoglobin 30.9, Mean Corpuscular Hemoglobin Concent 33.1, Red Cell Distribution Width 13.2, Neutrophils (%) (Auto) 67.4 H, Lymphocytes (%) (Auto) 20.2 L, Monocytes (%) (Auto) 6.8 H, Eosinophils (%) (Auto) 0.3, Basophils (%) (Auto) 0.8, Neutrophils # (Auto) 9.1 H, Lymphocytes # (Auto) 2.7, Monocytes # (Auto) 0.9 H, Eosinophils # (Auto) 0.0, Basophils # (Auto) 0.1, Calcium Level 9.2 Labs 24H Laboratory Tests 2 02/12/19 17:05: Bedside Glucose (Misc Panel) 108 02/12/19 19:53: Bedside Glucose (Misc Panel) 193H 02/13/19 05:49: Bedside Glucose (Misc Panel) 148H 02/13/19 10:41: Immature Granulocyte % (Auto) 4.5H, White Blood Count 13.4H, Red Blood Count 4.50, Hemoglobin 13.9, Hematocrit 42.0, Mean Corpuscular Volume 93.3, Mean Corpuscular Hemoglobin 30.9, Mean Corpuscular Hemoglobin Concent 33.1, Red Cell Distribution Width 13.2, Platelet Count 468H, Neutrophils (%) (Auto) 67.4H, Lymphocytes (%) (Auto) 20.2L, Monocytes (%) (Auto) 6.8H, Eosinophils (%) (Auto) 0.3, Basophils (%) (Auto) 0.8, Neutrophils # (Auto) 9.1H, Lymphocytes # (Auto) 2.7, Monocytes # (Auto) 0.9H, Eosinophils # (Auto) 0.0, Basophils # (Auto) 0.1, Nucleated Red Blood Cells % (auto) 0.0, Anion Gap 10, Glomerular Filtration Rate > 60.0, Blood Urea Nitrogen 21H, Creatinine 0.83, Sodium Level 136, Potassium Level 4.4, Chloride Level 102, Carbon Dioxide Level 24, Calcium Level 9.2 02/13/19 11:52: Bedside Glucose (Misc Panel) 117H Microbiology Microbiology 02/09/19 Blood Culture - Preliminary, Resulted No Growth after 72 hours. All specime... 02/06/19 Blood Culture - Final, Complete Escherichia Coli 02/06/19 Blood Culture - Final, Complete NO GROWTH AFTER 5 DAYS 02/05/19 Urine Culture - Final, Complete Escherichia Coli Current Medications Current Medications Current Medications Medications (Trade) Dose Ordered Sig/Celeste Route PRN Reason Start Time Stop Time Status Last Admin Dose Admin Acetaminophen (Tylenol Tab) 1,000 mg Q6HP PRN PO PAIN / FEVER 01/23/19 17:30 01/30/19 09:27 DC 01/29/19 08:35 Acetaminophen (Tylenol Tab) 1,000 mg Q8H PRN PO PAIN / FEVER 01/30/19 09:30 02/12/19 05:52 Acetaminophen (Tylenol Tab) 1,000 mg QHS PO 01/30/19 21:00 02/12/19 21:11 Ascorbic Acid (Vitamin C) 1,000 mg DAILY PO 01/24/19 09:00 02/13/19 08:07 Cefdinir (Omnicef) 300 mg BID PO 02/11/19 21:00 02/13/19 08:08 Ceftriaxone Sodium 2 gm/ Dextrose 50 ml @ 100 mls/hr Q24H IV 02/07/19 12:00 02/11/19 16:20 DC 02/11/19 12:52 Dexamethasone (Decadron) 1 mg BID PO 02/11/19 09:00 02/11/19 09:00 DC Dexamethasone (Decadron) 2 mg DAILY PO 02/12/19 09:00 02/17/19 09:01 02/13/19 08:07 Dexamethasone (Decadron) 2 mg Q12H PO 02/04/19 21:00 02/06/19 13:57 DC 02/06/19 07:31 Dexamethasone (Decadron) 4 mg Q12H PO 01/23/19 21:00 02/04/19 10:56 DC 02/04/19 08:19 Dexamethasone (Decadron) 4 mg Q12H PO 02/06/19 21:00 02/10/19 21:01 DC 02/10/19 20:48 Dexamethasone (Decadron) 4 mg QHS PO 02/11/19 21:00 02/17/19 21:01 02/12/19 21:09 Dextrose (Dextrose 50%) 25 ml ASDIRECTED PRN IV SEE LABEL COMMENTS 01/23/19 17:30 Docusate Sodium (Colace) 100 mg TID PO 01/23/19 21:00 02/13/19 08:07 Gabapentin (Neurontin) 200 mg QHS PO 02/03/19 21:00 02/12/19 21:09 Glucagon (Glucagon) 1 mg ASDIRECTED PRN SC SEE LABEL COMMENTS 01/23/19 17:30 Glucose (Glucose) 16 GM ASDIRECTED PRN PO SEE LABEL COMMENTS 01/23/19 17:30 Heparin Sodium (Porcine) (Heparin) 5,000 units Q8H SQ 01/23/19 22:00 02/13/19 05:34 Home Med (Med Rec Complete!) ASDIRECTED XX 01/23/19 18:00 01/23/19 18:00 DC Insulin Human Lispro (HumaLOG INSULIN) SEE PROTOCOL TABLE AC SC 01/23/19 17:30 02/13/19 08:07 Insulin Human Lispro (HumaLOG INSULIN) SEE PROTOCOL TABLE QHS SC 01/23/19 21:00 Lacosamide (Vimpat) 100 mg BID PO 01/23/19 21:00 01/24/19 14:37 DC 01/24/19 09:09 Lacosamide (Vimpat) 100 mg BID PO 01/25/19 21:00 01/27/19 10:19 DC 01/27/19 07:31 Lacosamide (Vimpat) 100 mg BID PO 01/27/19 21:00 02/13/19 08:08 Lactobacillus Acidophilus (Bacid) 1 ea WM PO 02/06/19 18:00 02/13/19 08:08 Levetiracetam (Keppra) 1,500 mg BID PO 01/23/19 21:00 02/13/19 08:08 Lidocaine (Lidoderm Patch) 2 patch QHS TD 01/23/19 21:00 02/12/19 21:12 Magnesium Hydroxide (Milk Of Magnesia) 30 ml DAILYPRN PRN PO CONSTIPATION 01/23/19 17:30 Magnesium Oxide (Mag-Ox) 400 mg DAILY PO 01/24/19 09:00 02/08/19 12:14 DC 02/08/19 09:19 Miscellaneous (Unresolved Clarification Entry) SEE LABEL COMMENTS DAILY XX 02/08/19 09:00 02/09/19 11:52 DC Miscellaneous (Unresolved Clarification Entry) SEE LABEL COMMENTS DAILY XX 02/09/19 09:00 02/10/19 09:53 DC Miscellaneous (Unresolved Clarification Entry) SEE LABEL COMMENTS DAILY XX 02/10/19 09:00 02/10/19 12:07 DC Nitrofurantoin Monoh/Nitrofur Macro (Macrobid) 100 mg BID PO 01/26/19 11:15 01/31/19 11:31 DC 01/31/19 08:56 Non-Formulary Medication ( See Comment Field Below ) REMOVE LIDODERM PATCH DAILY XX 01/24/19 09:00 02/13/19 08:08 Pantoprazole Sodium (Protonix) 40 mg DAILY PO 01/24/19 09:00 02/13/19 08:07 Senna (Senokot) 1 tab QHSP PRN PO CONSTIPATION 01/23/19 17:30 Tolterodine Tartrate (Detrol) 2 mg DAILY PO 01/24/19 09:00 01/27/19 10:19 DC 01/24/19 17:43 Trazodone HCl (Desyrel) 25 mg QHSP PRN PO INSOMNIA 02/03/19 12:45 Trimethoprim/ Sulfamethoxazole (Bactrim Ds, Septra Ds 160mg/ 800mg) 1 tab BID PO 02/06/19 14:00 02/07/19 11:02 DC 02/07/19 08:36 Vitamin D (Vitamin D) 2,000 units DAILY PO 01/24/19 09:00 02/13/19 08:07 ANGELA THOMAS MD Feb 13, 2019 12:08
[2019-02-13 14:00] VITALS: BP 123/65
--- NOTE | 2019-02-13 14:51 | IPNPDOC ---
Text Note Date of Service The patient was seen on 02/13/19. NOTE Subjective: Up to chair at bedside, family at bedside. Continues to improve Objective GENERAL: NAD SKIN : Warm, dry, cranial surgical site open to air, no tenderness, erythema, induration HEENT: Atraumatic, normocephalic, PERRL, moist mucous membrane CARDIOVASCULAR: Regular rate and rhythm, S1S2, no JVD, RLE edema RESP: CTAB, no accessory muscle use noted ABDOMEN: BS+ non distended non tender MS: no joint deformities NEURO: Alert and oriented x 3, CN2-12 grossly intact PSYCH: no anxiety or agitation, appropriate mood and affect. ASSESSMENT & PLAN: Bacteremia -transitioned to Omnicef-total of 10 days -repeat culture negative Left parietal mass -S/P resection of non malignant tumor at [facility] -continued rehabilitation of neuro deficits by primary team -continued on Decadron for cerebral edema Seizure disorder -continue Vimpat and Keppra per neurology recommendations -neuro follow up at discharge. -continue seizure precautions Hyperglycemia -HgbA1c 6.5 -start metformin 500mg daily and monitor blood glucose -likely continue till weaned off steroid therapy UTI -Omnicef -tolerating well Insomnia -improved sleep with gabapentin for hip pain - trazodone as needed QHS Chronic constipation -Continue current bowel regimen DVT prophylaxis -heparin SQ Q8 VS,Fishbone, I+O VS, Fishbone, I+O Laboratory Tests 02/13/19 10:41 Red Blood Count 4.50, Mean Corpuscular Volume 93.3, Mean Corpuscular Hemoglobin 30.9, Mean Corpuscular Hemoglobin Concent 33.1, Red Cell Distribution Width 13.2, Neutrophils (%) (Auto) 67.4 H, Lymphocytes (%) (Auto) 20.2 L, Monocytes (%) (Auto) 6.8 H, Eosinophils (%) (Auto) 0.3, Basophils (%) (Auto) 0.8, Neutrophils # (Auto) 9.1 H, Lymphocytes # (Auto) 2.7, Monocytes # (Auto) 0.9 H, Eosinophils # (Auto) 0.0, Basophils # (Auto) 0.1, Calcium Level 9.2 Vital Signs Date Time Temp Pulse Resp B/P (MAP) Pulse Ox O2 Delivery O2 Flow Rate FiO2 02/13/19 06:01 97.0 63 18 117/68 (74) 95 I&O- Last 24 Hours up to 6 AM 02/13/19 06:00 Intake Total 1240 ml Balance 1240 ml AUDRA MARTINEZ [facility] Feb 13, 2019 14:51
[2019-02-13] MEDS: metFORMIN XR 500MG TAB *GLUCOPHAGE XR PO SCH (17:46)
[2019-02-13 20:00] VITALS: BP 127/76
[2019-02-13] MEDS: GABAPENTIN 100 MG CAP PO SCH (21:25)
[2019-02-13] MEDS: ACETAMINOPHEN 500 MG TAB PO SCH (21:26)
[2019-02-13] MEDS: LIDOCAINE 5% (LIDODERM) PATCH TD SCH (21:28)
[2019-02-14] MEDS: HEPARIN SOD (PORCINE) 5000 UNITS/ML VIAL SQ SCH ×3 (05:29→20:45)
[2019-02-14 05:57] VITALS: BP 139/75
[2019-02-14] MEDS: CEFDINIR 300 MG CAP (OMNICEF) PO SCH ×2 (08:42→20:45)
[2019-02-14] MEDS: PANTOPRAZOLE 40MG TAB (PROTONIX) PO SCH (08:42)
[2019-02-14] MEDS: LACOSAMIDE 50 MG TAB (VIMPAT) PO SCH ×2 (08:42→20:45)
[2019-02-14] MEDS: LACTOBACILLUS ACIDOPHILUS CAP (BACID) PO SCH ×3 (08:42→16:45)
[2019-02-14] MEDS: ASCORBIC ACID 500 MG TAB PO SCH (08:42)
[2019-02-14] MEDS: DOCUSATE SODIUM 100 MG CAP PO SCH ×3 (08:43→20:44)
[2019-02-14] MEDS: VITAMIN D 1,000 INTERNATIONAL UNITS TABLET PO SCH (08:43)
[2019-02-14] MEDS: levETIRAcetam 250MG TABLET (KEPPRA) PO SCH ×2 (08:43→20:45)
[2019-02-14] MEDS: **NOTE PATIENT COMMENT** MISC XX SCH (08:43)
[2019-02-14] MEDS: HumaLOG INSULIN (NovoLOG) PER UNIT SC SCH ×2 (08:43→11:54)
[2019-02-14 14:00] VITALS: BP 135/74
--- NOTE | 2019-02-14 14:37 | IPNPDOC ---
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 Her hip pain is improving with her gluteal exercises. REVIEW OF SYSTEMS: The following is a completed review of systems and has been reviewed. Review of systems otherwise unremarkable. PAIN: Patient self reports right groin and right shoulder EYES: No recent vision changes EARS, NOSE, & THROAT: No throat pain, or dysphagia, or rhinorrhea CARDIOVASCULAR: Denies chest pain or palpitations PULMONARY: Denies shortness of breath GASTROINTESTINAL: Denies constipation/diarrhea GENITOURINARY: urinary urgency MUSCULOSKELETAL: right hip OA NEUROLOGICAL:RUE and RLE paresis SKIN: craniotomy PSYCHIATRIC: Unremarkable All other review of systems found to be negative. PHYSICAL EXAMINATION: VITAL SIGNS: Please see below. GENERAL: Pleasant and cooperative. No acute distress. HEENT: PERRL. Extraocular movements intact. Clear conjunctiva CARDIOVASCULAR: Regular rate and rhythm. No murmurs, rubs, or gallops LUNGS: Clear to auscultation bilaterally. No wheezes. No rhonchi ABDOMEN: Soft, nontender, nondistended. Positive bowel sounds. Normal active bowel sounds NEUROLOGICAL: Alert and oriented times three. Cranial nerves II through XII grossly intact. Sensation grossly intact +neglect RUE +clonus and +babinksi RLE EXTREMITIES: 5\\5 strength left upper extremities, 3+/5 RUE, 3\\5 strength right lower extremity. 5/5 strength in left lower extremity right shoulder, (-) Neers, +painful arc, (-) AC joint TTP with decreased ROM SKIN: craniotomy site sutures c/d/i ASSESSMENT:63-year-old F with past medical history of left parietal meningioma s/p resection who presented s/p redo crantioomy found to have tumor necrosis with new right sided hemiparesis. PLAN: 1. rehab: PT- strengthen RLE, work on improving quality of gait, assess for appr opriate AFO (patient's own AFO is not effective against supination)-progressing to Mod-I on even terrain for ambulation - she still has persistent varus tone with steppage gait and knee instability and would benefit from a customized AFO- OT- strenghten RUE, maintain shoulder ROM, advance fine motor skills for optimal ADL management 2. Neuro: s/p resection and radiation of left parietal meningioma 2016 with redo craniotomy 01/16/19, pathology + tumor necrosis, not recurrent tumor- will need to f/u with Dr. Brandt 02/19/19 -RUE and RLE hemiparesis with neglect improving overall - locomotive pipe fitter consulted for worsening foot drop- c/u solid AFO at this time- -c/u Decadron, will taper slowly -Marcelino and Vimpat f/u Dr. Haider on discharge 3. CArdio: no known cardiac history-medicine consulted to assist in management 4. Resp: stable, will encourage incentive spirometry and monitor for infection 5. : monitor PVRs, voiding better s/p Macrobid for E. Coli UTI, repeat Ucx + E coli with positive blood culture x 1 with E coli, s/p 5 day course of Ceftriaxone, will complete 10 day total course of abx on omnicef 6. DVT ppx: c/u heparin and TEDs 7. GI ppx: protonix 8. Pain: tylenol prn, lidoderm path to right hip and right shoulder, c/u gabapentin 200 mg qHS 9. Endo: steroid induced hyperglycemia- c/u ISS- stablizing 10. Dispo: requires more time on rehab unit given her recurrent UTi with bacteremia and requiring antibiotics, progressing towards goals, d/c date 02/18/19 Allergies Coded Allergies: phenytoin (Verified Allergy, Severe, 01/24/19) diffuse body rash ciprofloxacin (Verified Adverse Reaction, Mild, "MAKES SICK", 10/25/18) ibuprofen (Verified Adverse Reaction, Mild, ASTHMA, 10/25/18) rosuvastatin (Verified Adverse Reaction, Mild, CRAMPS, 10/25/18) sodium hypochlorite solution (Verified Adverse Reaction, Mild, CHLORINE - ASTHMA, 10/25/18) Vital Signs Vital Signs Date Time Temp Pulse Resp B/P (MAP) Pulse Ox O2 Delivery O2 Flow Rate FiO2 02/14/19 05:57 97.1 78 18 139/75 (96) 99 Laboratory Data Labs 24H Laboratory Tests 2 02/13/19 17:15: Bedside Glucose (Misc Panel) 173H 02/13/19 19:45: Bedside Glucose (Misc Panel) 143H 02/14/19 05:49: Bedside Glucose (Misc Panel) 144H 02/14/19 11:27: Bedside Glucose (Misc Panel) 90 Microbiology Microbiology 02/09/19 Blood Culture - Final, Complete NO GROWTH AFTER 5 DAYS 02/06/19 Blood Culture - Final, Complete Escherichia Coli 02/06/19 Blood Culture - Final, Complete NO GROWTH AFTER 5 DAYS 02/05/19 Urine Culture - Final, Complete Escherichia Coli Current Medications Current Medications Current Medications Medications (Trade) Dose Ordered Sig/Celeste Route PRN Reason Start Time Stop Time Status Last Admin Dose Admin Acetaminophen (Tylenol Tab) 1,000 mg Q6HP PRN PO PAIN / FEVER 01/23/19 17:30 01/30/19 09:27 DC 01/29/19 08:35 Acetaminophen (Tylenol Tab) 1,000 mg Q8H PRN PO PAIN / FEVER 01/30/19 09:30 02/12/19 05:52 Acetaminophen (Tylenol Tab) 1,000 mg QHS PO 01/30/19 21:00 02/13/19 21:26 Ascorbic Acid (Vitamin C) 1,000 mg DAILY PO 01/24/19 09:00 02/14/19 08:42 Cefdinir (Omnicef) 300 mg BID PO 02/11/19 21:00 02/14/19 08:42 Ceftriaxone Sodium 2 gm/ Dextrose 50 ml @ 100 mls/hr Q24H IV 02/07/19 12:00 02/11/19 16:20 DC 02/11/19 12:52 Dexamethasone (Decadron) 1 mg BID PO 02/11/19 09:00 02/11/19 09:00 DC Dexamethasone (Decadron) 2 mg DAILY PO 02/12/19 09:00 02/17/19 09:01 02/14/19 08:42 Dexamethasone (Decadron) 2 mg Q12H PO 02/04/19 21:00 02/06/19 13:57 DC 02/06/19 07:31 Dexamethasone (Decadron) 4 mg Q12H PO 01/23/19 21:00 02/04/19 10:56 DC 02/04/19 08:19 Dexamethasone (Decadron) 4 mg Q12H PO 02/06/19 21:00 02/10/19 21:01 DC 02/10/19 20:48 Dexamethasone (Decadron) 4 mg QHS PO 02/11/19 21:00 02/17/19 21:01 02/13/19 21:26 Dextrose (Dextrose 50%) 25 ml ASDIRECTED PRN IV SEE LABEL COMMENTS 01/23/19 17:30 Docusate Sodium (Colace) 100 mg TID PO 01/23/19 21:00 02/14/19 08:43 Gabapentin (Neurontin) 200 mg QHS PO 02/03/19 21:00 02/13/19 21:25 Glucagon (Glucagon) 1 mg ASDIRECTED PRN SC SEE LABEL COMMENTS 01/23/19 17:30 Glucose (Glucose) 16 GM ASDIRECTED PRN PO SEE LABEL COMMENTS 01/23/19 17:30 Heparin Sodium (Porcine) (Heparin) 5,000 units Q8H SQ 01/23/19 22:00 02/14/19 14:10 Home Med (Med Rec Complete!) ASDIRECTED XX 01/23/19 18:00 01/23/19 18:00 DC Insulin Human Lispro (HumaLOG INSULIN) SEE PROTOCOL TABLE AC SC 01/23/19 17:30 02/14/19 12:41 DC 02/14/19 08:43 Insulin Human Lispro (HumaLOG INSULIN) SEE PROTOCOL TABLE QHS SC 01/23/19 21:00 02/14/19 12:41 DC Lacosamide (Vimpat) 100 mg BID PO 01/23/19 21:00 01/24/19 14:37 DC 01/24/19 09:09 Lacosamide (Vimpat) 100 mg BID PO 01/25/19 21:00 01/27/19 10:19 DC 01/27/19 07:31 Lacosamide (Vimpat) 100 mg BID PO 01/27/19 21:00 02/14/19 08:42 Lactobacillus Acidophilus (Bacid) 1 ea WM PO 02/06/19 18:00 02/14/19 12:41 Levetiracetam (Keppra) 1,500 mg BID PO 01/23/19 21:00 02/14/19 08:43 Lidocaine (Lidoderm Patch) 2 patch QHS TD 01/23/19 21:00 02/13/19 21:28 Magnesium Hydroxide (Milk Of Magnesia) 30 ml DAILYPRN PRN PO CONSTIPATION 01/23/19 17:30 Magnesium Oxide (Mag-Ox) 400 mg DAILY PO 01/24/19 09:00 02/08/19 12:14 DC 02/08/19 09:19 Metformin HCl (Glucophage Xr) 500 mg DAILY@18 PO 02/13/19 18:00 02/13/19 17:46 Miscellaneous (Unresolved Clarification Entry) SEE LABEL COMMENTS DAILY XX 02/08/19 09:00 02/09/19 11:52 DC Miscellaneous (Unresolved Clarification Entry) SEE LABEL COMMENTS DAILY XX 02/09/19 09:00 02/10/19 09:53 DC Miscellaneous (Unresolved Clarification Entry) SEE LABEL COMMENTS DAILY XX 02/10/19 09:00 02/10/19 12:07 DC Nitrofurantoin Monoh/Nitrofur Macro (Macrobid) 100 mg BID PO 01/26/19 11:15 01/31/19 11:31 DC 01/31/19 08:56 Non-Formulary Medication ( See Comment Field Below ) REMOVE LIDODERM PATCH DAILY XX 01/24/19 09:00 02/14/19 08:43 Pantoprazole Sodium (Protonix) 40 mg DAILY PO 01/24/19 09:00 02/14/19 08:42 Senna (Senokot) 1 tab QHSP PRN PO CONSTIPATION 01/23/19 17:30 Tolterodine Tartrate (Detrol) 2 mg DAILY PO 01/24/19 09:00 01/27/19 10:19 DC 01/24/19 17:43 Trazodone HCl (Desyrel) 25 mg QHSP PRN PO INSOMNIA 02/03/19 12:45 Trimethoprim/ Sulfamethoxazole (Bactrim Ds, Septra Ds 160mg/ 800mg) 1 tab BID PO 02/06/19 14:00 02/07/19 11:02 DC 02/07/19 08:36 Vitamin D (Vitamin D) 2,000 units DAILY PO 01/24/19 09:00 02/14/19 08:43 ANGELA THOMAS MD Feb 14, 2019 14:37
--- NOTE | 2019-02-14 14:39 | IPNPDOC ---
Text Note Date of Service The patient was seen on 02/14/19. NOTE Subjective: Had a dose of metformin. Yesterday, and another dose today, reports no adverse effects noted. at bedside Objective GENERAL: NAD SKIN : Warm, dry, cranial surgical site open to air, no tenderness, erythema, induration HEENT: Atraumatic, normocephalic, PERRL, moist mucous membrane CARDIOVASCULAR: Regular rate and rhythm, S1S2, no JVD, RLE edema RESP: CTAB, no accessory muscle use noted ABDOMEN: BS+ non distended non tender MS: no joint deformities NEURO: Alert and oriented x 3, CN2-12 grossly intact PSYCH: no anxiety or agitation, appropriate mood and affect. ASSESSMENT & PLAN: Bacteremia -Continue Omnicef for 10 days total Left parietal mass -S/P resection of non malignant tumor at [facility] -continued rehabilitation of neuro deficits by primary team -continued on Decadron for cerebral edema Seizure disorder -continue Vimpat and Keppra per neurology recommendations -neuro follow up at discharge. -continue seizure precautions Hyperglycemia -HgbA1c 6.5 -Continue metformin 500mg daily and monitor blood glucose -Likely discharge home Sunday -Outpatient follow-up with primary care physician for continuation of therapy or discontinuation after steroids completed UTI -Omnicef -tolerating well DVT prophylaxis -heparin SQ Q8 VS,Fishbone, I+O VS, Fishbone, I+O Vital Signs Date Time Temp Pulse Resp B/P (MAP) Pulse Ox O2 Delivery O2 Flow Rate FiO2 02/14/19 05:57 97.1 78 18 139/75 (96) 99 I&O- Last 24 Hours up to 6 AM 02/14/19 06:00 Intake Total 1080 ml Output Total 500 ml Balance 580 ml AUDRA MARTINEZP Feb 14, 2019 14:39
[2019-02-14] MEDS: metFORMIN XR 500MG TAB *GLUCOPHAGE XR PO SCH (16:45)
[2019-02-14 20:00] VITALS: BP 126/84
[2019-02-14] MEDS: LIDOCAINE 5% (LIDODERM) PATCH TD SCH (20:45)
[2019-02-14] MEDS: GABAPENTIN 100 MG CAP PO SCH (20:45)
[2019-02-14] MEDS: ACETAMINOPHEN 500 MG TAB PO SCH (20:46)
[2019-02-15] MEDS: HEPARIN SOD (PORCINE) 5000 UNITS/ML VIAL SQ SCH ×3 (05:58→20:25)
[2019-02-15 06:21] VITALS: BP 123/73
[2019-02-15] MEDS: LACTOBACILLUS ACIDOPHILUS CAP (BACID) PO SCH ×3 (08:39→17:53)
[2019-02-15] MEDS: CEFDINIR 300 MG CAP (OMNICEF) PO SCH ×2 (08:39→20:24)
[2019-02-15] MEDS: LACOSAMIDE 50 MG TAB (VIMPAT) PO SCH ×2 (08:39→20:24)
[2019-02-15] MEDS: DOCUSATE SODIUM 100 MG CAP PO SCH ×3 (08:39→20:25)
[2019-02-15] MEDS: VITAMIN D 1,000 INTERNATIONAL UNITS TABLET PO SCH (08:39)
[2019-02-15] MEDS: PANTOPRAZOLE 40MG TAB (PROTONIX) PO SCH (08:39)
[2019-02-15] MEDS: ASCORBIC ACID 500 MG TAB PO SCH (08:39)
[2019-02-15] MEDS: levETIRAcetam 250MG TABLET (KEPPRA) PO SCH ×2 (08:40→20:25)
[2019-02-15] MEDS: **NOTE PATIENT COMMENT** MISC XX SCH (08:40)
[2019-02-15 14:00] VITALS: BP 133/78
[2019-02-15] MEDS: metFORMIN XR 500MG TAB *GLUCOPHAGE XR PO SCH (17:53)
[2019-02-15 19:49] VITALS: BP 133/65
[2019-02-15] MEDS: LIDOCAINE 5% (LIDODERM) PATCH TD SCH (20:24)
[2019-02-15] MEDS: ACETAMINOPHEN 500 MG TAB PO SCH (20:26)
[2019-02-15] MEDS: GABAPENTIN 100 MG CAP PO SCH (20:26)
[2019-02-16 06:04] VITALS: BP 129/80
[2019-02-16] MEDS: HEPARIN SOD (PORCINE) 5000 UNITS/ML VIAL SQ SCH ×3 (06:08→20:53)
[2019-02-16] MEDS: LACTOBACILLUS ACIDOPHILUS CAP (BACID) PO SCH ×3 (07:53→17:35)
[2019-02-16] MEDS: PANTOPRAZOLE 40MG TAB (PROTONIX) PO SCH (07:53)
[2019-02-16] MEDS: LACOSAMIDE 50 MG TAB (VIMPAT) PO SCH ×2 (07:53→20:15)
[2019-02-16] MEDS: CEFDINIR 300 MG CAP (OMNICEF) PO SCH ×2 (07:53→20:15)
[2019-02-16] MEDS: ASCORBIC ACID 500 MG TAB PO SCH (07:53)
[2019-02-16] MEDS: VITAMIN D 1,000 INTERNATIONAL UNITS TABLET PO SCH (07:54)
[2019-02-16] MEDS: levETIRAcetam 250MG TABLET (KEPPRA) PO SCH ×2 (07:54→20:15)
[2019-02-16] MEDS: **NOTE PATIENT COMMENT** MISC XX SCH (07:54)
[2019-02-16] MEDS: DOCUSATE SODIUM 100 MG CAP PO SCH ×3 (07:54→20:14)
[2019-02-16] MEDS: ACETAMINOPHEN 500 MG TAB PO PRN (07:56)
[2019-02-16 14:00] VITALS: BP 148/76
[2019-02-16] MEDS: metFORMIN XR 500MG TAB *GLUCOPHAGE XR PO SCH (17:35)
[2019-02-16 20:00] VITALS: BP 126/70
[2019-02-16] MEDS: LIDOCAINE 5% (LIDODERM) PATCH TD SCH (20:13)
[2019-02-16] MEDS: GABAPENTIN 100 MG CAP PO SCH (20:15)
[2019-02-16] MEDS: ACETAMINOPHEN 500 MG TAB PO SCH (20:19)
[2019-02-17] MEDS: HEPARIN SOD (PORCINE) 5000 UNITS/ML VIAL SQ SCH (05:49)
[2019-02-17] MEDS: ACETAMINOPHEN 500 MG TAB PO PRN (05:49)
[2019-02-17 05:54] VITALS: BP 117/63
[2019-02-17] MEDS: LACOSAMIDE 50 MG TAB (VIMPAT) PO SCH ×2 (08:44→21:31)
[2019-02-17] MEDS: CEFDINIR 300 MG CAP (OMNICEF) PO SCH ×2 (08:44→21:32)
[2019-02-17] MEDS: DOCUSATE SODIUM 100 MG CAP PO SCH ×3 (08:44→21:00)
[2019-02-17] MEDS: PANTOPRAZOLE 40MG TAB (PROTONIX) PO SCH (08:44)
[2019-02-17] MEDS: LACTOBACILLUS ACIDOPHILUS CAP (BACID) PO SCH ×3 (08:44→16:56)
[2019-02-17] MEDS: VITAMIN D 1,000 INTERNATIONAL UNITS TABLET PO SCH (08:45)
[2019-02-17] MEDS: ASCORBIC ACID 500 MG TAB PO SCH (08:45)
[2019-02-17] MEDS: levETIRAcetam 250MG TABLET (KEPPRA) PO SCH ×2 (08:45→21:30)
[2019-02-17] MEDS: **NOTE PATIENT COMMENT** MISC XX SCH (09:00)
[2019-02-17 14:00] VITALS: BP 139/87
[2019-02-17] MEDS: metFORMIN XR 500MG TAB *GLUCOPHAGE XR PO SCH (16:56)
--- NOTE | 2019-02-17 17:06 | IPNPDOC ---
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 She reports she had extra PT on Sunday and had a small loss of balance after walking back and forth from the gym to the room 4 times. REVIEW OF SYSTEMS: The following is a completed review of systems and has been reviewed. Review of systems otherwise unremarkable. PAIN: Patient self reports right groin and right shoulder EYES: No recent vision changes EARS, NOSE, & THROAT: No throat pain, or dysphagia, or rhinorrhea CARDIOVASCULAR: Denies chest pain or palpitations PULMONARY: Denies shortness of breath GASTROINTESTINAL: Denies constipation/diarrhea GENITOURINARY: urinary urgency MUSCULOSKELETAL: right hip OA NEUROLOGICAL:RUE and RLE paresis SKIN: craniotomy PSYCHIATRIC: Unremarkable All other review of systems found to be negative. PHYSICAL EXAMINATION: VITAL SIGNS: Please see below. GENERAL: Pleasant and cooperative. No acute distress. HEENT: PERRL. Extraocular movements intact. Clear conjunctiva CARDIOVASCULAR: Regular rate and rhythm. No murmurs, rubs, or gallops LUNGS: Clear to auscultation bilaterally. No wheezes. No rhonchi ABDOMEN: Soft, nontender, nondistended. Positive bowel sounds. Normal active bowel sounds NEUROLOGICAL: Alert and oriented times three. Cranial nerves II through XII grossly intact. Sensation grossly intact +neglect RUE +clonus and +babinksi RLE EXTREMITIES: 5\\5 strength left upper extremities, 3+/5 RUE, 3\\5 strength right lower extremity. 5/5 strength in left lower extremity right shoulder, (-) Neers, +painful arc, (-) AC joint TTP with decreased ROM SKIN: craniotomy site sutures c/d/i ASSESSMENT:63-year-old F with past medical history of left parietal meningioma s/p resection who presented s/p redo crantioomy found to have tumor necrosis with new right sided hemiparesis. PLAN: 1. rehab: PT- strengthen RLE, work on improving quality of gait, assess for appropriate AFO (patient's own AFO is not effective against supination)- progressing to Mod-I on even terrain for ambulation, goal to be Mod-I for household distances - she still has persistent varus tone with steppage gait and knee instability and would benefit from a customized AFO- OT- josé miguel RUE, maintain shoulder ROM, advance fine motor skills for optimal ADL management 2. Neuro: s/p resection and radiation of left parietal meningioma 2016 with redo craniotomy 01/16/19, pathology + tumor necrosis, not recurrent tumor- will need to f/u with Dr. 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 Haider on discharge 3. CArdio: no known cardiac history-medicine consulted to assist in management 4. Resp: stable, will encourage incentive spirometry and monitor for infection 5. : monitor PVRs, voiding better s/p Macrobid for E. Coli UTI, repeat Ucx + E coli with positive blood culture x 1 with E coli, s/p 5 day course of Ceftriaxone, will complete 10 day total course of abx on omnicef 6. DVT ppx: c/u heparin and TEDs 7. GI ppx: protonix 8. Pain: tylenol prn, lidoderm path to right hip and right shoulder, c/u gabapentin 200 mg qHS 9. Endo: steroid induced hyperglycemia- c/u ISS- stablizing 10. Dispo: 02/19/19 to home Allergies Coded Allergies: phenytoin (Verified Allergy, Severe, 01/24/19) diffuse body rash ciprofloxacin (Verified Adverse Reaction, Mild, "MAKES SICK", 10/25/18) ibuprofen (Verified Adverse Reaction, Mild, ASTHMA, 10/25/18) rosuvastatin (Verified Adverse Reaction, Mild, CRAMPS, 10/25/18) sodium hypochlorite solution (Verified Adverse Reaction, Mild, CHLORINE - ASTHMA, 10/25/18) Vital Signs Vital Signs Date Time Temp Pulse Resp B/P (MAP) Pulse Ox O2 Delivery O2 Flow Rate FiO2 02/17/19 14:00 97.0 94 20 139/87 (104) 95 Laboratory Data Labs 24H Laboratory Tests 2 02/16/19 20:14: Bedside Glucose (Misc Panel) 136H 02/17/19 08:00: Bedside Glucose (Misc Panel) 172H 02/17/19 11:40: Bedside Glucose (Misc Panel) 108 02/17/19 16:54: Bedside Glucose (Misc Panel) 98 Microbiology Microbiology 02/09/19 Blood Culture - Final, Complete NO GROWTH AFTER 5 DAYS Current Medications Current Medications Current Medications Medications (Trade) Dose Ordered Sig/Celeste Route PRN Reason Start Time Stop Time Status Last Admin Dose Admin Acetaminophen (Tylenol Tab) 1,000 mg Q6HP PRN PO PAIN / FEVER 01/23/19 17:30 01/30/19 09:27 DC 01/29/19 08:35 Acetaminophen (Tylenol Tab) 1,000 mg Q8H PRN PO PAIN / FEVER 01/30/19 09:30 02/17/19 05:49 Acetaminophen (Tylenol Tab) 1,000 mg QHS PO 01/30/19 21:00 02/16/19 20:19 Ascorbic Acid (Vitamin C) 1,000 mg DAILY PO 01/24/19 09:00 02/17/19 08:45 Cefdinir (Omnicef) 300 mg BID PO 02/11/19 21:00 02/17/19 08:44 Ceftriaxone Sodium 2 gm/ Dextrose 50 ml @ 100 mls/hr Q24H IV 02/07/19 12:00 02/11/19 16:20 DC 02/11/19 12:52 Dexamethasone (Decadron) 1 mg BID PO 02/11/19 09:00 02/11/19 09:00 DC Dexamethasone (Decadron) 2 mg DAILY PO 02/12/19 09:00 02/17/19 09:01 DC 02/17/19 08:45 Dexamethasone (Decadron) 2 mg Q12H PO 02/04/19 21:00 02/06/19 13:57 DC 02/06/19 07:31 Dexamethasone (Decadron) 4 mg Q12H PO 01/23/19 21:00 02/04/19 10:56 DC 02/04/19 08:19 Dexamethasone (Decadron) 4 mg Q12H PO 02/06/19 21:00 02/10/19 21:01 DC 02/10/19 20:48 Dexamethasone (Decadron) 4 mg QHS PO 02/11/19 21:00 02/17/19 21:01 02/16/19 20:14 Dextrose (Dextrose 50%) 25 ml ASDIRECTED PRN IV SEE LABEL COMMENTS 01/23/19 17:30 Docusate Sodium (Colace) 100 mg TID PO 01/23/19 21:00 02/17/19 16:56 Gabapentin (Neurontin) 200 mg QHS PO 02/03/19 21:00 02/16/19 20:15 Glucagon (Glucagon) 1 mg ASDIRECTED PRN SC SEE LABEL COMMENTS 01/23/19 17:30 Glucose (Glucose) 16 GM ASDIRECTED PRN PO SEE LABEL COMMENTS 01/23/19 17:30 Heparin Sodium (Porcine) (Heparin) 5,000 units Q8H SQ 01/23/19 22:00 02/17/19 10:57 DC 02/17/19 05:49 Home Med (Med Rec Complete!) ASDIRECTED XX 01/23/19 18:00 01/23/19 18:00 DC Insulin Human Lispro (HumaLOG INSULIN) SEE PROTOCOL TABLE AC SC 01/23/19 17:30 02/14/19 12:41 DC 02/14/19 08:43 Insulin Human Lispro (HumaLOG INSULIN) SEE PROTOCOL TABLE QHS SC 01/23/19 21:00 02/14/19 12:41 DC Lacosamide (Vimpat) 100 mg BID PO 01/23/19 21:00 01/24/19 14:37 DC 01/24/19 09:09 Lacosamide (Vimpat) 100 mg BID PO 01/25/19 21:00 01/27/19 10:19 DC 01/27/19 07:31 Lacosamide (Vimpat) 100 mg BID PO 01/27/19 21:00 02/17/19 08:44 Lactobacillus Acidophilus (Bacid) 1 ea WM PO 02/06/19 18:00 02/17/19 16:56 Levetiracetam (Keppra) 1,500 mg BID PO 01/23/19 21:00 02/17/19 08:45 Lidocaine (Lidoderm Patch) 2 patch QHS TD 01/23/19 21:00 02/16/19 20:13 Magnesium Hydroxide (Milk Of Magnesia) 30 ml DAILYPRN PRN PO CONSTIPATION 01/23/19 17:30 Magnesium Oxide (Mag-Ox) 400 mg DAILY PO 01/24/19 09:00 02/08/19 12:14 DC 02/08/19 09:19 Metformin HCl (Glucophage Xr) 500 mg DAILY@18 PO 02/13/19 18:00 02/17/19 16:56 Miscellaneous (Unresolved Clarification Entry) SEE LABEL COMMENTS DAILY XX 02/08/19 09:00 02/09/19 11:52 DC Miscellaneous (Unresolved Clarification Entry) SEE LABEL COMMENTS DAILY XX 02/09/19 09:00 02/10/19 09:53 DC Miscellaneous (Unresolved Clarification Entry) SEE LABEL COMMENTS DAILY XX 02/10/19 09:00 02/10/19 12:07 DC Miscellaneous (Unresolved Clarification Entry) SEE LABEL COMMENTS DAILY XX 02/16/19 09:00 02/17/19 07:10 DC Miscellaneous (Unresolved Clarification Entry) SEE LABEL COMMENTS DAILY XX 02/17/19 09:00 02/17/19 11:18 DC Miscellaneous (Unresolved Clarification Entry) SEE LABEL COMMENTS DAILY XX 02/18/19 09:00 Nitrofurantoin Monoh/Nitrofur Macro (Macrobid) 100 mg BID PO 01/26/19 11:15 01/31/19 11:31 DC 01/31/19 08:56 Non-Formulary Medication ( See Comment Field Below ) REMOVE LIDODERM PATCH DAILY XX 01/24/19 09:00 02/17/19 09:00 Pantoprazole Sodium (Protonix) 40 mg DAILY PO 01/24/19 09:00 02/17/19 08:44 Senna (Senokot) 1 tab QHSP PRN PO CONSTIPATION 01/23/19 17:30 Tolterodine Tartrate (Detrol) 2 mg DAILY PO 01/24/19 09:00 01/27/19 10:19 DC 01/24/19 17:43 Trazodone HCl (Desyrel) 25 mg QHSP PRN PO INSOMNIA 02/03/19 12:45 Trimethoprim/ Sulfamethoxazole (Bactrim Ds, Septra Ds 160mg/ 800mg) 1 tab BID PO 02/06/19 14:00 02/07/19 11:02 DC 02/07/19 08:36 Vitamin D (Vitamin D) 2,000 units DAILY PO 01/24/19 09:00 02/17/19 08:45 ANGELA THOMAS MD Feb 17, 2019 17:06
[2019-02-17] MEDS: LIDOCAINE 5% (LIDODERM) PATCH TD SCH (21:30)
[2019-02-17] MEDS: GABAPENTIN 100 MG CAP PO SCH (21:30)
[2019-02-17] MEDS: ACETAMINOPHEN 500 MG TAB PO SCH (21:32)
[2019-02-17 22:00] VITALS: BP 109/72
--- NOTE | 2019-02-17 22:02 | IPN ---
DATE: 02/17/2019 Patient continues to do well. The plan is for her to be discharged tomorrow. Her blood sugar this morning was 172, before lunch it was 108, dinner 98. She is tolerating metformin. She continues on cefdinir for positive blood and urine culture. She has been afebrile. Will recheck white count in the morning. OBJECTIVE: Blood pressure 139/87, pulse 94, respirations 20, temperature 97, oxygen saturation (O2 sat) 95% on room air. The patient is alert and oriented times three. Surgical site well approximated. No redness or drainage. Pupils are equal and react to light. Extraocular motions intact. Cornea and sclerae are clear. Conjunctivae is normal. No facial asymmetry. Pharynx: Tongue and gums pink and moist. Tongue is midline. Neck is supple without lymphadenopathy. No thyromegaly. No goiter. Carotids 2+ without bruit. Chest is clear to auscultation without wheeze or retractions. Heart is regular. Abdomen benign. Bowel sounds positive. Genital/Rectal: Not done. Extremities: No cyanosis, clubbing or edema. Peripheral pulses equal and palpable bilaterally. Skin is warm and dry. IMPRESSION AND PLAN: Bacteremia. Continue Omnicef for 10 days total. Left parietal mass, status post resection of tumor. Continue rehab. Discharge per Dr. Jasso. Continue Decadron as ordered. She has received six or seven doses. Seizure disorder. Continue Vimpat and Keppra per neurology. Neurologic followup at discharge. Hyperglycemia. Continue metformin and monitor blood sugars. Outpatient followup with primary care physician for continuation of therapy or discontinuation after steroids are complete. Monitor blood sugars. Urinary tract infection (UTI). Omnicef. Continue til complete. Deep vein thrombosis (DVT) prophylaxis. Heparin subcu.
[2019-02-18 06:00] VITALS: BP 132/75
[2019-02-18] MEDS: ACETAMINOPHEN 500 MG TAB PO PRN (06:59)
[2019-02-18] MEDS: VITAMIN D 1,000 INTERNATIONAL UNITS TABLET PO SCH (08:51)
[2019-02-18] MEDS: DOCUSATE SODIUM 100 MG CAP PO SCH ×3 (08:51→21:42)
[2019-02-18] MEDS: LACTOBACILLUS ACIDOPHILUS CAP (BACID) PO SCH ×3 (08:51→17:26)
[2019-02-18] MEDS: ASCORBIC ACID 500 MG TAB PO SCH (08:51)
[2019-02-18] MEDS: LACOSAMIDE 50 MG TAB (VIMPAT) PO SCH ×2 (08:51→21:42)
[2019-02-18] MEDS: CEFDINIR 300 MG CAP (OMNICEF) PO SCH (08:52)
[2019-02-18] MEDS: PANTOPRAZOLE 40MG TAB (PROTONIX) PO SCH (08:52)
[2019-02-18] MEDS: levETIRAcetam 250MG TABLET (KEPPRA) PO SCH ×2 (08:52→21:41)
[2019-02-18] MEDS: **NOTE PATIENT COMMENT** MISC XX SCH (08:53)
--- NOTE | 2019-02-18 12:10 | IPN ---
DATE: 02/18/2019 Anika is seen for the hospitalist group. The plan is for her to apparently go home tomorrow. She feels well. She has no medical issues today. PHYSICAL EXAMINATION: Afebrile. Vital signs stable. LUNGS: Clear. HEART: Regular rhythm. ABDOMEN: Soft and nontender. EXTREMITIES: No peripheral edema. IMPRESSION: 1. Escherichia (E) coli bacteremia/urinary tract infection (UTI). On Cefdinir day #8 out of advised 14 days of treatment due to bacteremia. 2. Diabetes. Blood sugar is reasonably controlled at 98 to 160. 3. Seizure disorder. No seizures on her current anticonvulsant regimen.
[2019-02-18 14:00] VITALS: BP 136/76
--- NOTE | 2019-02-18 16:35 | IPNPDOC ---
PM&R Progress Note DATE OF SERVICE: Feb 18, 2019 [employer] Consultant Progress Note Subjective: Patient seen in gym working on commode transfers, feeling ready to go home tomorrow. REVIEW OF SYSTEMS: The following is a completed review of systems and has been reviewed. Review of systems otherwise unremarkable. PAIN: Patient self reports right groin and right shoulder EYES: No recent vision changes EARS, NOSE, & THROAT: No throat pain, or dysphagia, or rhinorrhea CARDIOVASCULAR: Denies chest pain or palpitations PULMONARY: Denies shortness of breath GASTROINTESTINAL: Denies constipation/diarrhea GENITOURINARY: urinary urgency MUSCULOSKELETAL: right hip OA NEUROLOGICAL:RUE and RLE paresis SKIN: craniotomy PSYCHIATRIC: Unremarkable All other review of systems found to be negative. PHYSICAL EXAMINATION: VITAL SIGNS: Please see below. GENERAL: Pleasant and cooperative. No acute distress. HEENT: PERRL. Extraocular movements intact. Clear conjunctiva CARDIOVASCULAR: Regular rate and rhythm. No murmurs, rubs, or gallops LUNGS: Clear to auscultation bilaterally. No wheezes. No rhonchi ABDOMEN: Soft, nontender, nondistended. Positive bowel sounds. Normal active bowel sounds NEUROLOGICAL: Alert and oriented times three. Cranial nerves II through XII grossly intact. Sensation grossly intact +neglect RUE +clonus and +babinksi RLE EXTREMITIES: 5\\5 strength left upper extremities, 3+/5 RUE, 3\\5 strength right lower extremity. 5/5 strength in left lower extremity right shoulder, (-) Neers, +painful arc, (-) AC joint TTP with decreased ROM SKIN: craniotomy site sutures c/d/i ASSESSMENT:63-year-old F with past medical history of left parietal meningioma s/p resection who presented s/p redo crantioomy found to have tumor necrosis with new right sided hemiparesis. PLAN: 1. rehab: PT- strengthen RLE, work on improving quality of gait, assess for ap propriate AFO (patient's own AFO is not effective against supination)- progressing to Mod-I on even terrain for ambulation, goal to be Mod-I for household distances- room privileges today - she still has persistent varus tone with steppage gait and knee instability and would benefit from a customized AFO- OT- strenghten RUE, maintain shoulder ROM, advance fine motor skills for optimal ADL management 2. Neuro: s/p resection and radiation of left parietal meningioma 2016 with redo craniotomy 01/16/19, pathology + tumor necrosis, not recurrent tumor- will need to f/u with Dr. Brandt 02/19/19 -RUE and RLE hemiparesis with neglect improving overall - informatics analyst consulted for worsening foot drop- c/u solid AFO at this time- -c/u Decadron, tapering slowly -Keppra and Vimpat f/u Dr. Haider on discharge 3. CArdio: no known cardiac history-medicine consulted to assist in management 4. Resp: stable, will encourage incentive spirometry and monitor for infection 5. : monitor PVRs, voiding better s/p Macrobid for E. Coli UTI, repeat Ucx + E coli with positive blood culture x 1 with E coli, s/p 5 day course of Ceftriaxone, will complete 10 day total course of abx on omnicef 6. DVT ppx: c/u heparin and TEDs 7. GI ppx: protonix 8. Pain: tylenol prn, lidoderm path to right hip and right shoulder, c/u gabapentin 200 mg qHS 9. Endo: steroid induced hyperglycemia- c/u ISS- stablizing 10. Dispo: 02/19/19 to home, progressing towards goals Allergies Coded Allergies: phenytoin (Verified Allergy, Severe, 01/24/19) diffuse body rash ciprofloxacin (Verified Adverse Reaction, Mild, "MAKES SICK", 10/25/18) ibuprofen (Verified Adverse Reaction, Mild, ASTHMA, 10/25/18) rosuvastatin (Verified Adverse Reaction, Mild, CRAMPS, 10/25/18) sodium hypochlorite solution (Verified Adverse Reaction, Mild, CHLORINE - ASTHMA, 10/25/18) Vital Signs Vital Signs Date Time Temp Pulse Resp B/P (MAP) Pulse Ox O2 Delivery O2 Flow Rate FiO2 02/18/19 14:00 97.2 72 18 136/76 (96) 96 Laboratory Data Labs 24H Laboratory Tests 2 02/17/19 16:54: Bedside Glucose (Misc Panel) 98 02/17/19 20:04: Bedside Glucose (Misc Panel) 161H 02/18/19 06:38: Bedside Glucose (Misc Panel) 157H 02/18/19 11:21: Bedside Glucose (Misc Panel) 101 Microbiology Microbiology 02/09/19 Blood Culture - Final, Complete NO GROWTH AFTER 5 DAYS Current Medications Current Medications Current Medications Medications (Trade) Dose Ordered Sig/Celeste Route PRN Reason Start Time Stop Time Status Last Admin Dose Admin Acetaminophen (Tylenol Tab) 1,000 mg Q6HP PRN PO PAIN / FEVER 01/23/19 17:30 01/30/19 09:27 DC 01/29/19 08:35 Acetaminophen (Tylenol Tab) 1,000 mg Q8H PRN PO PAIN / FEVER 01/30/19 09:30 02/18/19 06:59 Acetaminophen (Tylenol Tab) 1,000 mg QHS PO 01/30/19 21:00 02/17/19 21:32 Ascorbic Acid (Vitamin C) 1,000 mg DAILY PO 01/24/19 09:00 02/18/19 08:51 Cefdinir (Omnicef) 300 mg BID PO 02/11/19 21:00 02/18/19 08:52 Ceftriaxone Sodium 2 gm/ Dextrose 50 ml @ 100 mls/hr Q24H IV 02/07/19 12:00 02/11/19 16:20 DC 02/11/19 12:52 Dexamethasone (Decadron) 1 mg BID PO 02/11/19 09:00 02/11/19 09:00 DC Dexamethasone (Decadron) 2 mg DAILY PO 02/12/19 09:00 02/17/19 09:01 DC 02/17/19 08:45 Dexamethasone (Decadron) 2 mg Q12H PO 02/04/19 21:00 02/06/19 13:57 DC 02/06/19 07:31 Dexamethasone (Decadron) 4 mg Q12H PO 01/23/19 21:00 02/04/19 10:56 DC 02/04/19 08:19 Dexamethasone (Decadron) 4 mg Q12H PO 02/06/19 21:00 02/10/19 21:01 DC 02/10/19 20:48 Dexamethasone (Decadron) 4 mg QHS PO 02/11/19 21:00 02/17/19 21:01 DC 02/17/19 21:31 Dextrose (Dextrose 50%) 25 ml ASDIRECTED PRN IV SEE LABEL COMMENTS 01/23/19 17:30 Docusate Sodium (Colace) 100 mg TID PO 01/23/19 21:00 02/18/19 08:51 Gabapentin (Neurontin) 200 mg QHS PO 02/03/19 21:00 02/17/19 21:30 Glucagon (Glucagon) 1 mg ASDIRECTED PRN SC SEE LABEL COMMENTS 01/23/19 17:30 Glucose (Glucose) 16 GM ASDIRECTED PRN PO SEE LABEL COMMENTS 01/23/19 17:30 Heparin Sodium (Porcine) (Heparin) 5,000 units Q8H SQ 01/23/19 22:00 02/17/19 10:57 DC 02/17/19 05:49 Home Med (Med Rec Complete!) ASDIRECTED XX 01/23/19 18:00 01/23/19 18:00 DC Insulin Human Lispro (HumaLOG INSULIN) SEE PROTOCOL TABLE AC SC 01/23/19 17:30 02/14/19 12:41 DC 02/14/19 08:43 Insulin Human Lispro (HumaLOG INSULIN) SEE PROTOCOL TABLE QHS SC 01/23/19 21:00 02/14/19 12:41 DC Lacosamide (Vimpat) 100 mg BID PO 01/23/19 21:00 01/24/19 14:37 DC 01/24/19 09:09 Lacosamide (Vimpat) 100 mg BID PO 01/25/19 21:00 01/27/19 10:19 DC 01/27/19 07:31 Lacosamide (Vimpat) 100 mg BID PO 01/27/19 21:00 02/18/19 08:51 Lactobacillus Acidophilus (Bacid) 1 ea WM PO 02/06/19 18:00 02/18/19 12:53 Levetiracetam (Keppra) 1,500 mg BID PO 01/23/19 21:00 02/18/19 08:52 Lidocaine (Lidoderm Patch) 2 patch QHS TD 01/23/19 21:00 02/17/19 21:30 Magnesium Hydroxide (Milk Of Magnesia) 30 ml DAILYPRN PRN PO CONSTIPATION 01/23/19 17:30 Magnesium Oxide (Mag-Ox) 400 mg DAILY PO 01/24/19 09:00 02/08/19 12:14 DC 02/08/19 09:19 Metformin HCl (Glucophage Xr) 500 mg DAILY@18 PO 02/13/19 18:00 02/17/19 16:56 Miscellaneous (Unresolved Clarification Entry) SEE LABEL COMMENTS DAILY XX 02/08/19 09:00 02/09/19 11:52 DC Miscellaneous (Unresolved Clarification Entry) SEE LABEL COMMENTS DAILY XX 02/09/19 09:00 02/10/19 09:53 DC Miscellaneous (Unresolved Clarification Entry) SEE LABEL COMMENTS DAILY XX 02/10/19 09:00 02/10/19 12:07 DC Miscellaneous (Unresolved Clarification Entry) SEE LABEL COMMENTS DAILY XX 02/16/19 09:00 02/17/19 07:10 DC Miscellaneous (Unresolved Clarification Entry) SEE LABEL COMMENTS DAILY XX 02/17/19 09:00 02/17/19 11:18 DC Miscellaneous (Unresolved Clarification Entry) SEE LABEL COMMENTS DAILY XX 02/17/19 09:00 Cancel Miscellaneous (Unresolved Clarification Entry) SEE LABEL COMMENTS DAILY XX 02/18/19 09:00 02/18/19 09:00 Nitrofurantoin Monoh/Nitrofur Macro (Macrobid) 100 mg BID PO 01/26/19 11:15 01/31/19 11:31 DC 01/31/19 08:56 Non-Formulary Medication ( See Comment Field Below ) REMOVE LIDODERM PATCH DAILY XX 01/24/19 09:00 02/18/19 08:53 Pantoprazole Sodium (Protonix) 40 mg DAILY PO 01/24/19 09:00 02/18/19 08:52 Senna (Senokot) 1 tab QHSP PRN PO CONSTIPATION 01/23/19 17:30 Tolterodine Tartrate (Detrol) 2 mg DAILY PO 01/24/19 09:00 01/27/19 10:19 DC 01/24/19 17:43 Trazodone HCl (Desyrel) 25 mg QHSP PRN PO INSOMNIA 02/03/19 12:45 Trimethoprim/ Sulfamethoxazole (Bactrim Ds, Septra Ds 160mg/ 800mg) 1 tab BID PO 02/06/19 14:00 02/07/19 11:02 DC 02/07/19 08:36 Vitamin D (Vitamin D) 2,000 units DAILY PO 01/24/19 09:00 02/18/19 08:51 ANGELA THOMAS MD Feb 18, 2019 16:35
[2019-02-18] MEDS: metFORMIN XR 500MG TAB *GLUCOPHAGE XR PO SCH (17:26)
[2019-02-18] MEDS: GABAPENTIN 100 MG CAP PO SCH (21:42)
[2019-02-18] MEDS: ACETAMINOPHEN 500 MG TAB PO SCH (21:42)
[2019-02-18] MEDS: LIDOCAINE 5% (LIDODERM) PATCH TD SCH (21:43)
[2019-02-18 22:00] VITALS: BP 122/79
[2019-02-19 06:00] VITALS: BP 124/72
[2019-02-19] MEDS: DOCUSATE SODIUM 100 MG CAP PO SCH (08:44)
[2019-02-19] MEDS: VITAMIN D 1,000 INTERNATIONAL UNITS TABLET PO SCH (08:44)
[2019-02-19] MEDS: LACOSAMIDE 50 MG TAB (VIMPAT) PO SCH (08:44)
[2019-02-19] MEDS: ASCORBIC ACID 500 MG TAB PO SCH (08:44)
[2019-02-19] MEDS: PANTOPRAZOLE 40MG TAB (PROTONIX) PO SCH (08:44)
[2019-02-19] MEDS: **NOTE PATIENT COMMENT** MISC XX SCH (08:44)
[2019-02-19] MEDS: LACTOBACILLUS ACIDOPHILUS CAP (BACID) PO SCH ×2 (08:47→12:05)
[2019-02-19] MEDS: levETIRAcetam 250MG TABLET (KEPPRA) PO SCH (08:47)
[2019-02-19] MEDS ORDERED: KEPP250T5 PO (09:07)
[2019-02-19] MEDS ORDERED: GABA-1171 PO (09:07)
[2019-02-19] MEDS ORDERED: PANT40TA3 PO (09:07)
[2019-02-19] MEDS ORDERED: DEXA4TA PO (09:07)
[2019-02-19] MEDS ORDERED: GLUCTAB PO (09:07)
[2019-02-19] MEDS ORDERED: VIMP50TA3 PO (09:07)
--- NOTE | 2019-02-20 16:28 | PMRDS ---
DATE OF ADMISSION: 01/23/2019 DATE OF DISCHARGE: 02/19/2019 CHIEF COMPLAINT/DISCHARGE DIAGNOSIS: Left parietal tumor with right upper extremity and right lower extremity paresis. HISTORY OF PRESENT ILLNESS: A 63-year-old female with a past medical history of left parietal tumor status post resection in June of 2016 with residual footdrop, found to have WHO grade 2/3 tumor followed by stereotactic [employer], radiosurgery in October 2016. She developed seizures and September 2018 and was found to have possible recurrence along the lateral inferior border of her tumor bed on PET/CT. She was admitted to [facility] under neurosurgical care and underwent a redo left craniotomy for tumor with a postoperative diagnosis of radiation necrosis and pathology showing changes associated with radiation, parietal hemangiopericytoma with "no definite recurrent tumor identified 01/16/2019." Surgery was performed by Dr. Brandt without complication. MRI brain 01/17/2019 showing "status post redo left parietal craniotomy for tumor resection with expected postoperative changes, there are areas of irregular enhancement surrounding the resection cavity which could represent residual tumor." She had postoperative anemia, was maintained on Decadron and continued on her anticonvulsant therapy. She had new deficits in mobility and activities of daily living (ADLs) below her prior level of function and deemed medically appropriate for discharge to acute rehabilitation unit (ARU) on 01/23/2019. On encounter, the patient reports having fallen a couple of weeks ago onto her right shoulder and has pain. PAST MEDICAL HISTORY: As per history of present illness (HPI). HOSPITAL COURSE: The patient was admitted and enrolled in a comprehensive physical therapy (PT)/occupational therapy (OT) program. She received 24-hour nursing supervision and weekly team meetings were held to discuss her progress. She was maintained on Keppra and Vimpat for seizure treatment. She was tapered down on her Decadron and discharged still on Decadron. The patient had urinary urgency and was treated with Macrobid for an Escherichia (E) coli urinary tract infection. However, repeat urine culture was positive for E-coli with positive blood cultures so she was started on a five-day course of IV ceftriaxone and followed by a five-day course of cefdinir. She complained of persistent right hip pain which responded to Lidoderm patching and gabapentin at night. She made slow but consistent gains in therapy and was deemed medically and functionally stable to return home on 02/19/2019. DISCHARGE MEDICATIONS: As per discharge summary. FUNCTIONAL HISTORY ON DISCHARGE: The patient was modified independent for sit to stand and toileting, able to ambulate 150 feet modified independent, and complete 6-inch and 2-inch stairs with increased time at a modified independent level. In occupational therapy, she was modified independent for toileting, functional transfers, grooming and dressing. Thank you for this referral.
== END 2019-02-19 14:05 | disposition home health service (06) | DRG 57 ==
LOC: M PM&R 16:45
PROVIDERS: ADMIT Physical Medicine & Rehabilitation; ATTEND Physical Medicine & Rehabilitation
DX: I69.851 Hemiplegia and hemiparesis following other cerebrovascular disease affecting right dominant side (principal); N39.0 Urinary tract infection, site not specified; I67.89 Other cerebrovascular disease; R78.81 Bacteremia; R26.89 Other abnormalities of gait and mobility; M25.511 Pain in right shoulder; M16.11 Unilateral primary osteoarthritis, right hip; K59.09 Other constipation; M21.371 Foot drop, right foot; G47.00 Insomnia, unspecified; B96.20 Unspecified Escherichia coli [E. coli] as the cause of diseases classified elsewhere; N32.81 Overactive bladder; R73.9 Hyperglycemia, unspecified; T38.0X5A Adverse effect of glucocorticoids and synthetic analogues, initial encounter; G40.909 Epilepsy, unspecified, not intractable, without status epilepticus; K21.9 Gastro-esophageal reflux disease without esophagitis; Z92.3 Personal history of irradiation; Z79.4 Long term (current) use of insulin; Z88.1 Allergy status to other antibiotic agents; Z88.6 Allergy status to analgesic agent; Z88.8 Allergy status to other drugs, medicaments and biological substances; Z79.899 Other long term (current) drug therapy; Z90.710 Acquired absence of both cervix and uterus; Z86.011 Personal history of benign neoplasm of the brain; Z90.49 Acquired absence of other specified parts of digestive tract; Z96.642 Presence of left artificial hip joint

== ENCOUNTER → 2019-03-12 | Outpatient (REF) | payer OTHER ==
[~2019-03-12] MED LIST changes: +ACET-907 PO; +CHLO120L TOP; +CHOL100029 PO; +GABA-1171 PO; +GLUCTAB PO; +HEPA500023 SC; +KEPP250T5 PO; +LEVE750T5 PO; +MAGN400T PO; +PANT-23 PO; +TYLETAB14 PO; +VIMP100T PO; +VIMP50TA3 PO; +VITA100062 PO; -VITAD1000T PO
[2019-03-12 13:00] LABS: APPEARANCE, URINE HAZY (CLEAR); BACTERIA, URINE AUTO 1+ (NEGATIVE); BILIRUBIN, URINE AUTO NEGATIVE (NEGATIVE); BLOOD, URINE BLOOD NEGATIVE (NEGATIVE); COLOR, URINE YELLOW (YELLOW); GLUCOSE, URINE (UA) AUTO NEGATIVE (NEGATIVE); KETONE, URINE AUTO NEGATIVE (NEGATIVE); LEUKOCYTE ESTERASE, URINE AUTO 2+ (NEGATIVE); NITRITE, URINE AUTO NEGATIVE (NEGATIVE); PROTEIN, URINE AUTO NEGATIVE (NEGATIVE); RBC, URINE AUTO 4 /HPF (0-3); SPECIFIC GRAVITY URINE AUTO 1.004 (1.002-1.035); SQUAMOUS EPITHELIAL CELL UR AU 1 /HPF (0-6); UROBILINOGEN, URINE AUTO 0.2 mg/dL (0.0-2.0); WBC, URINE AUTO 32 /HPF (0-3)
== END ==
LOC: M SHH 11:43
PROVIDERS: ATTEND Physician Assistant
DX: R30.0 Dysuria (principal)

== ENCOUNTER → 2019-03-31 | Outpatient (RCR) | payer OTHER | LOC: M PT 03-26 13:28 → M OT 03-26 13:45 → M PT 12:18 | PROVIDERS: ATTEND Physician Assistant | DX: Z51.89 Encounter for other specified aftercare (principal); Z98.890 Other specified postprocedural states ==

== ENCOUNTER → 2019-04-07 | Outpatient (REF) | payer OTHER ==
[~2019-04-07] MED LIST changes: -MAGN400T PO; +MAGN400T3 PO
[2019-04-07 19:02] LABS: APPEARANCE, URINE HAZY (CLEAR); BACTERIA, URINE AUTO NEGATIVE (NEGATIVE); BILIRUBIN, URINE AUTO NEGATIVE (NEGATIVE); BLOOD, URINE BLOOD NEGATIVE (NEGATIVE); COLOR, URINE YELLOW (YELLOW); GLUCOSE, URINE (UA) AUTO NEGATIVE (NEGATIVE); KETONE, URINE AUTO NEGATIVE (NEGATIVE); LEUKOCYTE ESTERASE, URINE AUTO NEGATIVE (NEGATIVE); NITRITE, URINE AUTO NEGATIVE (NEGATIVE); PROTEIN, URINE AUTO NEGATIVE (NEGATIVE); RBC, URINE AUTO 0 /HPF (0-3); SPECIFIC GRAVITY URINE AUTO 1.004 (1.002-1.035); SQUAMOUS EPITHELIAL CELL UR AU 7 /HPF (0-6); UROBILINOGEN, URINE AUTO 0.2 mg/dL (0.0-2.0); WBC, URINE AUTO 0 /HPF (0-3)
== END ==
LOC: M LAB REF 17:07
PROVIDERS: ATTEND Physician Assistant
DX: N39.0 Urinary tract infection, site not specified (principal)

== ENCOUNTER → 2019-04-25 | Outpatient (REF) | payer OTHER ==
[2019-04-25 15:47] LABS: APPEARANCE, URINE HAZY (CLEAR); BACTERIA, URINE AUTO 1+ (NEGATIVE); BILIRUBIN, URINE AUTO NEGATIVE (NEGATIVE); BLOOD, URINE BLOOD NEGATIVE (NEGATIVE); COLOR, URINE YELLOW (YELLOW); GLUCOSE, URINE (UA) AUTO NEGATIVE (NEGATIVE); KETONE, URINE AUTO NEGATIVE (NEGATIVE); LEUKOCYTE ESTERASE, URINE AUTO 3+ (NEGATIVE); NITRITE, URINE AUTO POSITIVE (NEGATIVE); PROTEIN, URINE AUTO NEGATIVE (NEGATIVE); RBC, URINE AUTO 5 /HPF (0-3); SPECIFIC GRAVITY URINE AUTO 1.004 (1.002-1.035); SQUAMOUS EPITHELIAL CELL UR AU 2 /HPF (0-6); UROBILINOGEN, URINE AUTO 0.2 mg/dL (0.0-2.0); WBC, URINE AUTO 73 /HPF (0-3)
== END ==
LOC: M LAB REF 15:17
PROVIDERS: ATTEND Physician Assistant
DX: R30.0 Dysuria (principal)

== ENCOUNTER 2019-04-30 11:15 | Outpatient (RCR) | payer OTHER | END 2019-05-01 | LOC: M OT 11:15 | PROVIDERS: ATTEND Physician Assistant | DX: Z48.811 Encounter for surgical aftercare following surgery on the nervous system (principal) ==

== ENCOUNTER → 2019-04-30 | Outpatient (CLI) | payer OTHER ==
--- NOTE | 2019-04-30 12:37 | REP ---
Clinical: Trauma. Fall. Technique: AP, lateral, bilateral oblique views of the right knee. Findings: Age-related arthritic changes are appreciated. No acute fracture dislocation. No obvious effusion. Impression: Age-related arthritic changes. No acute fracture or dislocation. Electronically Signed by Young Newberry MD 04/30/2019 12:29 P
== END ==
LOC: M RAD 11:58
PROVIDERS: ATTEND Physician Assistant
DX: M25.561 Pain in right knee (principal)

== ENCOUNTER → 2019-05-06 | Outpatient (CLI) | payer OTHER ==
[2019-05-06 15:12] LABS: BASO # 0.1 10^3/uL (0.0-0.2); BASO % 0.6 % (0.0-1.0); EOS # 0.2 10^3/uL (0.0-0.5); EOS % 1.4 % (0.0-3.0); HEMATOCRIT 45.6 % (36.0-47.0); HEMOGLOBIN 14.6 g/dl (12.0-15.5); LYMPH # 2.9 10^3/uL (1.5-5.0); LYMPH % 26.5 % (24.0-44.0); MEAN CORPUSCULAR HEMOGLOBIN 29.4 pg (27.0-33.0); MEAN CORPUSCULAR VOLUME 91.9 fl (80.0-96.0); MONO # 1.1 10^3/uL (0.0-0.8); MONO % 10.4 % (0.0-5.0); NEUTROPHILS # 6.6 10^3/uL (1.5-8.5); NEUTROPHILS % 60.7 % (36.0-66.0); PLATELET COUNT, AUTOMATED 428 10^3/uL (150-450); RED BLOOD COUNT 4.96 10^6/uL (4.00-5.40); WHITE BLOOD COUNT 10.9 10^3/uL (4.0-10.0)
[2019-05-06 15:17] LABS: HEMOGLOBIN A1c 5.8 %
[2019-05-06 15:32] LABS: BILIRUBIN,TOTAL 0.3 MG/DL (0.2-1.0); CALCIUM LEVEL 9.6 MG/DL (8.8-10.2); CHOLESTEROL RISK RATIO 6.86 (<5); CREATININE FOR GFR 1.02 MG/DL (0.55-1.30); GLOMERULAR FILTRATION RATE 58.1 (>45); POTASSIUM SERUM 4.4 MEQ/L (3.5-5.1); TOTAL PROTEIN 7.9 GM/DL (6.4-8.2)
--- NOTE | 2019-05-07 03:26 | REP ---
Clinical: Right shoulder pain. Technique: Internal rotation, external rotation, and Y view of the right shoulder. Findings: Mild age-related changes include cortical irregularity and subtle spurring at the acromioclavicular joint as well as along the inferior margin of the humeral head. Calcified loose bodies along the anterior margin of the glenohumeral joint space noted. Subacromial space is measured at approximately 6 mm. No acute fracture dislocation. Impression: Mild arthritic degenerative changes as suggested above. If the patient remains symptomatic consider MRI for further investigation. Electronically Signed by Young Newberry MD 05/07/2019 03:17 A
--- NOTE | 2019-05-07 03:29 | REP ---
Clinical: Right hip pain. Technique: Frontal view of the pelvis with neutral and frog lateral views of the right hip. Findings: Pelvic radiograph demonstrates left hip replacement extensive dystrophic calcification. Right hip demonstrates moderate arthritic degenerative changes including increase sclerosis to the acetabular roof, joint space narrowing, and subchondral heterogeneity and subtle cystic changes suggested involving the femoral head. No acute fracture dislocation. Impression: Moderate arthritic changes to the right hip. Electronically Signed by Young Newberry MD 05/07/2019 03:20 A
== END ==
LOC: M LAB 14:32
PROVIDERS: ATTEND Physician Assistant
DX: M25.711 Osteophyte, right shoulder (principal); M25.811 Other specified joint disorders, right shoulder; M25.851 Other specified joint disorders, right hip; E78.2 Mixed hyperlipidemia; R73.9 Hyperglycemia, unspecified

== ENCOUNTER 2019-05-15 13:22 | Outpatient (RCR) | payer OTHER | END 2019-05-31 | LOC: M ST 13:22 | PROVIDERS: ATTEND Physician Assistant | DX: Z47.89 Encounter for other orthopedic aftercare (principal) ==

== ENCOUNTER → 2019-12-02 | Outpatient (CLI) | payer MEDICARE, OTHER ==
[~2019-12-02] MED LIST changes: +VITA-243 PO; -VITA500T PO
[2019-12-02 15:54] LABS: BLOOD UREA NITROGEN 14 MG/DL (7-18); CREATININE FOR GFR 0.83 MG/DL (0.55-1.30); GLOMERULAR FILTRATION RATE > 60.0 (>45)
== END ==
LOC: M LAB 14:40
PROVIDERS: ATTEND Neurological Surgery
DX: I67.89 Other cerebrovascular disease (principal)

== ENCOUNTER → 2020-10-22 | Outpatient (CLI) | payer MEDICARE, OTHER ==
[~2020-10-22] MED LIST changes: +PANT40TA29 PO; -PANT40TA3 PO
[2020-10-22 18:08] LABS: BLOOD UREA NITROGEN 16 MG/DL (7-18); CREATININE FOR GFR 0.92 MG/DL (0.55-1.30); GLOMERULAR FILTRATION RATE > 60.0 (>45)
== END ==
LOC: M LAB 16:56
PROVIDERS: ATTEND Psychiatry & Neurology Neurology
DX: I10 Essential (primary) hypertension (principal)

== ENCOUNTER 2023-08-09 19:31 | Emergency (ER) | payer MEDICARE, OTHER ==
[~2023-08-09] VITALS: Ht 172.7 cm; Wt 86.4 kg
[~2023-08-09 19:31] MED LIST changes: -MAGN400T3 PO; +MAGN400T33 PO
[2023-08-09 20:55] LABS: BASO # 0.1 10^3/uL (0.0-0.2); BASO % 0.4 % (0.0-1.0); EOS # 0.2 10^3/uL (0.0-0.5); EOS % 1.7 % (0.0-3.0); HEMATOCRIT 44.7 % (36.0-47.0); HEMOGLOBIN 14.8 g/dl (12.0-15.5); LYMPH # 3.8 10^3/uL (1.5-5.0); LYMPH % 26.7 % (24.0-44.0); MEAN CORPUSCULAR HEMOGLOBIN 30.4 pg (27.0-33.0); MEAN CORPUSCULAR HGB CONC 33.1 g/dl (32.0-36.5); MEAN CORPUSCULAR VOLUME 91.8 fl (80.0-96.0); MONO # 1.2 10^3/uL (0.0-0.8); MONO % 8.7 % (2.0-8.0); NEUTROPHILS # 8.8 10^3/uL (1.5-8.5); PLATELET COUNT, AUTOMATED 338 10^3/uL (150-450); RED BLOOD COUNT 4.87 10^6/uL (4.00-5.40); WHITE BLOOD COUNT 14.2 10^3/uL (4.0-10.0)
[2023-08-09 20:59] LABS: ERYTHROCYTE SEDIMENTATION RATE 28 mm/hr (0-30)
[2023-08-09 21:24] LABS: BLOOD UREA NITROGEN 20 MG/DL (9-23); CALCIUM LEVEL 8.7 MG/DL (8.3-10.6); CARBON DIOXIDE LEVEL 29 MMOL/L (20-31); CHLORIDE LEVEL 106 MMOL/L (98-107); CREATININE FOR GFR 0.83 MG/DL (0.55-1.30); GLOMERULAR FILTRATION RATE > 60.0 (>45); GLUCOSE, FASTING 190 MG/DL (74-106); POTASSIUM SERUM 4.4 MMOL/L (3.5-5.1); SODIUM LEVEL 140 MMOL/L (136-145)
[2023-08-09] MEDS ORDERED: ISOVUE-370 76% 100ML VIAL As Ordered ONE (21:36)
[2023-08-10 00:03] VITALS: BP 174/93; TEMP 97.3; O2SAT 97
[2023-08-10] MEDS ORDERED: BACT800T5 PO (00:30)
[2023-08-10] MEDS: BACTRIM 160MG/800MG DS TAB PO ONE (00:55)
== END 2023-08-10 01:00 | disposition home or self-care (01) ==
LOC: M ED 19:31
DX: L03.115 Cellulitis of right lower limb (principal); R19.00 Intra-abdominal and pelvic swelling, mass and lump, unspecified site; W55.03XA Scratched by cat, initial encounter; Y92.9 Unspecified place or not applicable; Y93.9 Activity, unspecified; Y99.9 Unspecified external cause status; R16.0 Hepatomegaly, not elsewhere classified; K76.0 Fatty (change of) liver, not elsewhere classified; I10 Essential (primary) hypertension; J45.909 Unspecified asthma, uncomplicated; R56.9 Unspecified convulsions; Z79.899 Other long term (current) drug therapy; Z88.1 Allergy status to other antibiotic agents; Z88.6 Allergy status to analgesic agent; Z88.8 Allergy status to other drugs, medicaments and biological substances
CPT/HCPCS: 75635; 80048; 85025; 85652; 86140; 87040; 93971; 99283; Q9967

== ENCOUNTER → 2023-08-17 | Outpatient (CLI) | payer MEDICARE, OTHER ==
[~2023-08-17] MED LIST changes: +BACT800T5 PO
[2023-08-17 15:20] LABS: BASO # 0.1 10^3/uL (0.0-0.2); BASO % 0.6 % (0.0-1.0); EOS # 0.2 10^3/uL (0.0-0.5); EOS % 1.1 % (0.0-3.0); HEMATOCRIT 42.7 % (36.0-47.0); HEMOGLOBIN 14.4 g/dl (12.0-15.5); LYMPH # 3.1 10^3/uL (1.5-5.0); LYMPH % 21.9 % (24.0-44.0); MEAN CORPUSCULAR HEMOGLOBIN 30.4 pg (27.0-33.0); MEAN CORPUSCULAR HGB CONC 33.7 g/dl (32.0-36.5); MEAN CORPUSCULAR VOLUME 90.1 fl (80.0-96.0); MONO # 1.2 10^3/uL (0.0-0.8); MONO % 8.2 % (2.0-8.0); NEUTROPHILS # 9.6 10^3/uL (1.5-8.5); NEUTROPHILS % 67.6 % (36.0-66.0); PLATELET COUNT, AUTOMATED 379 10^3/uL (150-450); RED BLOOD COUNT 4.74 10^6/uL (4.00-5.40); WHITE BLOOD COUNT 14.2 10^3/uL (4.0-10.0)
[2023-08-17 15:53] LABS: ALBUMIN 3.7 G/DL (3.2-5.2); ALKALINE PHOSPHATASE 96 U/L (46-116); ALT/SGPT 34 U/L (7.0-40); AST/SGOT 14 U/L (<34); BILIRUBIN,TOTAL 0.4 MG/DL (0.3-1.2); BLOOD UREA NITROGEN 18 MG/DL (9-23); CARBON DIOXIDE LEVEL 23 MMOL/L (20-31); CHLORIDE LEVEL 103 MMOL/L (98-107); CREATININE FOR GFR 0.73 MG/DL (0.55-1.30); GLOMERULAR FILTRATION RATE > 60.0 (>45); GLUCOSE, FASTING 279 MG/DL (74-106); POTASSIUM SERUM 4.5 MMOL/L (3.5-5.1); SODIUM LEVEL 133 MMOL/L (136-145); TOTAL PROTEIN 7.1 G/DL (5.7-8.2)
[2023-08-18 16:37] LABS: CARCINOEMBRYONIC ANTIGEN < 2.0 NG/ML (<2.5)
[2023-08-18 16:51] LABS: CA19-9 TUMOR MARKER,CARBOHYDRA 8.6 U/ML (<35.0)
[2023-08-18 16:52] LABS: CA15-3 ANTIGEN 14.2 U/ML (<32.4)
[2023-08-22 05:08] LABS: LACOSAMIDE LEVEL 9.3 ug/mL (5.0-10.0); LEVETIRACETAM (KEPPRA) 19.5 ug/mL (10.0-40.0)
== END ==
LOC: M LAB 14:46
PROVIDERS: ATTEND Physician Assistant
DX: R19.00 Intra-abdominal and pelvic swelling, mass and lump, unspecified site (principal); Z85.841 Personal history of malignant neoplasm of brain; D39.8 Neoplasm of uncertain behavior of other specified female genital organs

== ENCOUNTER 2023-08-23 15:03 | Emergency (ER) | payer MEDICARE, OTHER ==
[~2023-08-23] VITALS: Ht 172.7 cm; Wt 86.4 kg
[2023-08-23 17:17] LABS: BASO % 0.3 % (0.0-1.0); EOS # 0.2 10^3/uL (0.0-0.5); EOS % 1.6 % (0.0-3.0); HEMATOCRIT 40.2 % (36.0-47.0); HEMOGLOBIN 13.5 g/dl (12.0-15.5); LYMPH # 2.3 10^3/uL (1.5-5.0); LYMPH % 16.1 % (24.0-44.0); MEAN CORPUSCULAR HEMOGLOBIN 30.3 pg (27.0-33.0); MEAN CORPUSCULAR HGB CONC 33.6 g/dl (32.0-36.5); MEAN CORPUSCULAR VOLUME 90.3 fl (80.0-96.0); MONO # 1.2 10^3/uL (0.0-0.8); MONO % 8.2 % (2.0-8.0); NEUTROPHILS # 10.5 10^3/uL (1.5-8.5); NEUTROPHILS % 73.4 % (36.0-66.0); PLATELET COUNT, AUTOMATED 374 10^3/uL (150-450); RED BLOOD COUNT 4.45 10^6/uL (4.00-5.40); WHITE BLOOD COUNT 14.3 10^3/uL (4.0-10.0)
[2023-08-23 17:23] LABS: ERYTHROCYTE SEDIMENTATION RATE 50 mm/hr (0-30)
[2023-08-23 17:38] LABS: ALBUMIN 3.4 G/DL (3.2-5.2); ALKALINE PHOSPHATASE 83 U/L (46-116); ALT/SGPT 26 U/L (7.0-40); AST/SGOT 12 U/L (<34); BILIRUBIN,DIRECT 0.1 MG/DL (<0.4); BILIRUBIN,TOTAL 0.4 MG/DL (0.3-1.2); BLOOD UREA NITROGEN 20 MG/DL (9-23); CALCIUM LEVEL 9.3 MG/DL (8.3-10.6); CARBON DIOXIDE LEVEL 23 MMOL/L (20-31); CHLORIDE LEVEL 105 MMOL/L (98-107); CREATININE FOR GFR 0.86 MG/DL (0.55-1.30); GLOMERULAR FILTRATION RATE > 60.0 (>45); GLUCOSE, FASTING 178 MG/DL (74-106); POTASSIUM SERUM 4.2 MMOL/L (3.5-5.1); SODIUM LEVEL 137 MMOL/L (136-145); TOTAL PROTEIN 6.9 G/DL (5.7-8.2)
[2023-08-23 17:50] LABS: PROCALCITONIN <0.04 ng/ml
[2023-08-23 17:53] VITALS: BP 104/56; TEMP 97.9; O2SAT 96
[2023-08-23 18:07] LABS: RSV AMPLIFICATION NEGATIVE (NEGATIVE)
== END 2023-08-23 18:36 | disposition home or self-care (01) ==
LOC: M ED 15:03
DX: L50.0 Allergic urticaria (principal); Z88.1 Allergy status to other antibiotic agents; Z88.6 Allergy status to analgesic agent; Z88.8 Allergy status to other drugs, medicaments and biological substances; Z88.2 Allergy status to sulfonamides; Z79.899 Other long term (current) drug therapy

== ENCOUNTER 2023-08-24 16:03 | Emergency (ER) | payer MEDICARE, OTHER ==
[~2023-08-24] VITALS: Ht 172.7 cm; Wt 86.4 kg
[2023-08-24 17:39] LABS: BASO # 0.1 10^3/uL (0.0-0.2); BASO % 0.4 % (0.0-1.0); EOS # 0.3 10^3/uL (0.0-0.5); EOS % 2.7 % (0.0-3.0); HEMATOCRIT 42.1 % (36.0-47.0); HEMOGLOBIN 14.1 g/dl (12.0-15.5); LYMPH # 3.4 10^3/uL (1.5-5.0); MEAN CORPUSCULAR HEMOGLOBIN 30.1 pg (27.0-33.0); MEAN CORPUSCULAR HGB CONC 33.5 g/dl (32.0-36.5); MONO # 1.1 10^3/uL (0.0-0.8); MONO % 9.2 % (2.0-8.0); NEUTROPHILS # 7.1 10^3/uL (1.5-8.5); NEUTROPHILS % 59.2 % (36.0-66.0); PLATELET COUNT, AUTOMATED 393 10^3/uL (150-450); RED BLOOD COUNT 4.68 10^6/uL (4.00-5.40)
[2023-08-24 17:46] LABS: ERYTHROCYTE SEDIMENTATION RATE 61 mm/hr (0-30)
[2023-08-24 18:49] VITALS: BP 143/75; TEMP 97.4; O2SAT 96
== END 2023-08-24 18:50 | disposition home or self-care (01) ==
LOC: M ED 16:03
DX: L27.0 Generalized skin eruption due to drugs and medicaments taken internally (principal); Z88.1 Allergy status to other antibiotic agents; Z88.6 Allergy status to analgesic agent; Z88.2 Allergy status to sulfonamides; Z88.8 Allergy status to other drugs, medicaments and biological substances

== ENCOUNTER → 2023-08-31 | Outpatient (CLI) | payer MEDICARE, OTHER | LOC: M WHC 14:14 | PROVIDERS: ATTEND Physician Assistant | DX: R19.00 Intra-abdominal and pelvic swelling, mass and lump, unspecified site (principal) ==

== ENCOUNTER → 2025-04-02 | Outpatient (CLI) | payer MEDICARE, OTHER ==
[~2025-04-02] MED LIST changes: -ADV250INH INH; +ADVA1AER9 INH
== END ==
LOC: M PLAIMG 15:20
PROVIDERS: ATTEND Physician Assistant
DX: M16.11 Unilateral primary osteoarthritis, right hip (principal)